=== PATIENT | male | born 1960 | race Caucasian/White ===

== ENCOUNTER 2017-12-11 16:53 | Inpatient (IN) | payer OTHER, SELFPAY ==
[2017-12-11 16:55] VITALS: BP 159/105; PULSE 118; RESP 20; TEMP 37.3; O2SAT 96; BMI 36.3
--- NOTE | 2017-12-11 17:33 | EKG12_ITS ---
Test Reason : Blood Pressure : / mmHG Vent. Rate : 106 BPM Atrial Rate : 106 BPM P-R Int : 132 ms QRS Dur : 068 ms QT Int : 318 ms P-R-T Axes : 052 032 039 degrees QTc Int : 422 ms Sinus tachycardia Otherwise normal ECG Confirmed by XAVIER DEL VALLE, RIO ([id number]), assistant film editor ANNALISE REINA ([id number] on 12/16/2017 2:42:25 PM Referred By: DC Confirmed By:RIO PARK MD
--- NOTE | 2017-12-11 17:38 | ED.VISSUMM ---
- ER Visit Summary Date of Service: 12/11/17 Chief Complaint: Alcohol withdrawal History of Present Illness: The patient is a 78 M with alcohol withdrawal. The patient has a history of alcoholism. He has been drinking every day for the past 2 months. His last use was yesterday evening. He drinks 12 or more beers per day. Denies any hard liquor or drug use. He has a history of DTs but no history of withdrawal seizures. He was admitted about a year ago for alcohol detox. He is requesting detox today. No suicidal or homicidal thoughts. No medical complaints. He has some nausea. Physical Examination: Blood pressure 159/105. Heart rate 118. Afebrile. Skin exhibits flushing. Heart tachycardic but regular. Lungs clear. Abdomen soft and nontender. Extremities nontender with no edema. Alert and oriented. Depressed. Test Results: EKG, labs, urine drug screen, alcohol level pending. Emergency Department Course and Treatment: Patient treated with IV fluids and Ativan while awaiting results. Workup fairly unremarkable. Alcohol level 160. ALT 76 and AST 88. Patient is improved after fluids and Ativan. Hospitalist contacted for admission. Treatment Plan: As above Disposition: Admission Impression: 1. Alcohol withdrawal This note was generated with [employer] dictation software. It may contain incorrect words, spelling, and punctuation that were not noted in review of the chart prior to signing ED Disposition - Plan for ED Patient: Chief Complaint: ETOH Intox Referrals: Jeff Mahmood MD [Primary Care Provider] -
[2017-12-11] MEDS: LORazepam 2 MG/ML Syringe 1 MG IV (18:02)
[2017-12-11] MEDS: 0.9% Normal Saline 1,000 ML 1000 ML IV (18:02)
[2017-12-11 18:13] LABS: Absolute Lymphocyte Count 1.03 X10^3/ul (0.83-4.51); Absolute Neutrophil Count 2.1 X10^3/uL (2.0-7.7); Basophil# 0.02 X10^3/uL; Basophil% 0.6 % (0-1); Eosinophil# 0.06 X10^3/uL; Eosinophils% 1.7 % (0-5); Hematocrit 46.2 % (40-54); Hemoglobin 15.8 g/dl (13.0-16.5); Lymphocyte # 1.03 X10^3/ul (4.0); Lymphocyte % 29.8 % (19-41); Mean Corp Hgb Conc 34.2 g/gl (32-36); Mean Corpuscular Hgb 30.9 pg (27.0-32.0); Mean Corpuscular Volume 90.4 fL (80-94); Mean Platelet Vol. 10.1 fl (6.2-12.0); Monocyte# 0.26 X10^3/uL; Monocyte% 7.5 % (0-10); Neutrophil # 2.09 X10^3/uL (2.7-7.7); Neutrophil % 60.4 % (47-70); Platelet Count 159 K/mm3 (150-450); RBC Distribution Width CV 12.6 % (11.6-14.6); RBC Distribution Width SD 41.7 fl (35.1-43.9); Red Blood Count 5.11 M/mm3 (4.6-6.2); White Blood Count 3.5 K/mm3 (4.4-11.0)
[2017-12-11 18:17] LABS: POSITIVE COUNT NO; POSITIVE DIFFERENTIAL NO; POSITIVE MORPHOLOGY NO
[2017-12-11 18:30] LABS: Amphetamine Urine VISTA NEGATIVE (<1000 ng/mL); Barbiturate Urine VISTA NEGATIVE (< 200 ng/mL); Benzodiazepine Urine VISTA NEGATIVE (< 200 ng/mL); Cocaine Urine VISTA NEGATIVE (< 300 ng/mL); Ecstacy Urine VISTA NEGATIVE (< 500 ng/mL); Methadone Urine VISTA NEGATIVE (< 300 ng/mL); PCP Urine VISTA NEGATIVE (< 25 ng/mL); THC Urine VISTA NEGATIVE (< 50 ng/mL); Vista UDS pH Range 5
[2017-12-11 18:31] LABS: AST(SGOT) 88 U/L (15-37); Alanine Aminotransfer ALT/SGPT 76 U/L (16-61); Albumin, Serum 3.8 g/dL (3.2-5.0); Alkaline Phosphatase 108 U/L (45-117); Anion Gap 12 (5-15); BUN 9 mg/dL (7-18); BUN/Creat Ratio 10.2 RATIO (10-20); Calcium,Total 8.7 mg/dL (8.5-10.1); Chloride 99 mmol/L (98-107); Creatinine, Serum 0.88 mg/dL (0.70-1.30); EST Glomerular Filtration Rate 94 mL/min (>60); Est Glom Filt Rate - Afr Amer 114 mL/min (>60); Estimated Creatinine Clearance 95.63 ml/min; Globulin 3.8 g/dL (2.2-4.2); Glucose 180 mg/dL (74-106); Potassium 3.6 mmol/L (3.5-5.1); Protein, Total 7.6 g/dL (6.4-8.2); Sodium Level 136 mmol/L (136-145)
--- NOTE | 2017-12-11 19:21 | PCM.HP.STD ---
Problem List (1) Alcohol withdrawal Status: Acute Qualifiers: Complication of substance-induced condition: with unspecified complication Qualified Code(s): F10.239 - Alcohol dependence with withdrawal, unspecified (2) Alcohol abuse Status: Chronic (3) Obesity Status: Chronic Qualifiers: Obesity type: due to excess calories Obesity classification: adult class 2 (BMI 35 - 39.9) (4) GERD (gastroesophageal reflux disease) Status: Chronic Qualifiers: Esophagitis presence: esophagitis presence not specified Qualified Code(s): K21.9 - Gastro-esophageal reflux disease without esophagitis (5) Anxiety and depression Status: Chronic (6) Hypertension Status: Chronic Qualifiers: Hypertension type: essential hypertension Qualified Code(s): I10 - Essential (primary) hypertension (7) DM2 (diabetes mellitus, type 2) Status: Chronic Qualifiers: Diabetes mellitus group home insulin use: without group home use Diabetes mellitus complication status: with unspecified complications Qualified Code(s): E11.8 - Type 2 diabetes mellitus with unspecified complications History of Present Illness Date of Admission: 12/11/17 Chief Complaint: Acute EtOH Withdrawal The patient is a 57 y/o M w/ PMHx: HTN, Diabetes mellitus type II, Anxiety and Depression, Obesity, GERD, ? Chronic COPD who presents to the [facility] ED on 12/11/17 w/ noted acute EtOH withdrawal, onset starting on day of ED presentation following last EtOH intake the evening prior with onset of nausea, tremors, agitation, tactile disturbances. Patient interested in attaining sober status. He was administered ativan IV in the ED prior to formal CIWA scoring. The patient does have history of DT. In the ED work-up included T 99.1, heart rate 118, BP 159/105 with noted missed medication regimens including his hypertensive regimen on day of presentation, respiratory rate 18, 97% on room air, CBC with WBC 3.5, hemoglobin 15.8, platelet 159 without shift, CMP with glucose 180, AST/ALT 88/76, urine drug screen negative, alcohol level 160. As noted in the emergency room patient administered IV Ativan 1 mg ?1 in addition to normal saline 1 L. He was most recently in acute rehab ~ 1 year prior and noted continued sobriety nearly 1 year following. Past Medical History Past Medical History (Chronic Problems): Chronic Problems Obesity (Chronic) GERD (gastroesophageal reflux disease) (Chronic) Anxiety and depression (Chronic) Hypertension (Chronic) DM2 (diabetes mellitus, type 2) (Chronic) Alcohol abuse (Chronic) Allergies Penicillins Adverse Reaction (Mild, Verified 12/11/17 16:55) red, itching strawberry Adverse Reaction (Mild, Verified 12/11/17 16:55) dont eat them anymore Home Medications: Ambulatory Orders Medication Instructions Recorded Albuterol Inhaler [Ventolin Hfa] 2 puff INHALATION Q6H PRN PRN 10/23/16 Dulaglutide [Trulicity] 0.75 mg SQ QWEEK 10/23/16 Lisinopril/Hydrochlorothiazide 1 each PO BID 10/23/16 [Zestoretic 20-12.5 mg Tablet] Metformin HCl [Metformin HCl ER] 1,500 mg PO DAILY 10/23/16 Pantoprazole Sodium [Protonix] 10 mg PO DAILY 10/23/16 Zolpidem Tartrate [Ambien] 10 mg PO DAILY PRN 10/23/16 Acetaminophen [Tylenol Tablet] 650 mg PO Q4H PRN PRN tablet 10/26/16 Amlodipine [Norvasc] 2.5 mg PO DAILY #30 tablet 10/26/16 Ibuprofen [Motrin] 800 mg PO Q8H PRN PRN tablet 10/26/16 Sertraline HCl [Zoloft] 50 mg PO DAILY #30 tablet 10/26/16 hydrOXYzine pamoate capsule 25 mg PO 4X/DAY PRN PRN #12 capsule 10/26/16 [Vistaril] Surgical History: - - Tonsillectomy, left shoulder replacement, gastric ulcer intervention, cholecystectomy, umbilical hernia repair. Psychiatric History: Anxiety, Depression Lives: Spouse/ Significant Other Smoking Status: Former smoker - Quit cigarette tobacco usage in 1999, prior to this 2 pack per day which was started in use. Tobacco Use: Non-smoker Alcohol: Heavy - Patient notes at least a 12 pack per day of 12 ounce beers, last intake evening prior at approximately 1030 to 11 PM. Drugs: None - *Family History Paternal History Items: - - Patient notes a paternal family history of heart disease, [place] in his 50s in addition to alcohol abuse history. Maternal History Items: No pertinent history Review of Systems Constitutional: Reports: Malaise, Weakness, Fatigue. Denies: Chills, Fever, Weight Change HEENT: Denies: Head Aches, Sinus Congestion, Sinus Drainage Cardiovascular: Denies: Chest Pain, Palpitations Respiratory: Reports: Wheezing. Denies: Cough, Shortness of breath at rest, Sputum production Gastrointestinal: Denies: Abdominal Pain, Nausea, Vomiting Genitourinary: Denies: Dysuria Musculoskeletal: Denies: Joint Pain, Joint Tenderness Skin: Denies: Rash, Wounds Neurological: Reports: Tremor. Denies: Focal weakness, Numbness, Tingling Psychiatric: Reports: Anxiety, Depression. Denies: Homicidal Ideations, Suicidal Ideations Hematologic/ Lymphatic: Denies: Easy Bruising, Easy Bleeding VTE Information - Inpt Only VTE Present on Admission: No VTE Mechan Device Prophylaxis: SCD's VTE Pharm Prophylaxis ordered?: Yes Subjective: Seated upright in the ED bed, more comfortable appearing following recent Ativan administration. Objective: Physical Examination: General: awake, alert, oriented x 3 and cooperative, seated upright in the ED bed in no apparent distress with recent Ativan administration. Skin: Flushed appearance, turgor, no icterus, cyanosis. HEENT: AT/NC, EOMI, PERRLA, MMM, no carotid bruits or JVD noted. Lungs: Manage breath sounds, greater bilateral bases, no rales, ronchi or wheezing. Heart: Mildly tachycardic with regular rhythm; no gallop, rub audible. Abdomen: soft, obese, NTTP, ND, normal BS, + HM. Extremities: no cyanosis, clubbing, or edema. Neurological: patient awake, alert, oriented x 3; cognitive function intact; pupils equally reactive to light and accomodation; cranial nerves II-XII grossly normal, moving all 4 extremities, no focal deficits, strength moderately to severely globally decreased secondary to acute presentation. Psychiatric: affect appears fatigued, no acute evidence of depressive or anxiety feelings. - Physical Exam Vital Signs Temp Pulse Resp BP Pulse Ox 99.1 F 118 H 20 H 159/105 H 96 12/11/17 16:55 12/11/17 16:55 12/11/17 16:55 12/11/17 16:55 12/11/17 16:55 Oxygen Delivery Method Room Air Weight: 253 lb 12.033 oz Body Mass Index (BMI) 36.3 Laboratory Tests Past 24 Hrs 12/11/17 12/11/17 12/11/17 17:35 17:43 17:43 WBC 3.5 L RBC 5.11 Hgb 15.8 Hct 46.2 MCV 90.4 MCH 30.9 MCHC 34.2 RDW 12.6 RDW Differential 41.7 Plt Count 159 MPV 10.1 Immature Gran % (Auto) 0.000 Neut % (Auto) 60.4 Lymph % (Auto) 29.8 [place] % (Auto) 7.5 Eos % (Auto) 1.7 Baso % (Auto) 0.6 Absolute Neuts (auto) 2.1 Absolute Lymphs (auto) 1.03 Total Counted Not Reportable Sodium 136 Potassium 3.6 Chloride 99 Carbon Dioxide 25.0 Anion Gap 12 BUN 9 Creatinine 0.88 Estim Creat Clear Calc 95.63 Est GFR (MDRD) Af Amer 114 Est GFR (MDRD) Non-Af 94 BUN/Creatinine Ratio 10.2 Glucose 180 H Calcium 8.7 Total Bilirubin 0.40 AST 88 H ALT 76 H Alkaline Phosphatase 108 Total Protein 7.6 Albumin 3.8 Globulin 3.8 Albumin/Globulin Ratio 1.0 Urine Opiates Screen NEGATIVE Urine Methadone Screen NEGATIVE Ur Barbiturates Screen NEGATIVE Ur Phencyclidine Scrn NEGATIVE Ur Amphetamines Screen NEGATIVE U Methamphetamin-MDMA NEGATIVE U Benzodiazepines Scrn NEGATIVE Urine Cocaine Screen NEGATIVE U Cannabinoids Screen NEGATIVE Ur Drug Screen Comment Ethyl Alcohol 12/11/17 17:43 WBC RBC Hgb Hct MCV MCH MCHC RDW RDW Differential Plt Count MPV Immature Gran % (Auto) Neut % (Auto) Lymph % (Auto) [place] % (Auto) Eos % (Auto) Baso % (Auto) Absolute Neuts (auto) Absolute Lymphs (auto) Total Counted Sodium Potassium Chloride Carbon Dioxide Anion Gap BUN Creatinine Estim Creat Clear Calc Est GFR (MDRD) Af Amer Est GFR (MDRD) Non-Af BUN/Creatinine Ratio Glucose Calcium Total Bilirubin AST ALT Alkaline Phosphatase Total Protein Albumin Globulin Albumin/Globulin Ratio Urine Opiates Screen Urine Methadone Screen Ur Barbiturates Screen Ur Phencyclidine Scrn Ur Amphetamines Screen U Methamphetamin-MDMA U Benzodiazepines Scrn Urine Cocaine Screen U Cannabinoids Screen Ur Drug Screen Comment Ethyl Alcohol 160.0 Assessment/Plan All Active Problems Alcohol withdrawal (Acute) The patient is a 57 y/o M w/ PMHx: HTN, Diabetes mellitus type II, Anxiety and Depression, Obesity, GERD, ? Chronic COPD who presents to the [facility] ED on 12/11/17 w/ noted acute EtOH withdrawal, onset starting on day of ED presentation following last EtOH intake the evening prior with onset of nausea, tremors, agitation, tactile disturbances. (1) Acute EtOH Withdrawal w/ History of prior DTs w/ Elevated LFTs: Will admit to [place], routine labs including CBC, CMP, urine for drug screen obtained in the ED, routine EKG ED obtained, will initiate and continue on [facility] service protocol with taper course of librium, as needed Seroquel, Catapres, Bentyl, Vistaril, IV fluids, IV antiemetics, Tylenol as needed for pain. Once patient clinically improved and completion of taper nearing will plan [facility] assistance for transition to next level of rehabilitation care. Mag, phos pending. Maintain on CIWA protocol. LFTs improved from prior levels noted in 2017, likely chronic. May consider liver US, hepatic profile outpatient. (2) Diabetes mellitus type II: Hold oral home regimen, hold trulicity regimen, ADA diet, accu checks w/ ISS. (3) Hypertension: Continue home regimen including Norvasc, lisinopril, hydrochlorothiazide with dosing upon admission given missed regimen on day of ED presentation, PRN hydralazine. (4) Hyperlipidemia: Patient noted history, but improved. Not on regimen, encourage repeat testing outpatient. (5) Obesity: Weight loss and lifestyle changes encouraged. (6) Suspected Chronic COPD: ATC duonebs, PRN albuterol, HOB, IS parameters. (7) Anxiety and depression: Continue home regimen sertraline. (8) GERD w/ Gastric Ulcer History: PPI. (9) DVT prophylaxis: SCDs, Lovenox. Code Visit Inpatient E&M: 11520 Init Hosp L3
[2017-12-11 19:25] VITALS: BP 189/109; PULSE 112; RESP 18; O2SAT 97
--- NOTE | 2017-12-11 19:25 | HP.PCM_ITS ---
Problem List (1) Alcohol withdrawal Status: Acute Qualifiers: Complication of substance-induced condition: with unspecified complication Qualified Code(s): F10.239 - Alcohol dependence with withdrawal, unspecified (2) Alcohol abuse Status: Chronic (3) Obesity Status: Chronic Qualifiers: Obesity type: due to excess calories Obesity classification: adult class 2 (BMI 35 - 39.9) (4) GERD (gastroesophageal reflux disease) Status: Chronic Qualifiers: Esophagitis presence: esophagitis presence not specified Qualified Code(s) : K21.9 - Gastro-esophageal reflux disease without esophagitis (5) Anxiety and depression Status: Chronic (6) Hypertension Status: Chronic Qualifiers: Hypertension type: essential hypertension Qualified Code(s): I10 - Essential (primary) hypertension (7) DM2 (diabetes mellitus, type 2) Status: Chronic Qualifiers: Diabetes mellitus senior care insulin use: without marine oil terminal superintendent use Diabetes mellitus complication status: with unspecified complications Qualified Code(s) : E11.8 - Type 2 diabetes mellitus with unspecified complications History of Present Illness Date of Admission: 12/11/17 Chief Complaint: Acute EtOH Withdrawal The patient is a 57 y/o M w/ PMHx: HTN, Diabetes mellitus type II, Anxiety and Depression, Obesity, GERD, ? Chronic COPD who presents to the [facility] ED on 12/11/17 w/ noted acute EtOH withdrawal, onset starting on day of ED presentation following last EtOH intake the evening prior with onset of nausea, tremors, agitation, tactile disturbances. Patient interested in attaining sober status. He was administered ativan IV in the ED prior to formal CIWA scoring. The patient does have history of DT. In the ED work-up included T 99.1, heart rate 118, BP 159/105 with noted missed medication regimens including his hypertensive regimen on day of presentation, respiratory rate 18, 97% on room air, CBC with WBC 3.5, hemoglobin 15.8, platelet 159 without shift, CMP with glucose 180, AST/ALT 88/76, urine drug screen negative, alcohol level 160. As noted in the emergency room patient administered IV Ativan 1 mg ?1 in addition to normal saline 1 L. He was most recently in acute rehab ~ 1 year prior and noted continued sobriety nearly 1 year following. Past Medical History Past Medical History (Chronic Problems): Chronic Problems Obesity (Chronic) GERD (gastroesophageal reflux disease) (Chronic) Anxiety and depression (Chronic) Hypertension (Chronic) DM2 (diabetes mellitus, type 2) (Chronic) Alcohol abuse (Chronic) Allergies Penicillins Adverse Reaction (Mild, Verified 12/11/17 16:55) red, itching strawberry Adverse Reaction (Mild, Verified 12/11/17 16:55) dont eat them anymore Home Medications: Ambulatory Orders Medication Instructions Recorded Albuterol Inhaler [Ventolin Hfa] 2 puff INHALATION Q6H PRN PRN 10/23/16 Dulaglutide [Trulicity] 0.75 mg SQ QWEEK 10/23/16 Lisinopril/Hydrochlorothiazide 1 each PO BID 10/23/16 [Zestoretic 20-12.5 mg Tablet] Metformin HCl [Metformin HCl ER] 1,500 mg PO DAILY 10/23/16 Pantoprazole Sodium [Protonix] 10 mg PO DAILY 10/23/16 Zolpidem Tartrate [Ambien] 10 mg PO DAILY PRN 10/23/16 Acetaminophen [Tylenol Tablet] 650 mg PO Q4H PRN PRN tablet 10/26/16 Amlodipine [Norvasc] 2.5 mg PO DAILY #30 tablet 10/26/16 Ibuprofen [Motrin] 800 mg PO Q8H PRN PRN tablet 10/26/16 Sertraline HCl [Zoloft] 50 mg PO DAILY #30 tablet 10/26/16 hydrOXYzine pamoate capsule 25 mg PO 4X/DAY PRN PRN #12 capsule 10/26/16 [Vistaril] Surgical History: - - Tonsillectomy, left shoulder replacement, gastric ulcer intervention, cholecystectomy, umbilical hernia repair. Psychiatric History: Anxiety, Depression Lives: Spouse/ Significant Other Smoking Status: Former smoker - Quit cigarette tobacco usage in 1999, prior to this 2 pack per day which was started in use. Tobacco Use: Non-smoker Alcohol: Heavy - Patient notes at least a 12 pack per day of 12 ounce beers, last intake evening prior at approximately 1030 to 11 PM. Drugs: None - *Family History Paternal History Items: - - Patient notes a paternal family history of heart disease, [place] in his 50s in addition to alcohol abuse history. Maternal History Items: No pertinent history Review of Systems Constitutional: Reports: Malaise, Weakness, Fatigue. Denies: Chills, Fever, Weight Change HEENT: Denies: Head Aches, Sinus Congestion, Sinus Drainage Cardiovascular: Denies: Chest Pain, Palpitations Respiratory: Reports: Wheezing. Denies: Cough, Shortness of breath at rest, Sputum production Gastrointestinal: Denies: Abdominal Pain, Nausea, Vomiting Genitourinary: Denies: Dysuria Musculoskeletal: Denies: Joint Pain, Joint Tenderness Skin: Denies: Rash, Wounds Neurological: Reports: Tremor. Denies: Focal weakness, Numbness, Tingling Psychiatric: Reports: Anxiety, Depression. Denies: Homicidal Ideations, Suicidal Ideations Hematologic/ Lymphatic: Denies: Easy Bruising, Easy Bleeding VTE Information - Inpt Only VTE Present on Admission: No VTE Mechan Device Prophylaxis: SCD's VTE Pharm Prophylaxis ordered?: Yes Subjective: Seated upright in the ED bed, more comfortable appearing following recent Ativan administration. Objective: Physical Examination: General: awake, alert, oriented x 3 and cooperative, seated upright in the ED bed in no apparent distress with recent Ativan administration. Skin: Flushed appearance, turgor, no icterus, cyanosis. HEENT: AT/NC, EOMI, PERRLA, MMM, no carotid bruits or JVD noted. Lungs: Manage breath sounds, greater bilateral bases, no rales, ronchi or wheezing. Heart: Mildly tachycardic with regular rhythm; no gallop, rub audible. Abdomen: soft, obese, NTTP, ND, normal BS, + HM. Extremities: no cyanosis, clubbing, or edema. Neurological: patient awake, alert, oriented x 3; cognitive function intact; pupils equally reactive to light and accomodation; cranial nerves II-XII grossly normal, moving all 4 extremities, no focal deficits, strength moderately to severely globally decreased secondary to acute presentation. Psychiatric: affect appears fatigued, no acute evidence of depressive or anxiety feelings. - Physical Exam Vital Signs Temp Pulse Resp BP Pulse Ox 99.1 F 118 H 20 H 159/105 H 96 12/11/17 16:55 12/11/17 16:55 12/11/17 16:55 12/11/17 16:55 12/11/17 16:55 Oxygen Delivery Method Room Air Weight: 253 lb 12.033 oz Body Mass Index (BMI) 36.3 Laboratory Tests Past 24 Hrs 12/11/17 12/11/17 12/11/17 17:35 17:43 17:43 WBC 3.5 L RBC 5.11 Hgb 15.8 Hct 46.2 MCV 90.4 MCH 30.9 MCHC 34.2 RDW 12.6 RDW Differential 41.7 Plt Count 159 MPV 10.1 Immature Gran % (Auto) 0.000 Neut % (Auto) 60.4 Lymph % (Auto) 29.8 [place] % (Auto) 7.5 Eos % (Auto) 1.7 Baso % (Auto) 0.6 Absolute Neuts (auto) 2.1 Absolute Lymphs (auto) 1.03 Total Counted Not Reportable Sodium 136 Potassium 3.6 Chloride 99 Carbon Dioxide 25.0 Anion Gap 12 BUN 9 Creatinine 0.88 Estim Creat Clear Calc 95.63 Est GFR (MDRD) Af Amer 114 Est GFR (MDRD) Non-Af 94 BUN/Creatinine Ratio 10.2 Glucose 180 H Calcium 8.7 Total Bilirubin 0.40 AST 88 H ALT 76 H Alkaline Phosphatase 108 Total Protein 7.6 Albumin 3.8 Globulin 3.8 Albumin/Globulin Ratio 1.0 Urine Opiates Screen NEGATIVE Urine Methadone Screen NEGATIVE Ur Barbiturates Screen NEGATIVE Ur Phencyclidine Scrn NEGATIVE Ur Amphetamines Screen NEGATIVE U Methamphetamin-MDMA NEGATIVE U Benzodiazepines Scrn NEGATIVE Urine Cocaine Screen NEGATIVE U Cannabinoids Screen NEGATIVE Ur Drug Screen Comment Ethyl Alcohol 12/11/17 17:43 WBC RBC Hgb Hct MCV MCH MCHC RDW RDW Differential Plt Count MPV Immature Gran % (Auto) Neut % (Auto) Lymph % (Auto) [place] % (Auto) Eos % (Auto) Baso % (Auto) Absolute Neuts (auto) Absolute Lymphs (auto) Total Counted Sodium Potassium Chloride Carbon Dioxide Anion Gap BUN Creatinine Estim Creat Clear Calc Est GFR (MDRD) Af Amer Est GFR (MDRD) Non-Af BUN/Creatinine Ratio Glucose Calcium Total Bilirubin AST ALT Alkaline Phosphatase Total Protein Albumin Globulin Albumin/Globulin Ratio Urine Opiates Screen Urine Methadone Screen Ur Barbiturates Screen Ur Phencyclidine Scrn Ur Amphetamines Screen U Methamphetamin-MDMA U Benzodiazepines Scrn Urine Cocaine Screen U Cannabinoids Screen Ur Drug Screen Comment Ethyl Alcohol 160.0 Assessment/Plan All Active Problems Alcohol withdrawal (Acute) The patient is a 57 y/o M w/ PMHx: HTN, Diabetes mellitus type II, Anxiety and Depression, Obesity, GERD, ? Chronic COPD who presents to the [facility] ED on 12/11/17 w/ noted acute EtOH withdrawal, onset starting on day of ED presentation following last EtOH intake the evening prior with onset of nausea, tremors, agitation, tactile disturbances. (1) Acute EtOH Withdrawal w/ History of prior DTs w/ Elevated LFTs: Will admit to [place], routine labs including CBC, CMP, urine for drug screen obtained in the ED , routine EKG ED obtained, will initiate and continue on [facility] service protocol with taper course of librium, as needed Seroquel, Catapres, Bentyl, Vistaril, IV fluids, IV antiemetics, Tylenol as needed for pain. Once patient clinically improved and completion of taper nearing will plan [facility] assistance for transition to next level of rehabilitation care. Mag, phos pending. Maintain on CIWA protocol. LFTs improved from prior levels noted in 2017, likely chronic. May consider liver US, hepatic profile outpatient. (2) Diabetes mellitus type II: Hold oral home regimen, hold trulicity regimen, ADA diet, accu checks w/ ISS. (3) Hypertension: Continue home regimen including Norvasc, lisinopril, hydrochlorothiazide with dosing upon admission given missed regimen on day of ED presentation, PRN hydralazine. (4) Hyperlipidemia: Patient noted history, but improved. Not on regimen, encourage repeat testing outpatient. (5) Obesity: Weight loss and lifestyle changes encouraged. (6) Suspected Chronic COPD: ATC duonebs, PRN albuterol, HOB, IS parameters. (7) Anxiety and depression: Continue home regimen sertraline. (8) GERD w/ Gastric Ulcer History: PPI. (9) DVT prophylaxis: SCDs, Lovenox. Code Visit Inpatient E&M: 21350 Init Hosp L3
[2017-12-11 19:54] VITALS: BP 189/109; PULSE 81; RESP 18; O2SAT 96
[2017-12-11 20:01] VITALS: BMI 36.3
[2017-12-11 20:10] LABS: Bedside Glucose 111 mg/dL (70-110)
[2017-12-11 20:14] VITALS: BP 189/102; PULSE 111; RESP 20; TEMP 37; O2SAT 96; BMI 36.3
[2017-12-11] MEDS: traZODone 50 MG Tablet PO (20:45)
[2017-12-11] MEDS: chlordiazePOXIDE 25 MG Capsule PO (20:45)
[2017-12-11] MEDS: Lisinopril 20 MG Tablet PO (20:45)
[2017-12-11 20:46] LABS: Magnesium 2.1 mg/dL (1.6-2.6); Phosphorus 2.9 mg/dL (2.5-4.9)
[2017-12-11] MEDS: Lactated Ringers 1,000 ML 125 ML IV (20:53)
[2017-12-11] MEDS: HYDROCHLOROTHIAZIDE 12.5 MG CAPSULE PO (20:53)
[2017-12-11 22:36] VITALS: O2SAT 96
[2017-12-11] MEDS: QUEtiapine 25 MG Tablet PO (23:35)
[2017-12-11] MEDS: Ibuprofen 600 MG Tablet PO (23:35)
[2017-12-11] MEDS: Methocarbamol 750 MG Tablet PO (23:35)
[2017-12-12] VITALS (7 sets, daily range): BP systolic 151–162; BP diastolic 80–103; PULSE 90–105; RESP 16–18; TEMP 36.3–37; O2SAT 94–96
[2017-12-12] MEDS: chlordiazePOXIDE 25 MG Capsule PO ×4 (01:50→21:48)
[2017-12-12 06:36] LABS: Bedside Glucose 138 mg/dL (70-110)
--- NOTE | 2017-12-12 08:46 | PCM.PN.HOSP ---
Subjective: Patient is a 57-year-old gentleman with history of chronic alcohol is admitted with acute alcohol withdrawal patient admitted to regular nursing floor currently undergoing medical stabilization using the [facility] alcohol withdrawal protocol Objective: GENERAL: cooperative . HEENT: Clear conjunctiva, NECK; supple, normal thyroid, CHEST: Clear to auscultation bilaterally, HEART: Regular S1 S2, no audible murmurs ABDOMEN: soft, non-tender, normoactive bowel sounds, RECTAL: deferred EXTREMITIES: No edema, no clubbing, no cyanosis. MAGNETIC DOCTOR: Awake; no lateralizing signs. SKIN: No Rash Vitals/I&O's: Vital Signs Temp Pulse Resp BP Pulse Ox 98.4 F 95 16 158/97 H 96 12/12/17 06:21 12/12/17 06:21 12/12/17 06:21 12/12/17 06:21 12/11/17 22:36 Oxygen Delivery Method Room Air Weight: 114.759 kg Body Mass Index (BMI) 36.3 Intake and Output for Last 24 Hours 12/10/17 12/11/17 12/12/17 23:59 23:59 23:59 Intake Total 337 / 337 774 / 774 Balance 337 / 337 774 / 774 Laboratory Results 12/11/17 20:07: POC Glucose 111 H 12/12/17 06:12: POC Glucose 138 H Current Medications Acetaminophen (Tylenol) 500 mg PO Q4H PRN PRN PRN Reason: Temp > 100.4 F Al Hydroxide/Mg Hydroxide (Mylanta Ii) 30 ml PO Q6H PRN PRN PRN Reason: dyspesia Albuterol Sulfate (Ventolin Aerosols) 2.5 mg INHALATION Q2H PRN PRN PRN Reason: dyspnea, wheezing Albuterol/Ipratropium (Duoneb) 3 ml INHALATION Q6HWA.RT PATI Last Admin: 12/11/17 22:35 Dose: Not Given Amlodipine Besylate (Norvasc) 2.5 mg PO DAILY PATI Last Admin: 12/11/17 20:44 Dose: Not Given Bisacodyl (Dulcolax) 10 mg RECTAL DAILY PRN PRN Reason: Constipation Chlordiazepoxide (Librium) 50 mg PO Q6H PATI PRN Reason: Taper Stop: 12/14/17 22:29 Last Admin: 12/12/17 01:50 Dose: 50 mg Dicyclomine HCl (Bentyl) 20 mg PO Q6H PRN PRN PRN Reason: abdominal discomfort Enoxaparin Sodium (Lovenox) 40 mg SC DAILY@1000 [facility] Folic Acid (Folic Acid) [facility] Hydralazine HCl (Apresoline Iv) 10 mg IV Q4H PRN PRN PRN Reason: SBP > 160 Hydrochlorothiazide (Hydrochlorothiazide) 12.5 mg PO BID [facility] Last Admin: 12/11/17 20:53 Dose: 12.5 mg Hydroxyzine Pamoate (Vistaril Pamoate Capsule) 50 mg PO Q6H PRN PRN PRN Reason: Mild Anxiety (score 1/3) Ibuprofen (Motrin) 600 mg PO Q8H PRN PRN PRN Reason: Mild-Moderate Pain (1-5/10) Last Admin: 12/11/17 23:35 Dose: 600 mg Insulin Human Lispro (Humalog Kwikpen (Bkc)) 0 unit SC ACHS [facility] PRN Reason: Protocol Last Admin: 12/12/17 06:22 Dose: Not Given Lisinopril (Zestril) 20 mg PO BID [facility] Last Admin: 12/11/17 20:45 Dose: 20 mg Loperamide HCl (Imodium) 2 - 4 mg PO UD PRN PRN Reason: LOOSE STOOLS Lorazepam (Ativan) 1 mg IV Q4H PRN PRN PRN Reason: Severe Anxiety Magnesium Hydroxide (Milk Of Magnesia) 30 ml PO DAILY PRN PRN PRN Reason: Constipation Methocarbamol (Methocarbamol) 750 mg PO Q6H PRN PRN PRN Reason: Muscle Aches Last Admin: 12/11/17 23:35 Dose: 750 mg Multivitamins (Multivitamin) [facility] Ondansetron HCl (Zofran Odt) 4 mg PO Q6H PRN PRN PRN Reason: NAUSEA Pantoprazole Sodium (Protonix) 40 mg PO DAILY [facility] Quetiapine Fumarate (Seroquel) 25 mg PO Q6H PRN PRN PRN Reason: agitation, anxiety Last Admin: 12/11/17 23:35 Dose: 25 mg Senna (Senokot) 1 tablet PO QHS PRN PRN Reason: Constipation Sodium Chloride () 5 - 30 ml IV UD PRN PRN Reason: SALINE FLUSH Thiamine HCl (Vitamin B1) 100 mg PO DAILYCM PATI Trazodone HCl (Desyrel) 50 mg PO QHS [facility] Last Admin: 12/11/17 20:45 Dose: 50 mg Medical Necessity - Tobacco Use Smoking Status: Former smoker Tobacco Use: Cigarettes Assessment/Plan All Active Problems Alcohol withdrawal (Acute) Patient is a 57-year-old gentleman with history of chronic alcohol is admitted with acute alcohol withdrawal 1. Acute alcohol withdrawal patient has been admitted to regular nursing floor currently undergoing medical stabilization using the [facility] protocol 2. Diabetes mellitus type II: Controlled, patient's oral hypoglycemics held. Placed on Accu-Cheks a.c. and at bedtime and covered with sliding scale insulin 3. Hypertension-blood pressure controlled, home medications continued with dose adjustment as needed 4. Dyslipidemia-patient is on statin therapy, continued at home dose 5. Obesity with BMI of 36.3 with loss advised 5. Depression with anxiety patient is an SSRI 6. GERD 7. History of gastric ulcer patient is on PPI 8. DVT prophylaxis Lovenox x. Code Visit Inpatient E&M: 34743 Subs Hosp L3
--- NOTE | 2017-12-12 08:49 | PN_ITS ---
Subjective: Patient is a 57-year-old gentleman with history of chronic alcohol is admitted with acute alcohol withdrawal patient admitted to regular nursing floor currently undergoing medical stabilization using the [facility] alcohol withdrawal protocol Objective: GENERAL: cooperative . HEENT: Clear conjunctiva, NECK; supple, normal thyroid, CHEST: Clear to auscultation bilaterally, HEART: Regular S1 S2, no audible murmurs ABDOMEN: soft, non-tender, normoactive bowel sounds, RECTAL: deferred EXTREMITIES: No edema, no clubbing, no cyanosis. ICE MAKER: Awake; no lateralizing signs. SKIN: No Rash Vitals/I&O's: Vital Signs Temp Pulse Resp BP Pulse Ox 98.4 F 95 16 158/97 H 96 12/12/17 06:21 12/12/17 06:21 12/12/17 06:21 12/12/17 06:21 12/11/17 22:36 Oxygen Delivery Method Room Air Weight: 114.759 kg Body Mass Index (BMI) 36.3 Intake and Output for Last 24 Hours 12/10/17 12/11/17 12/12/17 23:59 23:59 23:59 Intake Total 337 / 337 774 / 774 Balance 337 / 337 774 / 774 Laboratory Results 12/11/17 20:07: POC Glucose 111 H 12/12/17 06:12: POC Glucose 138 H Current Medications Acetaminophen (Tylenol) 500 mg PO Q4H PRN PRN PRN Reason: Temp > 100.4 F Al Hydroxide/Mg Hydroxide (Mylanta Ii) 30 ml PO Q6H PRN PRN PRN Reason: dyspesia Albuterol Sulfate (Ventolin Aerosols) 2.5 mg INHALATION Q2H PRN PRN PRN Reason: dyspnea, wheezing Albuterol/Ipratropium (Duoneb) 3 ml INHALATION Q6HWA.RT PATI Last Admin: 12/11/17 22:35 Dose: Not Given Amlodipine Besylate (Norvasc) 2.5 mg PO DAILY PATI Last Admin: 12/11/17 20:44 Dose: Not Given Bisacodyl (Dulcolax) 10 mg RECTAL DAILY PRN PRN Reason: Constipation Chlordiazepoxide (Librium) 50 mg PO Q6H PATI PRN Reason: Taper Stop: 12/14/17 22:29 Last Admin: 12/12/17 01:50 Dose: 50 mg Dicyclomine HCl (Bentyl) 20 mg PO Q6H PRN PRN PRN Reason: abdominal discomfort Enoxaparin Sodium (Lovenox) 40 mg SC DAILY@1000 [facility] Folic Acid (Folic Acid) [facility] Hydralazine HCl (Apresoline Iv) 10 mg IV Q4H PRN PRN PRN Reason: SBP > 160 Hydrochlorothiazide (Hydrochlorothiazide) 12.5 mg PO BID [facility] Last Admin: 12/11/17 20:53 Dose: 12.5 mg Hydroxyzine Pamoate (Vistaril Pamoate Capsule) 50 mg PO Q6H PRN PRN PRN Reason: Mild Anxiety (score 1/3) Ibuprofen (Motrin) 600 mg PO Q8H PRN PRN PRN Reason: Mild-Moderate Pain (1-5/10) Last Admin: 12/11/17 23:35 Dose: 600 mg Insulin Human Lispro (Humalog Kwikpen (Bkc)) 0 unit SC ACHS [facility] PRN Reason: Protocol Last Admin: 12/12/17 06:22 Dose: Not Given Lisinopril (Zestril) 20 mg PO BID [facility] Last Admin: 12/11/17 20:45 Dose: 20 mg Loperamide HCl (Imodium) 2 - 4 mg PO UD PRN PRN Reason: LOOSE STOOLS Lorazepam (Ativan) 1 mg IV Q4H PRN PRN PRN Reason: Severe Anxiety Magnesium Hydroxide (Milk Of Magnesia) 30 ml PO DAILY PRN PRN PRN Reason: Constipation Methocarbamol (Methocarbamol) 750 mg PO Q6H PRN PRN PRN Reason: Muscle Aches Last Admin: 12/11/17 23:35 Dose: 750 mg Multivitamins (Multivitamin) [facility]ILY[facility] Ondansetron HCl (Zofran Odt) 4 mg PO Q6H PRN PRN PRN Reason: NAUSEA Pantoprazole Sodium (Protonix) 40 mg PO DAILY [facility] Quetiapine Fumarate (Seroquel) 25 mg PO Q6H PRN PRN PRN Reason: agitation, anxiety Last Admin: 12/11/17 23:35 Dose: 25 mg Senna (Senokot) 1 tablet PO QHS PRN PRN Reason: Constipation Sodium Chloride () 5 - 30 ml IV UD PRN PRN Reason: SALINE FLUSH Thiamine HCl (Vitamin B1) 100 mg PO DAILYCM PATI Trazodone HCl (Desyrel) 50 mg PO QHS [facility] Last Admin: 12/11/17 20:45 Dose: 50 mg Medical Necessity - Tobacco Use Smoking Status: Former smoker Tobacco Use: Cigarettes Assessment/Plan All Active Problems Alcohol withdrawal (Acute) Patient is a 57-year-old gentleman with history of chronic alcohol is admitted with acute alcohol withdrawal 1. Acute alcohol withdrawal patient has been admitted to regular nursing floor currently undergoing medical stabilization using the [facility] protocol 2. Diabetes mellitus type II: Controlled, patient's oral hypoglycemics held. Placed on Accu-Cheks a.c. and at bedtime and covered with sliding scale insulin 3. Hypertension-blood pressure controlled, home medications continued with dose adjustment as needed 4. Dyslipidemia-patient is on statin therapy, continued at home dose 5. Obesity with BMI of 36.3 with loss advised 5. Depression with anxiety patient is an SSRI 6. GERD 7. History of gastric ulcer patient is on PPI 8. DVT prophylaxis Lovenox x. Code Visit Inpatient E&M: 31133 Subs Hosp L3
[2017-12-12] MEDS: Thiamine Hydrochloride 100 MG Tablet PO (08:51)
[2017-12-12] MEDS: Multivitamins,Therapeutic Tablet 1 TABLET PO (08:51)
[2017-12-12] MEDS: Folic Acid 1 MG Tablet PO (08:51)
[2017-12-12] MEDS: Pantoprazole Sodium 40 MG Tablet PO (08:52)
[2017-12-12] MEDS: HYDROCHLOROTHIAZIDE 12.5 MG CAPSULE PO ×2 (08:52→21:44)
[2017-12-12] MEDS: Lisinopril 20 MG Tablet PO ×2 (08:52→21:44)
[2017-12-12] MEDS: amLODIPine 2.5 MG Tablet PO (08:52)
[2017-12-12] MEDS: Ibuprofen 600 MG Tablet PO (11:58)
[2017-12-12] MEDS: Insulin Lispro 100 UNIT/ML INSULN.PEN SC ×3 (11:59→21:43)
--- NOTE | 2017-12-12 13:27 | CASEMGMT ---
Pt is part of the [facility] program and they will work with him for discharge plans and resources. ESTEFANIA Ibarra, MANAGER [place]
[2017-12-12] MEDS: hydrOXYzine PAM 25 MG Capsule 50 MG PO ×2 (15:41→21:48)
[2017-12-12 17:00] LABS: Bedside Glucose 188 mg/dL (70-110)
[2017-12-12 17:55] LABS: Bedside Glucose 163 mg/dL (70-110)
--- NOTE | 2017-12-12 20:47 | NURSING ---
IV removed per patient request.
[2017-12-12] MEDS: traZODone 50 MG Tablet PO (21:45)
[2017-12-12] MEDS: QUEtiapine 25 MG Tablet PO (21:48)
[2017-12-12 22:01] LABS: Bedside Glucose 377 mg/dL (70-110)
[2017-12-13] VITALS (7 sets, daily range): BP systolic 128–146; BP diastolic 76–91; PULSE 88–110; RESP 16–18; TEMP 36.4–36.8; O2SAT 96–99
[2017-12-13] MEDS: Ibuprofen 600 MG Tablet PO ×2 (06:05→15:23)
[2017-12-13] MEDS: chlordiazePOXIDE 25 MG Capsule PO ×3 (06:06→21:55)
[2017-12-13] MEDS: Insulin Lispro 100 UNIT/ML INSULN.PEN SC ×4 (06:37→21:57)
[2017-12-13 06:46] LABS: Bedside Glucose 179 mg/dL (70-110)
[2017-12-13] MEDS: Thiamine Hydrochloride 100 MG Tablet PO (08:01)
[2017-12-13] MEDS: Folic Acid 1 MG Tablet PO (08:01)
[2017-12-13] MEDS: Multivitamins,Therapeutic Tablet 1 TABLET PO (08:01)
--- NOTE | 2017-12-13 08:35 | PCM.PN.HOSP ---
Subjective: Patient is sitting upright in the chair. alcohol withdrawal symptoms are well controlled on medications. Denies tremor, sweating, muscle twitching/pain or hallucination. No abdominal pain/vomiting. Patient had history of small bowel ulcer probably duodenal ulcer and had open laparotomy, ulcer surgery with small bowel resection about 15 years ago. He also had EGD 15 years ago and a year ago. Patient had last colonoscopy 1 year ago. He is on PPI at home. Vitals/I&O's: Vital Signs Temp Pulse Resp BP Pulse Ox 98.1 F 88 18 129/76 H 99 12/13/17 07:54 12/13/17 07:54 12/13/17 07:54 12/13/17 07:54 12/13/17 07:54 Oxygen Delivery Method Room Air Weight: 253 lb Body Mass Index (BMI) 36.3 Intake and Output for Last 24 Hours 12/11/17 12/12/17 12/13/17 23:59 23:59 23:59 Intake Total 337 / 337 1574 / 1574 Balance 337 / 337 1574 / 1574 General: Alert, Oriented x3, Cooperative HEENT: Atraumatic, PERRLA, EOMI, Normocephalic Neck: Supple, No JVD, Negative Carotid Bruits Lungs: Clear to auscultation, Normal air movement, No rhonchi, No wheeze, No rales Cardiovascular: Regular rate, No murmurs Abdomen: Bowel Sounds Present, Soft, Non Tender, Non-Distended, - - Upper midline abdominal surgery Extremities: No edema, Capillary Refill Less than 3 Seconds Skin: No rashes, No breakdown Musculoskeletal: No Tenderness to Palpation of Joints or Extremities, Arthritic Changes Neurological: Cranial nerves II-XII grossly intact Psych/Mental Status: Normal Affect, Appropriate Laboratory Results 12/12/17 11:54: POC Glucose 188 H 12/12/17 16:53: POC Glucose 163 H 12/12/17 21:42: POC Glucose 377 H 12/13/17 06:36: POC Glucose 179 H Current Medications Acetaminophen (Tylenol) 500 mg PO Q4H PRN PRN PRN Reason: Temp > 100.4 F Al Hydroxide/Mg Hydroxide (Mylanta Ii) 30 ml PO Q6H PRN PRN PRN Reason: dyspesia Albuterol Sulfate (Ventolin Aerosols) 2.5 mg INHALATION Q2H PRN PRN PRN Reason: dyspnea, wheezing Albuterol/Ipratropium (Duoneb) 3 ml INHALATION Q6HWA.RT [facility] Last Admin: 12/13/17 06:45 Dose: Not Given Amlodipine Besylate (Norvasc) 2.5 mg PO DAILY [facility] Last Admin: 12/12/17 08:52 Dose: 2.5 mg Artificial Tears (Tears Naturale, Artificial Tears) 1 drop EACH EYE Q1H PRN PRN PRN Reason: DRY EYES Last Admin: 12/13/17 08:02 Dose: 1 drop Bisacodyl (Dulcolax) 10 mg RECTAL DAILY PRN PRN Reason: Constipation Chlordiazepoxide (Librium) 50 mg PO Q8H [facility] PRN Reason: Taper Stop: 12/14/17 22:29 Last Admin: 12/13/17 06:06 Dose: 50 mg Dicyclomine HCl (Bentyl) 20 mg PO Q6H PRN PRN PRN Reason: abdominal discomfort Enoxaparin Sodium (Lovenox) 40 mg SC DAILY@1000 [facility] Last Admin: 12/12/17 08:52 Dose: Not Given [facility]olic [facility]) [facility] Last Admin: 12/13/17 08:01 Dose: 1 mg Hydralazine HCl (Apresoline Iv) 10 mg IV Q4H PRN PRN PRN Reason: SBP > 160 Hydrochlorothiazide (Hydrochlorothiazide) 12.5 mg PO BID [facility] Last Admin: 12/12/17 21:44 Dose: 12.5 mg Hydroxyzine Pamoate (Vistaril Pamoate Capsule) 50 mg PO Q6H PRN PRN PRN Reason: Mild Anxiety (score 1/3) Last Admin: 12/12/17 21:48 Dose: 50 mg Ibuprofen (Motrin) 600 mg PO Q8H PRN PRN PRN Reason: Mild-Moderate Pain (1-5/10) Last Admin: 12/13/17 06:05 Dose: 600 mg Insulin Human Lispro (Humalog Kwikpen (Bkc)) 0 unit SC [facility] PRN Reason: Protocol Last Admin: 12/13/17 06:37 Dose: 1 units Lisinopril (Zestril) 20 mg PO BID [facility] Last Admin: 12/12/17 21:44 Dose: 20 mg Loperamide HCl (Imodium) 2 - 4 mg PO UD PRN PRN Reason: LOOSE STOOLS Lorazepam (Ativan) 1 mg IV Q4H PRN PRN PRN Reason: Severe Anxiety Magnesium Hydroxide (Milk Of Magnesia) 30 ml PO DAILY PRN PRN PRN Reason: Constipation Methocarbamol (Methocarbamol) 750 mg PO Q6H PRN PRN PRN Reason: Muscle Aches Last Admin: 12/11/17 23:35 Dose: 750 mg Multivitamins (Multivitamin) [facility] Last Admin: 12/13/17 08:01 Dose: 1 tablet Ondansetron HCl (Zofran Odt) 4 mg PO Q6H PRN PRN PRN Reason: NAUSEA Pantoprazole Sodium (Protonix) 40 mg PO DAILY [facility] Last Admin: 12/12/17 08:52 Dose: 40 mg Quetiapine Fumarate (Seroquel) 25 mg PO Q6H PRN PRN PRN Reason: agitation, anxiety Last Admin: 12/12/17 21:48 Dose: 25 mg Senna (Senokot) 1 tablet PO QHS PRN PRN Reason: Constipation Sodium Chloride () 5 - 30 ml IV UD PRN PRN Reason: SALINE FLUSH Thiamine HCl (Vitamin B1) [facility] Last Admin: 12/13/17 08:01 Dose: 100 mg Trazodone HCl (Desyrel) 50 mg PO QHS [facility] Last Admin: 12/12/17 21:45 Dose: 50 mg Medical Necessity - Tobacco Use Smoking Status: Former smoker Tobacco Use: Cigarettes Assessment/Plan All Active Problems Alcohol withdrawal (Acute) Laboratory Results Patient is a 57-year-old gentleman with history of chronic alcohol is admitted with acute alcohol withdrawal 1. Acute alcohol withdrawal patient has been admitted to regular nursing floor currently undergoing medical stabilization using the [facility] protocol 2. Diabetes mellitus type II: Controlled, patient's oral hypoglycemics held. Placed on Accu-Cheks a.c. and at bedtime and covered with sliding scale insulin. Lantus insulin increased 3. Hypertension-blood pressure controlled, home medications continued with dose adjustment as needed 4. Dyslipidemia-patient is on statin therapy, continued at home dose 5. Obesity with BMI of 36.3 with loss advised 5. Depression with anxiety patient is an SSRI 6. GERD 7. History of peptic ulcer mostly duodenal ulcer status post laparotomy, small bowel resection; details unknown about 15 years ago: On PPI 8. DVT prophylaxis Lovenox 12/12/17 11:54: POC Glucose 188 H 12/12/17 16:53: POC Glucose 163 H 12/12/17 21:42: POC Glucose 377 H 12/13/17 06:36: POC Glucose 179 H Code Visit Inpatient E&M: 24871 [facility] Hosp L2
[2017-12-13] MEDS: Pantoprazole Sodium 40 MG Tablet PO (09:43)
[2017-12-13] MEDS: amLODIPine 2.5 MG Tablet PO (09:43)
[2017-12-13] MEDS: HYDROCHLOROTHIAZIDE 12.5 MG CAPSULE PO ×2 (09:43→21:57)
[2017-12-13] MEDS: Lisinopril 20 MG Tablet PO ×2 (09:44→21:56)
[2017-12-13 11:21] LABS: Bedside Glucose 288 mg/dL (70-110)
--- NOTE | 2017-12-13 15:17 | CHAPLAIN ---
Type of Pastoral Visit _x__ Initial Visit ___ Follow-up Visit ___ On-call Visit ___ General Patient Visit ___ Spiritual Assessment ___ Family Conference ___ Bereavement ___ Rapid Response ___ Code Blue ___ Other (describe below) Pastoral Care Referral From _x__ Patient ___ Family ___ Nurse ___ Physician ___ Milled Rubber Tender ___ Mannequin Coloring Artist ___ Other (describe below) Sacrament/Intervention _x__ Active listening ___ Anointing ___ Islam _x__ Bereavement ___ Communion _x__ Radha exploration ___ _x__ Life review _x__ Prayer ___ Reconciliation ___ Sacrament of Sick _x__ Supportive presence ___ Wedding ___ Other (describe below) Pastoral Comments introduced self and role of chief meteorologist to patient; pt was eager to talk and said that it is boring in this room all day; pt gave life review and spoke of regrets; pt revealed grief issues of daughter's to heroin and stresses of raising his granddaughter, etc.; pt has had years of sobriety but has relapsed; pt had some radha heritage but has not followed that into adulthood and shows some interest in reconnection to God; pt said that I really needed that after long conversation which he gave much information; pt had tears talking about his daughter; prayer welcomed
[2017-12-13] MEDS: Methocarbamol 750 MG Tablet PO (15:23)
[2017-12-13 17:15] LABS: Bedside Glucose 225 mg/dL (70-110)
[2017-12-13] MEDS: Acetaminophen 500 MG Tablet PO (19:44)
[2017-12-13] MEDS: traZODone 50 MG Tablet PO (21:57)
[2017-12-13 22:05] LABS: Bedside Glucose 320 mg/dL (70-110)
[2017-12-14 02:30] VITALS: BP 134/76; PULSE 87; RESP 18; TEMP 36.6
[2017-12-14] MEDS: Ibuprofen 600 MG Tablet PO (06:50)
[2017-12-14 06:51] LABS: Bedside Glucose 225 mg/dL (70-110)
[2017-12-14] MEDS: Insulin Lispro 100 UNIT/ML INSULN.PEN SC (06:51)
[2017-12-14] MEDS: hydrOXYzine PAM 25 MG Capsule 50 MG PO (06:55)
[2017-12-14 07:43] VITALS: PULSE 93; RESP 18
[2017-12-14] MEDS: Ipratropium/Albuterol Sulfate 3 ML AMPUL.NEB INHALATION (07:43)
--- NOTE | 2017-12-14 09:44 | PCM.DC ---
- Discharge Diagnoses Current Active Problems: Current Active and Chronic Problems Obesity (Chronic) GERD (gastroesophageal reflux disease) (Chronic) Anxiety and depression (Chronic) You will use the following diet at home:: Calorie/Carbohydrate Controlled (specify 1200, 1400, etc) - 1800 ADA diet Your food should be the consistency of: Regular Discharge Activity: May Not Drive Call your doctor if you observe: Fever of 101 or Higher, Numbness or Tingling, Inability to have a bowel movement, Shortness of breath, Dizziness Additional Instructions: Follow-up with outpatient alcohol rehab program Allergies/Adverse Reactions: Allergies Penicillins Adverse Reaction (Mild, Verified 12/11/17 16:55) red, itching strawberry Adverse Reaction (Mild, Verified 12/11/17 16:55) dont eat them anymore Medications to take at Discharge Albuterol Inhaler [Ventolin Hfa] 2 puff INHALATION Q6H PRN PRN 10/23/16 Dulaglutide [Trulicity] 0.75 mg SQ MO 10/23/16 Lisinopril/Hydrochlorothiazide [Zestoretic 20-12.5 mg Tablet] 1 each PO BID 10/23/16 Metformin HCl [Metformin HCl ER] 750 mg PO BID 10/23/16 Pantoprazole Sodium [Protonix] 40 mg PO DAILY 10/23/16 Zolpidem Tartrate [Ambien] 10 mg PO DAILY PRN 10/23/16 Acetaminophen [Tylenol Tablet] 650 mg PO Q4H PRN PRN tablet 10/26/16 Amlodipine [Norvasc] 2.5 mg PO DAILY #30 tab 12/14/17 Thiamine Hydrochloride [Vitamin B1] 100 mg PO DAILYCM #0 tablet 12/14/17 The following prescriptions were given: Amlodipine [Norvasc] 2.5 mg PO DAILY #30 tab Primary Care Physician: Jeff Mahmood MD [Primary Care Provider] - Please follow up with your Primary Care Physician in: In 1-2 weeks Test Results: Test results from this visit will be discussed in further detail at your follow-up appointment, if applicable.
[2017-12-14 09:46] VITALS: BP 134/93; PULSE 94; RESP 18; TEMP 36.4
--- NOTE | 2017-12-14 09:46 | PCM.DC.SUM ---
Discharge Date and Diagnosis Date of Admission: 12/11/17 Date of Discharge: 12/14/17 - Primary Discharge Diagnosis Acute alcohol withdrawal History of peptic ulcer mostly duodenal ulcer status post laparotomy, small bowel resection AND H/o GERD; - Secondary Discharge Diagnosis Chronic Problems Obesity (Chronic) GERD (gastroesophageal reflux disease) (Chronic) Anxiety and depression (Chronic) Hypertension (Chronic) DM2 (diabetes mellitus, type 2) (Chronic) Alcohol abuse (Chronic) Hospital Course and Treatment Operations: None Summary of Care Provided: [] Patient is a 57-year-old gentleman with history of chronic alcohol is admitted with acute alcohol withdrawal 1. Acute alcohol withdrawal patient has been admitted to regular nursing floor currently undergoing medical stabilization using the [facility] protocol. alcohol withdrawal symptoms are well controlled on medications. Denies tremor, sweating, muscle twitching/pain or hallucination. No abdominal pain/vomiting. Alcohol cessation advised. 2. Diabetes mellitus type II: Controlled, patient's oral hypoglycemics held. Placed on Accu-Cheks a.c. and at bedtime and covered with sliding scale insulin. Lantus insulin increased 3. Hypertension-blood pressure controlled, home medications continued with dose adjustment as needed 4. Dyslipidemia-patient is on statin therapy, continued at home dose 5. Obesity with BMI of 36.3 with loss advised 5. Depression with anxiety patient is an SSRI 6. GERD 7. History of peptic ulcer mostly duodenal ulcer status post laparotomy, small bowel resection; details unknown about 15 years ago: Patient had history of small bowel ulcer probably duodenal ulcer and had open laparotomy, ulcer surgery with small bowel resection about 15 years ago. He also had EGD 15 years ago and a year ago. Patient had last colonoscopy 1 year ago. He is on PPI at home. 8. DVT prophylaxis Lovenox Discharge medication reconciliation done. Follow-up instructions given. Total time spent, exact 35 minutes on discharge meds reconciliation, examination, review of imaging and blood test and discussion with the patient on follow-up instructions. Discharge Activity: May Not Drive Call your doctor if you observe: Fever of 101 or Higher, Numbness or Tingling, Inability to have a bowel movement, Shortness of breath, Dizziness Home Medications: Medications to take at Discharge Albuterol Inhaler [Ventolin Hfa] 2 puff INHALATION Q6H PRN PRN 10/23/16 Dulaglutide [Trulicity] 0.75 mg SQ MO 10/23/16 Lisinopril/Hydrochlorothiazide [Zestoretic 20-12.5 mg Tablet] 1 each PO BID 10/23/16 Metformin HCl [Metformin HCl ER] 750 mg PO BID 10/23/16 Pantoprazole Sodium [Protonix] 40 mg PO DAILY 10/23/16 Zolpidem Tartrate [Ambien] 10 mg PO DAILY PRN 10/23/16 Acetaminophen [Tylenol Tablet] 650 mg PO Q4H PRN PRN tablet 10/26/16 Amlodipine [Norvasc] 2.5 mg PO DAILY #30 tab 12/14/17 Thiamine Hydrochloride [Vitamin B1] 100 mg PO DAILYCM #0 tablet 12/14/17 Following Prescrptions Were Given to Patient: Amlodipine [Norvasc] 2.5 mg PO DAILY #30 tab Primary Care Physician: Jeff Mahmood MD [Primary Care Provider] - Please follow up with your Primary Care Physician in: In 1-2 weeks Medical Necessity - Tobacco Use Smoking Status: Former smoker Tobacco Use: Cigarettes Meaningful Use Info Meaningful Use Diagnoses (Choose all that apply): None applicable Code Visit Inpatient E&M: 15581 Disch Hosp
[2017-12-14] MEDS: Pantoprazole Sodium 40 MG Tablet PO (09:52)
[2017-12-14] MEDS: Thiamine Hydrochloride 100 MG Tablet PO (09:52)
[2017-12-14] MEDS: Multivitamins,Therapeutic Tablet 1 TABLET PO (09:52)
[2017-12-14] MEDS: chlordiazePOXIDE 25 MG Capsule PO (09:52)
[2017-12-14] MEDS: HYDROCHLOROTHIAZIDE 12.5 MG CAPSULE PO (09:52)
[2017-12-14] MEDS: amLODIPine 2.5 MG Tablet PO (09:52)
[2017-12-14] MEDS: Folic Acid 1 MG Tablet PO (09:52)
[2017-12-14] MEDS: Lisinopril 20 MG Tablet PO (09:52)
== END 2017-12-14 10:06 | disposition home or self-care (01) | DRG 897 ==
LOC: ED 17:58 → MS2 19:51
PROVIDERS: Admitting Provider Family Medicine; Emergency Provider Emergency Medicine; Family Provider Family Medicine; PCP Family Medicine; Visit Provider Internal Medicine
DX: F10.239 Alcohol dependence with withdrawal, unspecified (principal); E11.9 Type 2 diabetes mellitus without complications; Z79.84 Long term (current) use of oral hypoglycemic drugs; E78.5 Hyperlipidemia, unspecified; Z68.36 Body mass index [BMI] 36.0-36.9, adult; E66.9 Obesity, unspecified; I10 Essential (primary) hypertension; F41.8 Other specified anxiety disorders; Z87.11 Personal history of peptic ulcer disease; K21.9 Gastro-esophageal reflux disease without esophagitis; Z87.891 Personal history of nicotine dependence
CPT/HCPCS: 80053; 80307; 80320; 82962; 83735; 84100; 85025; 93005; 94640; 99283; J7030; J7120; A4216; G0480

== ENCOUNTER 2018-09-28 16:23 | Inpatient (IN) | payer OTHER, SELFPAY ==
[2018-09-28 16:24] VITALS: BP 156/92; PULSE 111; RESP 18; TEMP 36.7; O2SAT 95; BMI 38.8
[2018-09-28] MEDS: 0.9% Normal Saline 1,000 ML 150 ML IV (16:54)
[2018-09-28 17:04] LABS: Absolute Lymphocyte Count 0.63 X10^3/ul (0.83-4.51); Absolute Neutrophil Count 2.3 X10^3/uL (2.0-7.7); Basophil# 0.03 X10^3/uL; Basophil% 0.9 % (0-1); Eosinophil# 0.04 X10^3/uL; Eosinophils% 1.2 % (0-5); Hematocrit 44.7 % (40-54); Hemoglobin 15.6 g/dl (13.0-16.5); Lymphocyte # 0.63 X10^3/ul (4.0); Lymphocyte % 19.1 % (19-41); Mean Corp Hgb Conc 34.9 g/gl (32-36); Mean Corpuscular Volume 91.8 fL (80-94); Mean Platelet Vol. 9.9 fl (6.2-12.0); Monocyte# 0.34 X10^3/uL; Monocyte% 10.3 % (0-10); Neutrophil # 2.25 X10^3/uL (2.7-7.7); Neutrophil % 68.2 % (47-70); POSITIVE COUNT NO; POSITIVE DIFFERENTIAL NO; POSITIVE MORPHOLOGY NO; Platelet Count 131 K/mm3 (150-450); RBC Distribution Width CV 12.3 % (11.6-14.6); RBC Distribution Width SD 40.6 fl (35.1-43.9); Red Blood Count 4.87 M/mm3 (4.6-6.2); White Blood Count 3.3 K/mm3 (4.4-11.0)
[2018-09-28 17:20] LABS: Amphetamine Urine VISTA NEGATIVE (<1000 ng/mL); Barbiturate Urine VISTA NEGATIVE (< 200 ng/mL); Benzodiazepine Urine VISTA NEGATIVE (< 200 ng/mL); Cocaine Urine VISTA NEGATIVE (< 300 ng/mL); Ecstacy Urine VISTA NEGATIVE (< 500 ng/mL); Methadone Urine VISTA NEGATIVE (< 300 ng/mL); PCP Urine VISTA NEGATIVE (< 25 ng/mL); THC Urine VISTA NEGATIVE (< 50 ng/mL); Vista UDS pH Range 6
[2018-09-28 17:21] LABS: AST(SGOT) 347 U/L (15-37); Alanine Aminotransfer ALT/SGPT 192 U/L (16-61); Albumin, Serum 3.8 g/dL (3.2-5.0); Alkaline Phosphatase 130 U/L (45-117); Anion Gap 7 (5-15); BUN 9 mg/dL (7-18); BUN/Creat Ratio 10.8 RATIO (10-20); Calcium,Total 8.6 mg/dL (8.5-10.1); Chloride 98 mmol/L (98-107); Creatinine, Serum 0.84 mg/dL (0.70-1.30); EST Glomerular Filtration Rate 100 mL/min (>60); Est Glom Filt Rate - Afr Amer 121 mL/min (>60); Estimated Creatinine Clearance 93.87 ml/min; Globulin 3.7 g/dL (2.2-4.2); Glucose 98 mg/dL (74-106); Lipase 601 U/L (73-393); Potassium 3.7 mmol/L (3.5-5.1); Protein, Total 7.5 g/dL (6.4-8.2); Sodium Level 131 mmol/L (136-145)
[2018-09-28 19:00] VITALS: BP 136/87; PULSE 99; RESP 15; TEMP 36.7; O2SAT 95
--- NOTE | 2018-09-28 20:13 | ED.VISSUMM ---
- ER Visit Summary Date of Service: 09/28/18 Chief Complaint: [Request for detox from alcohol] History of Present Illness: The patient is a 57 M [the emergency department with request for detox from alcohol today. Patient states that he last drank alcohol about 4 hours ago. Patient states that he normally drinks between 12-24 beers per day. His last detox was about a year ago. Patient states that he is tired of feeling sick from alcohol. He denies feeling suicidal or homicidal. Patient denies any nausea or vomiting. He denies any diarrhea. Patient does have a history of diabetes, hypertension, GERD, alcohol abuse. Patient has had prior cholecystectomy. Patient denies any illicit drug use.] Physical Examination: [HEENT-PERRLA, EOMI. Cranial nerves II through XII grossly intact. TMs clear. Mucous membranes moist. No adenopathy. Cardiovascular-regular rate and rhythm without murmur or ectopy Lungs-clear to auscultation, chest wall stable without crepitus or subcu emphysema Abdomen-normoactive bowel sounds, soft, nontender, no rebound or rigidity, no peritoneal signs. Extremities-intact ?4, normal range of motion, normal pulses, atraumatic] Test Results: [CBC with differential obtained showed a white count 3.3, hemoglobin 15.6, hematocrit 45, placed 131. Chemistries unremarkable. LFTs were elevated with an alk phos of 130, ALT 192, AST 347. Lipase was 601. Alcohol was 331. Toxicology screen was negative.] Emergency Department Course and Treatment: [Patient initially did not qualify for withdrawal. He was observed in the emergency department until 10 PM at which time his CIWA score was 26. Now patient complaining of feeling shaky, headache, nausea, anxiety. He was given Librium and Zofran.] Treatment Plan: [Admit for detox from alcohol and alcohol withdrawal] Disposition: [Admit] Impression: [EtOH withdrawal Alcohol detox] This note was generated with [employer] dictation software. It may contain incorrect words, spelling, and punctuation that were not noted in review of the chart prior to signing ED Disposition - Plan for ED Patient: Referrals: Jeff Mahmood MD [Primary Care Provider] -
[2018-09-28 21:58] VITALS: BP 173/101; PULSE 110; RESP 15; O2SAT 96
[2018-09-28] MEDS: Ondansetron 4 MG/2 ML Vial IV (22:05)
[2018-09-28] MEDS: chlordiazePOXIDE 25 MG Capsule 50 MG PO (22:17)
--- NOTE | 2018-09-28 22:18 | PCM.HP.STD ---
Problem List (1) GERD (gastroesophageal reflux disease) Status: Chronic Qualifiers: Esophagitis presence: esophagitis presence not specified Qualified Code(s): K21.9 - Gastro-esophageal reflux disease without esophagitis (2) Anxiety and depression Status: Chronic (3) Hypertension Status: Chronic Qualifiers: Hypertension type: essential hypertension Qualified Code(s): I10 - Essential (primary) hypertension (4) DM2 (diabetes mellitus, type 2) Status: Chronic Qualifiers: Diabetes mellitus detention insulin use: without detention use Diabetes mellitus complication status: with unspecified complications (5) Alcohol withdrawal Status: Acute Qualifiers: Complication of substance-induced condition: with unspecified complication Qualified Code(s): F10.239 - Alcohol dependence with withdrawal, unspecified (6) Alcohol abuse Status: Chronic History of Present Illness Date of Admission: 09/28/18 Chief Complaint: Acute alcohol withdrawal. The patient is a 57 year old M with past medical history as mentioned above presented to the emergency room requesting admission for acute alcohol withdrawal for medical stabilization. Patient was brought by his to the ED requesting admission for detox. Initially, patient CIWA score was low in the ED. He stated in the emergency room for 6 hours and started having hand tremors, restlessness and shakiness. His heart rate and blood pressure started to go up and his CIWA score is high. At this time, his main symptoms are hand tremors, restlessness and shakiness that are uncontrollable. He mentioned that he is not able to function at home because of continuous drinking. He has been having issues with ambulation and balance because he is always drunk. He admitted for detoxification twice in the past, 1 and 2017 and another admission in 2018. He relapsed after both treatments. History of hypertension, has been on Norvasc and Zestoretic and his blood pressure usually on the higher side because of alcohol drinking. He has a history of type 2 diabetes mellitus which seemed to be under control with metformin. He has a history of suspected COPD, has been on albuterol inhaler and he quit smoking. In the emergency department, patient was tachycardic, blood pressure was elevated, other vital signs were stable. His routine blood work was remarkable for sodium of 131, otherwise normal. LFT revealed elevated liver transaminases as well as slightly elevated alkaline phosphatase. His lipase was 601. Blood alcohol level was 331. Urine drug screen is negative. He is being admitted for acute alcohol intoxication/withdrawal, elevated LFT and mild acute pancreatitis. Past Medical History Past Medical History (Chronic Problems): Chronic Problems Obesity (Chronic) GERD (gastroesophageal reflux disease) (Chronic) Anxiety and depression (Chronic) Hypertension (Chronic) DM2 (diabetes mellitus, type 2) (Chronic) Alcohol abuse (Chronic) Allergies Penicillins Adverse Reaction (Mild, Verified 09/28/18 16:23) red, itching strawberry Adverse Reaction (Mild, Verified 09/28/18 16:23) dont eat them anymore Home Medications: Ambulatory Orders Medication Instructions Recorded Albuterol Inhaler [Ventolin Hfa] 2 puff INHALATION Q6H PRN PRN 10/23/16 Lisinopril/Hydrochlorothiazide 1 each PO DAILY 10/23/16 [Zestoretic 20-12.5 mg Tablet] Metformin HCl [Metformin HCl ER] 750 mg PO BID 10/23/16 Pantoprazole Sodium [Protonix] 40 mg PO DAILY 10/23/16 Zolpidem Tartrate [Ambien] 10 mg PO DAILY PRN 10/23/16 Acetaminophen [Tylenol Tablet] 650 mg PO Q4H PRN PRN tablet 10/26/16 Amlodipine [Norvasc] 2.5 mg PO DAILY #30 tab 12/14/17 Thiamine Hydrochloride [Vitamin B1] 100 mg PO DAILYCM #0 tablet 12/14/17 Surgical History: - - Tonsillectomy, left shoulder replacement, gastric ulcer intervention, cholecystectomy, umbilical hernia repair. Psychiatric History: Anxiety, Depression Lives: Spouse/ Significant Other Smoking Status: Former smoker Alcohol: Heavy Drugs: None - *Family History Paternal History Items: - - Patient notes a paternal family history of heart disease, [place] in his 50s in addition to alcohol abuse history. Maternal History Items: No pertinent history Review of Systems Constitutional: Reports: Anorexia. Denies: Chills, Fever, Weakness Eyes: Denies: Blurred vision, Double vision, Drainage, Redness HEENT: Denies: Difficulty Hearing, Ear Pain, Eye Pain, Nasal Congestion, Sore Throat Cardiovascular: Denies: Chest Pain, Chest Tightness, Heaviness, Light Headedness, Palpitations, Syncope Respiratory: Denies: Cough, Pleuritic Pain, Shortness of Breath, Sputum production, Wheezing Gastrointestinal: Reports: Nausea. Denies: Abdominal Pain, Constipation, Diarrhea, Vomiting Genitourinary: Denies: Dysuria, Frequency, Hematuria Musculoskeletal: Denies: Arm Pain, Back Pain, Foot Pain Skin: Denies: Dryness, Rash Neurological: Reports: Balance problems. Denies: Double vision, Change in Speech, Slurred speech, Confusion, Headaches, Incoordination, Numbness Psychiatric: Reports: Anxiety, Depression Endocrine: Denies: Change in Body Habitus, Polydipsia, Polyuria VTE Information - Inpt Only VTE Present on Admission: No VTE Mechan Device Prophylaxis: None VTE Pharm Prophylaxis ordered?: No - Physical Exam General: Alert, Oriented x3, Cooperative, - - Anxious, restless. HEENT: Atraumatic, PERRLA, EOMI, Normocephalic Oral: Moist Mucosa, No Gingival or Mucosal Lesions/ Ulcerations Neck: Supple, No JVD, Negative Carotid Bruits, Trachea Midline, Thyroid Normal Size and Texture Lungs: Clear to auscultation, Normal air movement, No rhonchi, No wheeze, No rales, Diminished Cardiovascular: Regular rate, Regular Rhythm, Normal S1, Normal S2, No murmurs, PMI Normal, Tachycardic Abdomen: Bowel Sounds Present, Soft, Non Tender, Non-Distended, No Hepato-splenomegaly, Obese Extremities: No clubbing, No cyanosis, No edema Skin: No rashes, No breakdown Lymphatic: No Cervical, Supraclavicular, or Inguinal Adenopathy Neurological: Cranial nerves II-XII grossly intact, Motor Exam 5/5 strength throughout Psych/Mental Status: Anxious, Suicidal, Alert and oriented to time, place, person, mood and affect Vital Signs Temp Pulse Resp BP Pulse Ox 98.1 F 110 H 15 173/101 H 96 09/28/18 19:00 09/28/18 21:58 09/28/18 21:58 09/28/18 21:58 09/28/18 21:58 Oxygen Delivery Method Room Air Weight: 255 lb 4.725 oz Body Mass Index (BMI) 38.8 Laboratory Tests Past 24 Hrs 09/28/18 09/28/18 09/28/18 16:50 16:50 16:50 WBC 3.3 L RBC 4.87 Hgb 15.6 Hct 44.7 MCV 91.8 MCH 32.0 MCHC 34.9 RDW 12.3 RDW Differential 40.6 Plt Count 131 L MPV 9.9 Immature Gran % (Auto) 0.300 Neut % (Auto) 68.2 Lymph % (Auto) 19.1 [place] % (Auto) 10.3 H Eos % (Auto) 1.2 Baso % (Auto) 0.9 Absolute Neuts (auto) 2.3 Absolute Lymphs (auto) 0.63 L Total Counted Not Reportable Sodium 131 L Potassium 3.7 Chloride 98 Carbon Dioxide 26.0 Anion Gap 7 BUN 9 Creatinine 0.84 Estim Creat Clear Calc 93.87 Est GFR (MDRD) Af Amer 121 Est GFR (MDRD) Non-Af 100 BUN/Creatinine Ratio 10.8 Glucose 98 Calcium 8.6 Total Bilirubin 0.50 AST 347 H ALT 192 H Alkaline Phosphatase 130 H Total Protein 7.5 Albumin 3.8 Globulin 3.7 Albumin/Globulin Ratio 1.0 Lipase 601 H Urine Opiates Screen Urine Methadone Screen Ur Barbiturates Screen Ur Phencyclidine Scrn Ur Amphetamines Screen U Methamphetamin-MDMA U Benzodiazepines Scrn Urine Cocaine Screen U Cannabinoids Screen Ur Drug Screen Comment Ethyl Alcohol 331.0 H* 09/28/18 16:55 WBC RBC Hgb Hct MCV MCH MCHC RDW RDW Differential Plt Count MPV Immature Gran % (Auto) Neut % (Auto) Lymph % (Auto) [place] % (Auto) Eos % (Auto) Baso % (Auto) Absolute Neuts (auto) Absolute Lymphs (auto) Total Counted Sodium Potassium Chloride Carbon Dioxide Anion Gap BUN Creatinine Estim Creat Clear Calc Est GFR (MDRD) Af Amer Est GFR (MDRD) Non-Af BUN/Creatinine Ratio Glucose Calcium Total Bilirubin AST ALT Alkaline Phosphatase Total Protein Albumin Globulin Albumin/Globulin Ratio Lipase Urine Opiates Screen NEGATIVE Urine Methadone Screen NEGATIVE Ur Barbiturates Screen NEGATIVE Ur Phencyclidine Scrn NEGATIVE Ur Amphetamines Screen NEGATIVE U Methamphetamin-MDMA NEGATIVE U Benzodiazepines Scrn NEGATIVE Urine Cocaine Screen NEGATIVE U Cannabinoids Screen NEGATIVE Ur Drug Screen Comment Ethyl Alcohol Assessment/Plan All Active Problems Alcohol withdrawal (Acute) This is a 57 years old male patient presented to the emergency room requesting admission for acute alcohol withdrawal for medical stabilization, found to have probable mild acute pancreatitis as well as elevated LFT. #1 acute alcohol intoxication/withdrawal: Patient is a very heavy drinker. He had admission for detox twice in the past but he relapsed. His blood alcohol level is 331. Urine drug screen is negative. He is tachycardic, hypertensive. Plan: Admit to [facility] floor, telemetry monitoring, keep on clear liquids for now because of probable pancreatitis, IV fluids, initiate [facility] protocol with tapering course of Ativan, folic acid and thiamine supplement, as needed methocarbamol, Zofran, Bentyl, Tylenol, notify [facility] program tomorrow morning. #2 elevated LFT: Both liver transaminases are chronically elevated but they are more elevated today which is likely because of acute or chronic hepatitis. Patient denied any right upper quadrant pain. total bilirubin is normal. No evidence of acute liver failure. Plan for IV fluids, clear liquids, #3 probable mild acute alcoholic pancreatitis: lipase is 601. Patient denies any abdominal pain. Plan clear liquids, IV fluids, repeat CMP and lipase tomorrow morning. #4 hypertension: Blood pressure is elevated, continue Norvasc, lisinopril and HCTZ, start IV hydralazine PRN. #5 type 2 diabetes mellitus: Accu-Cheks, continue metformin, insulin sliding-scale. #6 GERD: Continue Protonix. #7 suspected COPD: Pulse ox is maintained on room air. Stable. Plan for albuterol as needed. #8 DVT prophylaxis: Low risk patient, no prophylaxis indicated. Ambulate. This note was generated with [employer] dictation software. It may contain incorrect words, spelling, and punctuation that were not noted in checking the note before signing. Code Visit Inpatient E&M: 03606 Init Hosp L2
--- NOTE | 2018-09-28 22:22 | NURSING ---
pt requesting is blood sugar to be checked. noted at 141
[2018-09-28 22:31] LABS: Bedside Glucose 141 mg/dL (70-110)
[2018-09-28 22:55] VITALS: BP 174/103; PULSE 103; RESP 18; TEMP 36.9; O2SAT 96
[2018-09-28 22:56] VITALS: BMI 38.8
[2018-09-28 23:31] VITALS: BP 156/95; PULSE 104
[2018-09-28 23:32] VITALS: BP 156/95; PULSE 104; RESP 18; TEMP 36.9
[2018-09-28] MEDS: LORazepam 1 MG Tablet PO (23:39)
[2018-09-28] MEDS: 0.9% Normal Saline 1,000 ML 100 ML IV (23:41)
[2018-09-28] MEDS: 0.9% NaCl Peripheral Flush Adult/Peds IV (23:43)
[2018-09-28] MEDS: Methocarbamol 750 MG Tablet PO (23:58)
[2018-09-29] VITALS (20 sets, daily range): BP systolic 130–179; BP diastolic 89–102; PULSE 86–141; RESP 16–18; TEMP 36.6–37.2; O2SAT 96–100
[2018-09-29] MEDS: Zolpidem Tartrate 5 MG Tablet PO ×2 (00:02→21:39)
[2018-09-29] MEDS: LORazepam 1 MG Tablet PO ×5 (03:32→19:46)
[2018-09-29] MEDS: Ondansetron ODT 4 MG Tablet PO ×3 (06:47→21:39)
[2018-09-29] MEDS: 0.9% NaCl Peripheral Flush Adult/Peds IV ×2 (06:48→11:28)
[2018-09-29] MEDS: hydrALAZINE 20 MG/ML Vial 10 MG IV ×2 (06:48→15:23)
[2018-09-29 07:05] LABS: Bedside Glucose 132 mg/dL (70-110)
[2018-09-29 07:15] LABS: ALB/GLOB Ratio 0.9 RATIO (0.9-2.4); AST(SGOT) 316 U/L (15-37); Alanine Aminotransfer ALT/SGPT 183 U/L (16-61); Albumin, Serum 3.6 g/dL (3.2-5.0); Alkaline Phosphatase 125 U/L (45-117); Anion Gap 11 (5-15); BUN 9 mg/dL (7-18); BUN/Creat Ratio 11.3 RATIO (10-20); Calcium,Total 8.5 mg/dL (8.5-10.1); Chloride 102 mmol/L (98-107); EST Glomerular Filtration Rate 106 mL/min (>60); Est Glom Filt Rate - Afr Amer 128 mL/min (>60); Estimated Creatinine Clearance 98.56 ml/min; Globulin 3.8 g/dL (2.2-4.2); Glucose 121 mg/dL (74-106); Lipase 471 U/L (73-393); Protein, Total 7.4 g/dL (6.4-8.2); Sodium Level 135 mmol/L (136-145)
--- NOTE | 2018-09-29 08:00 | PCM.PN.HOSP ---
Subjective: The patient is in alcohol withdrawal syndrome with tachycardia, heart rate 124, hypertension, 176/102, visibly shaking and tremors but denies hallucination. Patient does not have visual, auditory or tactile hallucination. Feels nausea but no vomiting or diarrhea. Restlessness and anxiety present. Patient has alcoholic hepatitis and history of hypertension. Vitals/I&O's: Vital Signs Temp Pulse Resp BP Pulse Ox 99 F 124 H 18 167/91 H 98 09/29/18 06:36 09/29/18 07:44 09/29/18 06:36 09/29/18 07:44 09/29/18 06:36 Oxygen Delivery Method Room Air Weight: 255 lb 4.725 oz Body Mass Index (BMI) 38.8 Intake and Output for Last 24 Hours 09/27/18 09/28/18 09/29/18 23:59 23:59 23:59 Intake Total 1088 / 1088 Output Total 350 / 350 Balance 738 / 738 General: Alert, Oriented x3, Cooperative HEENT: Atraumatic, PERRLA, EOMI, Normocephalic Neck: Supple, No JVD, Negative Carotid Bruits Lungs: Clear to auscultation, Normal air movement Cardiovascular: Regular Rhythm, Normal S1, Normal S2, No murmurs, Tachycardic Abdomen: Bowel Sounds Present, Soft, Non Tender, Non-Distended Extremities: No edema, Capillary Refill Less than 3 Seconds Skin: No rashes, No breakdown Musculoskeletal: No Tenderness to Palpation of Joints or Extremities Lymphatic: No Cervical, Supraclavicular, or Inguinal Adenopathy Neurological: Cranial nerves II-XII grossly intact, Deep Tendon Reflexes 2+/4 and Symmetrical, Neuro grossly intact Psych/Mental Status: Agitated, Anxious Laboratory Results 09/28/18 16:50: WBC 3.3 L, RBC 4.87, Hgb 15.6, Hct 44.7, MCV 91.8, MCH 32.0, MCHC 34.9, RDW 12.3, RDW Differential 40.6, Plt Count 131 L, MPV 9.9, Immature Gran % (Auto) 0.300, Neut % (Auto) 68.2, Lymph % (Auto) 19.1, [place] % (Auto) 10.3 H, Eos % (Auto) 1.2, Baso % (Auto) 0.9, Absolute Neuts (auto) 2.3, Absolute Lymphs (auto) 0.63 L, Total Counted Not Reportable 09/28/18 16:50: Sodium 131 L, Potassium 3.7, Chloride 98, Carbon Dioxide 26.0, Anion Gap 7, BUN 9, Creatinine 0.84, Estim Creat Clear Calc 93.87, Est GFR (MDRD) Af Amer 121, Est GFR (MDRD) Non-Af 100, BUN/Creatinine Ratio 10.8, Glucose 98, Calcium 8.6, Total Bilirubin 0.50, AST 347 H, ALT 192 H, Alkaline Phosphatase 130 H, Total Protein 7.5, Albumin 3.8, Globulin 3.7, Albumin/Globulin Ratio 1.0, Lipase 601 H 09/28/18 16:50: Ethyl Alcohol 331.0 H* 09/28/18 16:55: Urine Opiates Screen NEGATIVE, Urine Methadone Screen NEGATIVE, Ur Barbiturates Screen NEGATIVE, Ur Phencyclidine Scrn NEGATIVE, Ur Amphetamines Screen NEGATIVE, U Methamphetamin-MDMA NEGATIVE, U Benzodiazepines Scrn NEGATIVE, Urine Cocaine Screen NEGATIVE, U Cannabinoids Screen NEGATIVE, Ur Drug Screen Comment 09/28/18 22:21: POC Glucose 141 H 09/29/18 05:14: Sodium 135 L, Potassium 4.0, Chloride 102, Carbon Dioxide 22.0, Anion Gap 11, BUN 9, Creatinine 0.80, Estim Creat Clear Calc 98.56, Est GFR (MDRD) Af Amer 128, Est GFR (MDRD) Non-Af 106, BUN/Creatinine Ratio 11.3, Glucose 121 H, Calcium 8.5, Total Bilirubin 0.80, AST 316 H, ALT 183 H, Alkaline Phosphatase 125 H, Total Protein 7.4, Albumin 3.6, Globulin 3.8, Albumin/Globulin Ratio 0.9, Lipase 471 H 09/29/18 06:53: POC Glucose 132 H Current Medications Acetaminophen (Tylenol) 500 mg PO Q4H PRN PRN PRN Reason: Temp > 100.4 F Al Hydroxide/Mg Hydroxide (Mylanta Ii) 30 ml PO Q6H PRN PRN PRN Reason: dyspesia Albuterol Sulfate (Ventolin Aerosols) 2.5 mg INHALATION Q4H PRN PRN PRN Reason: Shortness of breath, wheezing Amlodipine Besylate (Norvasc) 2.5 mg PO DAILY [facility] Bisacodyl (Dulcolax) 10 mg RECTAL DAILY PRN PRN Reason: Constipation Chlordiazepoxide (Librium) 0 mg PO UD [facility]; Taper Stop: 10/02/18 09:59 Clonidine (Catapres) 0.2 mg PO BID [facility] Dicyclomine HCl (Bentyl) 20 mg PO Q6H PRN PRN PRN Reason: abdominal discomfort Folic [facility] (Folic Acid) [facility] Stop: 10/01/18 08:01 Lisinopril/HCTZ (Zestoretic 20/12.5 Tablet) tablet PO DAILY [facility] Hydralazine HCl (Apresoline Iv) 10 mg IV Q8H PRN PRN PRN Reason: for SBP>160 Last Admin: 09/29/18 06:48 Dose: 10 mg Documented by: Sodium Chloride () 1,000 mls @ 100 mls/hr IV .Q10H [facility] Stop: 09/29/18 18:57 Last Admin: 09/28/18 23:41 Dose: 100 mls/hr Documented by: Ibuprofen (Motrin) 400 mg PO Q8H PRN PRN PRN Reason: Mild-Moderate Pain (1-5/10) Insulin Human Lispro (Humalog Kwikpen (Bkc)) 0 unit [facility]; Protocol Last Admin: 09/29/18 06:54 Dose: Not Given Documented by: Loperamide HCl (Imodium) 2 - 4 mg PO UD PRN PRN Reason: LOOSE STOOLS Lorazepam (Ativan) 1 mg PO Q4H [facility]; Taper Stop: 10/02/18 03:14 Last Admin: 09/29/18 06:47 Dose: 1 mg Documented by: Methocarbamol (Methocarbamol) 750 mg PO Q6H PRN PRN PRN Reason: Muscle Aches Last Admin: 09/28/18 23:58 Dose: 750 mg Documented by: Multivitamins (Multivitamin) 1 [facility] Non-Formulary Medication (Metformin Hcl [Metformin Hcl Er]) 750 mg PO BID [facility] Ondansetron HCl (Zofran Odt) 4 mg PO Q6H PRN PRN PRN Reason: NAUSEA Last Admin: 09/29/18 06:47 Dose: 4 mg Documented by: Pantoprazole Sodium (Protonix) 40 mg PO DAILY [facility] Senna (Senokot) 1 tablet PO QHS PRN PRN Reason: Constipation Sodium Chloride () 10 - 40 ml IV UD PRN PRN Reason: SALINE FLUSH Last Admin: 09/29/18 06:48 Dose: 10 ml Documented by: Thiamine HCl (Vitamin B1) 100 [facility] Stop: 10/01/18 08:01 Trazodone HCl (Desyrel) 50 mg PO QHS [facility] Zolpidem Tartrate (Ambien (Generic)) 5 mg PO QHS PRN PRN PRN Reason: SLEEP Last Admin: 09/29/18 00:02 Dose: 5 mg Documented by: Medical Necessity - Tobacco Use Smoking Status: Former smoker Assessment/Plan All Active Problems Alcohol withdrawal (Acute) There is a 57-year-old gentleman being admitted through ER for stabilization of acute alcohol withdrawal syndrome. The patient has elevated LFT and lipase history of mild acute pancreatitis. In the ED, patient heart rate and blood pressure was high and is still high on the floor. 1. Acute alcohol withdrawal syndrome: Patient is being admitted on MedSurg floor. The most recent CIWA score is 10. U tox screen is negative. Serum alcohol level was 331. The patient was a started on Ativan protocol but it is not working therefore switched to bring protocol as he still hypertensive and tachycardic starting with 50 mg 1 dose and then 25 mg every 8 hourly. Monitor LFT and lipase. Monitor electrolytes. IV fluid normal saline at 100 mL/h. 2. Acute on chronic alcoholic hepatitis: Patient has elevated transaminases, chronically elevated. ALT 183, AST 316 which is slightly improved since admission. Alk phos 130. Total bili is normal. No right upper quadrant pain. Right upper quadrant sonogram ordered. 3. Probable mild acute alcoholic pancreatitis: Patient has biochemical evidence of mild hepatitis. Lipase 601 improved to 471. Clear liquid with IV fluid. 4. Hypertension and tachycardia: Patient has baseline history of hypertension which which is more uncontrolled and high secondary to alcohol withdrawal. Started on clonidine 0.2 mg twice daily. Continue Norvasc, lisinopril and HCTZ with IV hydralazine as needed. 5. Mild hyponatremia sodium 135 which has improved. Continue IV fluid. Bicarb 22. 6. Type 2 diabetes mellitus: Accu-Cheks, continue metformin, insulin sliding-scale. GERD: Continue Protonix. suspected COPD: Pulse ox is maintained on room air. Stable. Plan for albuterol as needed. DVT prophylaxis: Low risk patient, no prophylaxis indicated. Ambulate. PT/INR and PTT patient is alcoholic and risk for coagulopathy with alcohol hepatitis. Laboratory Results 09/28/18 16:50: WBC 3.3 L, RBC 4.87, Hgb 15.6, Hct 44.7, MCV 91.8, MCH 32.0, MCHC 34.9, RDW 12.3, RDW Differential 40.6, Plt Count 131 L, MPV 9.9, Immature Gran % (Auto) 0.300, Neut % (Auto) 68.2, Lymph % (Auto) 19.1, [place] % (Auto) 10.3 H, Eos % (Auto) 1.2, Baso % (Auto) 0.9, Absolute Neuts (auto) 2.3, Absolute Lymphs (auto) 0.63 L, Total Counted Not Reportable 09/28/18 16:50: Sodium 131 L, Potassium 3.7, Chloride 98, Carbon Dioxide 26.0, Anion Gap 7, BUN 9, Creatinine 0.84, Estim Creat Clear Calc 93.87, Est GFR (MDRD) Af Amer 121, Est GFR (MDRD) Non-Af 100, BUN/Creatinine Ratio 10.8, Glucose 98, Calcium 8.6, Total Bilirubin 0.50, AST 347 H, ALT 192 H, Alkaline Phosphatase 130 H, Total Protein 7.5, Albumin 3.8, Globulin 3.7, Albumin/Globulin Ratio 1.0, Lipase 601 H 09/28/18 16:50: Ethyl Alcohol 331.0 H* 09/28/18 16:55: Urine Opiates Screen NEGATIVE, Urine Methadone Screen NEGATIVE, Ur Barbiturates Screen NEGATIVE, Ur Phencyclidine Scrn NEGATIVE, Ur Amphetamines Screen NEGATIVE, U Methamphetamin-MDMA NEGATIVE, U Benzodiazepines Scrn NEGATIVE, Urine Cocaine Screen NEGATIVE, U Cannabinoids Screen NEGATIVE, Ur Drug Screen Comment 09/28/18 22:21: POC Glucose 141 H 09/29/18 05:14: Sodium 135 L, Potassium 4.0, Chloride 102, Carbon Dioxide 22.0, Anion Gap 11, BUN 9, Creatinine 0.80, Estim Creat Clear Calc 98.56, Est GFR (MDRD) Af Amer 128, Est GFR (MDRD) Non-Af 106, BUN/Creatinine Ratio 11.3, Glucose 121 H, Calcium 8.5, Total Bilirubin 0.80, AST 316 H, ALT 183 H, Alkaline Phosphatase 125 H, Total Protein 7.4, Albumin 3.6, Globulin 3.8, Albumin/Globulin Ratio 0.9, Lipase 471 H 09/29/18 06:53: POC Glucose 132 H Code Visit Inpatient E&M: 79653 Init Hosp L3
--- NOTE | 2018-09-29 08:12 | US_ITS ---
STUDY: ABDOMINAL ULTRASOUND - RIGHT UPPER QUADRANT REASON FOR VISIT: Male, 57 years old. Elevated LFTs TECHNIQUE: Ultrasound evaluation of the right upper quadrant was performed with real-time and static martinez-scale imaging. TECHNICAL QUALITY: Limited. Examination limited due to a combination of factors including obesity and bowel gas, and patient condition. COMPARISON: None. FINDINGS: Liver: The liver measures 20.5 cm. There is increased echogenicity consistent with fatty infiltration. The bile ducts are within normal limits. There is hepatic color flow. The direction of portal flow is hepatopetal. There is no demonstrated mass lesion. Gallbladder: The patient is status post cholecystectomy. Common Bile Duct (C.B.D.): The common bile duct measures 2.2 mm. Pancreas: There is nonvisualization of the pancreas. There is normal echogenicity of the pancreas. There is no demonstrated pancreatic mass or cyst. Right Kidney: Normal size of the right kidney. The right kidney measures 12.9 x 6.6 x 5.6 cm. Normal renal cortex. The right cortex measures 1.6 cm. There is no demonstrated renal mass or cyst. There is no right hydronephrosis. US/Abdomen Limited IMPRESSION: Diffuse fatty infiltration of the liver with borderline hepatomegaly. No discrete lesion. Previous cholecystectomy Electronically Signed: Nawaf Manuel MD at 12:46 EDT , Service support ,
[2018-09-29] MEDS: Multivitamins,Therapeutic Tablet 1 TABLET PO (08:35)
[2018-09-29] MEDS: amLODIPine 2.5 MG Tablet PO (08:35)
[2018-09-29] MEDS: chlordiazePOXIDE 25 MG Capsule 50 MG PO (08:35)
[2018-09-29] MEDS: Thiamine Hydrochloride 100 MG Tablet PO (08:35)
[2018-09-29] MEDS: Folic Acid 1 MG Tablet PO (08:35)
[2018-09-29] MEDS: Pantoprazole Sodium 40 MG Tablet PO (08:35)
[2018-09-29 09:11] LABS: International Normalized Ratio 1.1; Prothrombin Time (Protime)PT. 13.5 SECONDS (11.7-14.9)
[2018-09-29 09:12] LABS: Partial Thromboplast Time 33.1 Seconds (24.1-36.2)
[2018-09-29] MEDS: cloNIDine HCl 0.2 MG Tablet PO ×2 (09:18→21:39)
[2018-09-29] MEDS: 0.9% Normal Saline 1,000 ML 100 ML IV (09:18)
[2018-09-29] MEDS: Ibuprofen 400 MG Tablet PO ×2 (09:19→17:22)
[2018-09-29] MEDS: Mag Hydrox/Al Hydrox/Simeth 30 ML UDC PO (09:36)
--- NOTE | 2018-09-29 09:40 | [facility] ---
Patient reports that he cannot afford to pay for counseling. He reports that after his medical stabilization in 2017 he did attend counseling as referred, however all it was good for was draining my bank account. Patient unwilling to commit to any aftercare. AA meetings were suggested, list provided. Patient is not a participant in the [facility] service based on unwillingness to commit to further aftercare treatment.
[2018-09-29] MEDS: Lisinopril 20 MG Tablet PO ×2 (11:23→21:40)
[2018-09-29] MEDS: hydroCHLOROthiazide 12.5mg 12.5 MG PO ×2 (11:23→21:40)
[2018-09-29] MEDS: Insulin Lispro 100 UNIT/ML INSULN.PEN SC ×3 (11:32→21:40)
[2018-09-29 11:41] LABS: Bedside Glucose 175 mg/dL (70-110)
[2018-09-29] MEDS: Methocarbamol 750 MG Tablet PO ×2 (13:03→19:46)
[2018-09-29] MEDS: chlordiazePOXIDE 25 MG Capsule PO ×2 (13:04→21:39)
[2018-09-29] MEDS: Acetaminophen 500 MG Tablet PO ×2 (15:22→19:45)
[2018-09-29 16:46] LABS: Bedside Glucose 190 mg/dL (70-110)
[2018-09-29] MEDS: METFORMIN HCL 750 MG TAB.ER.24H PO (17:19)
[2018-09-29] MEDS: Dicyclomine 10 MG Capsule 20 MG PO (19:46)
[2018-09-29] MEDS: traZODone 50 MG Tablet PO (21:39)
[2018-09-29 22:20] LABS: Bedside Glucose 214 mg/dL (70-110)
[2018-09-30] VITALS (11 sets, daily range): BP systolic 125–146; BP diastolic 81–92; PULSE 70–98; RESP 14–18; TEMP 36.4–36.6; O2SAT 96–99
[2018-09-30] MEDS: LORazepam 1 MG Tablet PO ×4 (01:40→18:52)
[2018-09-30] MEDS: Ondansetron ODT 4 MG Tablet PO ×2 (06:24→13:48)
[2018-09-30] MEDS: chlordiazePOXIDE 25 MG Capsule PO ×3 (06:24→21:09)
[2018-09-30] MEDS: Insulin Lispro 100 UNIT/ML INSULN.PEN SC ×4 (06:29→21:07)
[2018-09-30 06:56] LABS: Bedside Glucose 175 mg/dL (70-110)
[2018-09-30] MEDS: Thiamine Hydrochloride 100 MG Tablet PO (07:51)
[2018-09-30] MEDS: cloNIDine HCl 0.2 MG Tablet PO ×2 (07:51→21:08)
[2018-09-30] MEDS: Lisinopril 20 MG Tablet PO ×2 (07:51→21:08)
[2018-09-30] MEDS: METFORMIN HCL 750 MG TAB.ER.24H PO ×2 (07:51→16:28)
[2018-09-30] MEDS: Pantoprazole Sodium 40 MG Tablet PO (07:51)
[2018-09-30] MEDS: amLODIPine 2.5 MG Tablet PO (07:51)
[2018-09-30] MEDS: Multivitamins,Therapeutic Tablet 1 TABLET PO (07:51)
[2018-09-30] MEDS: Folic Acid 1 MG Tablet PO (07:51)
[2018-09-30] MEDS: hydroCHLOROthiazide 12.5mg 12.5 MG PO (07:51)
[2018-09-30] MEDS: Ibuprofen 400 MG Tablet PO (07:54)
[2018-09-30] MEDS: Methocarbamol 750 MG Tablet PO (07:54)
--- NOTE | 2018-09-30 08:32 | PN_ITS ---
Subjective: Patient heart rate and blood pressure is controlled. CIWA score is 5. Patient has mild tremors and nausea otherwise feeling good. Sodium is low. Vitals/I&O's: Vital Signs Temp Pulse Resp BP Pulse Ox 97.8 F 98 18 140/92 H 99 09/30/18 07:47 09/30/18 07:47 09/30/18 07:47 09/30/18 07:47 09/30/18 07:47 Oxygen Delivery Method Room Air Weight: 255 lb 4.725 oz Body Mass Index (BMI) 38.8 Intake and Output for Last 24 Hours 09/28/18 09/29/18 09/30/18 23:59 23:59 23:59 Intake Total 1371 / 3042 1970 / 1970 Output Total 350 / 1250 900 / 900 Balance 1021 / 1792 1071 / 1071 General: Alert, Oriented x3, Cooperative HEENT: Atraumatic, PERRLA, EOMI, Normocephalic Neck: Supple, No JVD, Negative Carotid Bruits Lungs: Clear to auscultation, No rhonchi, No wheeze, No rales, Diminished Cardiovascular: Regular rate, Regular Rhythm, Normal S1, Normal S2, No murmurs Abdomen: Bowel Sounds Present, Soft, Non Tender, Non-Distended Extremities: No edema, Capillary Refill Less than 3 Seconds Skin: No rashes, No breakdown Musculoskeletal: No Tenderness to Palpation of Joints or Extremities, Arthritic Changes Neurological: Cranial nerves II-XII grossly intact Psych/Mental Status: Normal Affect, Appropriate Laboratory Results 09/29/18 08:54: PT 13.5, INR 1.1, APTT 33.1 09/29/18 11:25: POC Glucose 175 H 09/29/18 16:43: POC Glucose 190 H 09/29/18 21:34: POC Glucose 214 H 09/30/18 06:28: POC Glucose 175 H Current Medications Acetaminophen (Tylenol) 500 mg PO Q4H PRN PRN PRN Reason: Temp > 100.4 F Last Admin: 09/29/18 19:45 Dose: 500 mg Documented by: Al Hydroxide/Mg Hydroxide (Mylanta Ii) 30 ml PO Q6H PRN PRN PRN Reason: dyspesia Last Admin: 09/29/18 09:36 Dose: 30 ml Documented by: Albuterol Sulfate (Ventolin Aerosols) 2.5 mg INHALATION Q4H PRN PRN PRN Reason: Shortness of breath, wheezing Amlodipine Besylate (Norvasc) 2.5 mg PO DAILY [facility] Last Admin: 09/30/18 07:51 Dose: 2.5 mg Documented by: Bisacodyl (Dulcolax) 10 mg RECTAL DAILY PRN PRN Reason: Constipation Chlordiazepoxide (Librium) 25 mg PO Q8 [facility] Last Admin: 09/30/18 06:24 Dose: 25 mg Documented by: Clonidine (Catapres) 0.2 mg PO BID [facility] Last Admin: 09/30/18 07:51 Dose: 0.2 mg Documented by: Dicyclomine HCl (Bentyl) 20 mg PO Q6H PRN PRN PRN Reason: abdominal discomfort Last Admin: 09/29/18 19:46 Dose: 20 mg Documented by: Folic Acid (Folic Acid) [facility] Stop: 10/01/18 08:01 Last Admin: 09/30/18 07:51 Dose: 1 mg Documented by: Hydralazine HCl (Apresoline Iv) 10 mg IV Q8H PRN PRN PRN Reason: for SBP>160 Last Admin: 09/29/18 15:23 Dose: 10 mg Documented by: Hydrochlorothiazide () 12.5 mg PO BID [facility] Last Admin: 09/30/18 07:51 Dose: 12.5 mg Documented by: Ibuprofen (Motrin) 400 mg PO Q8H PRN PRN PRN Reason: Mild-Moderate Pain (1-5/10) Last Admin: 09/30/18 07:54 Dose: 400 mg Documented by: Insulin Human Lispro (Humalog Kwikpen (Bkc)) 0 unit SC [facility]; Protocol Last Admin: 09/30/18 06:29 Dose: 1 units Documented by: Lisinopril (Zestril) 20 mg PO BID [facility] Last Admin: 09/30/18 07:51 Dose: 20 mg Documented by: Loperamide HCl (Imodium) 2 - 4 mg PO UD PRN PRN Reason: LOOSE STOOLS Lorazepam (Ativan) 1 mg PO Q6H [facility]; Taper Stop: 10/02/18 03:14 Last Admin: 09/30/18 06:24 Dose: 1 mg Documented by: Metformin HCl (Glucophage Xr) [facility] Last Admin: 09/30/18 07:51 Dose: 750 mg Documented by: Methocarbamol (Methocarbamol) 750 mg PO Q6H PRN PRN PRN Reason: Muscle Aches Last Admin: 09/30/18 07:54 Dose: 750 mg Documented by: Multivitamins (Multivitamin) [facility] Last Admin: 09/30/18 07:51 Dose: 1 tablet Documented by: Ondansetron HCl (Zofran Odt) 4 mg PO Q6H PRN PRN PRN Reason: NAUSEA Last Admin: 09/30/18 06:24 Dose: 4 mg Documented by: Pantoprazole Sodium (Protonix) 40 mg PO DAILY [facility] Last Admin: 09/30/18 07:51 Dose: 40 mg Documented by: Senna (Senokot) 1 tablet PO QHS PRN PRN Reason: Constipation Sodium Chloride () 10 - 40 ml IV UD PRN PRN Reason: SALINE FLUSH Last Admin: 09/29/18 11:28 Dose: 10 ml Documented by: Thiamine HCl (Vitamin B1) [facility] Stop: 10/01/18 08:01 Last Admin: 09/30/18 07:51 Dose: 100 mg Documented by: Trazod[facility] ([facility]) [facility] Last Admin: 09/29/18 21:39 Dose: 50 mg Documented by: Zolpidem Tartrate (Ambien (Generic)) 5 mg PO QHS PRN PRN PRN Reason: SLEEP Last Admin: 09/29/18 21:39 Dose: 5 mg Documented by: Medical Necessity - Tobacco Use Smoking Status: Former smoker Assessment/Plan All Active Problems Alcohol withdrawal (Acute) There is a 57-year-old gentleman being admitted through ER for stabilization of acute alcohol withdrawal syndrome. The patient has elevated LFT and lipase history of mild acute pancreatitis. In the ED, patient heart rate and blood pressure was high and is still high on the floor. 1. Acute alcohol withdrawal syndrome: Patient is being admitted on MedSurg floor. CIWA score is decreased to 5. U tox screen is negative. Serum alcohol level was 331. The patient was a started on Ativan protocol but it is not working therefore switched to bring protocol as he still hypertensive and tachycardic starting with 50 mg 1 dose and is titrated to 25 mg every 8 hourly and then every 12 hourly tomorrow.. Monitor LFT and lipase. Monitor electrolytes. IV fluid normal saline at 100 mL/h. 2. Acute on chronic hyponatremia probably secondary to HCTZ and chronic alcohol use: HCTZ is discontinued. On IV fluid normal saline. Acute on chronic alcoholic hepatitis: Patient has elevated transaminases, chronically elevated. ALT 183, AST 316 which is slightly improved since admission. Alk phos 130. Total bili is normal. No right upper quadrant pain. Right upper quadrant sonogram reported as Diffuse fatty infiltration of the liver with borderline hepatomegaly. No discrete lesion. 3. Probable mild acute alcoholic pancreatitis: Patient has biochemical evidence of mild hepatitis. Lipase 601 improved to 471. Clear liquid with IV fluid. Repeat lipase tomorrow morning. Patient does not have abdominal pain. 4. Hypertension and tachycardia: Patient has baseline history of hypertension which which is more uncontrolled and high secondary to alcohol withdrawal. Started on clonidine 0.2 mg twice daily. Continue Norvasc, and lisinopril. HCTZ discontinued. 5. Mild hyponatremia sodium 135 which has improved. Continue IV fluid. Bicarb 22. 6. Type 2 diabetes mellitus: Accu-Cheks, continue metformin, insulin sliding- scale. GERD: Continue Protonix. suspected COPD: Pulse ox is maintained on room air. Stable. Plan for albuterol as needed. DVT prophylaxis: Low risk patient, no prophylaxis indicated. Ambulate. PT/INR and PTT patient is alcoholic and risk for coagulopathy with alcohol hepatitis. Laboratory Results 09/29/18 16:43: POC Glucose 190 H 09/29/18 21:34: POC Glucose 214 H 09/30/18 06:28: POC Glucose 175 H 09/30/18 09:00: WBC 2.7 L, RBC 4.60, Hgb 14.9, Hct 44.1, MCV 95.9 H, MCH 32.4 H, MCHC 33.8, RDW 12.6, RDW Differential 43.0, Plt Count 84 L, MPV 10.3, Immature Gran % (Auto) 0.400, Neut % (Auto) 72.8 H, Lymph % (Auto) 15.1 L, [place] % (Auto) 9.2, Eos % (Auto) 1.8, Baso % (Auto) 0.7, Absolute Neuts (auto) 2.0, Absolute Lymphs (auto) 0.41 L, Total Counted Not Reportable, Differential Comment SCANNED 09/30/18 09:00: Sodium 133 L, Potassium 4.0, Chloride 98, Carbon Dioxide 28.0, Anion Gap 7, BUN 11, Creatinine 0.90, Estim Creat Clear Calc 87.61, Est GFR (MDRD) Af Amer 112, Est GFR (MDRD) Non-Af 92, BUN/Creatinine Ratio 12.2, Glucose 186 H, Calcium 9.5, Total Bilirubin 1.30 H, AST 187 H, ALT 155 H, Alkaline Phosphatase 123 H, Total Protein 7.3, Albumin 3.7, Globulin 3.6, Albumin/Globulin Ratio 1.0 09/30/18 11:50: POC Glucose 293 H 09/28/18 16:50: Ethyl Alcohol 331.0 H* 09/28/18 16:55: Urine Opiates Screen NEGATIVE, Urine Methadone Screen NEGATIVE, Ur Barbiturates Screen NEGATIVE, Ur Phencyclidine Scrn NEGATIVE, Ur Amphetamines Screen NEGATIVE, U Methamphetamin-MDMA NEGATIVE, U Benzodiazepines Scrn NEGATIVE, Urine Cocaine Screen NEGATIVE, U Cannabinoids Screen NEGATIVE, Ur Drug Screen Comment Clinical Impression(s) from Imaging Studies Abdomen Ultrasound 09/29/18 08:12 IMPRESSION: Diffuse fatty infiltration of the liver with borderline hepatomegaly. No discrete lesion. Previous cholecystectomy Active Medications Acetaminophen (Tylenol) 500 mg PO Q4H PRN PRN PRN Reason: Temp > 100.4 F Last Admin: 09/30/18 12:12 Dose: 500 mg Documented by: Al Hydroxide/Mg Hydroxide (Mylanta Ii) 30 ml PO Q6H PRN PRN PRN Reason: dyspesia Last Admin: 09/29/18 09:36 Dose: 30 ml Documented by: Albuterol Sulfate (Ventolin Aerosols) 2.5 mg INHALATION Q4H PRN PRN PRN Reason: Shortness of breath, wheezing Amlodipine Besylate (Norvasc) 2.5 mg PO DAILY [facility] Last Admin: 09/30/18 07:51 Dose: 2.5 mg Documented by: Bisacodyl (Dulcolax) 10 mg RECTAL DAILY PRN PRN Reason: Constipation Chlordiazepoxide (Librium) 25 mg PO Q8 [facility]; Protocol Stop: 10/01/18 14:01 Clonidine (Catapres) 0.2 mg PO BID [facility] Last Admin: 09/30/18 07:51 Dose: 0.2 mg Documented by: Dicyclomine HCl (Bentyl) 20 mg PO Q6H PRN PRN PRN Reason: abdominal discomfort Last Admin: 09/30/18 13:47 Dose: 20 mg Documented by: Folic Acid (Folic Acid) [facility] Stop: 10/01/18 08:01 Last Admin: 09/30/18 07:51 Dose: 1 mg Documented by: Hydralazine HCl (Apresoline Iv) 10 mg IV Q8H PRN PRN PRN Reason: for SBP>160 Last Admin: 09/29/18 15:23 Dose: 10 mg Documented by: Sodium Chloride () 1,000 mls @ 100 mls/hr IV .Q10H [facility] Insulin Human Lispro (Humalog Kwikpen (Bkc)) 0 unit SC [facility]; Protocol Last Admin: 09/30/18 12:10 Dose: 3 units Documented by: Lisinopril (Zestril) 20 mg PO BID [facility] Last Admin: 09/30/18 07:51 Dose: 20 mg Documented by: Loperamide HCl (Imodium) 2 - 4 mg PO UD PRN PRN Reason: LOOSE STOOLS Lorazepam (Ativan) 1 mg PO Q6H [facility]; Taper Stop: 10/02/18 03:14 Last Admin: 09/30/18 13:43 Dose: 1 mg Documented by: Metformin HCl (Glucophage Xr) [facility] Last Admin: 09/30/18 07:51 Dose: 750 mg Documented by: Methocarbamol (Methocarbamol) 750 mg PO Q6H PRN PRN PRN Reason: Muscle Aches Last Admin: 09/30/18 07:54 Dose: 750 mg Documented by: Multivitamins (Multivitamin) 1 tablet [facility] Last Admin: 09/30/18 07:51 Dose: 1 tablet Documented by: Ondansetron HCl (Zofran Odt) 4 mg PO Q6H PRN PRN PRN Reason: NAUSEA Last Admin: 09/30/18 13:48 Dose: 4 mg Documented by: Pantoprazole Sodium (Protonix) 40 mg PO DAILY [facility] Last Admin: 09/30/18 07:51 Dose: 40 mg Documented by: Senna (Senokot) 1 tablet PO QHS PRN PRN Reason: Constipation Sodium Chloride () 10 - 40 ml IV UD PRN PRN Reason: SALINE FLUSH Last Admin: 09/29/18 11:28 Dose: 10 ml Documented by: Thiamine HCl (Vitamin B1) 100 mg PO DAILYCM [facility] Stop: 10/01/18 08:01 Last Admin: 09/30/18 07:51 Dose: 100 mg Documented by: Trazodone HCl (Desyrel) 50 mg PO QHS PATI Last Admin: 09/29/18 21:39 Dose: 50 mg Documented by: Zolpidem Tartrate (Ambien (Generic)) 5 mg PO QHS PRN PRN PRN Reason: SLEEP Last Admin: 09/29/18 21:39 Dose: 5 mg Documented by: Code Visit Inpatient E&M: 16710 Subs Hosp L3
[2018-09-30 09:14] LABS: Absolute Lymphocyte Count 0.41 X10^3/ul (0.83-4.51); Basophil# 0.02 X10^3/uL; Basophil% 0.7 % (0-1); Eosinophil# 0.05 X10^3/uL; Eosinophils% 1.8 % (0-5); Hematocrit 44.1 % (40-54); Hemoglobin 14.9 g/dl (13.0-16.5); Lymphocyte # 0.41 X10^3/ul (4.0); Lymphocyte % 15.1 % (19-41); Mean Corp Hgb Conc 33.8 g/gl (32-36); Mean Corpuscular Hgb 32.4 pg (27.0-32.0); Mean Corpuscular Volume 95.9 fL (80-94); Mean Platelet Vol. 10.3 fl (6.2-12.0); Monocyte# 0.25 X10^3/uL; Monocyte% 9.2 % (0-10); Neutrophil # 1.97 X10^3/uL (2.7-7.7); Neutrophil % 72.8 % (47-70); Platelet Count 84 K/mm3 (150-450); RBC Distribution Width CV 12.6 % (11.6-14.6); White Blood Count 2.7 K/mm3 (4.4-11.0)
[2018-09-30 09:16] LABS: Differential Indicated SCAN CRITERIA MET; POSITIVE COUNT NO; POSITIVE DIFFERENTIAL YES; POSITIVE MORPHOLOGY NO
[2018-09-30 09:29] LABS: AST(SGOT) 187 U/L (15-37); Alanine Aminotransfer ALT/SGPT 155 U/L (16-61); Albumin, Serum 3.7 g/dL (3.2-5.0); Alkaline Phosphatase 123 U/L (45-117); Anion Gap 7 (5-15); BUN 11 mg/dL (7-18); BUN/Creat Ratio 12.2 RATIO (10-20); Calcium,Total 9.5 mg/dL (8.5-10.1); Chloride 98 mmol/L (98-107); EST Glomerular Filtration Rate 92 mL/min (>60); Est Glom Filt Rate - Afr Amer 112 mL/min (>60); Estimated Creatinine Clearance 87.61 ml/min; Globulin 3.6 g/dL (2.2-4.2); Glucose 186 mg/dL (74-106); Protein, Total 7.3 g/dL (6.4-8.2); Sodium Level 133 mmol/L (136-145)
[2018-09-30 09:32] LABS: Differential Comment SCANNED
[2018-09-30 12:00] LABS: Bedside Glucose 293 mg/dL (70-110)
[2018-09-30] MEDS: Acetaminophen 500 MG Tablet PO ×2 (12:12→21:08)
[2018-09-30] MEDS: Dicyclomine 10 MG Capsule 20 MG PO (13:47)
[2018-09-30] MEDS: 0.9% Normal Saline 1,000 ML 100 ML IV (16:28)
[2018-09-30 16:40] LABS: Bedside Glucose 263 mg/dL (70-110)
[2018-09-30] MEDS: traZODone 50 MG Tablet PO (21:08)
[2018-09-30] MEDS: Zolpidem Tartrate 5 MG Tablet PO (21:09)
[2018-09-30 21:46] LABS: Bedside Glucose 234 mg/dL (70-110)
[2018-10-01] MEDS: LORazepam 1 MG Tablet PO ×2 (02:29→11:04)
[2018-10-01] MEDS: 0.9% Normal Saline 1,000 ML 100 ML IV (02:29)
[2018-10-01] MEDS: Ondansetron ODT 4 MG Tablet PO (02:32)
[2018-10-01 02:50] VITALS: BP 126/77; PULSE 81; RESP 18; TEMP 36.5; O2SAT 96
[2018-10-01] MEDS: Methocarbamol 750 MG Tablet PO (02:52)
[2018-10-01] MEDS: Acetaminophen 500 MG Tablet PO ×2 (02:52→08:42)
[2018-10-01 04:21] VITALS: PULSE 79
[2018-10-01] MEDS: Insulin Lispro 100 UNIT/ML INSULN.PEN SC ×2 (06:32→11:04)
[2018-10-01 06:45] LABS: Bedside Glucose 211 mg/dL (70-110)
[2018-10-01 07:00] LABS: Absolute Lymphocyte Count 0.43 X10^3/ul (0.83-4.51); Absolute Neutrophil Count 1.8 X10^3/uL (2.0-7.7); Basophil# 0.02 X10^3/uL; Basophil% 0.8 % (0-1); Differential Indicated SCAN CRITERIA MET; Eosinophil# 0.05 X10^3/uL; Hematocrit 41.5 % (40-54); Hemoglobin 13.6 g/dl (13.0-16.5); Lymphocyte # 0.43 X10^3/ul (4.0); Lymphocyte % 17.1 % (19-41); Mean Corp Hgb Conc 32.8 g/gl (32-36); Mean Corpuscular Hgb 31.6 pg (27.0-32.0); Mean Corpuscular Volume 96.3 fL (80-94); Mean Platelet Vol. 11.3 fl (6.2-12.0); Monocyte# 0.22 X10^3/uL; Monocyte% 8.8 % (0-10); Neutrophil # 1.78 X10^3/uL (2.7-7.7); Neutrophil % 70.9 % (47-70); POSITIVE COUNT NO; POSITIVE DIFFERENTIAL YES; POSITIVE MORPHOLOGY NO; Platelet Count 94 K/mm3 (150-450); RBC Distribution Width CV 12.5 % (11.6-14.6); RBC Distribution Width SD 42.6 fl (35.1-43.9); Red Blood Count 4.31 M/mm3 (4.6-6.2); White Blood Count 2.5 K/mm3 (4.4-11.0)
[2018-10-01 07:22] LABS: ALB/GLOB Ratio 0.9 RATIO (0.9-2.4); AST(SGOT) 119 U/L (15-37); Alanine Aminotransfer ALT/SGPT 119 U/L (16-61); Albumin, Serum 3.1 g/dL (3.2-5.0); Alkaline Phosphatase 101 U/L (45-117); Anion Gap 10 (5-15); BUN 11 mg/dL (7-18); BUN/Creat Ratio 14.9 RATIO (10-20); Chloride 102 mmol/L (98-107); Creatinine, Serum 0.74 mg/dL (0.70-1.30); EST Glomerular Filtration Rate 116 mL/min (>60); Est Glom Filt Rate - Afr Amer 141 mL/min (>60); Estimated Creatinine Clearance 106.55 ml/min; Globulin 3.4 g/dL (2.2-4.2); Glucose 193 mg/dL (74-106); Lipase 518 U/L (73-393); Protein, Total 6.5 g/dL (6.4-8.2); Sodium Level 137 mmol/L (136-145)
[2018-10-01 07:56] VITALS: PULSE 82
[2018-10-01 08:40] VITALS: BP 126/87; PULSE 107; RESP 18; TEMP 37.4
[2018-10-01] MEDS: Folic Acid 1 MG Tablet PO (08:42)
[2018-10-01] MEDS: METFORMIN HCL 750 MG TAB.ER.24H PO (08:42)
[2018-10-01] MEDS: cloNIDine HCl 0.2 MG Tablet PO (08:43)
[2018-10-01] MEDS: Multivitamins,Therapeutic Tablet 1 TABLET PO (08:43)
[2018-10-01] MEDS: Pantoprazole Sodium 40 MG Tablet PO (08:43)
[2018-10-01] MEDS: Thiamine Hydrochloride 100 MG Tablet PO (08:43)
[2018-10-01] MEDS: Lisinopril 20 MG Tablet PO (08:43)
[2018-10-01] MEDS: amLODIPine 5 MG Tablet PO (08:44)
--- NOTE | 2018-10-01 09:36 | DCINST_ITS ---
You will use the following diet at home:: Cardiac Discharge Activity: May Not Drive Call your doctor if you observe: Fever of 101 or Higher, Coldness, Increased Pain, Numbness or Tingling, Inability to urinate, Inability to have a bowel movement, Shortness of breath, Dizziness, Fainting spells, Swelling in the ankles, Chest pain, Prolonged hiccoughing, Increased palpitations (irregular heartbeat) Additional Instructions: Consider starting HCTZ at lower dose 12.5 mg daily after 1 week as patient was on HCTZ 12.5 mg twice daily which was started for hyponatremia. Allergies/Adverse Reactions: Allergies Penicillins Adverse Reaction (Mild, Verified 09/28/18 16:23) red, itching strawberry Adverse Reaction (Mild, Verified 09/28/18 16:23) dont eat them anymore Medications to take at Discharge Albuterol Inhaler [Ventolin Hfa] 2 puff INHALATION Q6H PRN PRN 10/23/16 Metformin HCl [Metformin HCl ER] 750 mg PO BID 10/23/16 Pantoprazole Sodium [Protonix] 40 mg PO DAILY 10/23/16 Zolpidem Tartrate [Ambien] 10 mg PO DAILY PRN 10/23/16 Acetaminophen [Tylenol Tablet] 650 mg PO Q4H PRN PRN tablet 10/26/16 Thiamine Hydrochloride [Vitamin B1] 100 mg PO DAILYCM #0 tablet 12/14/17 Amlodipine [Norvasc] 5 mg PO DAILY #30 tab 10/01/18 Lisinopril 20 mg PO BID #60 tab 10/01/18 The following prescriptions were given: Lisinopril 20 mg PO BID #60 tab Transmission Status: Received by [id number] Amlodipine [Norvasc] 5 mg PO DAILY #30 tab Transmission Status: Received by [id number] Primary Care Physician: Jeff Mahmood MD [Primary Care Provider] - Please follow up with your Primary Care Physician in: in 1 week Test Results: Test results from this visit will be discussed in further detail at your follow- up appointment, if applicable.
--- NOTE | 2018-10-01 09:38 | DS.PCM_ITS ---
Discharge Date and Diagnosis Date of Admission: 09/28/18 Date of Discharge: 10/01/18 - Secondary Discharge Diagnosis Chronic Problems Obesity (Chronic) GERD (gastroesophageal reflux disease) (Chronic) Anxiety and depression (Chronic) Hypertension (Chronic) DM2 (diabetes mellitus, type 2) (Chronic) Alcohol abuse (Chronic) Hospital Course and Treatment Consultations 09/28/18 22:58 Consult: Reno Mayen Routine Consulting Provider: Consulted Physician Type:: Other * Specify below * Reason for consult:: Acute alcohol withdrawal Operations: None Summary of Care Provided: [] There is a 57-year-old gentleman being admitted through ER for stabilization of acute alcohol withdrawal syndrome. The patient has elevated LFT and lipase history of mild acute pancreatitis. In the ED, patient heart rate and blood pressure was high and is still high on the floor. 1. Acute alcohol withdrawal syndrome: [facility] CIWA score is decreased to 5. U tox screen is negative. Serum alcohol level was 331. The patient was a started on Ativan protocol but it is not working therefore switched to bring protocol as he still hypertensive and tachycardic starting with 50 mg 1 dose and is titrated to 25 mg every 8 hourly and then every 12 hourly tomorrow.. Monitor LFT and lipase. Monitor electrolytes. IV fluid normal saline at 100 mL/h. 2. Acute on chronic hyponatremia probably secondary to HCTZ and chronic alcohol use: HCTZ is discontinued. Treated with IV fluid. Acute on chronic alcoholic hepatitis: Patient has elevated transaminases, chronically elevated. ALT 183, AST 316 which is slightly improved since admission. Alk phos 130. Total bili is normal. No right upper quadrant pain. Right upper quadrant sonogram reported as Diffuse fatty infiltration of the liver with borderline hepatomegaly. No discrete lesion. Advised to start HCTZ as an outpatient after 1 week 12.5 mg daily and titrate accordingly as permitted by hyponatremia 3. Probable mild acute alcoholic pancreatitis: Patient has biochemical evidence of mild hepatitis. Lipase 601 improved to 471, last on 518. Patient clinically does not have abdominal pain or tenderness. Patient tolerated clear liquid diet and then soft diet. Advised to keep a soft diet for 5 days. 4. Hypertension and tachycardia: Patient has baseline history of hypertension which which is more uncontrolled and high secondary to alcohol withdrawal. Started on clonidine 0.2 mg twice daily. Continue Norvasc, and lisinopril. HCTZ discontinued. 5. Mild hyponatremia sodium 135 which has improved. Continue IV fluid. Bicarb 22. 6. Type 2 diabetes mellitus: Accu-Cheks, continue metformin, insulin sliding- scale. GERD: Continue Protonix. suspected COPD: Pulse ox is maintained on room air. Stable. Plan for albuterol as needed. DVT prophylaxis: Low risk patient, no prophylaxis indicated. Ambulate. PT/INR and PTT patient is alcoholic and risk for coagulopathy with alcohol hepatitis. Discharge medication reconciliation done. Discharge follow-up instructions completed. Discharge process discussed with the patient and all questions were answered to patient's satisfaction. Follow-up with outpatient alcohol rehab. Prescription given for lisinopril, amlodipine, folic acid and thiamine. Total time spent, exact 35 minutes on discharge meds reconciliation, examination, review of imaging and blood test and discussion with the patient on follow-up instructions. Laboratory Results 09/30/18 16:24: POC Glucose 263 H 09/30/18 21:05: POC Glucose 234 H 10/01/18 05:53: Sodium 137, Potassium 4.0, Chloride 102, Carbon Dioxide 25.0, Anion Gap 10, BUN 11, Creatinine 0.74, Estim Creat Clear Calc 106.55, Est GFR (MDRD) Af Amer 141, Est GFR (MDRD) Non-Af 116, BUN/Creatinine Ratio 14.9, Glucose 193 H, Calcium 9.0, Total Bilirubin 1.00, AST 119 H, ALT 119 H, Alkaline Phosphatase 101, Total Protein 6.5, Albumin 3.1 L, Globulin 3.4, Albumin/Globulin Ratio 0.9, Lipase 518 H 10/01/18 05:53: WBC 2.5 L, RBC 4.31 L, Hgb 13.6, Hct 41.5, MCV 96.3 H, MCH 31.6, MCHC 32.8, RDW 12.5, RDW Differential 42.6, Plt Count 94 L, MPV 11.3, Immature Gran % (Auto) 0.400, Neut % (Auto) 70.9 H, Lymph % (Auto) 17.1 L, [place] % (Auto) 8.8, Eos % (Auto) 2.0, Baso % (Auto) 0.8, Absolute Neuts (auto) 1.8 L, Absolute Lymphs (auto) 0.43 L, Total Counted Not Reportable 10/01/18 06:29: POC Glucose 211 H 10/01/18 10:59: POC Glucose 254 H 09/28/18 16:50: Ethyl Alcohol 331.0 H* 09/28/18 16:55: Urine Opiates Screen NEGATIVE, Urine Methadone Screen NEGATIVE, Ur Barbiturates Screen NEGATIVE, Ur Phencyclidine Scrn NEGATIVE, Ur Amphetamines Screen NEGATIVE, U Methamphetamin-MDMA NEGATIVE, U Benzodiazepines Scrn NEGATIVE, Urine Cocaine Screen NEGATIVE, U Cannabinoids Screen NEGATIVE, Ur Drug Screen Comment Clinical Impression(s) from Imaging Studies Abdomen Ultrasound 09/29/18 08:12 IMPRESSION: Diffuse fatty infiltration of the liver with borderline hepatomegaly. No discrete lesion. Previous cholecystectomy Subjective: Patient does not have tremors. No dizziness or hallucinations. CIWA score 3 Objective: General: Alert, Oriented x3, Cooperative HEENT: Atraumatic, PERRLA, EOMI, Normocephalic Neck: Supple, No JVD, Negative Carotid Bruits Lungs: Clear to auscultation, No rhonchi, No wheeze, No rales, air entry is diminished bilateral lung bases Cardiovascular: Regular rate, Regular Rhythm, Normal S1, Normal S2, No murmurs Abdomen: Bowel Sounds Present, Soft, Non Tender, Non-Distended Extremities: No edema, Capillary Refill Less than 3 Seconds Skin: No rashes, No breakdown Musculoskeletal: No Tenderness to Palpation of Joints or Extremities, Arthritic Changes Neurological: Cranial nerves II-XII grossly intact Psych/Mental Status: Normal Affect, Appropriate - Physical Exam Vital Signs Temp Pulse Resp BP Pulse Ox 97.7 F L 79 18 126/77 H 96 10/01/18 02:50 10/01/18 04:21 10/01/18 02:50 10/01/18 02:50 10/01/18 02:50 Oxygen Delivery Method Room Air Weight: 255 lb 4.725 oz Body Mass Index (BMI) 38.8 Intake and Output for Last 24 Hours 09/29/18 09/30/18 10/01/18 23:59 23:59 23:59 Intake Total 1371 / 3042 4231 / 4231 934 / 934 Output Total 350 / 1250 900 / 900 Balance 1021 / 1792 3331 / 3331 934 / 934 Laboratory Tests Past 24 Hrs 10/01/18 10/01/18 05:53 05:53 WBC 2.5 L RBC 4.31 L Hgb 13.6 Hct 41.5 MCV 96.3 H MCH 31.6 MCHC 32.8 RDW 12.5 RDW Differential 42.6 Plt Count 94 L MPV 11.3 Immature Gran % (Auto) 0.400 Neut % (Auto) 70.9 H Lymph % (Auto) 17.1 L [place] % (Auto) 8.8 Eos % (Auto) 2.0 Baso % (Auto) 0.8 Absolute Neuts (auto) 1.8 L Absolute Lymphs (auto) 0.43 L Total Counted Not Reportable Sodium 137 Potassium 4.0 Chloride 102 Carbon Dioxide 25.0 Anion Gap 10 BUN 11 Creatinine 0.74 Estim Creat Clear Calc 106.55 Est GFR (MDRD) Af Amer 141 Est GFR (MDRD) Non-Af 116 BUN/Creatinine Ratio 14.9 Glucose 193 H Calcium 9.0 Total Bilirubin 1.00 AST 119 H ALT 119 H Alkaline Phosphatase 101 Total Protein 6.5 Albumin 3.1 L Globulin 3.4 Albumin/Globulin Ratio 0.9 Lipase 518 H POC Glucose 10/01/18 09/30/18 09/30/18 06:29 21:05 16:24 POC Glucose 211 H 234 H 263 H 09/30/18 11:50 POC Glucose 293 H Discharge Activity: May Not Drive Call your doctor if you observe: Fever of 101 or Higher, Coldness, Increased Pain, Numbness or Tingling, Inability to urinate, Inability to have a bowel movement, Shortness of breath, Dizziness, Fainting spells, Swelling in the ankles, Chest pain, Prolonged hiccoughing, Increased palpitations (irregular heartbeat) Home Medications: Medications to take at Discharge Albuterol Inhaler [Ventolin Hfa] 2 puff INHALATION Q6H PRN PRN 10/23/16 Metformin HCl [Metformin HCl ER] 750 mg PO BID 10/23/16 Pantoprazole Sodium [Protonix] 40 mg PO DAILY 10/23/16 Zolpidem Tartrate [Ambien] 10 mg PO DAILY PRN 10/23/16 Acetaminophen [Tylenol Tablet] 650 mg PO Q4H PRN PRN tablet 10/26/16 Thiamine Hydrochloride [Vitamin B1] 100 mg PO DAILYCM #0 tablet 12/14/17 Amlodipine [Norvasc] 5 mg PO DAILY #30 tab 10/01/18 Lisinopril 20 mg PO BID #60 tab 10/01/18 Following Prescrptions Were Given to Patient: Lisinopril 20 mg PO BID #60 tab [facility] Status[email or web address] Amlodipine [Norvasc] 5 mg PO DAILY #30 tab Transmission Status: [email or web address] Primary Care Physician: Jeff Mahmood MD [Primary Care Provider] - Please follow up with your Primary Care Physician in: in 1 week Medical Necessity - Tobacco Use Smoking Status: Former smoker Meaningful Use Info Meaningful Use Diagnoses (Choose all that apply): None applicable Code Visit Inpatient E&M: 21179 Disch Hosp
[2018-10-01 11:16] LABS: Bedside Glucose 254 mg/dL (70-110)
== END 2018-10-01 12:05 | disposition home or self-care (01) | DRG 896 ==
LOC: ED 17:01 → MS3 22:21
PROVIDERS: Admitting Provider Hospitalist; Emergency Provider Emergency Medicine; Family Provider Family Medicine; PCP Family Medicine; Referring Provider Hospitalist; Visit Provider Internal Medicine
DX: F10.239 Alcohol dependence with withdrawal, unspecified (principal); K85.20 Alcohol induced acute pancreatitis without necrosis or infection; E87.1 Hypo-osmolality and hyponatremia; T50.2X5A Adverse effect of carbonic-anhydrase inhibitors, benzothiadiazides and other diuretics, initial encounter; F10.229 Alcohol dependence with intoxication, unspecified; K70.10 Alcoholic hepatitis without ascites; Y90.8 Blood alcohol level of 240 mg/100 ml or more; R00.0 Tachycardia, unspecified; K21.9 Gastro-esophageal reflux disease without esophagitis; I10 Essential (primary) hypertension; F41.9 Anxiety disorder, unspecified; F32.9 Major depressive disorder, single episode, unspecified; J44.9 Chronic obstructive pulmonary disease, unspecified; E11.9 Type 2 diabetes mellitus without complications; E66.9 Obesity, unspecified; Z68.38 Body mass index [BMI] 38.0-38.9, adult; Z79.84 Long term (current) use of oral hypoglycemic drugs; Z79.899 Other long term (current) drug therapy; Z87.891 Personal history of nicotine dependence
CPT/HCPCS: 36415; 76705; 80053; 80307; 80320; 82962; 83690; 85025; 85610; 85730; 99285; J7030; A4216; G0480; J2405

== ENCOUNTER 2020-03-07 19:17 | Inpatient (IN) | payer BC, SELFPAY ==
[2018-09-28 22:56] VITALS: BMI 38.8
[2020-03-07 19:18] VITALS: BP 150/100; PULSE 109; RESP 16; TEMP 35.9; O2SAT 96; BMI 38.0
[2020-03-07 20:48] LABS: Bacteria 0 SEEN /hpf (None Seen); Mucous, Urine 0 SEEN /hpf (<or=2+); Red Blood Cells-Urine 0 SEEN /hpf (0-5); Squamous Epithelial Cells - UA 0 SEEN /hpf (0-5); White Blood Cells 0 SEEN /hpf (0-5)
[2020-03-07 20:50] LABS: Absolute Lymphocyte Count 1.52 X10^3/uL (0.83-4.51); Absolute Neutrophil Count 2.4 X10^3/uL (2.0-7.7); Basophil# 0.05 X10^3/uL; Basophil% 1.2 % (0-1); Color, Urine Yellow (Yellow); Eosinophil# 0.05 X10^3/uL; Eosinophils% 1.2 % (0-5); Glucose, Dipstick Normal (Normal); Hemoglobin 15.7 g/dL (13.0-16.5); Ketone-Dipstick 5 mg/dl (Negative); Leukocyte Esterase-Dipstick Negative /ul (Negative); Lymphocyte # 1.52 X10^3/ul (4.0); Lymphocyte % 35.5 % (19-41); Mean Corp Hgb Conc 34.9 g/dL (32-36); Mean Corpuscular Hgb 31.8 pg (27.0-32.0); Mean Corpuscular Volume 91.3 fL (80-94); Mean Platelet Vol. 9.9 fl (6.2-12.0); NRBC Flagged by Analyzer 0 % (0-5); Neutrophil # 2.35 X10^3/uL (2.7-7.7); Neutrophil % 54.9 % (47-70); Nitrite-Dipstick Negative (Negative); Occult Blood-Urine Negative /ul (Negative); Platelet Count 199 K/mm3 (150-450); Protein-Dipstick 30 mg/dl (Negative); RBC Distribution Width CV 12.3 % (11.6-14.6); RBC Distribution Width SD 40.7 fl (35.1-43.9); Red Blood Count 4.93 M/mm3 (4.6-6.2); Specific Gravity, Urine 1.015 (1.002-1.030); Urine Bilirubin Dipstick Negative (Negative); Urine Clarity Clear (Clear); Urine Urobilinogen Normal (Normal); White Blood Count 4.3 K/mm3 (4.4-11.0)
[2020-03-07 20:57] VITALS: BP 133/73; PULSE 110; RESP 18; O2SAT 95
[2020-03-07 21:45] VITALS: RESP 18
[2020-03-07 21:53] LABS: ALB/GLOB Ratio 1.1 RATIO (0.9-2.4); AST(SGOT) 137 U/L (15-37); Alanine Aminotransfer ALT/SGPT 123 U/L (16-61); Alkaline Phosphatase 106 U/L (45-117); Anion Gap 10 (5-15); BUN 12 mg/dL (7-18); BUN/Creat Ratio 12.8 RATIO (10-20); Calcium,Total 8.9 mg/dL (8.5-10.1); Chloride 99 mmol/L (98-107); Creatinine, Serum 0.94 mg/dL (0.70-1.30); EST Glomerular Filtration Rate 87 mL/min (>60); Est Glom Filt Rate - Afr Amer 106 mL/min (>60); Estimated Creatinine Clearance 81.86 ml/min; Globulin 3.7 g/dL (2.2-4.2); Glucose 134 mg/dL (74-106); Potassium 4.2 mmol/L (3.5-5.1); Protein, Total 7.7 g/dL (6.4-8.2); Sodium Level 137 mmol/L (136-145)
[2020-03-07 22:09] LABS: Amphetamine Urine VISTA NEGATIVE (<1000 ng/mL); Barbiturate Urine VISTA NEGATIVE (< 200 ng/mL); Benzodiazepine Urine VISTA NEGATIVE (< 200 ng/mL); Cocaine Urine VISTA NEGATIVE (< 300 ng/mL); Ecstacy Urine VISTA NEGATIVE (< 500 ng/mL); Methadone Urine VISTA NEGATIVE (< 300 ng/mL); PCP Urine VISTA NEGATIVE (< 25 ng/mL); THC Urine VISTA NEGATIVE (< 50 ng/mL); Vista UDS pH Range 5
--- NOTE | 2020-03-07 22:12 | HP.PCM_ITS ---
Problem List (1) Obesity Status: Chronic (2) GERD (gastroesophageal reflux disease) Status: Chronic (3) Anxiety and depression Status: Chronic (4) Hypertension Status: Chronic Qualifiers: (5) DM2 (diabetes mellitus, type 2) Status: Chronic (6) Alcohol withdrawal Status: Acute (7) Alcohol abuse Status: Chronic History of Present Illness Date of Admission: 03/07/20 Chief Complaint: alcohol detox The patient is a 59 year old male patient with a chronic history of alcoholism presents to the emergency room requesting alcohol detoxification. Patient does have a history of diabetes and hypertension as well. He denies smoking or other medications at this time. Patient states that he is in a long-term drinking history of beginning at the age of 12 as of the last 3 months he has been drinking over a case of bud ice daily and states the last time he drank was 10:00 this morning despite having an alcohol greater than 300 at this time. Patient states in the past he is gone through alcohol withdrawal and the longest period of time is gone without drinking has been a year but continues to regress and fail to maintain sobriety. He has been upset lately because his brother 2 weeks ago from cancer. Past Medical History Past Medical History (Chronic Problems): Chronic Problems Obesity (Chronic) GERD (gastroesophageal reflux disease) (Chronic) Anxiety and depression (Chronic) Hypertension (Chronic) DM2 (diabetes mellitus, type 2) (Chronic) Alcohol abuse (Chronic) Allergies Penicillins Adverse Reaction (Mild, Verified 03/07/20 19:20) red, itching strawberry Adverse Reaction (Mild, Verified 03/07/20 19:20) dont eat them anymore Home Medications: Ambulatory Orders Medication Instructions Recorded Albuterol Inhaler [Ventolin Hfa] 2 puff INHALATION Q6H PRN PRN 10/23/16 Metformin HCl [Metformin HCl ER] 750 mg PO BID 10/23/16 Pantoprazole Sodium [Protonix] 40 mg PO DAILY 10/23/16 Zolpidem Tartrate [Ambien] 10 mg PO DAILY PRN 10/23/16 Thiamine Hydrochloride [Vitamin B1] 100 mg PO DAILYCM #0 tablet 12/14/17 Amlodipine [Norvasc] 5 mg PO DAILY #30 tab 10/01/18 Folic Acid 1 mg PO DAILY #30 tab 10/01/18 Lisinopril 20 mg PO BID #60 tab 10/01/18 Surgical History: - - Tonsillectomy, left shoulder replacement, gastric ulcer intervention, cholecystectomy, umbilical hernia repair. Psychiatric History: Anxiety, Depression Smoking Status: Former smoker - *Family History Paternal History Items: - - Patient notes a paternal family history of heart disease, [place] in his 50s in addition to alcohol abuse history. Maternal History Items: No pertinent history Review of Systems Constitutional: Denies: Chills, Fever, Weight Change HEENT: Denies: Head Aches, Sinus Congestion, Sinus Drainage Cardiovascular: Denies: Chest Pain, Palpitations Respiratory: Denies: Cough, Shortness of breath at rest, Sputum production Gastrointestinal: Denies: Abdominal Pain, Nausea, Vomiting Genitourinary: Denies: Dysuria Musculoskeletal: Denies: Joint Pain, Joint Tenderness Skin: Denies: Rash, Wounds Neurological: Denies: Numbness, Tingling, Focal weakness Psychiatric: Reports: Anxiety. Denies: Depression, Homicidal Ideations, Suicidal Ideations Hematologic/ Lymphatic: Denies: Easy Bruising, Easy Bleeding VTE Information - Inpt Only VTE Present on Admission: No VTE Mechan Device Prophylaxis: None VTE Pharm Prophylaxis ordered?: Yes - Physical Exam Vitals/I&O's: Vital Signs Temp Pulse Resp BP Pulse Ox 96.7 F L 110 H 18 133/73 H 95 03/07/20 19:18 03/07/20 20:57 03/07/20 21:45 03/07/20 20:57 03/07/20 20:57 Oxygen Delivery Method Room Air Weight: 250 lb Body Mass Index (BMI) 38.0 General: Alert, Oriented x3, Cooperative HEENT: Atraumatic, PERRLA, EOMI, Normocephalic Neck: Supple Lungs: Clear to auscultation, Normal air movement Cardiovascular: Regular rate, Normal S1, Normal S2, No murmurs Abdomen: Bowel Sounds Present, Soft, Non Tender Extremities: No edema Skin: No rashes, No breakdown Musculoskeletal: No Tenderness to Palpation of Joints or Extremities Neurological: Neuro grossly intact Psych/Mental Status: Appropriate, Anxious Laboratory Results 03/07/20 20:41: WBC 4.3 L, RBC 4.93, Hgb 15.7, Hct 45.0, MCV 91.3, MCH 31.8, MCHC 34.9, RDW Std Deviation 40.7, RDW Coeff of Anselmo 12.3, Plt Count 199, MPV 9.9, Immature Gran % (Auto) 0.200, Neut % (Auto) 54.9, Lymph % (Auto) 35.5, [place] % (Auto) 7.0, Eos % (Auto) 1.2, Baso % (Auto) 1.2 H, Absolute Neuts (auto) 2.4, Absolute Lymphs (auto) 1.52, Nucleated RBC % 0 03/07/20 20:41: Sodium 137, Potassium 4.2, Chloride 99, Carbon Dioxide 28.0, Anion Gap 10, BUN 12, Creatinine 0.94, Estim Creat Clear Calc 81.86, Est GFR (MDRD) Af Amer 106, Est GFR (MDRD) Non-Af 87, BUN/Creatinine Ratio 12.8, Glucose 134 H, Calcium 8.9, Total Bilirubin 0.30, AST 137 H, ALT 123 H, Alkaline Phosphatase 106, Total Protein 7.7, Albumin 4.0, Globulin 3.7, Albumin/Globulin Ratio 1.1 03/07/20 20:41: Ethyl Alcohol 316.0 H* 03/07/20 20:41: Urine Opiates Screen NEGATIVE, Urine Methadone Screen NEGATIVE, Ur Barbiturates Screen NEGATIVE, Ur Phencyclidine Scrn NEGATIVE, Ur Amphetamines Screen NEGATIVE, U Methamphetamin-MDMA NEGATIVE, U Benzodiazepines Scrn NEGATIVE, Urine Cocaine Screen NEGATIVE, U Cannabinoids Screen NEGATIVE, Ur Drug Screen Comment 03/07/20 20:41: Urine Color Yellow, Urine Clarity Clear, Urine pH 6.0, Ur Specific [place] 1.015, Urine Protein 30 H, Urine Glucose (UA) Normal, Urine Ketones 5 H, Urine Occult Blood Negative, Urine Nitrite Negative, Urine Bilirubin Negative, Urine Urobilinogen Normal, Ur Leukocyte Esterase Negative, Urine RBC 0 SEEN, Urine WBC 0 SEEN, Ur Squamous Epith Cells 0 SEEN, Urine Bacteria 0 SEEN, Urine Mucus 0 SEEN Assessment/Plan All Active Problems Alcohol withdrawal (Acute) Chronic Problems Obesity (Chronic) GERD (gastroesophageal reflux disease) (Chronic) Anxiety and depression (Chronic) Hypertension (Chronic) DM2 (diabetes mellitus, type 2) (Chronic) Alcohol abuse (Chronic) Man 1. Alcohol withdrawal?admit patient to general medical floor placed on [facility] protocol and consult case management for help with discharge planning 2. Diabetes?continue home medications 3. Anxiety depression?covered by [facility] protocol medications 4. GERD continue PPI 5. Prophylaxis?low molecular weight heparin Inpatient E&M: 54635 Init Hosp L3
--- NOTE | 2020-03-07 22:44 | ED.DCSUM_ITS ---
- ER Visit Summary Date of Service: 03/07/20 Chief Complaint: Wants alcohol detox History of Present Illness: The patient is a 59 M presenting requesting detox from alcohol. He states his last detox was approximately 1 year ago. He states he has been drinking again for the past 3 months. He states he drinks a case of beer per day. No history of alcohol withdrawal seizures. His last drink was at 3 PM. He denies drug use. Denies fever, chills. Denies chest pain or shortness of breath. Denies other complaints. Physical Examination: Vitals are stable. Patient is afebrile. Alert no acute distress. HEENT exam is unremarkable. Neck is supple. Lungs are clear and equal bilaterally. Heart is regular tachycardic Abdomen is soft nontender nondistended. Extremities are unremarkable. Skin is warm and dry. No focal neurologic deficit. Remainder of exam is unremarkable. Emergency Department Course and Treatment: CBC, chemistries unremarkable. ALT 123, AST 137. Urinalysis unremarkable. Tox is negative. Alcohol 316. Discussed with hospitalist for admission. Disposition: Admission Impression: Alcohol withdrawal This note was generated with [employer] dictation software. It may contain incorrect words, spelling, and punctuation that were not noted in review of the chart prior to signing ED Disposition - Plan for ED Patient: Referrals: Jeff Mahmood MD [Primary Care Provider] -
[2020-03-07 23:00] VITALS: BP 146/85; PULSE 119; RESP 16; TEMP 36.8; O2SAT 93
[2020-03-07] MEDS: Ondansetron 4 MG/2 ML Vial IV (23:44)
[2020-03-08] VITALS (9 sets, daily range): BP systolic 122–156; BP diastolic 65–102; PULSE 120–125; RESP 16–18; TEMP 36.4–37.2; O2SAT 94–98; BMI 37.3
[2020-03-08] MEDS: hydrOXYzine PAM 25 MG Capsule 50 MG PO ×3 (01:43→23:08)
[2020-03-08] MEDS: LORazepam 1 MG Tablet 2 MG PO ×3 (01:43→08:40)
[2020-03-08] MEDS: Ondansetron 8 MG Tablet PO ×2 (01:43→14:01)
[2020-03-08] MEDS: traZODone 100 MG Tablet PO ×2 (01:43→22:22)
[2020-03-08] MEDS: Ibuprofen 400 MG Tablet PO ×3 (05:15→22:22)
--- NOTE | 2020-03-08 08:31 | PCM.PROGNOTE ---
Patient Problems: Active and Suspected Problems Alcohol withdrawal (Acute) Subjective: Chief complaint: Follow-up after admission for acute alcohol intoxication/withdrawal. Patient seen and examined. No acute events overnight. He is obviously very shaky, hand tremors but he mentioned that he is feeling little bit better after he received couple of doses of Ativan. Apart from mild tachycardia, other vital signs are stable. - Physical Exam Vitals/I&O's: Vital Signs Temp Pulse Resp BP Pulse Ox 98.1 F 125 H 18 150/65 H 96 03/08/20 06:55 03/08/20 06:55 03/08/20 06:55 03/08/20 06:55 03/08/20 06:55 Oxygen Delivery Method Room Air Weight: 245 lb 5.992 oz Body Mass Index (BMI) 37.3 Intake and Output for Last 24 Hours 03/06/20 03/07/20 03/08/20 23:59 23:59 23:59 Intake Total 600 / 600 Balance 600 / 600 General: Alert, Oriented x3, Cooperative, - - Hand tremors. HEENT: Atraumatic, PERRLA, EOMI, Normocephalic Oral: Moist Mucosa, No Gingival or Mucosal Lesions/ Ulcerations Neck: Supple, No JVD, Negative Carotid Bruits, Trachea Midline, Thyroid Normal Size and Texture Lungs: Clear to auscultation, Normal air movement, No rhonchi, No wheeze, No rales, Diminished Cardiovascular: Regular rate, Regular Rhythm, Normal S1, Normal S2, PMI Normal, Tachycardic Abdomen: Bowel Sounds Present, Soft, Non Tender, Non-Distended, No Hepato-splenomegaly, Obese Extremities: No clubbing, No cyanosis, No edema Skin: No rashes, No breakdown Lymphatic: No Cervical, Supraclavicular, or Inguinal Adenopathy Neurological: Cranial nerves II-XII grossly intact, Motor Exam 5/5 strength throughout Psych/Mental Status: Normal Affect, Appropriate, Alert and oriented to time, place, person, mood and affect Laboratory Results 03/07/20 20:41: WBC 4.3 L, RBC 4.93, Hgb 15.7, Hct 45.0, MCV 91.3, MCH 31.8, MCHC 34.9, RDW Std Deviation 40.7, RDW Coeff of Anselmo 12.3, Plt Count 199, MPV 9.9, Immature Gran % (Auto) 0.200, Neut % (Auto) 54.9, Lymph % (Auto) 35.5, [place] % (Auto) 7.0, Eos % (Auto) 1.2, Baso % (Auto) 1.2 H, Absolute Neuts (auto) 2.4, Absolute Lymphs (auto) 1.52, Nucleated RBC % 0 03/07/20 20:41: Sodium 137, Potassium 4.2, Chloride 99, Carbon Dioxide 28.0, Anion Gap 10, BUN 12, Creatinine 0.94, Estim Creat Clear Calc 81.86, Est GFR (MDRD) Af Amer 106, Est GFR (MDRD) Non-Af 87, BUN/Creatinine Ratio 12.8, Glucose 134 H, Calcium 8.9, Total Bilirubin 0.30, AST 137 H, ALT 123 H, Alkaline Phosphatase 106, Total Protein 7.7, Albumin 4.0, Globulin 3.7, Albumin/Globulin Ratio 1.1 03/07/20 20:41: Ethyl Alcohol 316.0 H* 03/07/20 20:41: Urine Opiates Screen NEGATIVE, Urine Methadone Screen NEGATIVE, Ur Barbiturates Screen NEGATIVE, Ur Phencyclidine Scrn NEGATIVE, Ur Amphetamines Screen NEGATIVE, U Methamphetamin-MDMA NEGATIVE, U Benzodiazepines Scrn NEGATIVE, Urine Cocaine Screen NEGATIVE, U Cannabinoids Screen NEGATIVE, Ur Drug Screen Comment 03/07/20 20:41: Urine Color Yellow, Urine Clarity Clear, Urine pH 6.0, Ur Specific [place] 1.015, Urine Protein 30 H, Urine Glucose (UA) Normal, Urine Ketones 5 H, Urine Occult Blood Negative, Urine Nitrite Negative, Urine Bilirubin Negative, Urine Urobilinogen Normal, Ur Leukocyte Esterase Negative, Urine RBC 0 SEEN, Urine WBC 0 SEEN, Ur Squamous Epith Cells 0 SEEN, Urine Bacteria 0 SEEN, Urine Mucus 0 SEEN Current Medications Albuterol Sulfate (Albuterol 2.5 Mg/3 Ml Vial.Neb.) 2.5 mg INHALATION Q6H PRN PRN PRN Reason: Shortness of breath Amlodipine Besylate (Amlodipine 5 Mg Tablet) 5 mg PO DAILY [facility] Dicyclomine HCl (Dicyclomine 10 Mg Capsule) 20 mg PO Q6H PRN PRN PRN Reason: abdominal discomfort Folic Acid (Folic Acid 1 Mg Tablet) 1 mg PO DAILYCM [facility] Gabapentin (Gabapentin 300 Mg Capsule) 300 mg PO Q8H PRN PRN PRN Reason: moderate to severe anxiety Hydroxyzine Pamoate (Hydroxyzine Aiyana 25 Mg Capsule) 50 mg PO Q4H PRN PRN PRN Reason: mild anxiety Last Admin: 03/08/20 01:43 Dose: 50 mg Documented by: Ibuprofen (Ibuprofen 400 Mg Tablet) 400 mg PO Q6H PRN PRN PRN Reason: Pain Score 1-10 Last Admin: 03/08/20 05:15 Dose: 400 mg Documented by: Insulin Human Lispro (Insulin Lispro 100 Unit/Ml Insuln.Pen) 0 unit SC [facility]; Protocol Lisinopril (Lisinopril 20 Mg Tablet) 20 mg PO BID [facility] Loperamide HCl (Loperamide 2 Mg Capsule) 2 mg PO Q4H PRN PRN PRN Reason: LOOSE STOOLS Lorazepam (Lorazepam 1 Mg Tablet) 2 mg PO Q4H [facility]; Taper Stop: 03/12/20 09:26 Last Admin: 03/08/20 05:15 Dose: 2 mg Documented by: Metformin HCl (Metformin (Xr) 500 Mg Tablet) [facility] Ondansetron HCl (Ondansetron 8 Mg Tablet) 8 mg PO Q8H PRN PRN PRN Reason: NAUSEA Last Admin: 03/08/20 01:43 Dose: 8 mg Documented by: Pantoprazole Sodium (Pantoprazole Sodium 40 Mg Tablet) 40 mg PO DAILY [facility] Sodium Chloride (0.9% Saline Lock 10 Ml Syringe) 10 - 40 ml IV UD PRN PRN Reason: SALINE FLUSH Thiamine HCl (Thiamine Hydrochloride 100 Mg Tablet) 100 mg PO DAILYCM [facility] Trazodone HCl (Trazodone 100 Mg Tablet) 100 mg PO QHS PRN PRN PRN Reason: INSOMNIA Last Admin: 03/08/20 01:43 Dose: 100 mg Documented by: Zolpidem Tartrate (Zolpidem Tartrate 5 Mg Tablet) 5 mg PO QHS PRN PRN PRN Reason: Sleep if trazodone ineffective Medical Necessity - Tobacco Use Smoking Status: Former smoker Assessment/Plan All Active Problems Alcohol withdrawal (Acute) This is a 59 years old male patient presented to the emergency room requesting admission for acute alcohol intoxication/withdrawal for medical stabilization. #1 acute alcohol intoxication/withdrawal: He is on Ativan taper, folic acid and thiamine, as needed Bentyl, Vistaril, ibuprofen, Imodium, Zofran, trazodone and Ambien. His blood alcohol level on admission was 316. Urine drug screen was negative. Obviously, he does have hand tremors and shakiness, restlessness. He reports minimal improvement so far. Apart from tachycardia, other vital signs are stable. Plan to continue same treatment for now. #2 type 2 diabetes mellitus: Blood sugar stable. Continue Metformin, start Accu-Cheks before every meal at bedtime, insulin sliding scale. #3 hypertension: Blood pressure stable, continue Norvasc and lisinopril. #4 GERD: Continue Protonix. #5 anxiety and depression: Currently, he is on trazodone as needed as a part of the withdrawal protocol. #6 DVT prophylaxis: Subcu Lovenox. This note was generated with [employer] dictation software. It may contain incorrect words, spelling, and punctuation that were not noted in checking the note before signing. Inpatient E&M: 66016 Subs Hosp L2
[2020-03-08] MEDS: Lisinopril 20 MG Tablet PO ×2 (08:37→22:23)
[2020-03-08] MEDS: metFORMIN (XR) 500 MG Tablet 750 MG PO ×2 (08:37→16:09)
[2020-03-08] MEDS: amLODIPine 5 MG Tablet PO (08:37)
[2020-03-08] MEDS: Pantoprazole Sodium 40 MG Tablet PO (08:37)
[2020-03-08] MEDS: Folic Acid 1 MG Tablet PO (08:37)
[2020-03-08] MEDS: Thiamine Hydrochloride 100 MG Tablet PO (08:37)
[2020-03-08] MEDS: Dicyclomine 10 MG Capsule 20 MG PO ×2 (08:40→18:26)
[2020-03-08] MEDS: Gabapentin 300 MG Capsule PO ×2 (08:40→22:22)
[2020-03-08] MEDS: Enoxaparin 30 MG/0.3 ML Syringe SC (09:42)
--- NOTE | 2020-03-08 09:58 | ADDICTION ---
This newspaper writer attempted to meet with patient in his room. patient requested to complete assessments and d/c planning tomorrow as he is not feeling well and is experiencing w/d symptoms. Patient's nurse is aware. This newspaper writer will attempt to meet with patient on 03/09/2020.
[2020-03-08] MEDS: Insulin Lispro 100 UNIT/ML INSULN.PEN SC ×3 (11:14→22:23)
[2020-03-08 11:20] LABS: Bedside Glucose 212 mg/dL (70-110)
[2020-03-08] MEDS: Phenobarbital 32.4 MG Tablet PO ×4 (11:29→22:22)
[2020-03-08] MEDS: LORazepam 1 MG Tablet PO ×3 (14:01→23:08)
[2020-03-08 16:55] LABS: Bedside Glucose 180 mg/dL (70-110)
[2020-03-08] MEDS: Famotidine 20 MG Tablet PO (18:58)
--- NOTE | 2020-03-08 19:04 | PCS.PANDOC ---
PANDEMIC DOCUMENTATION INITIATED: Date: 03/08/20 Time: 0117
[2020-03-08 21:06] LABS: Bedside Glucose 166 mg/dL (70-110)
[2020-03-08] MEDS: Zolpidem Tartrate 5 MG Tablet PO (23:08)
--- NOTE | 2020-03-08 23:14 | NURSING ---
pt ambulating in hallway, with steady gait. pt stated I'm looking to see which window I saw the homeless person sleeping on the roof. pt also made comments on looking for his , needing to take out the air conditioner, seeing a little girl in the hallway. Pt holding conversations with people that are not there. Pt assisted back to room several times throughout this shift, reoriented, snacks given. pt currently resting in bed with call light within reach. Staff member at nursing desk outside of pt room to monitor.
--- NOTE | 2020-03-08 23:33 | NURSING ---
PT pacing in room, transferring between bed and recliner. Pt came out of room to wash dishes while holding water cup. This nurse reoiented pt assisted back to room, pt had all linen off of bed. pt stated I was trying to clean up. Encouraged pt to rest and allow staff to clean up room. Pt resting in recliner with call light within reach. Staff at nursing station by room to monitor.
--- NOTE | 2020-03-08 23:43 | NURSING ---
pt stripped bed linen and attempting to bring it out of room. Pt stated I'm trying to do the wash. This nurse reoriented pt assisted to make comfortable in recliner. Staff straighten room. pt denied needs call light within reach. staff remaining close to room to monitor.
[2020-03-09] VITALS (14 sets, daily range): BP systolic 90–181; BP diastolic 63–98; PULSE 100–131; RESP 14–22; TEMP 36.1–37.1; O2SAT 92–98
[2020-03-09] MEDS: Phenobarbital 32.4 MG Tablet PO ×5 (02:55→19:38)
[2020-03-09] MEDS: 0.9% Saline Lock 10 ML Syringe IV (04:36)
[2020-03-09] MEDS: LORazepam 2 MG/ML Syringe IV (04:36)
--- NOTE | 2020-03-09 04:37 | NURSING ---
pt wondering in hallway attempting to walk into other pt rooms. pt alert to self pt asked why am I in a barn with all this trash and who are these people? reoriented pt to time and place. pt thought he was already discharged from hospital. pt resting in bed. bed alarm set. staff remaining close to room to monitor.
[2020-03-09] MEDS: Folic Acid 1 MG Tablet PO (07:33)
[2020-03-09] MEDS: Thiamine Hydrochloride 100 MG Tablet PO (07:33)
[2020-03-09] MEDS: Lisinopril 20 MG Tablet PO ×2 (07:34→21:10)
[2020-03-09] MEDS: amLODIPine 5 MG Tablet PO (07:34)
[2020-03-09] MEDS: metFORMIN (XR) 500 MG Tablet 750 MG PO ×2 (07:34→16:40)
[2020-03-09] MEDS: Enoxaparin 30 MG/0.3 ML Syringe SC (07:34)
[2020-03-09] MEDS: Pantoprazole Sodium 40 MG Tablet PO (07:34)
[2020-03-09] MEDS: Famotidine 20 MG Tablet PO ×2 (07:35→21:10)
[2020-03-09] MEDS: Insulin Lispro 100 UNIT/ML INSULN.PEN SC ×3 (07:38→21:10)
[2020-03-09 07:51] LABS: Bedside Glucose 172 mg/dL (70-110)
--- NOTE | 2020-03-09 08:29 | PN_ITS ---
Patient Problems: Active and Suspected Problems Alcohol withdrawal (Acute) Subjective: Chief complaint: Follow-up after admission for acute alcohol withdrawal. Patient seen and examined. Overnight, nursing staff reported that patient had hallucination and he needed as needed Ativan in addition to scattered phenobarbital. This morning, he is feeling better, normal sedation. Tremors and shakiness of hands are getting better. He is afebrile, heart rate has been around 100, blood pressure slight elevated, pulse ox is 98% on room air. - Physical Exam Vitals/I&O's: Vital Signs Temp Pulse Resp BP Pulse Ox 98.1 F 105 H 18 156/98 H 98 03/09/20 07:32 03/09/20 07:32 03/09/20 07:32 03/09/20 07:32 03/09/20 07:32 Oxygen Delivery Method Room Air Weight: 245 lb 5.992 oz Body Mass Index (BMI) 37.3 Intake and Output for Last 24 Hours 03/07/20 03/08/20 03/09/20 23:59 23:59 23:59 Intake Total 1700 / 3000 1600 / 1600 Balance 1700 / 3000 1600 / 1600 General: Alert, Oriented x3, Cooperative, No apparent distress HEENT: Atraumatic, PERRLA, EOMI, Normocephalic Oral: Moist Mucosa, No Gingival or Mucosal Lesions/ Ulcerations Neck: Supple, No JVD, Negative Carotid Bruits, Trachea Midline, Thyroid Normal Size and Texture Lungs: Clear to auscultation, No rhonchi, No wheeze, No rales Cardiovascular: Regular rate, Regular Rhythm, Normal S1, Normal S2, PMI Normal Abdomen: Bowel Sounds Present, Soft, Non Tender, Non-Distended, No Hepato- splenomegaly, Obese Extremities: No clubbing, No cyanosis, No edema Skin: No rashes, No breakdown Lymphatic: No Cervical, Supraclavicular, or Inguinal Adenopathy Neurological: Cranial nerves II-XII grossly intact, Neuro grossly intact Psych/Mental Status: Appropriate, Flat Affect, Alert and oriented to time, place, person, mood and affect Laboratory Results 03/08/20 11:09: POC Glucose 212 H 03/08/20 16:07: POC Glucose 180 H 03/08/20 21:04: POC Glucose 166 H 03/09/20 07:38: POC Glucose 172 H Current Medications Albuterol Sulfate (Albuterol 2.5 Mg/3 Ml Vial.Neb.) 2.5 mg INHALATION Q6H PRN PRN PRN Reason: Shortness of breath Amlodipine Besylate (Amlodipine 5 Mg Tablet) 5 mg PO DAILY [facility] Last Admin: 03/09/20 07:34 Dose: 5 mg Documented by: Dicyclomine HCl (Dicyclomine 10 Mg Capsule) 20 mg PO Q6H PRN PRN PRN Reason: abdominal discomfort Last Admin: 03/08/20 18:26 Dose: 20 mg Documented by: Enoxaparin Sodium (Enoxaparin 30 Mg/0.3 Ml Syringe) 30 mg SC DAILY [facility] Last Admin: 03/09/20 07:34 Dose: 30 mg Documented by: Famotidine (Famotidine 20 Mg Tablet) 20 mg PO BID [facility] Last Admin: 03/09/20 07:35 Dose: 20 mg Documented by: Folic Acid (Folic Acid 1 Mg Tablet) [facility] Last Admin: 03/09/20 07:33 Dose: 1 mg Documented by: Gabapentin (Gabapentin 300 Mg Capsule) 300 mg PO Q8H PRN PRN PRN Reason: moderate to severe anxiety Last Admin: 03/08/20 22:22 Dose: 300 mg Documented by: Hydroxyzine Pamoate (Hydroxyzine Aiyana 25 Mg Capsule) 50 mg PO Q4H PRN PRN PRN Reason: mild anxiety Last Admin: 03/08/20 23:08 Dose: 50 mg Documented by: Ibuprofen (Ibuprofen 400 Mg Tablet) 400 mg PO Q6H PRN PRN PRN Reason: Pain Score 1-10 Last Admin: 03/08/20 22:22 Dose: 400 mg Documented by: Insulin Human Lispro (Insulin Lispro 100 Unit/Ml Insuln.Pen) 0 unit SC [facility]; Protocol Last Admin: 03/09/20 07:38 Dose: 1 units Documented by: Lisinopril (Lisinopril 20 Mg Tablet) 20 mg PO BID [facility] Last Admin: 03/09/20 07:34 Dose: 20 mg Documented by: Loperamide HCl (Loperamide 2 Mg Capsule) 2 mg PO Q4H PRN PRN PRN Reason: LOOSE STOOLS Lorazepam (Lorazepam 1 Mg Tablet) 2 mg PO Q2H PRN PRN; Protocol PRN Reason: CIWA score > 8 but <15 Lorazepam (Lorazepam 1 Mg Tablet) 2 mg PO UD PRN; Protocol PRN Reason: CIWA score >/=15. Lorazepam (Lorazepam 2 Mg/Ml Syringe) 2 mg IV Q2H PRN PRN; Protocol PRN Reason: CIWA score > 8 but <15 Lorazepam (Lorazepam 2 Mg/Ml Syringe) 2 mg IV UD PRN; Protocol PRN Reason: CIWA score >/=15. Last Admin: 03/09/20 04:36 Dose: 2 mg Documented by: Metformin HCl (Metformin (Xr) 500 Mg Tablet) [facility] Last Admin: 03/09/20 07:34 Dose: 750 mg Documented by: Ondansetron HCl (Ondansetron 8 Mg Tablet) 8 mg PO Q8H PRN PRN PRN Reason: NAUSEA Last Admin: 03/08/20 14:01 Dose: 8 mg Documented by: Pantoprazole Sodium (Pantoprazole Sodium 40 Mg Tablet) 40 mg PO DAILY [facility] Last Admin: 03/09/20 07:34 Dose: 40 mg Documented by: Phenobarbital (Phenobarbital 32.4 Mg Tablet) 97.2 mg PO Q4H [facility]; Taper Stop: 03/12/20 19:29 Last Admin: 03/09/20 07:33 Dose: 97.2 mg Documented by: Sodium Chloride (0.9% Saline Lock 10 Ml Syringe) 10 - 40 ml IV UD PRN PRN Reason: SALINE FLUSH Last Admin: 03/09/20 04:36 Dose: 10 ml Documented by: Thiamine HCl (Thiamine Hydrochloride 100 Mg Tablet) [facility] Last Admin: 03/09/20 07:33 Dose: 100 mg Documented by: Trazodone HCl (Trazodone 100 Mg Tablet) 100 mg PO QHS PRN PRN PRN Reason: INSOMNIA Last Admin: 03/08/20 22:22 Dose: 100 mg Documented by: Zolpidem Tartrate (Zolpidem Tartrate 5 Mg Tablet) 5 mg PO QHS PRN PRN PRN Reason: Sleep if trazodone ineffective Last Admin: 03/08/20 23:08 Dose: 5 mg Documented by: Medical Necessity - Tobacco Use Smoking Status: Former smoker Assessment/Plan All Active Problems Alcohol withdrawal (Acute) This is a 59 years old male patient presented to the emergency room requesting admission for acute alcohol intoxication/withdrawal for medical stabilization. #1 acute alcohol withdrawal: He is on phenobarbital taper as well as as needed Ativan, on folic acid and thiamine, as needed Bentyl, Vistaril, ibuprofen, Imodium, Zofran, trazodone and Ambien. Overnight, he had resolution which improved with Ativan as needed. Blood pressure improved as well as heart rate. Plan to continue same treatment, 180 program already evaluated the patient. #2 type 2 diabetes mellitus: Blood sugar stable. Continue Metformin, continue Accu-Cheks before every meal at bedtime, insulin sliding scale. #3 hypertension: Blood pressure slight elevated likely because of withdrawal, continue Norvasc and lisinopril. #4 GERD: Continue Protonix. #5 anxiety and depression: Currently, he is on trazodone as needed as a part of the withdrawal protocol. #6 DVT prophylaxis: Subcu Lovenox. This note was generated with [employer] dictation software. It may contain incorrect words, spelling, and punctuation that were not noted in checking the note before signing. Inpatient E&M: 26749 Subs Hosp L2
--- NOTE | 2020-03-09 09:44 | ADDICTION ---
This manual writer met with patient in his room to complete ASAM assessment and to plan for discharge. Patient was not clothed and this manual writer requested that he cover his bottom half. Patient did not acknowledge this question and manual writer requested again. Patient stated I'm fine and did not cover up. This manual writer completed ASAM assessment but did not complete other assessments based on patient's presentation and refusal to cover bottom half. This manual writer asked patient to cover up again and patient did not respond. Patient noted that he plans to return to work following discharge and doesn't have time for counseling or other AoD treatment. Patient did not complete discharge plan during this visit. He states that he plans to attend restorationism. He did not request transportation following discharge. This manual writer will put completed ASAM assessment in patient's chart and will send assessment to [facility].
[2020-03-09] MEDS: Ibuprofen 400 MG Tablet PO (10:11)
[2020-03-09] MEDS: LORazepam 1 MG Tablet 2 MG PO ×5 (10:11→20:05)
[2020-03-09 10:21] LABS: Bedside Glucose 214 mg/dL (70-110)
--- NOTE | 2020-03-09 15:33 | NURSING ---
PT'S CALLED AND UPDATED ON PT'S DESIRE TO LEAVE A.M.A. DID ALLOW PT TO TALK WITH HIS . AwARE PER PT HAS CHANGED HIS MIND AND WILL BE STAYING. SHE WILL NOT BE HIS RIDE IF HE DECIDES TO LEAVE
[2020-03-09] MEDS: Gabapentin 300 MG Capsule PO (15:52)
[2020-03-09 16:45] LABS: Bedside Glucose 145 mg/dL (70-110)
--- NOTE | 2020-03-09 16:51 | NURSING ---
SVETLANA UPDATED ON PT PT MORE AGREEABLE TO TREATMENT AND ALTHOUGH STILL UP IN ROOM SEEMS LESS ANXIOUS OR RESTLESS. DID OPEN BELONGINGS BIN AND SHOWED PATIENT HE DOES NOT HAVE HOUSE SLIPPERS IN THE BIN. PT AGREEABLE TO WEAR HOSPITAL SLIPPERS AND DENIES ALL FURTHER NEEDS AT PRESENT.
--- NOTE | 2020-03-09 20:17 | PN_ITS ---
Progress Note Patient unable to be controlled with phenobarbital and Ativan. CIWA score at 31. Transfer patient to the intensive care and start patient on Precedex. Racking Machine Operator consult. STROKE Vital Signs/Narrative: Vital Signs Temp Pulse Resp BP Pulse Ox 03/09/20 20:06 131 H 03/09/20 19:56 97.7 F L 131 H 20 H 140/94 H 96 03/09/20 18:44 97.4 F L 117 H 18 170/98 H 95 03/09/20 17:47 96.9 F L 126 H 18 142/84 H 97
[2020-03-09 21:45] LABS: Bedside Glucose 213 mg/dL (70-110)
--- NOTE | 2020-03-09 22:00 | NURSING ---
Pt's , Ariella Asher, called in to check on her . I advised her that I was just getting ready to call her to let her know we transferred her to ICU #3 so that he could be put on medications that we could not administer on this floor. Further explained that the reason for the transfer was because we had exhausted our resources as far the care that we could provide for him, and that sometimes it is necessary to transfer them to ICU to be placed on a gtt to assist with withdrawal. She wanted to be able to call ICU but I told her that since we had just transferred him at about 2129 that she should wait to call their floor for awhile so they could get him settled.
[2020-03-10] VITALS (28 sets, daily range): BP systolic 91–158; BP diastolic 54–96; PULSE 83–101; RESP 11–22; TEMP 36.1–36.8; O2SAT 90–100
[2020-03-10] MEDS: Phenobarbital 32.4 MG Tablet PO ×5 (03:43→21:04)
[2020-03-10 03:49] LABS: Absolute Lymphocyte Count 0.53 X10^3/uL (0.83-4.51); Absolute Neutrophil Count 2.4 X10^3/uL (2.0-7.7); Basophil# 0.02 X10^3/uL; Basophil% 0.6 % (0-1); Eosinophil# 0.04 X10^3/uL; Eosinophils% 1.2 % (0-5); Hematocrit 42.6 % (40-54); Lymphocyte # 0.53 X10^3/ul (4.0); Lymphocyte % 15.9 % (19-41); Mean Corp Hgb Conc 32.9 g/dL (32-36); Mean Corpuscular Hgb 31.7 pg (27.0-32.0); Mean Corpuscular Volume 96.4 fL (80-94); Mean Platelet Vol. 10.1 fl (6.2-12.0); NRBC Flagged by Analyzer 0 % (0-5); Neutrophil # 2.43 X10^3/uL (2.7-7.7); POSITIVE DIFFERENTIAL YES; Platelet Count 112 K/mm3 (150-450); RBC Distribution Width CV 12.3 % (11.6-14.6); RBC Distribution Width SD 43.4 fl (35.1-43.9); Red Blood Count 4.42 M/mm3 (4.6-6.2); White Blood Count 3.3 K/mm3 (4.4-11.0)
[2020-03-10 03:54] LABS: Differential Indicated SCAN CRITERIA MET
[2020-03-10 04:01] LABS: Anion Gap 3 (5-15); BUN 21 mg/dL (7-18); BUN/Creat Ratio 11.9 RATIO (10-20); Calcium,Total 8.8 mg/dL (8.5-10.1); Chloride 101 mmol/L (98-107); Creatinine, Serum 1.76 mg/dL (0.70-1.30); EST Glomerular Filtration Rate 42 mL/min (>60); Est Glom Filt Rate - Afr Amer 51 mL/min (>60); Estimated Creatinine Clearance 43.72 ml/min; Glucose 151 mg/dL (74-106); Potassium 5.3 mmol/L (3.5-5.1); Sodium Level 135 mmol/L (136-145)
[2020-03-10 04:10] LABS: Differential Comment SCANNED
[2020-03-10] MEDS: TITRATION PARAMETER CHANGE 1 EACH IV (04:53)
[2020-03-10] MEDS: Insulin Lispro 100 UNIT/ML INSULN.PEN SC ×4 (08:55→21:15)
[2020-03-10 09:00] LABS: Bedside Glucose 166 mg/dL (70-110)
[2020-03-10] MEDS: 0.9% Normal Saline 1,000 ML 100 ML IV ×2 (09:01→18:42)
[2020-03-10 09:36] LABS: Magnesium 2.2 mg/dL (1.6-2.6); Phosphorus 7.2 mg/dL (2.5-4.9)
--- NOTE | 2020-03-10 09:48 | PN_ITS ---
Patient Problems: Active and Suspected Problems Alcohol withdrawal (Acute) Subjective: Chief complaint: Follow-up For Acute Alcohol Withdrawal. Patient seen and examined. Overnight, patient was very shaky, tremulous. CIWA score was 31. He was transferred down to ICU and was started on Precedex drip. Currently, patient is sleepy but arousable, was able to communicate. He mentioned that he is feeling okay. No complaints. - Physical Exam Vitals/I&O's: Vital Signs Temp Pulse Resp BP Pulse Ox 97.0 F L 88 17 103/75 93 03/10/20 04:00 03/10/20 07:00 03/10/20 07:00 03/10/20 07:00 03/10/20 07:00 Oxygen Flow Rate (L/min) 3 Oxygen Delivery Method Room Air Weight: 245 lb 13.047 oz Body Mass Index (BMI) 37.3 Intake and Output for Last 24 Hours 03/08/20 03/09/20 03/10/20 23:59 23:59 23:59 Intake Total 1700 / 3000 2588.47 / 2597.66 479.21 / 479.21 Output Total 201 / 201 Balance 1700 / 3000 2387.47 / 2396.66 479.21 / 479.21 General: Alert, Cooperative, No apparent distress, - - Sleepy, lethargic but arousable. HEENT: Atraumatic, PERRLA, EOMI, Normocephalic Oral: Moist Mucosa, No Gingival or Mucosal Lesions/ Ulcerations Neck: Supple, No JVD, Negative Carotid Bruits, Trachea Midline, Thyroid Normal Size and Texture Lungs: Clear to auscultation, Normal air movement, No rhonchi, No wheeze, No rales Cardiovascular: Regular rate, Regular Rhythm, Normal S1, Normal S2, No murmurs, PMI Normal Abdomen: Bowel Sounds Present, Soft, Non Tender, Non-Distended, No Hepato- splenomegaly, Obese Extremities: No clubbing, No cyanosis, No edema Skin: No rashes, No breakdown Lymphatic: No Cervical, Supraclavicular, or Inguinal Adenopathy Neurological: Cranial nerves II-XII grossly intact, Neuro grossly intact Psych/Mental Status: Appropriate, Flat Affect Laboratory Results 03/09/20 10:15: POC Glucose 214 H 03/09/20 16:39: POC Glucose 145 H 03/09/20 21:08: POC Glucose 213 H 03/10/20 03:40: WBC 3.3 L, RBC 4.42 L, Hgb 14.0, Hct 42.6, MCV 96.4 H D, MCH 31.7, MCHC 32.9 D, RDW Std Deviation 43.4, RDW Coeff of Anselmo 12.3, Plt Count 112 L, MPV 10.1, Immature Gran % (Auto) 0.300, Neut % (Auto) 73.0 H, Lymph % (Auto) 15.9 L, [place] % (Auto) 9.0, Eos % (Auto) 1.2, Baso % (Auto) 0.6, Absolute Neuts (auto) 2.4, Absolute Lymphs (auto) 0.53 L, Nucleated RBC % 0, Differential Comment SCANNED, Diff Path Review July03/10/20 03:40: Sodium 135 L, Potassium 5.3 H, Chloride 101, Carbon Dioxide 31.0, Anion Gap 3 L, BUN 21 H, Creatinine 1.76 H, Estim Creat Clear Calc 43.72, Est GFR (MDRD) Af Amer 51 L, Est GFR (MDRD) Non-Af 42 L, BUN/Creatinine Ratio 11.9, Glucose 151 H, Calcium 8.8 03/10/20 03:40: Phosphorus 7.2 H, Magnesium 2.2 03/10/20 08:50: POC Glucose 166 H Current Medications Albuterol Sulfate (Albuterol 2.5 Mg/3 Ml Vial.Neb.) 2.5 mg INHALATION Q6H PRN PRN PRN Reason: Shortness of breath Amlodipine Besylate (Amlodipine 5 Mg Tablet) 5 mg PO DAILY REPLACED BY [facility] Last Admin: 03/09/20 07:34 Dose: 5 mg Documented by: Dicyclomine HCl (Dicyclomine 10 Mg Capsule) 20 mg PO Q6H PRN PRN PRN Reason: abdominal discomfort Last Admin: 03/08/20 18:26 Dose: 20 mg Documented by: Enoxaparin Sodium (Enoxaparin 30 Mg/0.3 Ml Syringe) 30 mg SC DAILY REPLACED BY [facility] Last Admin: 03/09/20 07:34 Dose: 30 mg Documented by: Famotidine (Famotidine 20 Mg Tablet) 20 mg PO BID REPLACED BY [facility] Last Admin: 03/09/20 21:10 Dose: 20 mg Documented by: Folic Acid (Folic Acid 1 Mg Tablet) 1 mg PO DAILYCM REPLACED BY [facility] Last Admin: 03/09/20 07:33 Dose: 1 mg Documented by: Gabapentin (Gabapentin 300 Mg Capsule) 300 mg PO Q8H PRN PRN PRN Reason: moderate to severe anxiety Last Admin: 03/09/20 15:52 Dose: 300 mg Documented by: Hydroxyzine Pamoate (Hydroxyzine Aiyana 25 Mg Capsule) 50 mg PO Q4H PRN PRN PRN Reason: mild anxiety Last Admin: 03/08/20 23:08 Dose: 50 mg Documented by: Dexmedetomidine HCl 400 mcg/ (Sodium Chloride) 100 mls @ 14 mls/hr CONT INF .Q7H9M REPLACED BY [facility]; Protocol Last Titration: 03/10/20 09:00 Dose: 0.5 mcg/kg/hr, 14 mls/hr Documented by: Sodium Chloride () 1,000 mls @ 100 mls/hr IV .Q10H REPLACED BY [facility] Last Admin: 03/10/20 09:01 Dose: 100 mls/hr Documented by: Ibuprofen (Ibuprofen 400 Mg Tablet) 400 mg PO Q6H PRN PRN PRN Reason: Pain Score 1-10 Last Admin: 03/09/20 10:11 Dose: 400 mg Documented by: Insulin Human Lispro (Insulin Lispro 100 Unit/Ml Insuln.Pen) 0 unit SC [facility]; Protocol Last Admin: 03/10/20 08:55 Dose: 1 units Documented by: Lisinopril (Lisinopril 20 Mg Tablet) 20 mg PO BID REPLACED BY [facility] Last Admin: 03/09/20 21:10 Dose: 20 mg Documented by: Loperamide HCl (Loperamide 2 Mg Capsule) 2 mg PO Q4H PRN PRN PRN Reason: LOOSE STOOLS Lorazepam (Lorazepam 1 Mg Tablet) 2 mg PO Q2H PRN PRN; Protocol PRN Reason: CIWA score > 8 but <15 Last Admin: 03/09/20 15:51 Dose: 2 mg Documented by: Lorazepam (Lorazepam 1 Mg Tablet) 2 mg PO UD PRN; Protocol PRN Reason: CIWA score >/=15. Last Admin: 03/09/20 20:05 Dose: 2 mg Documented by: Lorazepam (Lorazepam 2 Mg/Ml Syringe) 2 mg IV Q2H PRN PRN; Protocol PRN Reason: CIWA score > 8 but <15 Lorazepam (Lorazepam 2 Mg/Ml Syringe) 2 mg IV UD PRN; Protocol PRN Reason: CIWA score >/=15. Last Admin: 03/09/20 04:36 Dose: 2 mg Documented by: Metformin HCl (Metformin (Xr) 500 Mg Tablet) [facility] Last Admin: 03/09/20 16:40 Dose: 750 mg Documented by: Ondansetron HCl (Ondansetron 8 Mg Tablet) 8 mg PO Q8H PRN PRN PRN Reason: NAUSEA Last Admin: 03/08/20 14:01 Dose: 8 mg Documented by: Pantoprazole Sodium (Pantoprazole Sodium 40 Mg Tablet) 40 mg PO DAILY REPLACED BY [facility] Last Admin: 03/09/20 07:34 Dose: 40 mg Documented by: Phenobarbital (Phenobarbital 32.4 Mg Tablet) 64.8 mg PO Q4H REPLACED BY [facility]; Taper Stop: 03/12/20 19:29 Last Admin: 03/10/20 09:01 Dose: 64.8 mg Documented by: Sodium Chloride (0.9% Saline Lock 10 Ml Syringe) 10 - 40 ml IV UD PRN PRN Reason: SALINE FLUSH Last Admin: 03/09/20 04:36 Dose: 10 ml Documented by: Thiamine HCl (Thiamine Hydrochloride 100 Mg Tablet) [facility] Last Admin: 03/09/20 07:33 Dose: 100 mg Documented by: Trazodone HCl (Trazodone 100 Mg Tablet) 100 mg PO QHS PRN PRN PRN Reason: INSOMNIA Last Admin: 03/08/20 22:22 Dose: 100 mg Documented by: Zolpidem Tartrate (Zolpidem Tartrate 5 Mg Tablet) 5 mg PO QHS PRN PRN PRN Reason: Sleep if trazodone ineffective Last Admin: 03/08/20 23:08 Dose: 5 mg Documented by: Medical Necessity - Tobacco Use Smoking Status: Former smoker Assessment/Plan All Active Problems Alcohol withdrawal (Acute) This is a 59 years old male patient presented to the emergency room requesting admission for acute alcohol intoxication/withdrawal for medical stabilization and he developed acute kidney injury and mild hyperkalemia. #1 acute alcohol withdrawal/delirium tremens: Currently, patient is down to ICU, he is on IV Precedex drip. Last night, his CIWA score was very high, was very tremulous and shaky. Remains on phenobarbital taper as well as as needed Ativan, on folic acid and thiamine, as needed Bentyl, Vistaril, ibuprofen, Imodium, Zofran, trazodone and Ambien. This morning, blood pressure and heart rate are maintained. He is feeling better. Plan to continue same treatment. #2 acute kidney injury/mild hyperkalemia: Likely because of dehydration, poor oral intake. Plan to start him on IV fluids, recheck potassium later today, repeat BMP tomorrow morning. #3 type 2 diabetes mellitus: Blood sugar stable. Continue Metformin, continue Accu-Cheks before every meal at bedtime, insulin sliding scale. #4 hypertension: Blood pressure stable at this time. continue Norvasc and lisinopril. #5 GERD: Continue Protonix. #6 anxiety and depression: Currently, he is on trazodone as needed as a part of the withdrawal protocol. #7 DVT prophylaxis: Subcu Lovenox. This note was generated with [employer] dictation software. It may contain incorrect words, spelling, and punctuation that were not noted in checking the note before signing. Inpatient E&M: 42725 Subs Hosp L3
--- NOTE | 2020-03-10 10:12 | CASEMGMT ---
Social Work Social Work attended interdisciplinary rounds, Pt [place] on phone. Pt admitted to hospital for RAMP program, alcohol withdrawal. Pt was transferred to ICU with hallucinations and agitation. At this time pt is sedated. Theresa from [facility] did see pt yesterday and completed assessment. At that time pt was not agreeable to follow up care for alcohol treatment. Theresa notified today that pt is not appropriate to be seen today and will keep them updated when pt is ready for followup visit. made aware of this and stating He needs to be in agreement with something, I am not going through this again. Followup when pt is alert and oriented. BIRD Banegas
[2020-03-10 12:10] LABS: Pathologist Review Reviewed
[2020-03-10] MEDS: Thiamine Hydrochloride 100 MG Tablet PO (13:00)
[2020-03-10] MEDS: Pantoprazole Sodium 40 MG Tablet PO (13:00)
[2020-03-10] MEDS: Folic Acid 1 MG Tablet PO (13:00)
[2020-03-10] MEDS: Enoxaparin 40 MG/0.4 ML Syringe SC (13:23)
[2020-03-10] MEDS: Glucerna Shake 120 ML LIQUID PO ×2 (13:23→17:11)
[2020-03-10 13:36] LABS: Bedside Glucose 171 mg/dL (70-110)
--- NOTE | 2020-03-10 13:39 | CON.PCM_ITS ---
Problem List (1) Obesity Status: Chronic (2) GERD (gastroesophageal reflux disease) Status: Chronic (3) Anxiety and depression Status: Chronic (4) Hypertension Status: Chronic Qualifiers: (5) DM2 (diabetes mellitus, type 2) Status: Chronic (6) Alcohol withdrawal Status: Acute (7) Alcohol abuse Status: Chronic Reason for Consult Date of Consultation: 03/10/20 Reason for Consultation: IV sedation History of Present Illness: The patient is a 59 year old M, with past medical history listed below, who presented to [facility] on 03/07/2020 secondary to alcohol detoxification. Patient reportedly has a history of obesity, diabetes and hypertension. Patient does not carry any pulmonary diagnoses. Patient reportedly has been drinking alcohol since the age of 12 and currently is drinking over a case of but ice on a daily basis. Patient had last drink on the day of presentation and was noted to have an alcohol level of 300. Patient reportedly has gone through alcohol withdrawal before, but is only remained without drinking for approximately a year. Patient reportedly recently lost his brother 2 weeks ago to cancer. Patient was admitted to the floor on the [facility] protocol. Patient was placed on a sliding scale insulin and IV Ativan. Over the course of the evening, patient became more aggressive and hallucinating. Patient was initiated on phenobarb, but due to continued agitation was transferred to the intensive care unit and initiated on Precedex therapy. Patient responded well to Precedex and was able to be stabilized. Patient did have significant desaturations overnight while sleeping, but reportedly does not carry a diagnosis of obstructive sleep apnea per the . Patient was on oxygen transiently, but this was able to be taken off once patient woke. Patient's mental status has continued to improve throughout the day. Patient does continue on barbital, but Precedex is being weaned. Family is unclear on if patient is ever had seizures associated with drug withdrawal before. Family was concerned about his diabetes and blood sugar levels. Patient is unable to provide a meaningful review of systems at this time. Past Medical History Past Medical History (Chronic Problems): Chronic Problems Obesity (Chronic) GERD (gastroesophageal reflux disease) (Chronic) Anxiety and depression (Chronic) Hypertension (Chronic) DM2 (diabetes mellitus, type 2) (Chronic) Alcohol abuse (Chronic) Allergies Penicillins Adverse Reaction (Mild, Verified 03/07/20 19:20) red, itching strawberry Adverse Reaction (Mild, Verified 03/07/20 19:20) dont eat them anymore Home Medications: Ambulatory Orders Medication Instructions Recorded Albuterol Inhaler [Ventolin Hfa] 2 puff INHALATION Q6H PRN PRN 10/23/16 Metformin HCl [Metformin HCl ER] 750 mg PO BID 10/23/16 Pantoprazole Sodium [Protonix] 40 mg PO DAILY 10/23/16 Zolpidem Tartrate [Ambien] 10 mg PO DAILY PRN 10/23/16 Thiamine Hydrochloride [Vitamin B1] 100 mg PO DAILYCM #0 tablet 12/14/17 Amlodipine [Norvasc] 5 mg PO DAILY #30 tab 10/01/18 Folic Acid 1 mg PO DAILY #30 tab 10/01/18 Lisinopril 20 mg PO BID #60 tab 10/01/18 Surgical History: - - Tonsillectomy, left shoulder replacement, gastric ulcer intervention, cholecystectomy, umbilical hernia repair. Psychiatric History: Anxiety, Depression Smoking Status: Former smoker - *Family History Paternal History Items: - - Patient notes a paternal family history of heart disease, PA in his 50s in addition to alcohol abuse history. Maternal History Items: No pertinent history Review of Systems Unable to obtain accurate/complete ROS d/t: Hallucination Patient Problems: Active and Suspected Problems Alcohol withdrawal (Acute) - Physical Exam Vitals/I&O's: Vital Signs Temp Pulse Resp BP Pulse Ox 36.1 C L 88 17 103/75 93 03/10/20 04:00 03/10/20 07:00 03/10/20 07:00 03/10/20 07:00 03/10/20 09:30 Oxygen Flow Rate (L/min) 3 Oxygen Delivery Method Room Air Weight: 111.5 kg Body Mass Index (BMI) 37.3 Intake and Output for Last 24 Hours 03/08/20 03/09/20 03/10/20 23:59 23:59 23:59 Intake Total 1700 / 3000 2588.47 / 2597.66 514.21 / 514.21 Output Total 201 / 201 300 / 300 Balance 1700 / 3000 2387.47 / 2396.66 214.21 / 214.21 General: - - Resting comfortably. Morbidly obese. HEENT: Atraumatic, PERRLA, EOMI, Normocephalic, - - No scleral icterus or injection noted Neck: Supple, No JVD, No Nodes, Trachea Midline Lungs: Clear to auscultation, Normal air movement, No rhonchi, No wheeze, No rales Cardiovascular: Regular rate, Regular Rhythm, Normal S1, Normal S2, No murmurs, No rub noted, No Gallop Abdomen: Bowel Sounds Present, Soft, Non Tender, Non-Distended, Obese Extremities: No clubbing, No cyanosis, Edema - Trace to 1+ lower extremity Skin: - - Scattered telangiectasias noted Musculoskeletal: No Tenderness to Palpation of Joints or Extremities Lymphatic: No Cervical, Supraclavicular, or Inguinal Adenopathy Neurological: Cranial nerves II-XII grossly intact, Neuro grossly intact Psych/Mental Status: Flat Affect, Impulsive, Restless Laboratory Results 03/09/20 16:39: POC Glucose 145 H 03/09/20 21:08: POC Glucose 213 H 03/10/20 03:40: WBC 3.3 L, RBC 4.42 L, Hgb 14.0, Hct 42.6, MCV 96.4 H D, MCH 31.7, MCHC 32.9 D, RDW Std Deviation 43.4, RDW Coeff of Anselmo 12.3, Plt Count 112 L, MPV 10.1, Immature Gran % (Auto) 0.300, Neut % (Auto) 73.0 H, Lymph % (Auto) 15.9 L, Giles % (Auto) 9.0, Eos % (Auto) 1.2, Baso % (Auto) 0.6, Absolute Neuts (auto) 2.4, Absolute Lymphs (auto) 0.53 L, Nucleated RBC % 0, Differential Comment SCANNED, Diff Path Review Reviewed 03/10/20 03:40: Sodium 135 L, Potassium 5.3 H, Chloride 101, Carbon Dioxide 31.0, Anion Gap 3 L, BUN 21 H, Creatinine 1.76 H, Estim Creat Clear Calc 43.72, Est GFR (MDRD) Af Amer 51 L, Est GFR (MDRD) Non-Af 42 L, BUN/Creatinine Ratio 11.9, Glucose 151 H, Calcium 8.8 03/10/20 03:40: Phosphorus 7.2 H, Magnesium 2.2 03/10/20 08:50: POC Glucose 166 H 03/10/20 13:22: POC Glucose 171 H Current Medications Albuterol Sulfate (Albuterol 2.5 Mg/3 Ml Vial.Neb.) 2.5 mg INHALATION Q6H PRN PRN PRN Reason: Shortness of breath Amlodipine Besylate (Amlodipine 5 Mg Tablet) 5 mg PO DAILY [facility] Last Admin: 03/10/20 11:59 Dose: Not Given Documented by: Dicyclomine HCl (Dicyclomine 10 Mg Capsule) 20 mg PO Q6H PRN PRN PRN Reason: abdominal discomfort Last Admin: 03/08/20 18:26 Dose: 20 mg Documented by: Enoxaparin Sodium (Enoxaparin 40 Mg/0.4 Ml Syringe) 40 mg SC DAILY [facility] Last Admin: 03/10/20 13:23 Dose: 40 mg Documented by: Folic Acid ([facility] 1 Mg Tablet) [facility] Last Admin: 03/10/20 13:00 Dose: 1 mg Documented by: Gabapentin (Gabapentin 300 Mg Capsule) 300 mg PO Q8H PRN PRN PRN Reason: moderate to severe anxiety Last Admin: 03/09/20 15:52 Dose: 300 mg Documented by: Hydroxyzine Pamoate (Hydroxyzine Aiyana 25 Mg Capsule) 50 mg PO Q4H PRN PRN PRN Reason: mild anxiety Last Admin: 03/08/20 23:08 Dose: 50 mg Documented by: Dexmedetomidine HCl 400 mcg/ (Sodium Chloride) 100 mls @ 14 mls/hr CONT INF .Q7H9M [facility]; Protocol Last Admin: 03/10/20 11:56 Dose: Not Given Documented by: Sodium Chloride () 1,000 mls @ 100 mls/hr IV .Q10H [facility] Last Admin: 03/10/20 09:01 Dose: 100 mls/hr Documented by: Ibuprofen (Ibuprofen 400 Mg Tablet) 400 mg PO Q6H PRN PRN PRN Reason: Pain Score 1-10 Last Admin: 03/09/20 10:11 Dose: 400 mg Documented by: Insulin Human Lispro (Insulin Lispro 100 Unit/Ml Insuln.Pen) 0 unit SC [facility]; Protocol Last Admin: 03/10/20 13:22 Dose: 1 units Documented by: Lisinopril (Lisinopril 20 Mg Tablet) 20 mg PO BID [facility] Last Admin: 03/10/20 11:59 Dose: Not Given Documented by: Loperamide HCl (Loperamide 2 Mg Capsule) 2 mg PO Q4H PRN PRN PRN Reason: LOOSE STOOLS Lorazepam (Lorazepam 1 Mg Tablet) 2 mg PO Q2H PRN PRN; Protocol PRN Reason: CIWA score > 8 but <15 Last Admin: 03/09/20 15:51 Dose: 2 mg Documented by: Lorazepam (Lorazepam 1 Mg Tablet) 2 mg PO UD PRN; Protocol PRN Reason: CIWA score >/=15. Last Admin: 03/09/20 20:05 Dose: 2 mg Documented by: Lorazepam (Lorazepam 2 Mg/Ml Syringe) 2 mg IV Q2H PRN PRN; Protocol PRN Reason: CIWA score > 8 but <15 Lorazepam (Lorazepam 2 Mg/Ml Syringe) 2 mg IV UD PRN; Protocol PRN Reason: CIWA score >/=15. Last Admin: 03/09/20 04:36 Dose: 2 mg Documented by: Metformin HCl (Metformin (Xr) 500 Mg Tablet) [facility] Last Admin: 03/10/20 11:59 Dose: Not Given Documented by: Nutritional Formula (Lactose Free) (Glucerna Shake 120 Ml Liquid) 120 ml PO TIDCM [facility] Last Admin: 03/10/20 13:23 Dose: 120 ml Documented by: Ondansetron HCl (Ondansetron 8 Mg Tablet) 8 mg PO Q8H PRN PRN PRN Reason: NAUSEA Last Admin: 03/08/20 14:01 Dose: 8 mg Documented by: Pantoprazole Sodium (Pantoprazole Sodium 40 Mg Tablet) 40 mg PO DAILY [facility] Last Admin: 03/10/20 13:00 Dose: 40 mg Documented by: Phenobarbital (Phenobarbital 32.4 Mg Tablet) 64.8 mg PO Q4H [facility]; Taper Stop: 03/12/20 19:29 Last Admin: 03/10/20 13:00 Dose: 64.8 mg Documented by: Sodium Chloride (0.9% Saline Lock 10 Ml Syringe) 10 - 40 ml IV UD PRN PRN Reason: SALINE FLUSH Last Admin: 03/09/20 04:36 Dose: 10 ml Documented by: Thiamine HCl (Thiamine Hydrochloride 100 Mg Tablet) [facility] Last Admin: 03/10/20 13:00 Dose: 100 mg Documented by: Trazodone HCl (Trazodone 100 Mg Tablet) 100 mg PO QHS PRN PRN PRN Reason: INSOMNIA Last Admin: 03/08/20 22:22 Dose: 100 mg Documented by: Zolpidem Tartrate (Zolpidem Tartrate 5 Mg Tablet) 5 mg PO QHS PRN PRN PRN Reason: Sleep if trazodone ineffective Last Admin: 03/08/20 23:08 Dose: 5 mg Documented by: Assessment/Plan Active and Suspected Problems Alcohol withdrawal (Acute) RECOMMENDATIONS: 1. Continue phenobarb taper and CIWA protocol 2. Wean Precedex as tolerated 3. Continue thiamine and folate 4. Monitor sliding scale insulin 5. administrative services manager for discharge planning IMPRESSIONS: 1. Acute alcohol withdrawal/delirium tremens Patient with active hallucinations overnight. Patient has responded well to Precedex drip. Continue with Ativan, thiamine, folate and phenobarb taper. Will attempt to wean Precedex as patient tolerates. Continue to monitor per protocol. No significant bradycardia noted 2. Acute kidney injury/hyperkalemia Unclear etiology. Patient may have an element of dehydration secondary to alcohol intake. No significant ectopy noted on telemetry. We will continue to monitor urine output. 3. Diabetes mellitus type 2/hypertension/GERD/anxiety/depression/obesity Complicates care, management, recovery and prognosis. Metformin can be continued, but would watch with sliding scale insulin as patient will likely have variable p.o. intake for the next 24 to 48 hours. Okay to continue with baseline blood pressure medications. Can add hydralazine/labetalol for breakthrough hypertension associated with withdrawal in the acute phase Inpatient E&M: 67880 Init Hosp L2
[2020-03-10 17:15] LABS: Bedside Glucose 155 mg/dL (70-110)
[2020-03-10 18:09] LABS: Potassium 4.7 mmol/L (3.5-5.1)
[2020-03-10] MEDS: Lisinopril 20 MG Tablet PO (21:04)
[2020-03-10 21:21] LABS: Bedside Glucose 174 mg/dL (70-110)
[2020-03-10] MEDS: Ibuprofen 400 MG Tablet PO (23:05)
[2020-03-11] VITALS (26 sets, daily range): BP systolic 116–183; BP diastolic 69–97; PULSE 84–135; RESP 10–108; TEMP 36.2–37.1; O2SAT 90–100
[2020-03-11] MEDS: Phenobarbital 32.4 MG Tablet PO ×4 (01:43→19:19)
[2020-03-11 03:38] LABS: Absolute Lymphocyte Count 0.85 X10^3/uL (0.83-4.51); Basophil# 0.02 X10^3/uL; Basophil% 0.6 % (0-1); Eosinophil# 0.05 X10^3/uL; Eosinophils% 1.5 % (0-5); Hematocrit 42.4 % (40-54); Lymphocyte # 0.85 X10^3/ul (4.0); Lymphocyte % 26.2 % (19-41); Mean Corpuscular Hgb 31.6 pg (27.0-32.0); Mean Corpuscular Volume 95.7 fL (80-94); Mean Platelet Vol. 10.1 fl (6.2-12.0); Monocyte# 0.28 X10^3/uL; Monocyte% 8.6 % (0-10); NRBC Flagged by Analyzer 0 % (0-5); Neutrophil # 2.03 X10^3/uL (2.7-7.7); Neutrophil % 62.8 % (47-70); Platelet Count 121 K/mm3 (150-450); RBC Distribution Width CV 12.2 % (11.6-14.6); Red Blood Count 4.43 M/mm3 (4.6-6.2); White Blood Count 3.2 K/mm3 (4.4-11.0)
[2020-03-11 03:57] LABS: Anion Gap 4 (5-15); BUN 24 mg/dL (7-18); BUN/Creat Ratio 21.8 RATIO (10-20); Calcium,Total 8.7 mg/dL (8.5-10.1); Chloride 103 mmol/L (98-107); EST Glomerular Filtration Rate 73 mL/min (>60); Est Glom Filt Rate - Afr Amer 88 mL/min (>60); Estimated Creatinine Clearance 69.95 ml/min; Glucose 122 mg/dL (74-106); Potassium 4.3 mmol/L (3.5-5.1); Sodium Level 136 mmol/L (136-145)
[2020-03-11] MEDS: 0.9% Normal Saline 1,000 ML 100 ML IV (05:15)
[2020-03-11] MEDS: Lisinopril 20 MG Tablet PO ×2 (07:47→21:16)
[2020-03-11] MEDS: amLODIPine 5 MG Tablet PO (07:47)
[2020-03-11] MEDS: Pantoprazole Sodium 40 MG Tablet PO (07:47)
[2020-03-11] MEDS: Folic Acid 1 MG Tablet PO (07:47)
[2020-03-11] MEDS: metFORMIN (XR) 500 MG Tablet 750 MG PO ×2 (07:48→17:08)
[2020-03-11] MEDS: Thiamine Hydrochloride 100 MG Tablet PO (07:48)
[2020-03-11] MEDS: Enoxaparin 40 MG/0.4 ML Syringe SC (07:49)
--- NOTE | 2020-03-11 07:51 | PN_ITS ---
Subjective: Patient did well overnight. Patient is no longer having hallucinations. Patient was able to be taken off of Precedex earlier this morning and has been doing well. Patient is not complaining of any chest pain, abdominal pain, nausea or vomiting. General: Alert, Oriented x3, Cooperative, No apparent distress, - - Obese. Speaking in full sentences. HEENT: Atraumatic, PERRLA, EOMI, Normocephalic, - - No scleral icterus noted Oral: Moist Mucosa, No Gingival or Mucosal Lesions/ Ulcerations Neck: Supple, No JVD, No Nodes, Trachea Midline Lungs: Clear to auscultation, Normal air movement, No rhonchi, No wheeze, No rales Cardiovascular: Regular rate, Regular Rhythm, Normal S1, Normal S2, No murmurs, No rub noted, No Gallop Abdomen: Bowel Sounds Present, Soft, Non Tender, Non-Distended, Obese Extremities: No clubbing, No cyanosis, Edema - Trace to 1+ Skin: No rashes, No breakdown Musculoskeletal: No Tenderness to Palpation of Joints or Extremities Lymphatic: No Cervical, Supraclavicular, or Inguinal Adenopathy Neurological: Cranial nerves II-XII grossly intact, Neuro grossly intact, Motor Exam 5/5 strength throughout Psych/Mental Status: Alert and oriented to time, place, person, mood and affect Vital Signs Temp Pulse Resp BP Pulse Ox 36.6 C 90 18 148/73 H 96 03/11/20 04:00 03/11/20 07:36 03/11/20 07:36 03/11/20 07:36 03/11/20 07:36 Oxygen Flow Rate (L/min) 3 Oxygen Delivery Method Room Air Weight: 113.2 kg Body Mass Index (BMI) 37.3 Intake and Output for Last 24 Hours 03/09/20 03/10/20 03/11/20 23:59 23:59 23:59 Intake Total 2588.47 / 2597.66 2398.36 / 2403.96 1313.62 / 1313.62 Output Total 201 / 201 1350 / 1350 975 / 975 Balance 2387.47 / 2396.66 1048.36 / 1053.96 338.62 / 338.62 Labs (Last 48 Hours) 03/09/20 03/09/20 03/09/20 07:38 10:15 16:39 WBC RBC Hgb Hct MCV MCH MCHC RDW Std Deviation RDW Coeff of Anselmo Plt Count MPV Immature Gran % (Auto) Neut % (Auto) Lymph % (Auto) [place] % (Auto) Eos % (Auto) Baso % (Auto) Absolute Neuts (auto) Absolute Lymphs (auto) Nucleated RBC % Differential Comment Diff Path Review Sodium Potassium Chloride Carbon Dioxide Anion Gap BUN Creatinine Estim Creat Clear Calc Est GFR (MDRD) Af Amer Est GFR (MDRD) Non-Af BUN/Creatinine Ratio Glucose Calcium Phosphorus Magnesium POC Glucose 172 H 214 H 145 H 03/09/20 03/10/20 03/10/20 21:08 03:40 03:40 WBC 3.3 L RBC 4.42 L Hgb 14.0 Hct 42.6 MCV 96.4 H D MCH 31.7 MCHC 32.9 D RDW Std Deviation 43.4 RDW Coeff of Anselmo 12.3 Plt Count 112 L MPV 10.1 Immature Gran % (Auto) 0.300 Neut % (Auto) 73.0 H Lymph % (Auto) 15.9 L [place] % (Auto) 9.0 Eos % (Auto) 1.2 Baso % (Auto) 0.6 Absolute Neuts (auto) 2.4 Absolute Lymphs (auto) 0.53 L Nucleated RBC % 0 Differential Comment SCANNED Diff Path Review Reviewed Sodium 135 L Potassium 5.3 H Chloride 101 Carbon Dioxide 31.0 Anion Gap 3 L BUN 21 H Creatinine 1.76 H Estim Creat Clear Calc 43.72 Est GFR (MDRD) Af Amer 51 L Est GFR (MDRD) Non-Af 42 L BUN/Creatinine Ratio 11.9 Glucose 151 H Calcium 8.8 Phosphorus Magnesium POC Glucose 213 H 03/10/20 03/10/20 03/10/20 03:40 08:50 13:22 WBC RBC Hgb Hct MCV MCH MCHC RDW Std Deviation RDW Coeff of Anselmo Plt Count MPV Immature Gran % (Auto) Neut % (Auto) Lymph % (Auto) [place] % (Auto) Eos % (Auto) Baso % (Auto) Absolute Neuts (auto) Absolute Lymphs (auto) Nucleated RBC % Differential Comment Diff Path Review Sodium Potassium Chloride Carbon Dioxide Anion Gap BUN Creatinine Estim Creat Clear Calc Est GFR (MDRD) Af Amer Est GFR (MDRD) Non-Af BUN/Creatinine Ratio Glucose Calcium Phosphorus 7.2 H Magnesium 2.2 POC Glucose 166 H 171 H 03/10/20 03/10/20 03/10/20 17:07 17:30 21:14 WBC RBC Hgb Hct MCV MCH MCHC RDW Std Deviation RDW Coeff of Anselmo Plt Count MPV Immature Gran % (Auto) Neut % (Auto) Lymph % (Auto) [place] % (Auto) Eos % (Auto) Baso % (Auto) Absolute Neuts (auto) Absolute Lymphs (auto) Nucleated RBC % Differential Comment Diff Path Review Sodium Potassium 4.7 Chloride Carbon Dioxide Anion Gap BUN Creatinine Estim Creat Clear Calc Est GFR (MDRD) Af Amer Est GFR (MDRD) Non-Af BUN/Creatinine Ratio Glucose Calcium Phosphorus Magnesium POC Glucose 155 H 174 H 03/11/20 03/11/20 03:30 03:30 WBC 3.2 L RBC 4.43 L Hgb 14.0 Hct 42.4 MCV 95.7 H MCH 31.6 MCHC 33.0 RDW Std Deviation 43.0 RDW Coeff of Anselmo 12.2 Plt Count 121 L MPV 10.1 Immature Gran % (Auto) 0.300 Neut % (Auto) 62.8 Lymph % (Auto) 26.2 [place] % (Auto) 8.6 Eos % (Auto) 1.5 Baso % (Auto) 0.6 Absolute Neuts (auto) 2.0 Absolute Lymphs (auto) 0.85 Nucleated RBC % 0 Differential Comment Diff Path Review Sodium 136 Potassium 4.3 Chloride 103 Carbon Dioxide 29.0 Anion Gap 4 L BUN 24 H Creatinine 1.10 Estim Creat Clear Calc 69.95 Est GFR (MDRD) Af Amer 88 Est GFR (MDRD) Non-Af 73 BUN/Creatinine Ratio 21.8 H Glucose 122 H Calcium 8.7 Phosphorus Magnesium POC Glucose Medical Necessity - Tobacco Use Smoking Status: Former smoker Assessment/Plan All Active Problems Alcohol withdrawal (Acute) RECOMMENDATIONS: 1. Continue phenobarb taper and CIWA protocol 2. Increase activity as tolerated 3. Continue thiamine and folate 4. Monitor sliding scale insulin 5. Okay to leave the intensive care unit from my perspective 6. Hemodynamically stable on room air. Will sign off from a critical care perspective IMPRESSIONS: 1. Acute alcohol withdrawal/delirium tremens Patient with active hallucinations initially. Patient has responded well to Precedex drip. Continue with Ativan, thiamine, folate and phenobarb taper. Patient appears to be appropriate without hallucinations off of Precedex. Continue to monitor per protocol. No significant bradycardia noted 2. Acute kidney injury/hyperkalemia Resolved. Probably prerenal. Patient may have an element of dehydration secondary to alcohol intake. No significant ectopy noted on telemetry. We will continue to monitor urine output. 3. Diabetes mellitus type 2/hypertension/GERD/anxiety/depression/obesity Complicates care, management, recovery and prognosis. Metformin can be continued, but would watch with sliding scale insulin as patient will likely have variable p.o. intake for the next 24 to 48 hours. Okay to continue with baseline blood pressure medications. Okay to reinitiate all baseline medications. Inpatient E&M: 21752 [facility] Hosp L2
[2020-03-11] MEDS: 0.9% Saline Lock 10 ML Syringe IV (07:54)
[2020-03-11] MEDS: Glucerna Shake 120 ML LIQUID PO (07:54)
[2020-03-11 07:56] LABS: Bedside Glucose 137 mg/dL (70-110)
[2020-03-11] MEDS: LORazepam 2 MG/ML Syringe IV (09:49)
--- NOTE | 2020-03-11 10:46 | PCM.PROGNOTE ---
Patient Problems: Active and Suspected Problems Alcohol withdrawal (Acute) Subjective: Chief complaint: Follow-up after admission for acute alcohol withdrawal and acute kidney injury with mild hyperkalemia. Patient seen and examined. No acute events overnight. This morning, is feeling better still having some mild hand tremors. Shakiness improved as well as restlessness. He has no more hallucination. He was off IV Precedex drip since 4 AM this morning. Heart rate has been around 110, blood pressure slightly elevated, other vital signs are stable - Physical Exam Vitals/I&O's: Vital Signs Temp Pulse Resp BP Pulse Ox 97.2 F L 92 20 H 148/73 H 97 03/11/20 08:00 03/11/20 08:00 03/11/20 08:00 03/11/20 07:36 03/11/20 08:46 Oxygen Flow Rate (L/min) 3 Oxygen Delivery Method Room Air Weight: 249 lb 9.012 oz Body Mass Index (BMI) 37.3 Intake and Output for Last 24 Hours 03/09/20 03/10/20 03/11/20 23:59 23:59 23:59 Intake Total 2588.47 / 2597.66 2398.36 / 2403.96 1313.62 / 1313.62 Output Total 201 / 201 1350 / 1350 975 / 975 Balance 2387.47 / 2396.66 1048.36 / 1053.96 338.62 / 338.62 General: Alert, Oriented x3, Cooperative, - - Minimal tremors. HEENT: Atraumatic, PERRLA, EOMI, Normocephalic Oral: Moist Mucosa, No Gingival or Mucosal Lesions/ Ulcerations Neck: Supple, No JVD, Negative Carotid Bruits, Trachea Midline, Thyroid Normal Size and Texture Lungs: Clear to auscultation, No rhonchi, No wheeze, No rales, Diminished Cardiovascular: Regular rate, Regular Rhythm, Normal S1, Normal S2, PMI Normal, Tachycardic Abdomen: Bowel Sounds Present, Soft, Non Tender, Non-Distended, No Hepato-splenomegaly, Obese Extremities: No clubbing, No cyanosis, No edema Skin: No rashes, No breakdown Lymphatic: No Cervical, Supraclavicular, or Inguinal Adenopathy Neurological: Cranial nerves II-XII grossly intact, Neuro grossly intact Psych/Mental Status: Normal Affect, Appropriate Laboratory Results 03/10/20 03:40: Diff Path Review Reviewed 03/10/20 13:22: POC Glucose 171 H 03/10/20 17:07: POC Glucose 155 H 03/10/20 17:30: Potassium 4.7 03/10/20 21:14: POC Glucose 174 H 03/11/20 03:30: WBC 3.2 L, RBC 4.43 L, Hgb 14.0, Hct 42.4, MCV 95.7 H, MCH 31.6, MCHC 33.0, RDW Std Deviation 43.0, RDW Coeff of Anselmo 12.2, Plt Count 121 L, MPV 10.1, Immature Gran % (Auto) 0.300, Neut % (Auto) 62.8, Lymph % (Auto) 26.2, [place] % (Auto) 8.6, Eos % (Auto) 1.5, Baso % (Auto) 0.6, Absolute Neuts (auto) 2.0, Absolute Lymphs (auto) 0.85, Nucleated RBC % 0 03/11/20 03:30: Sodium 136, Potassium 4.3, Chloride 103, Carbon Dioxide 29.0, Anion Gap 4 L, BUN 24 H, Creatinine 1.10, Estim Creat Clear Calc 69.95, Est GFR (MDRD) Af Amer 88, Est GFR (MDRD) Non-Af 73, BUN/Creatinine Ratio 21.8 H, Glucose 122 H, Calcium 8.7 03/11/20 07:46: POC Glucose 137 H Current Medications Albuterol Sulfate (Albuterol 2.5 Mg/3 Ml Vial.Neb.) 2.5 mg INHALATION Q6H PRN PRN PRN Reason: Shortness of breath Amlodipine Besylate (Amlodipine 5 Mg Tablet) 5 mg PO DAILY [facility] Last Admin: 03/11/20 07:47 Dose: 5 mg Documented by: Dicyclomine HCl (Dicyclomine 10 Mg Capsule) 20 mg PO Q6H PRN PRN PRN Reason: abdominal discomfort Last Admin: 03/08/20 18:26 Dose: 20 mg Documented by: Enoxaparin Sodium (Enoxaparin 40 Mg/0.4 Ml Syringe) 40 mg SC DAILY [facility] Last Admin: 03/11/20 07:49 Dose: 40 mg Documented by: Folic Acid (Folic Acid 1 Mg Tablet) [facility] Last Admin: 03/11/20 07:47 Dose: 1 mg Documented by: Gabapentin (Gabapentin 300 Mg Capsule) 300 mg PO Q8H PRN PRN PRN Reason: moderate to severe anxiety Last Admin: 03/09/20 15:52 Dose: 300 mg Documented by: Hydroxyzine Pamoate (Hydroxyzine Aiyana 25 Mg Capsule) 50 mg PO Q4H PRN PRN PRN Reason: mild anxiety Last Admin: 03/08/20 23:08 Dose: 50 mg Documented by: Dexmedetomidine HCl 400 mcg/ (Sodium Chloride) 100 mls @ 14 mls/hr CONT INF .Q7H9M [facility]; Protocol Last Titration: 03/11/20 05:30 Dose: 0 mcg/kg/hr, 0 mls/hr Documented by: Ibuprofen (Ibuprofen 400 Mg Tablet) 400 mg PO Q6H PRN PRN PRN Reason: Pain Score 1-10 Last Admin: 03/10/20 23:05 Dose: 400 mg Documented by: Insulin Human Lispro (Insulin Lispro 100 Unit/Ml Insuln.Pen) 0 unit SC [facility]; Protocol Last Admin: 03/11/20 07:46 Dose: Not Given Documented by: Lisinopril (Lisinopril 20 Mg Tablet) 20 mg PO BID [facility] Last Admin: 03/11/20 07:47 Dose: 20 mg Documented by: Loperamide HCl (Loperamide 2 Mg Capsule) 2 mg PO Q4H PRN PRN PRN Reason: LOOSE STOOLS Lorazepam (Lorazepam 1 Mg Tablet) 2 mg PO Q2H PRN PRN; Protocol PRN Reason: CIWA score > 8 but <15 Last Admin: 03/09/20 15:51 Dose: 2 mg Documented by: Lorazepam (Lorazepam 1 Mg Tablet) 2 mg PO UD PRN; Protocol PRN Reason: CIWA score >/=15. Last Admin: 03/09/20 20:05 Dose: 2 mg Documented by: Lorazepam (Lorazepam 2 Mg/Ml Syringe) 2 mg IV Q2H PRN PRN; Protocol PRN Reason: CIWA score > 8 but <15 Last Admin: 03/11/20 09:49 Dose: 2 mg Documented by: Lorazepam (Lorazepam 2 Mg/Ml Syringe) 2 mg IV UD PRN; Protocol PRN Reason: CIWA score >/=15. Last Admin: 03/09/20 04:36 Dose: 2 mg Documented by: Metformin HCl (Metformin (Xr) 500 Mg Tablet) 750 [facility] Last Admin: 03/11/20 07:48 Dose: 750 mg Documented by: Nutritional Formula (Lactose Free) (Glucerna Shake 120 Ml Liquid) 120 ml PO TIDCM [facility] Last Admin: 03/11/20 07:54 Dose: 120 ml Documented by: Ondansetron HCl (Ondansetron 8 Mg Tablet) 8 mg PO Q8H PRN PRN PRN Reason: NAUSEA Last Admin: 03/08/20 14:01 Dose: 8 mg Documented by: Pantoprazole Sodium (Pantoprazole Sodium 40 Mg Tablet) 40 mg PO DAILY [facility] Last Admin: 03/11/20 07:47 Dose: 40 mg Documented by: Phenobarbital (Phenobarbital 32.4 Mg Tablet) 64.8 mg PO Q6H [facility]; Taper Stop: 03/12/20 19:29 Last Admin: 03/11/20 08:17 Dose: 64.8 mg Documented by: Sodium Chloride (0.9% Saline Lock 10 Ml Syringe) 10 - 40 ml IV UD PRN PRN Reason: SALINE FLUSH Last Admin: 03/11/20 07:54 Dose: 10 ml Documented by: Thiamine HCl (Thiamine Hydrochloride 100 Mg Tablet) [facility] Last Admin: 03/11/20 07:48 Dose: 100 mg Documented by: Throat Lozenges (Benzocaine/Menthol 1 Lozenge) 1 lozenge MUCOUS MEM Q2H PRN PRN PRN Reason: SORE THROAT Trazodone HCl (Trazodone 100 Mg Tablet) 100 mg PO QHS PRN PRN PRN Reason: INSOMNIA Last Admin: 03/08/20 22:22 Dose: 100 mg Documented by: Zolpidem Tartrate (Zolpidem Tartrate 5 Mg Tablet) 5 mg PO QHS PRN PRN PRN Reason: Sleep if trazodone ineffective Last Admin: 03/08/20 23:08 Dose: 5 mg Documented by: Medical Necessity - Tobacco Use Smoking Status: Former smoker Assessment/Plan All Active Problems Alcohol withdrawal (Acute) This is a 59 years old male patient presented to the emergency room requesting admission for acute alcohol intoxication/withdrawal for medical stabilization and he developed acute kidney injury and mild hyperkalemia. #1 acute alcohol withdrawal/delirium tremens: He has been off IV Precedex drip since 4 AM this morning. He is feeling better, still having mild tremors and shakiness but improved. Apart from mild tachycardia, other vital signs are stable. He is on phenobarbital taper as well as as needed Ativan, on folic acid and thiamine, as needed Bentyl, Vistaril, ibuprofen, Imodium, Zofran, trazodone and Ambien. Plan: Continue phenobarb taper and Ativan as needed, transfer out of ICU this afternoon if remains stable. #2 acute kidney injury/mild hyperkalemia: Likely because of dehydration, poor oral intake. Patient was on IV fluids. Potassium is back to 4.3 which is normal, today's creatinine is 1.1, improved. Encourage oral intake. #3 type 2 diabetes mellitus: Blood sugar stable. Continue Metformin, continue Accu-Cheks before every meal at bedtime, insulin sliding scale. #4 hypertension: Blood pressure stable slightly elevated this morning. continue Norvasc and lisinopril. #5 GERD: Continue Protonix. #6 anxiety and depression: Currently, he is on trazodone as needed as a part of the withdrawal protocol. #7 DVT prophylaxis: Subcu Lovenox. This note was generated with [employer] dictation software. It may contain incorrect words, spelling, and punctuation that were not noted in checking the note before signing. Inpatient E&M: 93323 Subs Hosp L2
[2020-03-11] MEDS: Ibuprofen 400 MG Tablet PO ×2 (12:21→23:16)
[2020-03-11] MEDS: BENZOCAINE/MENTHOL 1 LOZENGE MUCOUS MEM (12:21)
[2020-03-11 17:06] LABS: Bedside Glucose 161 mg/dL (70-110)
[2020-03-11] MEDS: Insulin Lispro 100 UNIT/ML INSULN.PEN SC ×2 (17:08→21:16)
[2020-03-11] MEDS: hydrOXYzine PAM 25 MG Capsule 50 MG PO (18:29)
[2020-03-11 21:26] LABS: Bedside Glucose 246 mg/dL (70-110)
[2020-03-12] VITALS (8 sets, daily range): BP systolic 104–165; BP diastolic 63–95; PULSE 87–107; RESP 18–20; TEMP 36.4–37; O2SAT 97–99
[2020-03-12] MEDS: Phenobarbital 32.4 MG Tablet PO ×3 (01:27→13:39)
[2020-03-12] MEDS: Insulin Lispro 100 UNIT/ML INSULN.PEN SC ×4 (06:31→21:24)
[2020-03-12 06:40] LABS: Bedside Glucose 157 mg/dL (70-110)
[2020-03-12 08:26] LABS: Anion Gap 6 (5-15); BUN 16 mg/dL (7-18); BUN/Creat Ratio 23.1 RATIO (10-20); Calcium,Total 8.7 mg/dL (8.5-10.1); Chloride 102 mmol/L (98-107); Creatinine, Serum 0.69 mg/dL (0.70-1.30); EST Glomerular Filtration Rate 124 mL/min (>60); Est Glom Filt Rate - Afr Amer 150 mL/min (>60); Estimated Creatinine Clearance 111.52 ml/min; Glucose 133 mg/dL (74-106); Magnesium 1.6 mg/dL (1.6-2.6); Potassium 4.1 mmol/L (3.5-5.1); Sodium Level 137 mmol/L (136-145)
--- NOTE | 2020-03-12 08:29 | PCM.PROGNOTE ---
Patient Problems: Active and Suspected Problems Alcohol withdrawal (Acute) Subjective: Chief complaint: Follow-up after admission for acute alcohol withdrawal. Patient seen and examined. No acute events overnight. This morning, he is feels much better. Shakiness and tremors of the hands significantly improved. This morning, blood pressure slight elevated, other vital signs are stable. - Physical Exam Vitals/I&O's: Vital Signs Temp Pulse Resp BP Pulse Ox 98.2 F 87 18 154/84 H 96 03/11/20 23:15 03/12/20 02:59 03/11/20 23:15 03/11/20 23:15 03/11/20 23:15 Oxygen Flow Rate (L/min) 3 Oxygen Delivery Method Room Air Weight: 249 lb 9.012 oz Body Mass Index (BMI) 37.3 Intake and Output for Last 24 Hours 03/10/20 03/11/20 03/12/20 23:59 23:59 23:59 Intake Total 2398.36 / 2403.96 2263.62 / 2263.62 240 / 240 Output Total 1350 / 1350 1225 / 1225 Balance 1048.36 / 1053.96 1038.62 / 1038.62 240 / 240 General: Alert, Oriented x3, Cooperative, No apparent distress HEENT: Atraumatic, PERRLA, EOMI, Normocephalic Oral: Moist Mucosa, No Gingival or Mucosal Lesions/ Ulcerations Neck: Supple, No JVD, Negative Carotid Bruits, Trachea Midline, Thyroid Normal Size and Texture Lungs: Clear to auscultation, Normal air movement, No rhonchi, No wheeze, No rales Cardiovascular: Regular rate, Regular Rhythm, Normal S1, Normal S2, PMI Normal Abdomen: Bowel Sounds Present, Soft, Non Tender, Non-Distended, No Hepato-splenomegaly, Obese Extremities: No clubbing, No cyanosis, No edema Skin: No rashes, No breakdown Lymphatic: No Cervical, Supraclavicular, or Inguinal Adenopathy Neurological: Cranial nerves II-XII grossly intact, Neuro grossly intact Psych/Mental Status: Normal Affect, Appropriate, Alert and oriented to time, place, person, mood and affect Laboratory Results 03/11/20 16:57: POC Glucose 161 H 03/11/20 21:14: POC Glucose 246 H 03/12/20 06:30: POC Glucose 157 H 03/12/20 07:55: Sodium 137, Potassium 4.1, Chloride 102, Carbon Dioxide 29.0, Anion Gap 6, BUN 16, Creatinine 0.69 L, Estim Creat Clear Calc 111.52, Est GFR (MDRD) Af Amer 150, Est GFR (MDRD) Non-Af 124, BUN/Creatinine Ratio 23.1 H, Glucose 133 H, Calcium 8.7, Magnesium 1.6 Current Medications Albuterol Sulfate (Albuterol 2.5 Mg/3 Ml Vial.Neb.) 2.5 mg INHALATION Q6H PRN PRN PRN Reason: Shortness of breath Amlodipine Besylate (Amlodipine 5 Mg Tablet) 5 mg PO DAILY [facility] Last Admin: 03/11/20 07:47 Dose: 5 mg Documented by: Dicyclomine HCl (Dicyclomine 10 Mg Capsule) 20 mg PO Q6H PRN PRN PRN Reason: abdominal discomfort Last Admin: 03/08/20 18:26 Dose: 20 mg Documented by: Enoxaparin Sodium (Enoxaparin 40 Mg/0.4 Ml Syringe) 40 mg SC DAILY [facility] Last Admin: 03/11/20 07:49 Dose: 40 mg Documented by: Folic Acid (Folic Acid 1 Mg Tablet) [facility] Last Admin: 03/11/20 07:47 Dose: 1 mg Documented by: Gabapentin (Gabapentin 300 Mg Capsule) 300 mg PO Q8H PRN PRN PRN Reason: moderate to severe anxiety Last Admin: 03/09/20 15:52 Dose: 300 mg Documented by: Hydroxyzine Pamoate (Hydroxyzine Aiyana 25 Mg Capsule) 50 mg PO Q4H PRN PRN PRN Reason: mild anxiety Last Admin: 03/11/20 18:29 Dose: 50 mg Documented by: Ibuprofen (Ibuprofen 400 Mg Tablet) 400 mg PO Q6H PRN PRN PRN Reason: Pain Score 1-10 Last Admin: 03/11/20 23:16 Dose: 400 mg Documented by: Insulin Human Lispro (Insulin Lispro 100 Unit/Ml Insuln.Pen) 0 unit SC [facility]; Protocol Last Admin: 03/12/20 06:31 Dose: 1 units Documented by: Lisinopril (Lisinopril 20 Mg Tablet) 20 mg PO BID [facility] Last Admin: 03/11/20 21:16 Dose: 20 mg Documented by: Loperamide HCl (Loperamide 2 Mg Capsule) 2 mg PO Q4H PRN PRN PRN Reason: LOOSE STOOLS Lorazepam (Lorazepam 1 Mg Tablet) 2 mg PO Q2H PRN PRN; Protocol PRN Reason: CIWA score > 8 but <15 Last Admin: 03/09/20 15:51 Dose: 2 mg Documented by: Lorazepam (Lorazepam 1 Mg Tablet) 2 mg PO UD PRN; Protocol PRN Reason: CIWA score >/=15. Last Admin: 03/09/20 20:05 Dose: 2 mg Documented by: Lorazepam (Lorazepam 2 Mg/Ml Syringe) 2 mg IV Q2H PRN PRN; Protocol PRN Reason: CIWA score > 8 but <15 Last Admin: 03/11/20 09:49 Dose: 2 mg Documented by: Lorazepam (Lorazepam 2 Mg/Ml Syringe) 2 mg IV UD PRN; Protocol PRN Reason: CIWA score >/=15. Last Admin: 03/09/20 04:36 Dose: 2 mg Documented by: Metformin HCl (Metformin (Xr) 500 Mg Tablet) [facility] Last Admin: 03/11/20 17:08 Dose: 750 mg Documented by: Ondansetron HCl (Ondansetron 8 Mg Tablet) 8 mg PO Q8H PRN PRN PRN Reason: NAUSEA Last Admin: 03/08/20 14:01 Dose: 8 mg Documented by: Pantoprazole Sodium (Pantoprazole Sodium 40 Mg Tablet) 40 mg PO DAILY [facility] Last Admin: 03/11/20 07:47 Dose: 40 mg Documented by: Phenobarbital (Phenobarbital 32.4 Mg Tablet) 32.4 mg PO Q6H [facility]; Taper Stop: 03/12/20 19:29 Last Admin: 03/12/20 06:31 Dose: 32.4 mg Documented by: Sodium Chloride (0.9% Saline Lock 10 Ml Syringe) 10 - 40 ml IV UD PRN PRN Reason: SALINE FLUSH Last Admin: 03/11/20 07:54 Dose: 10 ml Documented by: Thiamine HCl (Thiamine Hydrochloride 100 Mg Tablet) [facility] Last Admin: 03/11/20 07:48 Dose: 100 mg Documented by: Throat Lozenges (Benzocaine/Menthol 1 Lozenge) 1 lozenge MUCOUS MEM Q2H PRN PRN PRN Reason: SORE THROAT Last Admin: 03/11/20 12:21 Dose: 1 lozenge Documented by: Trazodone HCl (Trazodone 100 Mg Tablet) 100 mg PO QHS PRN PRN PRN Reason: INSOMNIA Last Admin: 03/08/20 22:22 Dose: 100 mg Documented by: Zolpidem Tartrate (Zolpidem Tartrate 5 Mg Tablet) 5 mg PO QHS PRN PRN PRN Reason: Sleep if trazodone ineffective Last Admin: 03/08/20 23:08 Dose: 5 mg Documented by: Medical Necessity - Tobacco Use Smoking Status: Former smoker Assessment/Plan All Active Problems Alcohol withdrawal (Acute) This is a 59 years old male patient presented to the emergency room requesting admission for acute alcohol intoxication/withdrawal for medical stabilization and he developed acute kidney injury and mild hyperkalemia. #1 acute alcohol withdrawal/delirium tremens: He came out of ICU yesterday afternoon, has been off Precedex drip for more than 24 hours. Currently, he is on phenobarb taper, Ativan as needed, folic acid, thiamine, as needed Bentyl, Vistaril, ibuprofen, Imodium, Zofran, trazodone and Ambien. Symptoms continue to improve, having less tremors and restlessness. Plan to continue same treatment, discharge home tomorrow. #2 acute kidney injury/mild hyperkalemia: Likely because of dehydration, poor oral intake. Patient was on IV fluids. Potassium and kidney function improved, back to normal. Encourage oral intake. #3 type 2 diabetes mellitus: Blood sugar stable. Continue Metformin, continue Accu-Cheks before every meal at bedtime, insulin sliding scale. #4 hypertension: Blood pressure has been slightly on the higher side due to withdrawal. continue Norvasc and lisinopril. #5 GERD: Continue Protonix. #6 anxiety and depression: Currently, he is on trazodone as needed as a part of the withdrawal protocol. #7 DVT prophylaxis: Subcu Lovenox. This note was generated with [employer] dictation software. It may contain incorrect words, spelling, and punctuation that were not noted in checking the note before signing. Inpatient E&M: 31506 Subs Hosp L2
[2020-03-12] MEDS: Enoxaparin 40 MG/0.4 ML Syringe SC (09:08)
[2020-03-12] MEDS: Lisinopril 20 MG Tablet PO ×2 (09:09→21:23)
[2020-03-12] MEDS: amLODIPine 5 MG Tablet PO (09:09)
[2020-03-12] MEDS: metFORMIN (XR) 500 MG Tablet 750 MG PO ×2 (09:09→17:09)
[2020-03-12] MEDS: Pantoprazole Sodium 40 MG Tablet PO (09:10)
[2020-03-12] MEDS: Thiamine Hydrochloride 100 MG Tablet PO (09:10)
[2020-03-12] MEDS: Folic Acid 1 MG Tablet PO (09:10)
[2020-03-12] MEDS: hydrOXYzine PAM 25 MG Capsule 50 MG PO ×2 (09:28→21:23)
[2020-03-12] MEDS: Ibuprofen 400 MG Tablet PO ×2 (09:29→16:07)
--- NOTE | 2020-03-12 12:25 | CASEMGMT ---
SW spoke w/Selma, navigator with the [employer] program. She will come see pt tomorrow. ESTEFANIA Ibarra
[2020-03-12] MEDS: Glycerin/Hypromellose/PEG400 15 ml Bottle 2 DRP EACH EYE (13:31)
[2020-03-12 13:35] LABS: Bedside Glucose 153 mg/dL (70-110)
[2020-03-12] MEDS: Gabapentin 300 MG Capsule PO (13:39)
[2020-03-12 17:15] LABS: Bedside Glucose 221 mg/dL (70-110)
[2020-03-12] MEDS: Ondansetron 8 MG Tablet PO (21:24)
[2020-03-12] MEDS: traZODone 100 MG Tablet PO (21:24)
[2020-03-12 21:30] LABS: Bedside Glucose 188 mg/dL (70-110)
[2020-03-12] MEDS: Zolpidem Tartrate 5 MG Tablet PO (23:17)
[2020-03-13 00:11] VITALS: PULSE 97
[2020-03-13 03:02] VITALS: BP 108/74; PULSE 90; RESP 18; TEMP 36.5; O2SAT 94
[2020-03-13 04:40] VITALS: PULSE 88
[2020-03-13 06:51] LABS: Bedside Glucose 148 mg/dL (70-110)
--- NOTE | 2020-03-13 08:09 | DCINST_ITS ---
- Discharge Diagnoses Current Active Problems: Current Active and Chronic Problems Obesity (Chronic) GERD (gastroesophageal reflux disease) (Chronic) Anxiety and depression (Chronic) Hypertension (Chronic) DM2 (diabetes mellitus, type 2) (Chronic) Alcohol withdrawal (Acute) Alcohol abuse (Chronic) You will use the following diet at home:: Cardiac Your food should be the consistency of: Regular Discharge Activity: Return to Normal Activity Weight Bearing Status: Weight bearing as tolerated Call your doctor if you observe: Fever of 101 or Higher, Shortness of breath, Dizziness, Fainting spells, Chest pain, Increased palpitations (irregular heartbeat), Uncontrolled pain Instructions: Recovering from Addiction: Continuing with Counseling, Alcoholism: How to be Part of the Solution, Alcoholism: Getting Help Additional Instructions: Please follow-up with the [facility]. Allergies/Adverse Reactions: Allergies Penicillins Adverse Reaction (Mild, Verified 03/07/20 19:20) red, itching strawberry Adverse Reaction (Mild, Verified 03/07/20 19:20) dont eat them anymore Medications to take at Discharge Albuterol Inhaler [Ventolin Hfa] 2 puff INHALATION Q6H PRN PRN 10/23/16 Metformin HCl [Metformin HCl ER] 750 mg PO BID 10/23/16 Pantoprazole Sodium [Protonix] 40 mg PO DAILY 10/23/16 Zolpidem Tartrate [Ambien] 10 mg PO DAILY PRN 10/23/16 Thiamine Hydrochloride [Vitamin B1] 100 mg PO DAILYCM #0 tablet 12/14/17 Amlodipine [Norvasc] 5 mg PO DAILY #30 tab 10/01/18 Folic Acid 1 mg PO DAILY #30 tab 10/01/18 Lisinopril 20 mg PO BID #60 tab 10/01/18 Primary Care Physician: Jeff Mahmood MD [Primary Care Provider] - Please follow up with your Primary Care Physician in: 2 weeks. Test Results: Test results from this visit will be discussed in further detail at your follow- up appointment, if applicable.
[2020-03-13 09:00] VITALS: BP 128/89; PULSE 88; RESP 18; TEMP 36.5; O2SAT 94
[2020-03-13] MEDS: Lisinopril 20 MG Tablet PO (09:07)
[2020-03-13] MEDS: metFORMIN (XR) 500 MG Tablet 750 MG PO (09:07)
[2020-03-13] MEDS: Pantoprazole Sodium 40 MG Tablet PO (09:07)
[2020-03-13] MEDS: amLODIPine 5 MG Tablet PO (09:07)
[2020-03-13] MEDS: Thiamine Hydrochloride 100 MG Tablet PO (09:08)
[2020-03-13] MEDS: Folic Acid 1 MG Tablet PO (09:08)
[2020-03-13] MEDS: Enoxaparin 40 MG/0.4 ML Syringe SC (09:08)
[2020-03-13 09:58] VITALS: BP 128/89; PULSE 88; RESP 18; TEMP 36.5; O2SAT 94
--- NOTE | 2020-03-13 10:31 | DS.PCM_ITS ---
Discharge Date and Diagnosis - Problem List Patient Problems: Active and Suspected Problems Alcohol withdrawal (Acute) Date of Admission: 03/07/20 Date of Discharge: 03/13/20 - Primary Discharge Diagnosis Acute Problems: Active Problems #1 acute alcohol withdrawal/delirium tremens. #2 acute kidney injury/mild hyperkalemia. - Secondary Discharge Diagnosis Chronic Problems: Chronic Problems Obesity (Chronic) GERD (gastroesophageal reflux disease) (Chronic) Anxiety and depression (Chronic) Hypertension (Chronic) DM2 (diabetes mellitus, type 2) (Chronic) Alcohol abuse (Chronic) Hospital Course and Treatment Dr. Liu, critical care. Operations: None Procedures: None Summary of Care Provided: Patient seen and examined on the day of discharge and appeared to be stable to be discharged home. He felt significantly better, no more shakiness or hand tremors. He has been sleeping very well. His vital signs are stable. The patient is a 59 year old M presented to the emergency room requesting admission for acute alcohol intoxication/withdrawal for medical stabilization. On admission, his blood alcohol level was 316. In spite of his high level of alcohol in the blood, he was having significant hand tremors, restlessness and shakiness. Initially, routine blood work was unremarkable. LFT revealed slightly elevated liver transaminases which is attributed to alcoholic hepatitis. His urine drug screen was negative. Initially, patient was admitted to [facility] floor, started on phenobarbital taper and Ativan as needed as well as thiamine and folic acid supplements, as needed Bentyl, Catapres, Vistaril, Imodium and trazodone for acute withdrawal. Patient had significant tachycardia and blood pressure was on the higher side. His CIWA score was getting worse every day and it was up to 31 and patient was very agitated, tachycardic and hypotensive. He was transferred down to ICU, started on IV Precedex drip along with the phenobarb taper and Ativan as needed. He remained in the ICU for 2 days. He was transferred back to the floor and he was continued on phenobarb taper and Ativan as needed. With treatment, patient did very well, symptoms of withdrawal are significantly improved. He had no more hand tremors or restlessness, no more shakiness. Patient discharged home in a stable condition, continued on folic acid and thiamine, continued on his previous home medications without any changes, plan to follow-up with [facility], recommended follow-up with PCP in 2 weeks. Patient Problems: Active and Suspected Problems Alcohol withdrawal (Acute) - Physical Exam Vitals/I&O's: Vital Signs Temp Pulse Resp BP Pulse Ox 97.7 F L 88 18 128/89 H 94 03/13/20 09:58 03/13/20 09:58 03/13/20 09:58 03/13/20 09:58 03/13/20 09:58 Oxygen Flow Rate (L/min) 3 Oxygen Delivery Method Room Air Weight: 249 lb 9.012 oz Body Mass Index (BMI) 37.3 Intake and Output for Last 24 Hours 03/11/20 03/12/20 03/13/20 23:59 23:59 23:59 Intake Total 2263.62 / 2263.62 1410 / 1710 600 / 600 Output Total 1225 / 1225 Balance 1038.62 / 1038.62 1410 / 1710 600 / 600 General: Alert, Oriented x3, Cooperative, No apparent distress HEENT: Atraumatic, PERRLA, EOMI, Normocephalic Oral: Moist Mucosa, No Gingival or Mucosal Lesions/ Ulcerations Neck: Supple, No JVD, Negative Carotid Bruits, Trachea Midline, Thyroid Normal Size and Texture Lungs: Clear to auscultation, Normal air movement, No rhonchi, No wheeze, No r ales Cardiovascular: Regular rate, Regular Rhythm, Normal S1, Normal S2, PMI Normal Abdomen: Bowel Sounds Present, Soft, Non Tender, Non-Distended, No Hepato- splenomegaly, Obese Extremities: No clubbing, No cyanosis, No edema Skin: No rashes, No breakdown Lymphatic: No Cervical, Supraclavicular, or Inguinal Adenopathy Neurological: Cranial nerves II-XII grossly intact, Neuro grossly intact Psych/Mental Status: Normal Affect, Appropriate Laboratory Results 03/12/20 13:29: POC Glucose 153 H 03/12/20 17:06: POC Glucose 221 H 03/12/20 21:16: POC Glucose 188 H 03/13/20 06:44: POC Glucose 148 H Current Medications Albuterol Sulfate (Albuterol 2.5 Mg/3 Ml Vial.Neb.) 2.5 mg INHALATION Q6H PRN PRN PRN Reason: Shortness of breath Amlodipine Besylate (Amlodipine 5 Mg Tablet) 5 mg PO DAILY PATI Last Admin: 03/13/20 09:07 Dose: 5 mg Documented by: Dicyclomine HCl (Dicyclomine 10 Mg Capsule) 20 mg PO Q6H PRN PRN PRN Reason: abdominal discomfort Last Admin: 03/08/20 18:26 Dose: 20 mg Documented by: Enoxaparin Sodium (Enoxaparin 40 Mg/0.4 Ml Syringe) 40 mg SC DAILY [facility] Last Admin: 03/13/20 09:08 Dose: 40 mg Documented by: Folic Acid ([facility] 1 Mg [facility]t) [facility] Last Admin: 03/13/20 09:08 Dose: 1 mg Documented by: Gabapentin (Gabapentin 300 Mg Capsule) 300 mg PO Q8H PRN PRN PRN Reason: moderate to severe anxiety Last Admin: 03/12/20 13:39 Dose: 300 mg Documented by: Hydroxyzine Pamoate (Hydroxyzine Aiyana 25 Mg Capsule) 50 mg PO Q4H PRN PRN PRN Reason: mild anxiety Last Admin: 03/12/20 21:23 Dose: 50 mg Documented by: Ibuprofen (Ibuprofen 400 Mg Tablet) 400 mg PO Q6H PRN PRN PRN Reason: Pain Score 1-10 Last Admin: 03/12/20 16:07 Dose: 400 mg Documented by: Insulin Human Lispro (Insulin Lispro 100 Unit/Ml Insuln.Pen) 0 unit SC [facility]; Protocol Last Admin: 03/13/20 06:44 Dose: Not Given Documented by: Lisinopril (Lisinopril 20 Mg Tablet) 20 mg PO BID [facility] Last Admin: 03/13/20 09:07 Dose: 20 mg Documented by: Loperamide HCl (Loperamide 2 Mg Capsule) 2 mg PO Q4H PRN PRN PRN Reason: LOOSE STOOLS Lorazepam (Lorazepam 1 Mg Tablet) 2 mg PO Q2H PRN PRN; Protocol PRN Reason: CIWA score > 8 but <15 Last Admin: 03/09/20 15:51 Dose: 2 mg Documented by: Lorazepam (Lorazepam 1 Mg Tablet) 2 mg PO UD PRN; Protocol PRN Reason: CIWA score >/=15. Last Admin: 03/09/20 20:05 Dose: 2 mg Documented by: Lorazepam (Lorazepam 2 Mg/Ml Syringe) 2 mg IV Q2H PRN PRN; Protocol PRN Reason: CIWA score > 8 but <15 Last Admin: 03/11/20 09:49 Dose: 2 mg Documented by: Lorazepam (Lorazepam 2 Mg/Ml Syringe) 2 mg IV UD PRN; Protocol PRN Reason: CIWA score >/=15. Last Admin: 03/09/20 04:36 Dose: 2 mg Documented by: Metformin HCl (Metformin (Xr) 500 Mg Tablet) [facility] Last Admin: 03/13/20 09:07 Dose: 750 mg Documented by: Ondansetron HCl (Ondansetron 8 Mg Tablet) 8 mg PO Q8H PRN PRN PRN Reason: NAUSEA Last Admin: 03/12/20 21:24 Dose: 8 mg Documented by: Pantoprazole Sodium (Pantoprazole Sodium 40 Mg Tablet) 40 mg PO DAILY [facility] Last Admin: 03/13/20 09:07 Dose: 40 mg Documented by: Sodium Chloride (0.9% Saline Lock 10 Ml Syringe) 10 - 40 ml IV UD PRN PRN Reason: SALINE FLUSH Last Admin: 03/11/20 07:54 Dose: 10 ml Documented by: Thiamine HCl (Thiamine Hydrochloride 100 Mg Tablet) [facility] Last Admin: 03/13/20 09:08 Dose: 100 mg Documented by: Throat Lozenges (Benzocaine/Menthol 1 Lozenge) 1 lozenge MUCOUS MEM Q2H PRN PRN PRN Reason: SORE THROAT Last Admin: 03/11/20 12:21 Dose: 1 lozenge Documented by: Trazodone HCl (Trazodone 100 Mg Tablet) 100 mg PO QHS PRN PRN PRN Reason: INSOMNIA Last Admin: 03/12/20 21:24 Dose: 100 mg Documented by: Zolpidem Tartrate (Zolpidem Tartrate 5 Mg Tablet) 5 mg PO QHS PRN PRN PRN Reason: Sleep if trazodone ineffective Last Admin: 03/12/20 23:17 Dose: 5 mg Documented by: Discharge Activity: Return to Normal Activity Weight Bearing Status: Weight bearing as tolerated Call your doctor if you observe: Fever of 101 or Higher, Shortness of breath, Dizziness, Fainting spells, Chest pain, Increased palpitations (irregular heartbeat), Uncontrolled pain Home Medications: Medications to take at Discharge Albuterol Inhaler [Ventolin Hfa] 2 puff INHALATION Q6H PRN PRN 10/23/16 Metformin HCl [Metformin HCl ER] 750 mg PO BID 10/23/16 Pantoprazole Sodium [Protonix] 40 mg PO DAILY 10/23/16 Zolpidem Tartrate [Ambien] 10 mg PO DAILY PRN 10/23/16 Thiamine Hydrochloride [Vitamin B1] 100 mg PO DAILYCM #0 tablet 12/14/17 Amlodipine [Norvasc] 5 mg PO DAILY #30 tab 10/01/18 Folic Acid 1 mg PO DAILY #30 tab 10/01/18 Lisinopril 20 mg PO BID #60 tab 10/01/18 Primary Care Physician: Jeff Mahmood MD [Primary Care Provider] - Please follow up with your Primary Care Physician in: 2 weeks. Patient Instructions: Alcoholism: How to be Part of the Solution, Alcoholism: Getting Help, Recovering from Addiction: Continuing with Counseling Disposition: Home Minutes spent on discharge:: 32 Patient Condition:: Stable Medical Necessity - Tobacco Use Smoking Status: Former smoker Meaningful Use Info Meaningful Use Diagnoses (Choose all that apply): None applicable Inpatient E&M: 00775 Disch Hosp
== END 2020-03-13 10:45 | disposition home or self-care (01) | DRG 897 ==
LOC: ED 21:14 → MS3 03-08 07:06 → ICU 03-09 21:20 → MS3 03-14 09:31
PROVIDERS: Hospitalist; Internal Medicine Critical Care Medicine; Admitting Provider Family Medicine; Emergency Provider Emergency Medicine; PCP Family Medicine; Visit Provider Hospitalist
DX: F10.231 Alcohol dependence with withdrawal delirium (principal); N17.9 Acute kidney failure, unspecified; E87.5 Hyperkalemia; K21.9 Gastro-esophageal reflux disease without esophagitis; E86.0 Dehydration; E11.9 Type 2 diabetes mellitus without complications; I10 Essential (primary) hypertension; E66.9 Obesity, unspecified; F41.8 Other specified anxiety disorders; F10.229 Alcohol dependence with intoxication, unspecified; Y90.8 Blood alcohol level of 240 mg/100 ml or more; Z68.38 Body mass index [BMI] 38.0-38.9, adult; Z87.891 Personal history of nicotine dependence; K70.10 Alcoholic hepatitis without ascites
CPT/HCPCS: 36415; 80048; 80053; 80307; 80320; 81001; 82962; 83735; 84100; 84132; 85025; 97116; 97161; 97166; 99284; J7030; A4216; G0480; J2405

== ENCOUNTER 2020-04-01 16:52 | Inpatient (IN) | payer BC, SELFPAY ==
[2020-03-08 01:19] VITALS: BMI 37.3
[2020-04-01 16:53] VITALS: BP 159/91; PULSE 130; RESP 20; TEMP 36.4; O2SAT 95; BMI 38.7
--- NOTE | 2020-04-01 16:58 | EKG12_ITS ---
Test Reason : ARRHYTHMIA Blood Pressure : / mmHG Vent. Rate : 125 BPM Atrial Rate : 125 BPM P-R Int : 136 ms QRS Dur : 086 ms QT Int : 318 ms P-R-T Axes : 044 025 055 degrees QTc Int : 458 ms Sinus tachycardia Possible Left atrial enlargement Borderline ECG Confirmed by XAVIER DEL VALLE, RIO ([id number]), assistant editor CIRA LEMOS ([id number]) on 04/04/2020 8:55:35 AM Referred By: Confirmed By:RIO PARK MD
--- NOTE | 2020-04-01 17:05 | ED.VIS.GEN ---
History of Present Illness Chief Complaint: Substance Abuse Informant: Patient Narrative: Patient is presenting to the emergency department requesting alcohol detox. Patient went through alcohol detox in March at this institution of last year. He states that he went about a week to week and a half and then he started drinking again. States he never followed up at [facility]. He states he was trying to take alcohol pills to keep him from drinking but they did not work. He tells me the longest he has been sober is about 7 or 8 years and that was not quite a decade ago. His drink of choice is beer and he states he typically has 6 to 12 (12) ounce cans per day. He reports his last drink was about 12 hours ago. He states he feels nauseous, shaky, and is very worried about having DTs. During his last hospitalization he required transfer to the ICU due to worsening withdrawal and was placed on a Precedex drip. Patient reports that over the past couple days he has developed some mild rhinorrhea and a mild sore throat. - Past Medical History (1) Alcohol abuse Status: Chronic (2) Anxiety and depression Status: Chronic (3) DM2 (diabetes mellitus, type 2) Status: Chronic (4) GERD (gastroesophageal reflux disease) Status: Chronic (5) Hypertension Status: Chronic (6) Obesity Status: Chronic Past Medical History - Allergies and Home Meds Allergies/Adverse Reactions: Allergies Penicillins Adverse Reaction (Mild, Verified 04/01/20 16:53) red, itching strawberry Adverse Reaction (Mild, Verified 04/01/20 16:53) dont eat them anymore Primary Care Physician: Jeff Mahmood MD [Primary Care Provider] - Surgical History: noncontributory, - - Tonsillectomy, left shoulder replacement, gastric ulcer intervention, cholecystectomy, umbilical hernia repair. Smoking Status: Former smoker Alcohol: Heavy Drugs: None - Family History Paternal Family History: Reports: - - Patient notes a paternal family history of heart disease, [place] in his 50s in addition to alcohol abuse history. Maternal Family History: Reports: No pertinent history Review of Systems General: Denies: Chills, Fever, Sweats Eyes: Denies: Visual changes - bilaterally, Diplopia ENT: Reports: Rhinorrhea, Sore throat Cardiovascular: Denies: Chest pain, Palpitations Respiratory: Denies: Dyspnea, Cough, Dyspnea on exertion Gastrointestinal: Reports: Nausea. Denies: Abdominal pain, Vomiting, Diarrhea, Melena, Hematochezia Genitourinary: Denies: Dysuria, Hematuria, Frequency Musculoskeletal: Denies: Back pain, Extremity Pain Skin: Denies: Rash, Wounds Neurological: Denies: Headache, Weakness, Numbness Psych: Reports: Depression, Anxiety, - - Patient denies auditory or visual hallucinations.. Denies: Suicidal thoughts, Suicidal ideations Physical Exam Vital Signs/Narrative: Vital Signs Temp Pulse Resp BP Pulse Ox 04/01/20 16:53 97.5 F L 130 H 20 H 159/91 H 95 Inital Vital Signs reviewed: Yes General: Well nourished, Well developed, No Acute Distress Head: Normocephalic, Atraumatic Eyes: Perrl, EOMI ENT: Moist mucous membranes, No rhinorrhea Neck: Supple, Nontender Cardiovascular: Regular rate, No murmurs, Tachycardia Respiratory: No distress, CTA bilaterally, Chest nontender Abdomen: Soft, Nontender, Nondistended, Normal bowel sounds Back: Nontender, Normal Inspection Extremities: Nontender, No edema Skin: Normal color, No rash Neurological: Alert, Oriented x3, Cranial nerves II-XII grossly intact, Normal Strength, Normal Sensation, - - Patient appears quite shaky. Diagnostic/Tx/Re-eval Laboratory Last Values WBC 5.5 K/mm3 (4.4-11.0) 04/01/20 17:20 RBC 4.64 M/mm3 (4.6-6.2) 04/01/20 17:20 Hgb 14.7 g/dL (13.0-16.5) 04/01/20 17:20 Hct 42.5 % (40-54) 04/01/20 17:20 MCV 91.6 fL (80-94) 04/01/20 17:20 MCH 31.7 pg (27.0-32.0) 04/01/20 17:20 MCHC 34.6 g/dL (32-36) 04/01/20 17:20 RDW Std Deviation 41.2 fl (35.1-43.9) 04/01/20 17:20 RDW Coeff of Anselmo 12.3 % (11.6-14.6) 04/01/20 17:20 Plt Count 248 K/mm3 (150-450) 04/01/20 17:20 MPV 10.3 fl (6.2-12.0) 04/01/20 17:20 Immature Gran % (Auto) 0.400 % (0.0-0.9) 04/01/20 17:20 Neut % (Auto) 74.7 % (47-70) H 04/01/20 17:20 Lymph % (Auto) 16.6 % (19-41) L 04/01/20 17:20 Carson % (Auto) 7.1 % (0-10) 04/01/20 17:20 Eos % (Auto) 0.5 % (0-5) 04/01/20 17:20 Baso % (Auto) 0.7 % (0-1) 04/01/20 17:20 Absolute Neuts (auto) 4.1 X10^3/uL (2.0-7.7) 04/01/20 17:20 Absolute Lymphs (auto) 0.91 X10^3/uL (0.83-4.51) 04/01/20 17:20 Nucleated RBC % 0 % (0-5) 04/01/20 17:20 PT 12.9 SECONDS (11.7-14.9) 04/01/20 17:20 INR 1.0 04/01/20 17:20 APTT 29.5 Seconds (24.1-36.2) 04/01/20 17:20 Sodium 135 mmol/L (136-145) L 04/01/20 17:20 Potassium 3.3 mmol/L (3.5-5.1) L 04/01/20 17:20 Chloride 97 mmol/L (98-107) L 04/01/20 17:20 Carbon Dioxide 27.0 mmol/L (21.0-32.0) 04/01/20 17:20 Anion Gap 11 (5-15) 04/01/20 17:20 BUN 12 mg/dL (7-18) 04/01/20 17:20 Creatinine 0.90 mg/dL (0.70-1.30) 04/01/20 17:20 Estim Creat Clear Calc 85.50 ml/min 04/01/20 17:20 Est GFR (MDRD) Af Amer 112 mL/min (>60) 04/01/20 17:20 Est GFR (MDRD) Non-Af 92 mL/min (>60) 04/01/20 17:20 BUN/Creatinine Ratio 13.4 RATIO (10-20) 04/01/20 17:20 Glucose 148 mg/dL (74-106) H 04/01/20 17:20 Calcium 8.9 mg/dL (8.5-10.1) 04/01/20 17:20 Total Bilirubin 0.30 mg/dL (0.20-1.00) 04/01/20 17:20 AST 47 U/L (15-37) H 04/01/20 17:20 ALT 79 U/L (16-61) H 04/01/20 17:20 Alkaline Phosphatase 95 U/L (45-117) 04/01/20 17:20 Total Protein 7.1 g/dL (6.4-8.2) 04/01/20 17:20 Albumin 3.9 g/dL (3.2-5.0) 04/01/20 17:20 Globulin 3.2 g/dL (2.2-4.2) 04/01/20 17:20 Albumin/Globulin Ratio 1.2 RATIO (0.9-2.4) 04/01/20 17:20 Urine Opiates Screen NEGATIVE (< 300 ng/mL) 04/01/20 17:20 Urine Methadone Screen NEGATIVE (< 300 ng/mL) 04/01/20 17:20 Ur Barbiturates Screen NEGATIVE (< 200 ng/mL) 04/01/20 17:20 Ur Phencyclidine Scrn NEGATIVE (< 25 ng/mL) 04/01/20 17:20 Ur Amphetamines Screen NEGATIVE (<1000 ng/mL) 04/01/20 17:20 U Methamphetamin-MDMA NEGATIVE (< 500 ng/mL) 04/01/20 17:20 U Benzodiazepines Scrn NEGATIVE (< 200 ng/mL) 04/01/20 17:20 Urine Cocaine Screen NEGATIVE (< 300 ng/mL) 04/01/20 17:20 U Cannabinoids Screen NEGATIVE (< 50 ng/mL) 04/01/20 17:20 Ur Drug Screen Comment 04/01/20 17:20 - EKG Initial EKG Interpretation: Sinus Tachycardia - EKG demonstrates a sinus tachycardia at a rate of 125. There are no concerning features of ACS or ectopy. - Medical Decision Making IV established and the patient received a dose of Ativan and Zofran. Screening labs obtained. Hospitalist recommends a dose of phenobarbital IV. Plan will be admission into the hospital for further alcohol detox care. ED Disposition - Plan for ED Patient: Disposition: Acute Care Hospital [facility] Diagnosis: Alcohol withdrawal Referrals: Jeff Mahmood MD [Primary Care Provider] -
[2020-04-01 17:23] VITALS: BP 152/91; PULSE 127; RESP 20; O2SAT 95
[2020-04-01] MEDS: Ondansetron 4 MG/2 ML Vial IV (17:26)
[2020-04-01] MEDS: LORazepam 2 MG/ML Syringe 1 MG IV (17:26)
[2020-04-01 17:41] LABS: Absolute Lymphocyte Count 0.91 X10^3/uL (0.83-4.51); Absolute Neutrophil Count 4.1 X10^3/uL (2.0-7.7); Basophil# 0.04 X10^3/uL; Basophil% 0.7 % (0-1); Eosinophil# 0.03 X10^3/uL; Eosinophils% 0.5 % (0-5); Hematocrit 42.5 % (40-54); Hemoglobin 14.7 g/dL (13.0-16.5); Lymphocyte # 0.91 X10^3/ul (4.0); Lymphocyte % 16.6 % (19-41); Mean Corp Hgb Conc 34.6 g/dL (32-36); Mean Corpuscular Hgb 31.7 pg (27.0-32.0); Mean Corpuscular Volume 91.6 fL (80-94); Mean Platelet Vol. 10.3 fl (6.2-12.0); Monocyte# 0.39 X10^3/uL; Monocyte% 7.1 % (0-10); NRBC Flagged by Analyzer 0 % (0-5); Neutrophil % 74.7 % (47-70); Platelet Count 248 K/mm3 (150-450); RBC Distribution Width CV 12.3 % (11.6-14.6); RBC Distribution Width SD 41.2 fl (35.1-43.9); Red Blood Count 4.64 M/mm3 (4.6-6.2); White Blood Count 5.5 K/mm3 (4.4-11.0)
[2020-04-01 17:49] LABS: Prothrombin Time (Protime)PT. 12.9 SECONDS (11.7-14.9)
[2020-04-01 17:50] LABS: Partial Thromboplast Time 29.5 Seconds (24.1-36.2)
[2020-04-01 17:58] LABS: ALB/GLOB Ratio 1.2 RATIO (0.9-2.4); AST(SGOT) 47 U/L (15-37); Alanine Aminotransfer ALT/SGPT 79 U/L (16-61); Albumin, Serum 3.9 g/dL (3.2-5.0); Alkaline Phosphatase 95 U/L (45-117); Anion Gap 11 (5-15); BUN 12 mg/dL (7-18); BUN/Creat Ratio 13.4 RATIO (10-20); Calcium,Total 8.9 mg/dL (8.5-10.1); Chloride 97 mmol/L (98-107); EST Glomerular Filtration Rate 92 mL/min (>60); Est Glom Filt Rate - Afr Amer 112 mL/min (>60); Globulin 3.2 g/dL (2.2-4.2); Glucose 148 mg/dL (74-106); Potassium 3.3 mmol/L (3.5-5.1); Protein, Total 7.1 g/dL (6.4-8.2); Sodium Level 135 mmol/L (136-145)
[2020-04-01 17:59] LABS: Amphetamine Urine VISTA NEGATIVE (<1000 ng/mL); Barbiturate Urine VISTA NEGATIVE (< 200 ng/mL); Benzodiazepine Urine VISTA NEGATIVE (< 200 ng/mL); Cocaine Urine VISTA NEGATIVE (< 300 ng/mL); Ecstacy Urine VISTA NEGATIVE (< 500 ng/mL); Methadone Urine VISTA NEGATIVE (< 300 ng/mL); PCP Urine VISTA NEGATIVE (< 25 ng/mL); THC Urine VISTA NEGATIVE (< 50 ng/mL); Vista UDS pH Range 6
--- NOTE | 2020-04-01 18:00 | HP.PCM_ITS ---
Problem List (1) Hyponatremia Status: Acute (2) Hypokalemia Status: Acute (3) Obesity Status: Chronic (4) GERD (gastroesophageal reflux disease) Status: Chronic (5) Anxiety and depression Status: Chronic (6) Hypertension Status: Chronic Qualifiers: (7) DM2 (diabetes mellitus, type 2) Status: Chronic (8) Alcohol withdrawal Status: Acute (9) Alcohol abuse Status: Chronic History of Present Illness Date of Admission: 04/01/20 Mr. Asher is a 59 year old M with a PMH of hypertension, hyperlipidemia, DM-2, obesity, alcoholism, depression\anxiety, GERD, and history of tobacco abuse who presented to the emergency department on 04/01/2020 for acute alcohol withdrawal. The patient states that he drinks at least 6-12 beers a day; sometimes those are 40 ounce beers. His last drink was 12 hours ago and he states yesterday he drank a lot. He had a recent admission for alcohol detox here at [facility] from 03/07/2020 until 03/13/2020 in which she required ICU admission for Precedex drip. It appears that initially he was only getting as needed Ativan and was started on a phenobarb taper 1 to 2 days into his hospitalization. He had follow-up at 180 scheduled but did not attend because he had to go back to work and was not able to arrange the timing. Upon review of records, he has had several admissions for alcohol withdrawal since 2017. He is afebrile, mildly tachycardic and hypertensive; respiratory rate is within normal limits and his sats are 95% on room air. His CBC is unremarkable. His coagulation studies are within normal limits. His CMP shows mild hyponatremia with a sodium of 135, mild hypokalemia with a potassium of 3.3, blood sugar 148, and mild transaminitis with an AST of 47 and an ALT of 79. His liver studies are improved from recent past lab. His tox screen is negative except for an ethyl alcohol level of 44. His EKG is unremarkable. Per discussion with the emergency department attending physician he was given phenobarbital IV 100 mg x 1 dose and he will be admitted to [facility] for alcohol detox. At this time the patient's only symptoms are tremor and mild nausea. Past Medical History Past Medical History (Chronic Problems): Chronic Problems Obesity (Chronic) GERD (gastroesophageal reflux disease) (Chronic) Anxiety and depression (Chronic) Hypertension (Chronic) DM2 (diabetes mellitus, type 2) (Chronic) Alcohol abuse (Chronic) Allergies Penicillins Adverse Reaction (Mild, Verified 04/01/20 16:53) red, itching strawberry Adverse Reaction (Mild, Verified 04/01/20 16:53) dont eat them anymore Home Medications: Ambulatory Orders Medication Instructions Recorded Albuterol Inhaler [Ventolin Hfa] 2 puff INHALATION Q6H PRN PRN 10/23/16 Metformin HCl [Metformin HCl ER] 750 mg PO BID 10/23/16 Pantoprazole Sodium [Protonix] 40 mg PO DAILY 10/23/16 Zolpidem Tartrate [Ambien] 10 mg PO DAILY PRN 10/23/16 Thiamine Hydrochloride [Vitamin B1] 100 mg PO DAILYCM #0 tablet 12/14/17 Amlodipine [Norvasc] 5 mg PO DAILY #30 tab 10/01/18 Folic Acid 1 mg PO DAILY #30 tab 10/01/18 Lisinopril 20 mg PO BID #60 tab 10/01/18 Dulaglutide [Trulicity] 1.5 mg IM QWEEK 04/01/20 Fluoxetine [Prozac] 20 mg PO DAILY 04/01/20 Glimepiride 2 mg PO BID 04/01/20 Surgical History: noncontributory, - - Tonsillectomy, left shoulder replacement, gastric ulcer intervention, cholecystectomy, umbilical hernia repair. Psychiatric History: Anxiety, Depression Smoking Status: Never smoker Alcohol: Heavy Drugs: None - *Family History Paternal History Items: - - Patient notes a paternal family history of heart disease, [place] in his 50s in addition to alcohol abuse history. Maternal History Items: No pertinent history Review of Systems Constitutional: Denies: Anorexia, Chills, Fever, Night Sweats, Malaise, Weakness, Weight Change, Fatigue Eyes: Denies: Blurred vision, Double vision, Drainage, Eyelid Inflammation, Pain, Redness, Vision Change HEENT: Reports: Difficulty Hearing. Denies: Ear Pain, Head Aches, Nasal bleeding, Nasal Congestion, Post Nasal Drip, Sinus Congestion, Sinus Drainage, Sore Throat, Visual Changes Cardiovascular: Denies: Chest Pain, Claudication, Chest Pressure, Chest Tightness, Edema, Heaviness, Light Headedness, Orthopnea, Palpitations, Paroxysmal Noc. Dyspnea, Syncope Respiratory: Denies: Cough, Hemoptysis, Pleuritic Pain, Shortness of Breath, Shortness of breath at rest, Shortness of breath upon exertion, Sputum production, Wheezing Gastrointestinal: Reports: Nausea. Denies: Abdominal Pain, Constipation, Diarrhea, Dyspepsia, Hematemesis, Hematochezia, Melena, Vomiting Genitourinary: Denies: Dysuria, Frequency, Hematuria, Hesitancy, Incontinence, Nocturia, Retention, Urgency Musculoskeletal: Denies: Back Pain, Joint Pain, Joint stiffness, Joint swelling, Joint Tenderness, Muscle pain, Neck Pain Skin: Denies: Dryness, Jaundice, Lesions, Pruritis, Rash, Skin Changes, Wounds Neurological: Reports: Tremor. Denies: Balance problems, Double vision, Slurred speech, Confusion, Difficulty swallowing, Focal weakness, Headaches, Incoordination, Numbness, Tingling, Seizures Psychiatric: Reports: Anxiety, Depression Endocrine: Denies: Change in Body Habitus, Heat/ Cold Intolerance, Polydipsia Hematologic/ Lymphatic: Denies: Adenopathy, Anemia, Easy Bruising, Easy Bleeding, Petechiae, Purpura VTE Information - Inpt Only VTE Present on Admission: No VTE Mechan Device Prophylaxis: None Reason prophylaxis not ordered:: Treatment Not Indicated - early ambulation Patient Problems: Active and Suspected Problems Hyponatremia (Acute) Hypokalemia (Acute) Alcohol withdrawal (Acute) - Physical Exam Vitals/I&O's: Vital Signs Temp Pulse Resp BP Pulse Ox 97.5 F L 127 H 20 H 152/91 H 95 04/01/20 16:53 04/01/20 17:23 04/01/20 17:23 04/01/20 17:23 04/01/20 17:23 Oxygen Delivery Method Room Air Weight: 115.4 kg Body Mass Index (BMI) 38.7 General: Alert, Oriented x3, Cooperative, No apparent distress, Well developed, Well nourished, - - White male, appears older than stated age, sitting up in bed with mild tremor HEENT: Atraumatic, PERRLA, EOMI, Normocephalic, EAC Clear Oral: Moist Mucosa, No Gingival or Mucosal Lesions/ Ulcerations, - - Mallampati 2-3 Neck: Supple, No JVD, Negative Carotid Bruits, Negative Hepatojugular Reflux, No Nodes, No Nuchal Rigidity, Trachea Midline, Thyroid Normal Size and Texture Lungs: Normal air movement, No rhonchi, No wheeze, No rales, Wheezes - Few scattered at bases clears with cough Cardiovascular: Regular rate, Regular Rhythm, Normal S1, Normal S2, No murmurs, No Ectopic Activity, No rub noted, No Gallop Abdomen: Bowel Sounds Present, Soft, Non Tender, Non-Distended, No Hepato- splenomegaly, Obese, No hernias noted Extremities: No clubbing, No cyanosis, No edema, Capillary Refill Less than 3 Seconds, Peripheral Pulses Normal Skin: No rashes, No breakdown, - - Ears flushed Musculoskeletal: No Tenderness to Palpation of Joints or Extremities, No Muscle Wasting Lymphatic: No Cervical, Supraclavicular, or Inguinal Adenopathy Neurological: Cranial nerves II-XII grossly intact, Deep Tendon Reflexes 2+/4 and Symmetrical, Neuro grossly intact, Motor Exam 5/5 strength throughout, Muscle tone normal, Sensory exam intact to light touch and pain, Coordination normal Psych/Mental Status: Normal Affect, Appropriate Laboratory Results 04/01/20 17:20: WBC 5.5, RBC 4.64, Hgb 14.7, Hct 42.5, MCV 91.6, MCH 31.7, MCHC 34.6, RDW Std Deviation 41.2, RDW Coeff of Anselmo 12.3, Plt Count 248, MPV 10.3, Immature Gran % (Auto) 0.400, Neut % (Auto) 74.7 H, Lymph % (Auto) 16.6 L, [place] % (Auto) 7.1, Eos % (Auto) 0.5, Baso % (Auto) 0.7, Absolute Neuts (auto) 4.1, Absolute Lymphs (auto) 0.91, Nucleated RBC % 0 04/01/20 17:20: PT 12.9, INR 1.0, APTT 29.5 04/01/20 17:20: Sodium 135 L, Potassium 3.3 L, Chloride 97 L, Carbon Dioxide 27.0, Anion Gap 11, BUN 12, Creatinine 0.90, Estim Creat Clear Calc 85.50, Est GFR (MDRD) Af Amer 112, Est GFR (MDRD) Non-Af 92, BUN/Creatinine Ratio 13.4, Glucose 148 H, Calcium 8.9, Total Bilirubin 0.30, AST 47 H, ALT 79 H, Alkaline Phosphatase 95, Total Protein 7.1, Albumin 3.9, Globulin 3.2, Albumin/Globulin Ratio 1.2 04/01/20 17:20: Ethyl Alcohol Pending 04/01/20 17:20: Urine Opiates Screen NEGATIVE, Urine Methadone Screen NEGATIVE, Ur Barbiturates Screen NEGATIVE, Ur Phencyclidine Scrn NEGATIVE, Ur Amphetamines Screen NEGATIVE, U Methamphetamin-MDMA NEGATIVE, U Benzodiazepines Scrn NEGATIVE, Urine Cocaine Screen NEGATIVE, U Cannabinoids Screen NEGATIVE, Ur Drug Screen Comment Assessment/Plan All Active Problems Hyponatremia (Acute) Hypokalemia (Acute) Alcohol withdrawal (Acute) Acute alcohol withdrawal -We will utilize phenobarbital taper -Patient was here approximately 1 month ago and had pretty significant withdraw which required Precedex in the ICU -I discussed this with the emergency department and we are giving him 100 IV phenobarbital now and starting an oral taper -Thiamine and folate -As needed Ativan -Consult 180 for outpatient treatment following detox Hyponatremia -suspect hypovolemic hyponatremia related to alcohol use -Repeat BMP in a.m. Hypokalemia -40 mEq p.o. potassium -Repeat a.m. lab -Check magnesium in a.m. Transaminitis -Likely related to alcohol ingestion -It appears that this is the lowest his transaminases have been in a while for review of past lab work -Trend Hypertension -Continue home Norvasc 5 mg daily -Continue lisinopril 20 mg p.o. twice daily -DM-2 -Takes glimepiride, metformin, and Trulicity at home -Continue glimepiride 2 mg p.o. twice daily -Continue Metformin 750 mg p.o. twice daily -Sliding scale with meals -BGT's GERD -Continue Protonix daily Depression -Continue Prozac 20 mg daily Insomnia -Continue home Ambien 10 mg nightly as needed Obesity -Recommend weight loss -BMI is 38.7 DVT prophylaxis -Early ambulation CODE STATUS -Full code Inpatient E&M: 68075 Init Hosp L3
[2020-04-01 19:10] VITALS: BP 152/92; PULSE 116; RESP 16; TEMP 37.3; O2SAT 95
[2020-04-01] MEDS: Phenobarbital Sodium 130 MG/ML Vial 100 MG IV (19:14)
[2020-04-01 20:06] VITALS: BMI 37.0
[2020-04-01 20:08] VITALS: BP 170/99; PULSE 122; RESP 18; TEMP 36.9; O2SAT 94
[2020-04-01 20:14] VITALS: BMI 37.1
[2020-04-01] MEDS: Lisinopril 20 MG Tablet PO (20:22)
[2020-04-01] MEDS: Phenobarbital 32.4 MG Tablet 64.8 MG PO (20:23)
[2020-04-01] MEDS: Ondansetron 8 MG Tablet PO (22:04)
[2020-04-01] MEDS: Zolpidem Tartrate 5 MG Tablet PO (22:04)
[2020-04-01] MEDS: LORazepam 1 MG Tablet 2 MG PO (22:04)
[2020-04-01] MEDS: Dicyclomine 10 MG Capsule 20 MG PO (22:04)
[2020-04-01 22:16] LABS: Bedside Glucose 105 mg/dL (70-110)
--- NOTE | 2020-04-01 22:31 | PCS.PANDOC ---
PANDEMIC DOCUMENTATION INITIATED: Date: 04/01/20 Time: 1999
[2020-04-02] VITALS (7 sets, daily range): BP systolic 123–152; BP diastolic 73–97; PULSE 100–110; RESP 16–18; TEMP 36.4–36.9; O2SAT 94–98
[2020-04-02] MEDS: Phenobarbital 32.4 MG Tablet 64.8 MG PO ×6 (00:28→20:45)
[2020-04-02] MEDS: Gabapentin 300 MG Capsule PO ×2 (06:19→14:34)
[2020-04-02] MEDS: Ondansetron 8 MG Tablet PO (06:19)
[2020-04-02] MEDS: hydrOXYzine PAM 25 MG Capsule 50 MG PO ×3 (06:19→20:45)
[2020-04-02] MEDS: Dicyclomine 10 MG Capsule 20 MG PO ×2 (06:19→14:34)
[2020-04-02] MEDS: Insulin Lispro 100 UNIT/ML INSULN.PEN SC ×2 (06:20→12:02)
[2020-04-02 06:26] LABS: Bedside Glucose 156 mg/dL (70-110)
[2020-04-02 07:29] LABS: AST(SGOT) 43 U/L (15-37); Alanine Aminotransfer ALT/SGPT 68 U/L (16-61); Albumin, Serum 3.6 g/dL (3.2-5.0); Alkaline Phosphatase 88 U/L (45-117); Anion Gap 8 (5-15); BUN 10 mg/dL (7-18); BUN/Creat Ratio 12.9 RATIO (10-20); Bilirubin, Direct 0.22 mg/dL (0.00-0.30); Calcium,Total 8.5 mg/dL (8.5-10.1); Chloride 97 mmol/L (98-107); Creatinine, Serum 0.78 mg/dL (0.70-1.30); EST Glomerular Filtration Rate 109 mL/min (>60); Est Glom Filt Rate - Afr Amer 131 mL/min (>60); Estimated Creatinine Clearance 98.65 ml/min; Glucose 146 mg/dL (74-106); Magnesium 2.2 mg/dL (1.6-2.6); Potassium 3.7 mmol/L (3.5-5.1); Protein, Total 6.6 g/dL (6.4-8.2); Sodium Level 134 mmol/L (136-145)
--- NOTE | 2020-04-02 07:43 | PN_ITS ---
Patient Problems: Active and Suspected Problems Hyponatremia (Acute) Hypokalemia (Acute) Alcohol withdrawal (Acute) Reason for Visit: Acute alcohol withdrawal Subjective: Patient is a 59-year-old gentleman with history of alcohol dependence admitted with acute alcohol withdrawal Objective: GENERAL: cooperative HEENT: Atraumatic; EYES; Anicteric, Normal Conjunctiva NECK; supple, normal thyroid, RESPIRATORY: Diminished to auscultation CARDIOVASCULAR: Regular S1 S2, GI: soft, normoactive bowel sounds, : No Renal angle tenderness; EXTREMITIES: No edema, no clubbing, MUSCULOSKELETAL: no muscle waisting NEURO: Awake; no lateralizing signs. SKIN: No Rash PSYCH; Flat affect Vitals/I&O's: Vital Signs Temp Pulse Resp BP Pulse Ox 97.8 F 106 H 16 139/91 H 96 04/02/20 04:08 04/02/20 04:08 04/02/20 04:08 04/02/20 04:08 04/02/20 04:08 Oxygen Delivery Method Room Air Weight: 110.7 kg Body Mass Index (BMI) 37.0 Intake and Output for Last 24 Hours 03/31/20 04/01/20 04/02/20 23:59 23:59 23:59 Intake Total 700 / 700 Balance 700 / 700 Microbiology Past 72 Hours 04/01/20 17:30 Mucosa - Nose SARS-CoV-2 Antigen (Rapid) - Final Laboratory Results 04/01/20 17:20: WBC 5.5, RBC 4.64, Hgb 14.7, Hct 42.5, MCV 91.6, MCH 31.7, MCHC 34.6, RDW Std Deviation 41.2, RDW Coeff of Anselmo 12.3, Plt Count 248, MPV 10.3, Immature Gran % (Auto) 0.400, Neut % (Auto) 74.7 H, Lymph % (Auto) 16.6 L, Bell % (Auto) 7.1, Eos % (Auto) 0.5, Baso % (Auto) 0.7, Absolute Neuts (auto) 4.1, Absolute Lymphs (auto) 0.91, Nucleated RBC % 0 04/01/20 17:20: PT 12.9, INR 1.0, APTT 29.5 04/01/20 17:20: Sodium 135 L, Potassium 3.3 L, Chloride 97 L, Carbon Dioxide 27.0, Anion Gap 11, BUN 12, Creatinine 0.90, Estim Creat Clear Calc 85.50, Est GFR (MDRD) Af Amer 112, Est GFR (MDRD) Non-Af 92, BUN/Creatinine Ratio 13.4, Glucose 148 H, Calcium 8.9, Total Bilirubin 0.30, AST 47 H, ALT 79 H, Alkaline Phosphatase 95, Total Protein 7.1, Albumin 3.9, Globulin 3.2, Albumin/Globulin Ratio 1.2 04/01/20 17:20: Ethyl Alcohol 44.0 04/01/20 17:20: Urine Opiates Screen NEGATIVE, Urine Methadone Screen NEGATIVE, Ur Barbiturates Screen NEGATIVE, Ur Phencyclidine Scrn NEGATIVE, Ur Amphetamines Screen NEGATIVE, U Methamphetamin-MDMA NEGATIVE, U Benzodiazepines Scrn NEGATIVE, Urine Cocaine Screen NEGATIVE, U Cannabinoids Screen NEGATIVE, Ur Drug Screen Comment 04/01/20 22:07: POC Glucose 105 04/02/20 06:10: POC Glucose 156 H 04/02/20 06:30: Sodium 134 L, Potassium 3.7, Chloride 97 L, Carbon Dioxide 29.0, Anion Gap 8, BUN 10, Creatinine 0.78, Estim Creat Clear Calc 98.65, Est GFR (MDRD) Af Amer 131, Est GFR (MDRD) Non-Af 109, BUN/Creatinine Ratio 12.9, Glucose 146 H, Calcium 8.5, Magnesium 2.2, Total Bilirubin 0.70, Direct Bilirubin 0.22, AST 43 H, ALT 68 H, Alkaline Phosphatase 88, Total Protein 6.6, Albumin 3.6, Globulin 3.0 Current Medications Albuterol Sulfate (Albuterol 2.5 Mg/3 Ml Vial.Neb.) 2.5 mg INHALATION Q4H PRN PRN PRN Reason: SHORTNESS OF BREATH Amlodipine Besylate (Amlodipine 5 Mg Tablet) 5 mg PO DAILY PATI Dicyclomine HCl (Dicyclomine 10 Mg Capsule) 20 mg PO Q6H PRN PRN PRN Reason: abdominal discomfort Last Admin: 04/02/20 06:19 Dose: 20 mg Documented by: Fluoxetine HCl (Fluoxetine 20 Mg Capsule) 20 mg PO DAILY PATI Folic Acid (Folic Acid 1 Mg Tablet) 1 mg PO DAILY@0800 PATI Gabapentin (Gabapentin 300 Mg Capsule) 300 mg PO Q8H PRN PRN PRN Reason: moderate to severe anxiety Last Admin: 04/02/20 06:19 Dose: 300 mg Documented by: Glimepiride ([facility] 2 Mg [facility]) [facility] Hydroxyzine Pamoate (Hydroxyzine Aiyana 25 Mg Capsule) 50 mg PO Q4H PRN PRN PRN Reason: mild anxiety Last Admin: 04/02/20 06:19 Dose: 50 mg Documented by: Insulin Human Lispro (Insulin Lispro 100 Unit/Ml Insuln.Pen) 0 unit SC TIDAC [facility]; Protocol Last Admin: 04/02/20 06:20 Dose: 1 u Documented by: Lisinopril (Lisinopril 20 Mg Tablet) 20 mg PO BID [facility] Last Admin: 04/01/20 20:22 Dose: 20 mg Documented by: Loperamide HCl (Loperamide 2 Mg Capsule) 2 mg PO Q4H PRN PRN PRN Reason: LOOSE STOOLS Lorazepam (Lorazepam 1 Mg Tablet) 2 mg PO Q2H PRN PRN; Protocol PRN Reason: CIWA score > 8 but <15 Lorazepam (Lorazepam 1 Mg Tablet) 2 mg PO UD PRN; Protocol PRN Reason: CIWA score >/=15. Last Admin: 04/01/20 22:04 Dose: 2 mg Documented by: Lorazepam (Lorazepam 2 Mg/Ml Syringe) 2 mg IV Q2H PRN PRN; Protocol PRN Reason: CIWA score > 8 but <15 Lorazepam (Lorazepam 2 Mg/Ml Syringe) 2 mg IV UD PRN; Protocol PRN Reason: CIWA score >/=15. Metformin HCl (Metformin (Xr) 500 Mg Tablet) 1,[facility] Ondansetron HCl (Ondansetron 8 Mg Tablet) 8 mg PO Q8H PRN PRN PRN Reason: NAUSEA Last Admin: 04/02/20 06:19 Dose: 8 mg Documented by: Pantoprazole Sodium (Pantoprazole Sodium 40 Mg Tablet) 40 mg PO DAILY [facility] Phenobarbital (Phenobarbital 32.4 Mg Tablet) 97.2 mg PO Q4H [facility]; Taper Stop: 04/06/20 04:14 Last Admin: 04/02/20 04:09 Dose: 97.2 mg Documented by: Sodium Chloride (0.9% Saline Lock 10 Ml Syringe) 10 - 40 ml IV UD PRN PRN Reason: SALINE FLUSH Thiamine HCl (Thiamine Hydrochloride 100 Mg Tablet) 100 mg PO DAILYCM PATI Trazodone HCl (Trazodone 100 Mg Tablet) 100 mg PO QHS PRN PRN PRN Reason: INSOMNIA Zolpidem Tartrate (Zolpidem Tartrate 5 Mg Tablet) 5 mg PO QHS PRN PRN Reason: SLEEP Last Admin: 04/01/20 22:04 Dose: 5 mg Documented by: STROKE Vital Signs/Narrative: Vital Signs Temp Pulse Resp BP Pulse Ox 04/02/20 04:08 97.8 F 106 H 16 139/91 H 96 Medical Necessity - Tobacco Use Smoking Status: Never smoker Assessment/Plan All Active Problems Hyponatremia (Acute) Hypokalemia (Acute) Alcohol withdrawal (Acute) Patient is a 59-year-old gentleman with history of alcohol dependence admitted with acute alcohol withdrawal 1.. Acute alcohol withdrawal patient has been admitted to regular nursing floor currently undergoing medical stabilization using phenobarb taper 2. Hyponatremia ?Secondary to patient's alcohol use monitoring electrolyte 3. Hypokalemia -corrected per protocol 4. Diabetes mellitus type II Continued patient on his home regimen in addition to Accu-Cheks a.c. and at bedtime and covered with sliding scale insulin 5. Hypertension -blood pressure controlled, home medications continued with dose adjustment as needed 6. Obesity with BMI of 36.3 -weight loss advised 7. Depression with anxiety -patient is an SSRI 8. GERD -Patient is on PPI 9. DVT prophylaxis -Encouraged early ambulation Inpatient E&M: 27040 [facility] Hosp L3
[2020-04-02] MEDS: amLODIPine 5 MG Tablet PO (09:18)
[2020-04-02] MEDS: metFORMIN (XR) 500 MG Tablet 1500 MG PO (09:18)
[2020-04-02] MEDS: FLUoxetine 20 MG Capsule PO (09:19)
[2020-04-02] MEDS: Thiamine Hydrochloride 100 MG Tablet PO (09:19)
[2020-04-02] MEDS: Lisinopril 20 MG Tablet PO ×2 (09:19→20:45)
[2020-04-02] MEDS: Folic Acid 1 MG Tablet PO (09:19)
[2020-04-02] MEDS: Glimepiride 2 MG Tablet PO ×2 (09:19→18:18)
[2020-04-02] MEDS: Pantoprazole Sodium 40 MG Tablet PO (09:19)
[2020-04-02 12:10] LABS: Bedside Glucose 186 mg/dL (70-110)
[2020-04-02 16:46] LABS: Bedside Glucose 139 mg/dL (70-110)
[2020-04-02] MEDS: Acetaminophen 325 MG Tablet 650 MG PO (18:32)
[2020-04-02] MEDS: Zolpidem Tartrate 5 MG Tablet PO (20:45)
[2020-04-02 21:51] LABS: Bedside Glucose 168 mg/dL (70-110)
[2020-04-03] MEDS: Phenobarbital 32.4 MG Tablet 64.8 MG PO ×6 (00:18→20:15)
[2020-04-03 03:47] VITALS: BP 156/86; PULSE 99; RESP 18; TEMP 36.4; O2SAT 98
[2020-04-03 06:26] LABS: Bedside Glucose 130 mg/dL (70-110)
--- NOTE | 2020-04-03 08:03 | PCM.PN.HOSP ---
Patient Problems: Active and Suspected Problems Hyponatremia (Acute) Hypokalemia (Acute) Alcohol withdrawal (Acute) Reason for Visit: Acute alcohol withdrawal Subjective: Patient seen had a relatively uneventful night. Symptoms well controlled with phenobarb taper and gabapentin. Objective: GENERAL: cooperative HEENT: Atraumatic; EYES; Anicteric, Normal Conjunctiva NECK; supple, normal thyroid, RESPIRATORY: Diminished to auscultation CARDIOVASCULAR: Regular S1 S2, GI: soft, normoactive bowel sounds, : No Renal angle tenderness; EXTREMITIES: No edema, no clubbing, MUSCULOSKELETAL: no muscle waisting NEURO: Awake; no lateralizing signs. SKIN: No Rash PSYCH; Flat affect Vitals/I&O's: Vital Signs Temp Pulse Resp BP Pulse Ox 97.5 F L 99 18 156/86 H 98 04/03/20 03:47 04/03/20 03:47 04/03/20 03:47 04/03/20 03:47 04/03/20 03:47 Oxygen Delivery Method Room Air Weight: 110.7 kg Body Mass Index (BMI) 37.0 Intake and Output for Last 24 Hours 04/01/20 04/02/20 04/03/20 23:59 23:59 23:59 Intake Total 1860 / 1860 300 / 300 Balance 1860 / 1860 300 / 300 Microbiology Past 72 Hours 04/01/20 17:30 Mucosa - Nose SARS-CoV-2 Antigen (Rapid) - Final Laboratory Results 04/02/20 12:00: POC Glucose 186 H 04/02/20 16:39: POC Glucose 139 H 04/02/20 21:44: POC Glucose 168 H 04/03/20 06:22: POC Glucose 130 H Current Medications Acetaminophen (Acetaminophen 325 Mg Tablet) 650 mg PO Q6H PRN PRN PRN Reason: Pain 1-10 or Fever Last Admin: 04/02/20 18:32 Dose: 650 mg Documented by: Albuterol Sulfate (Albuterol 2.5 Mg/3 Ml Vial.Neb.) 2.5 mg INHALATION Q4H PRN PRN PRN Reason: SHORTNESS OF BREATH Amlodipine Besylate (Amlodipine 5 Mg Tablet) 5 mg PO DAILY PATI Last Admin: 04/02/20 09:18 Dose: 5 mg Documented by: Dicyclomine HCl (Dicyclomine 10 Mg Capsule) 20 mg PO Q6H PRN PRN PRN Reason: abdominal discomfort Last Admin: 04/02/20 14:34 Dose: 20 mg Documented by: Fluoxetine HCl (Fluoxetine 20 Mg Capsule) 20 mg PO DAILY [facility] Last Admin: 04/02/20 09:19 Dose: 20 mg Documented by: Folic Acid (Folic Acid 1 Mg Tablet) 1 mg PO DAILY@0800 [facility] Last Admin: 04/02/20 09:19 Dose: 1 mg Documented by: Gabapentin (Gabapentin 300 Mg Capsule) 300 mg PO Q8H PRN PRN PRN Reason: moderate to severe anxiety Last Admin: 04/02/20 14:34 Dose: 300 mg Documented by: Glimepiride ([facility] 2 Mg Tablet) [facility] Last Admin: 04/02/20 18:18 Dose: 2 mg Documented by: Hydroxyzine Pamoate (Hydroxyzine Aiyana 25 Mg Capsule) 50 mg PO Q4H PRN PRN PRN Reason: mild anxiety Last Admin: 04/02/20 20:45 Dose: 50 mg Documented by: Insulin Human Lispro (Insulin Lispro 100 Unit/Ml [facility]uln.Pen) [facility]; Protocol Last Admin: 04/03/20 06:24 Dose: Not Given Documented by: Lisinopril (Lisinopril 20 Mg Tablet) 20 mg PO BID [facility] Last Admin: 04/02/20 20:45 Dose: 20 mg Documented by: Loperamide HCl (Loperamide 2 Mg Capsule) 2 mg PO Q4H PRN PRN PRN Reason: LOOSE STOOLS Lorazepam (Lorazepam 1 Mg Tablet) 2 mg PO Q2H PRN PRN; Protocol PRN Reason: CIWA score > 8 but <15 Lorazepam (Lorazepam 1 Mg Tablet) 2 mg PO UD PRN; Protocol PRN Reason: CIWA score >/=15. Last Admin: 04/01/20 22:04 Dose: 2 mg Documented by: Lorazepam (Lorazepam 2 Mg/Ml Syringe) 2 mg IV Q2H PRN PRN; Protocol PRN Reason: CIWA score > 8 but <15 Lorazepam (Lorazepam 2 Mg/Ml Syringe) 2 mg IV UD PRN; Protocol PRN Reason: CIWA score >/=15. Metformin HCl (Metformin (Xr) 500 Mg Tablet) 1,500 [facility] Last Admin: 04/02/20 09:18 Dose: 1,500 mg Documented by: Ondansetron HCl (Ondansetron 8 Mg Tablet) 8 mg PO Q8H PRN PRN PRN Reason: NAUSEA Last Admin: 04/02/20 06:19 Dose: 8 mg Documented by: Pantoprazole Sodium (Pantoprazole Sodium 40 Mg Tablet) 40 mg PO DAILY [facility] Last Admin: 04/02/20 09:19 Dose: 40 mg Documented by: Phenobarbital (Phenobarbital 32.4 Mg Tablet) 64.8 mg PO Q4H [facility]; Taper Stop: 04/06/20 04:14 Last Admin: 04/03/20 03:51 Dose: 64.8 mg Documented by: Sodium Chloride (0.9% Saline Lock 10 Ml Syringe) 10 - 40 ml IV UD PRN PRN Reason: SALINE FLUSH Thiamine HCl (Thiamine Hydrochloride 100 Mg Tablet) 100 mg PO DAILYCM [facility] Last Admin: 04/02/20 09:19 Dose: 100 mg Documented by: Trazodone HCl (Trazodone 100 Mg Tablet) 100 mg PO QHS PRN PRN PRN Reason: INSOMNIA Zolpidem Tartrate (Zolpidem Tartrate 5 Mg Tablet) 5 mg PO QHS PRN PRN Reason: SLEEP Last Admin: 04/02/20 20:45 Dose: 5 mg Documented by: Medical Necessity - Tobacco Use Smoking Status: Never smoker Assessment/Plan All Active Problems Hyponatremia (Acute) Hypokalemia (Acute) Alcohol withdrawal (Acute) Patient is a 59-year-old gentleman with history of alcohol dependence admitted with acute alcohol withdrawal 1.. Acute alcohol withdrawal patient has been admitted to regular nursing floor currently undergoing medical stabilization using phenobarb taper -04/03/2020;Patient seen had a relatively uneventful night. Symptoms well controlled with phenobarb taper and gabapentin. 2. Hyponatremia ?Secondary to patient's alcohol use monitoring electrolyte 3. Hypokalemia -corrected per protocol 4. Diabetes mellitus type II Continued patient on his home regimen in addition to Accu-Cheks a.c. and at bedtime and covered with sliding scale insulin 5. Hypertension -blood pressure controlled, home medications continued with dose adjustment as needed 6. Obesity with BMI of 36.3 -weight loss advised 7. Depression with anxiety -patient is an SSRI 8. GERD -Patient is on PPI 9. DVT prophylaxis -Encouraged early ambulation Inpatient E&M: 86837 Subs Hosp L2
[2020-04-03 08:23] VITALS: BP 136/85; PULSE 107; RESP 20; TEMP 36.6; O2SAT 95
[2020-04-03] MEDS: Pantoprazole Sodium 40 MG Tablet PO (08:26)
[2020-04-03] MEDS: FLUoxetine 20 MG Capsule PO (08:26)
[2020-04-03] MEDS: Glimepiride 2 MG Tablet PO ×2 (08:26→16:42)
[2020-04-03] MEDS: Lisinopril 20 MG Tablet PO ×2 (08:26→21:53)
[2020-04-03] MEDS: metFORMIN (XR) 500 MG Tablet 1500 MG PO (08:27)
[2020-04-03] MEDS: Folic Acid 1 MG Tablet PO (08:27)
[2020-04-03] MEDS: Thiamine Hydrochloride 100 MG Tablet PO (08:27)
[2020-04-03] MEDS: amLODIPine 5 MG Tablet PO (08:27)
[2020-04-03] MEDS: Gabapentin 300 MG Capsule PO ×2 (08:38→16:38)
[2020-04-03] MEDS: Insulin Lispro 100 UNIT/ML INSULN.PEN SC (12:18)
[2020-04-03] MEDS: hydrOXYzine PAM 25 MG Capsule 50 MG PO ×2 (12:22→20:14)
[2020-04-03 16:45] VITALS: BP 130/78; PULSE 101; RESP 16; TEMP 36.7; O2SAT 97
[2020-04-03 16:46] LABS: Bedside Glucose 199 mg/dL (70-110)
[2020-04-03 16:51] LABS: Bedside Glucose 122 mg/dL (70-110)
[2020-04-03] MEDS: Acetaminophen 325 MG Tablet 650 MG PO (16:51)
[2020-04-03 20:04] VITALS: BP 130/72; PULSE 105; RESP 18; TEMP 36.8; O2SAT 96
[2020-04-03] MEDS: Zolpidem Tartrate 5 MG Tablet PO (21:53)
[2020-04-03 22:00] LABS: Bedside Glucose 136 mg/dL (70-110)
[2020-04-04] MEDS: Phenobarbital 32.4 MG Tablet 64.8 MG PO ×3 (00:45→10:02)
[2020-04-04 02:20] VITALS: BP 110/71; PULSE 98; RESP 18; TEMP 36.8; O2SAT 95
[2020-04-04 07:00] LABS: Bedside Glucose 125 mg/dL (70-110)
[2020-04-04 07:26] VITALS: BP 141/88; PULSE 96; RESP 18; TEMP 37.1; O2SAT 95
[2020-04-04] MEDS: Thiamine Hydrochloride 100 MG Tablet PO (07:37)
[2020-04-04] MEDS: Glimepiride 2 MG Tablet PO (07:37)
[2020-04-04] MEDS: metFORMIN (XR) 500 MG Tablet 1500 MG PO (07:37)
[2020-04-04] MEDS: Lisinopril 20 MG Tablet PO (07:37)
[2020-04-04] MEDS: Pantoprazole Sodium 40 MG Tablet PO (07:37)
[2020-04-04] MEDS: amLODIPine 5 MG Tablet PO (07:38)
[2020-04-04] MEDS: FLUoxetine 20 MG Capsule PO (07:38)
[2020-04-04] MEDS: Folic Acid 1 MG Tablet PO (07:41)
--- NOTE | 2020-04-04 09:54 | ADDICTION ---
This song writer met with patient in his room to complete AUDIT, MSE and ASAM assessments and to plan for discharge. Patient plans to discharge this afternoon. All assessments completed, faxed to and placed in pt chart. Patient did not agree to follow-up coordination and stated that he will call [facility] by 04/06/2019 to schedule an appointment for counseling and ongoing behavioral health services.
--- NOTE | 2020-04-04 10:22 | DCINST_ITS ---
- Discharge Diagnoses Current Active Problems: Current Active and Chronic Problems Obesity (Chronic) GERD (gastroesophageal reflux disease) (Chronic) Anxiety and depression (Chronic) Hyponatremia (Acute) Hypokalemia (Acute) Hypertension (Chronic) DM2 (diabetes mellitus, type 2) (Chronic) Alcohol withdrawal (Acute) Alcohol abuse (Chronic) You will use the following diet at home:: Calorie/Carbohydrate Controlled (specify 1200, 1400, etc), Cardiac Your food should be the consistency of: Regular Your liquids should be the consistency of: Regular/Thin Discharge Activity: Return to Normal Activity May resume sexual activity in: No Restrictions Call your doctor if you observe: Fever of 101 or Higher, Shortness of breath, Dizziness, Fainting spells Instructions: ED Withdrawal Alcohol Additional Instructions: follow up with [facility] on outpatient basis Allergies/Adverse Reactions: Allergies Penicillins Adverse Reaction (Mild, Verified 04/01/20 16:53) red, itching strawberry Adverse Reaction (Mild, Verified 04/01/20 16:53) dont eat them anymore Medications to take at Discharge Albuterol Inhaler [Ventolin Hfa] 2 puff INHALATION Q6H PRN PRN 10/23/16 Metformin HCl [Metformin HCl ER] 750 mg PO BID 10/23/16 Pantoprazole Sodium [Protonix] 40 mg PO DAILY 10/23/16 Zolpidem Tartrate [Ambien] 10 mg PO DAILY PRN 10/23/16 Thiamine Hydrochloride [Vitamin B1] 100 mg PO DAILYCM #0 tablet 12/14/17 Amlodipine [Norvasc] 5 mg PO DAILY #30 tab 10/01/18 Folic Acid 1 mg PO DAILY #30 tab 10/01/18 Lisinopril 20 mg PO BID #60 tab 10/01/18 Dulaglutide [Trulicity] 1.5 mg IM [facility] 04/01/20 Fluoxetine [Prozac] 20 mg PO DAILY 04/01/20 Glimepiride 2 mg PO BID 04/01/20 Primary Care Physician: Jeff Mahmood MD [Primary Care Provider] - Please follow up with your Primary Care Physician in: 1-2 WEEKS Test Results: Test results from this visit will be discussed in further detail at your follow- up appointment, if applicable. Proposed Discharge Date: 04/04/20
--- NOTE | 2020-04-04 10:25 | PCM.DC.SUM ---
Discharge Date and Diagnosis - Problem List Patient Problems: Active and Suspected Problems Hyponatremia (Acute) Hypokalemia (Acute) Alcohol withdrawal (Acute) Date of Admission: 04/01/20 Date of Discharge: 04/04/20 - Primary Discharge Diagnosis Acute Problems: Active Problems Hyponatremia (Acute) Hypokalemia (Acute) Alcohol withdrawal (Acute) - Secondary Discharge Diagnosis Chronic Problems: Chronic Problems Obesity (Chronic) GERD (gastroesophageal reflux disease) (Chronic) Anxiety and depression (Chronic) Hypertension (Chronic) DM2 (diabetes mellitus, type 2) (Chronic) Alcohol abuse (Chronic) Hospital Course and Treatment Operations: None Summary of Care Provided: The patient is a 59 year old M with a past medical history of hypertension, hyperlipidemia, type 2 diabetes mellitus, obesity, depression and anxiety as well as chronic alcohol and nicotine dependence was admitted through the ED on 04/01/2020 with a complaint of acute alcohol withdrawal. Patient has been drinking about 6-12 beers daily and his last drink was 12 hours prior to admission. He had recently been admitted in March for acute alcohol withdrawal and had required a Precedex drip. He did not follow-up at [facility] as scheduled. Serum alcohol level was 44 and EKG was unremarkable. He was admitted and managed for acute alcohol withdrawal. He was started on alcohol withdrawal protocol with phenobarbital. Patient was tachycardic on admission which gradually improved. TSH checked was only 0.9. He tolerated detox procedure well. CIWA score was 4 on day of discharge. Patient was also counseled to be compliant with his blood pressure medications of blood pressure slightly elevated in the 140 systolic. Patient was discharged home on 04/04/2020 and is follow-up with [facility] on outpatient basis. Patient seen and examined prior to discharge. He had no complaints. Review of symptoms otherwise negative. Labs and vitals reviewed. Home medication reviewed and reconciled. O/E: Vital Signs Temp Pulse Resp BP Pulse Ox 98.6 F 107 H 18 142/91 H 96 04/04/20 12:19 04/04/20 12:19 04/04/20 12:19 04/04/20 12:19 04/04/20 12:19 [] Patient Problems: Active and Suspected Problems Hyponatremia (Acute) Hypokalemia (Acute) Alcohol withdrawal (Acute) - Physical Exam Vitals/I&O's: Vital Signs Temp Pulse Resp BP Pulse Ox 98.8 F 96 18 141/88 H 95 04/04/20 07:26 04/04/20 07:26 04/04/20 07:26 04/04/20 07:26 04/04/20 07:26 Oxygen Delivery Method Room Air Weight: 244 lb 0.827 oz Body Mass Index (BMI) 37.0 Intake and Output for Last 24 Hours 04/02/20 04/03/20 04/04/20 23:59 23:59 23:59 Intake Total 1860 / 1860 960 / 960 340 / 340 Balance 1860 / 1860 960 / 960 340 / 340 General: Alert, Oriented x3, Cooperative, No apparent distress HEENT: Atraumatic, PERRLA, EOMI, Normocephalic Oral: Dry Mucosa Neck: Supple, No JVD, Negative Carotid Bruits Lungs: Clear to auscultation, Normal air movement, No rhonchi, No wheeze, No rales Cardiovascular: Regular rate, Regular Rhythm, Normal S1, Normal S2, No murmurs Abdomen: Bowel Sounds Present, Soft, Non Tender, Non-Distended, No Hepato-splenomegaly Extremities: No clubbing, No cyanosis, No edema, Capillary Refill Less than 3 Seconds Skin: No rashes, No breakdown Musculoskeletal: No Tenderness to Palpation of Joints or Extremities Lymphatic: No Cervical, Supraclavicular, or Inguinal Adenopathy Neurological: Cranial nerves II-XII grossly intact, Neuro grossly intact, Motor Exam 5/5 strength throughout Psych/Mental Status: Flat Affect, Alert and oriented to time, place, person, mood and affect Microbiology Past 72 Hours 04/01/20 17:30 Mucosa - Nose SARS-CoV-2 Antigen (Rapid) - Final Laboratory Results 04/03/20 12:16: POC Glucose 199 H 04/03/20 16:41: POC Glucose 122 H 04/03/20 21:52: POC Glucose 136 H 04/04/20 06:53: POC Glucose 125 H Current Medications Acetaminophen (Acetaminophen 325 Mg Tablet) 650 mg PO Q6H PRN PRN PRN Reason: Pain 1-10 or Fever Last Admin: 04/03/20 16:51 Dose: 650 mg Documented by: Albuterol Sulfate (Albuterol 2.5 Mg/3 Ml Vial.Neb.) 2.5 mg INHALATION Q4H PRN PRN PRN Reason: SHORTNESS OF BREATH Amlodipine Besylate (Amlodipine 5 Mg Tablet) 5 mg PO DAILY [facility] Last Admin: 04/04/20 07:38 Dose: 5 mg Documented by: Dicyclomine HCl (Dicyclomine 10 Mg Capsule) 20 mg PO Q6H PRN PRN PRN Reason: abdominal discomfort Last Admin: 04/02/20 14:34 Dose: 20 mg Documented by: Fluoxetine HCl (Fluoxetine 20 Mg Capsule) 20 mg PO DAILY [facility] Last Admin: 04/04/20 07:38 Dose: 20 mg Documented by: Folic Acid (Folic Acid 1 Mg Tablet) 1 mg PO DAILY@0800 [facility] Last Admin: 04/04/20 07:41 Dose: 1 mg Documented by: Gabapentin (Gabapentin 300 Mg Capsule) 300 mg PO Q8H PRN PRN PRN Reason: moderate to severe anxiety Last Admin: 04/03/20 16:38 Dose: 300 mg Documented by: [facility]pir[facility] ([facility] Last Admin: 04/04/20 07:37 Dose: 2 mg Documented by: Hydroxyzine Pamoate (Hydroxyzine Aiyana 25 Mg Capsule) 50 mg PO Q4H PRN PRN PRN Reason: mild anxiety Last Admin: 04/03/20 20:14 Dose: 50 mg Documented by: Insulin Human Lispro (Insulin Lispro 100 Unit/Ml Insuln.Pen) 0 unit SC TIDAC [facility]; Protocol Last Admin: 04/04/20 06:55 Dose: Not Given Documented by: Lisinopril (Lisinopril 20 Mg Tablet) 20 mg PO BID [facility] Last Admin: 04/04/20 07:37 Dose: 20 mg Documented by: Loperamide HCl (Loperamide 2 Mg Capsule) 2 mg PO Q4H PRN PRN PRN Reason: LOOSE STOOLS Lorazepam (Lorazepam 1 Mg Tablet) 2 mg PO Q2H PRN PRN; Protocol PRN Reason: CIWA score > 8 but <15 Lorazepam (Lorazepam 1 Mg Tablet) 2 mg PO UD PRN; Protocol PRN Reason: CIWA score >/=15. Last Admin: 04/01/20 22:04 Dose: 2 mg Documented by: Lorazepam (Lorazepam 2 Mg/Ml Syringe) 2 mg IV Q2H PRN PRN; Protocol PRN Reason: CIWA score > 8 but <15 Lorazepam (Lorazepam 2 Mg/Ml Syringe) 2 mg IV UD PRN; Protocol PRN Reason: CIWA score >/=15. Metformin HCl (Metformin (Xr) 500 Mg Tablet) [facility] Last Admin: 04/04/20 07:37 Dose: 1,500 mg Documented by: Ondansetron HCl (Ondansetron 8 Mg Tablet) 8 mg PO Q8H PRN PRN PRN Reason: NAUSEA Last Admin: 04/02/20 06:19 Dose: 8 mg Documented by: Pantoprazole Sodium (Pantoprazole Sodium 40 Mg Tablet) 40 mg PO DAILY [facility] Last Admin: 04/04/20 07:37 Dose: 40 mg Documented by: Phenobarbital (Phenobarbital 32.4 Mg Tablet) 64.8 mg PO Q6H [facility]; Taper Stop: 04/06/20 04:14 Last Admin: 04/04/20 10:02 Dose: 64.8 mg Documented by: Sodium Chloride (0.9% Saline Lock 10 Ml Syringe) 10 - 40 ml IV UD PRN PRN Reason: SALINE FLUSH Thiamine HCl (Thiamine Hydrochloride 100 Mg Tablet) [facility] Last Admin: 04/04/20 07:37 Dose: 100 mg Documented by: Trazodone HCl (Trazodone 100 Mg Tablet) 100 mg PO QHS PRN PRN PRN Reason: INSOMNIA Zolpidem Tartrate (Zolpidem Tartrate 5 Mg Tablet) 5 mg PO QHS PRN PRN Reason: SLEEP Last Admin: 04/03/20 21:53 Dose: 5 mg Documented by: Discharge Diet: Low fat/ Low Cholesterol Discharge Activity: Return to Normal Activity May resume sexual activity in: No Restrictions Call your doctor if you observe: Fever of 101 or Higher, Shortness of breath, Dizziness, Fainting spells, Increased palpitations (irregular heartbeat) Home Medications: Medications to take at Discharge Albuterol Inhaler [Ventolin Hfa] 2 puff INHALATION Q6H PRN PRN 10/23/16 Metformin HCl [Metformin HCl ER] 750 mg PO BID 10/23/16 Pantoprazole Sodium [Protonix] 40 mg PO DAILY 10/23/16 Zolpidem Tartrate [Ambien] 10 mg PO DAILY PRN 10/23/16 Thiamine Hydrochloride [Vitamin B1] 100 mg PO DAILYCM #0 tablet 12/14/17 Amlodipine [Norvasc] 5 mg PO DAILY #30 tab 10/01/18 Folic Acid 1 mg PO DAILY #30 tab 10/01/18 Lisinopril 20 mg PO BID #60 tab 10/01/18 Dulaglutide [Trulicity] 1.5 mg IM [facility] 04/01/20 Fluoxetine [Prozac] 20 mg PO DAILY 04/01/20 Glimepiride 2 mg PO BID 04/01/20 Primary Care Physician: Jeff Mahmood MD [Primary Care Provider] - Please follow up with your Primary Care Physician in: 1-2 WEEKS Patient Instructions: ED Withdrawal Alcohol Disposition: Home Minutes spent on discharge:: 45 Patient Condition:: Stable Medical Necessity - Tobacco Use Smoking Status: Never smoker Meaningful Use Info Meaningful Use Diagnoses (Choose all that apply): None applicable Inpatient E&M: 96850 Disch Hosp
[2020-04-04] MEDS: Insulin Lispro 100 UNIT/ML INSULN.PEN SC (11:15)
[2020-04-04 11:31] LABS: Bedside Glucose 219 mg/dL (70-110)
[2020-04-04 12:19] VITALS: BP 142/91; PULSE 107; RESP 18; TEMP 37; O2SAT 96
[2020-04-04] MEDS: Gabapentin 300 MG Capsule PO (12:23)
== END 2020-04-04 15:30 | disposition home or self-care (01) | DRG 897 ==
LOC: ED 17:36 → MS3 18:45
PROVIDERS: Internal Medicine; Admitting Provider Internal Medicine; Emergency Provider Emergency Medicine; PCP Family Medicine; Visit Provider Student in an Organized Health Care Education/Training Program
DX: F10.239 Alcohol dependence with withdrawal, unspecified (principal); E87.1 Hypo-osmolality and hyponatremia; K21.9 Gastro-esophageal reflux disease without esophagitis; E11.9 Type 2 diabetes mellitus without complications; F41.9 Anxiety disorder, unspecified; F32.9 Major depressive disorder, single episode, unspecified; I10 Essential (primary) hypertension; E66.9 Obesity, unspecified; Z87.891 Personal history of nicotine dependence; E87.6 Hypokalemia; Z68.38 Body mass index [BMI] 38.0-38.9, adult; Y90.2 Blood alcohol level of 40-59 mg/100 ml
CPT/HCPCS: 36415; 80048; 80053; 80076; 80307; 82077; 82962; 83735; 84443; 85025; 85610; 85730; 87426; 93005; 99284; A4216; J2405

== ENCOUNTER 2020-04-18 19:28 | Inpatient (IN) | payer BC, SELFPAY ==
[2020-04-18 19:29] VITALS: BP 139/96; PULSE 112; RESP 18; TEMP 36.1; O2SAT 97; BMI 38.2
--- NOTE | 2020-04-18 20:10 | ED.VIS.GEN ---
History of Present Illness Chief Complaint: Substance Abuse Informant: Patient Narrative: Patient is a 59-year-old male with a past medical history of alcohol dependence, diabetes, hypertension who presents to the emergency department for requesting to detox. He is intoxicated at time of arrival. He states he typically drinks 12 beers per day which she did today. He has been through the detox program multiple times. He has not followed up with [facility]. At this time he does not have any symptoms. He denies any issues with drugs. Past Medical History - Allergies and Home Meds Allergies/Adverse Reactions: Allergies Penicillins Adverse Reaction (Mild, Verified 04/18/20 19:30) red, itching strawberry Adverse Reaction (Mild, Verified 04/18/20 19:30) dont eat them anymore Primary Care Physician: Jeff Mahmood MD [Primary Care Provider] - Prior records reviewed: Yes Surgical History: noncontributory, - - Tonsillectomy, left shoulder replacement, gastric ulcer intervention, cholecystectomy, umbilical hernia repair. Smoking Status: Never smoker - Family History Paternal Family History: Reports: - - Patient notes a paternal family history of heart disease, [place] in his 50s in addition to alcohol abuse history. Maternal Family History: Reports: No pertinent history Review of Systems All systems negative except as indicated General: Denies: Chills, Fever, Sweats Eyes: Denies: Visual changes - bilaterally, Diplopia ENT: Denies: Rhinorrhea, Sore throat Cardiovascular: Denies: Chest pain, Palpitations Respiratory: Denies: Dyspnea, Cough, Dyspnea on exertion Gastrointestinal: Denies: Abdominal pain, Nausea, Vomiting, Diarrhea Genitourinary: Denies: Dysuria, Hematuria, Frequency Musculoskeletal: Denies: Back pain, Extremity Pain Skin: Denies: Rash, Wounds Neurological: Denies: Headache, Weakness, Numbness Physical Exam Vital Signs/Narrative: Vital Signs Temp Pulse Resp BP Pulse Ox 04/18/20 19:29 97 F L 112 H 18 139/96 H 97 Inital Vital Signs reviewed: Yes General: Well nourished, Well developed, No Acute Distress Head: Normocephalic, Atraumatic Eyes: Perrl, EOMI ENT: Moist mucous membranes, No rhinorrhea Neck: Supple, Nontender Cardiovascular: Regular rhythm, No murmurs, Tachycardia Respiratory: No distress, CTA bilaterally, Chest nontender Abdomen: Soft, Nontender, Nondistended, Normal bowel sounds Back: Nontender, Normal Inspection Extremities: Nontender, No edema Skin: Normal color, No rash Neurological: Alert, Oriented x3, Cranial nerves II-XII grossly intact, Normal Strength, Normal Sensation Psychological: Normal affect, Normal Mood Diagnostic/Tx/Re-eval - Medical Decision Making Patient presents to the emergency department for alcohol intoxication requesting to detox. He has gone through withdrawal before in the past. He is denying any symptoms at this time. Upon arrival to the emergency department he is mildly tachycardic but otherwise in no acute distress. Will check basic lab work at this time. Patient's lab work came back and he has mild elevation of liver enzymes. He is alcohol level is elevated and he is positive for barbiturates. I discussed admission with the hospitalist but since has had frequent hospitalizations and failing outpatient they want to make sure that he still wants to be admitted once sober so he will be monitored down here in the emergency department. Patient will be signed out due to end of shift. This was made aware to the patient and he is agreeable with staying in the ED until legally sober. At that time disposition will be made for hospitalization for detox or if patient does not want this he will be discharged home. ED Disposition - Plan for ED Patient: Diagnosis: Alcohol intoxication, Transaminitis Referrals: Jeff Mahmood MD [Primary Care Provider] -
[2020-04-18 20:15] LABS: Absolute Lymphocyte Count 1.48 X10^3/uL (0.83-4.51); Absolute Neutrophil Count 3.5 X10^3/uL (2.0-7.7); Basophil# 0.04 X10^3/uL; Basophil% 0.7 % (0-1); Eosinophil# 0.04 X10^3/uL; Eosinophils% 0.7 % (0-5); Hematocrit 44.4 % (40-54); Lymphocyte # 1.48 X10^3/ul (4.0); Lymphocyte % 27.4 % (19-41); Mean Corp Hgb Conc 33.8 g/dL (32-36); Mean Corpuscular Hgb 31.1 pg (27.0-32.0); Mean Corpuscular Volume 91.9 fL (80-94); Mean Platelet Vol. 9.5 fl (6.2-12.0); Monocyte# 0.28 X10^3/uL; Monocyte% 5.2 % (0-10); NRBC Flagged by Analyzer 0 % (0-5); Neutrophil # 3.53 X10^3/uL (2.7-7.7); Neutrophil % 65.4 % (47-70); Platelet Count 238 K/mm3 (150-450); RBC Distribution Width CV 12.3 % (11.6-14.6); RBC Distribution Width SD 42.3 fl (35.1-43.9); Red Blood Count 4.83 M/mm3 (4.6-6.2); White Blood Count 5.4 K/mm3 (4.4-11.0)
[2020-04-18 20:29] VITALS: BP 116/72; PULSE 100; RESP 19; O2SAT 98
[2020-04-18 20:35] LABS: ALB/GLOB Ratio 1.2 RATIO (0.9-2.4); AST(SGOT) 70 U/L (15-37); Alanine Aminotransfer ALT/SGPT 79 U/L (16-61); Albumin, Serum 4.1 g/dL (3.2-5.0); Alkaline Phosphatase 81 U/L (45-117); Anion Gap 10 (5-15); BUN 11 mg/dL (7-18); BUN/Creat Ratio 13.6 RATIO (10-20); Calcium,Total 8.7 mg/dL (8.5-10.1); Chloride 99 mmol/L (98-107); Creatinine, Serum 0.81 mg/dL (0.70-1.30); EST Glomerular Filtration Rate 103 mL/min (>60); Est Glom Filt Rate - Afr Amer 125 mL/min (>60); Globulin 3.4 g/dL (2.2-4.2); Glucose 76 mg/dL (74-106); Potassium 3.6 mmol/L (3.5-5.1); Protein, Total 7.5 g/dL (6.4-8.2); Sodium Level 136 mmol/L (136-145)
[2020-04-18 20:47] LABS: Amphetamine Urine VISTA NEGATIVE (<1000 ng/mL); Barbiturate Urine VISTA POSITIVE (< 200 ng/mL); Benzodiazepine Urine VISTA NEGATIVE (< 200 ng/mL); Cocaine Urine VISTA NEGATIVE (< 300 ng/mL); Ecstacy Urine VISTA NEGATIVE (< 500 ng/mL); Methadone Urine VISTA NEGATIVE (< 300 ng/mL); PCP Urine VISTA NEGATIVE (< 25 ng/mL); THC Urine VISTA NEGATIVE (< 50 ng/mL); Vista UDS pH Range 5
[2020-04-18 21:00] VITALS: BP 116/72; PULSE 100; RESP 18; O2SAT 98
[2020-04-18 22:00] VITALS: BP 112/73; PULSE 100; RESP 18; O2SAT 98
[2020-04-18 23:00] VITALS: PULSE 97; RESP 17; O2SAT 99
[2020-04-19] VITALS (12 sets, daily range): BP systolic 120–189; BP diastolic 80–92; PULSE 95–127; RESP 17–20; TEMP 36.7–37.1; O2SAT 95–99; BMI 37.5
[2020-04-19] MEDS: LORazepam 2 MG/ML Syringe IV (07:04)
[2020-04-19] MEDS: Ondansetron 4 MG/2 ML Vial IV ×2 (07:16→10:03)
--- NOTE | 2020-04-19 07:17 | HP.PCM_ITS ---
History of Present Illness Date of Admission: 04/19/20 Chief Complaint: Alcohol withdrawal The patient is a 59 year old M with PMH as below presents to the hospital intoxicated the time of arrival. He spent 12 hours in the ED and then he started going through withdrawal symptoms and requested detox. He drinks about 12 beers per day which she did on the day of admission. He has been through detox two prior times at this facility and both times did not follow-up with outpatient rehab because of a work. Past Medical History Past Medical History (Chronic Problems): Chronic Problems Obesity (Chronic) GERD (gastroesophageal reflux disease) (Chronic) Anxiety and depression (Chronic) Hypertension (Chronic) DM2 (diabetes mellitus, type 2) (Chronic) Alcohol abuse (Chronic) Allergies Penicillins Adverse Reaction (Mild, Verified 04/18/20 19:30) red, itching strawberry Adverse Reaction (Mild, Verified 04/18/20 19:30) dont eat them anymore Home Medications: Ambulatory Orders Medication Instructions Recorded Albuterol Inhaler [Ventolin Hfa] 2 puff INHALATION Q6H PRN PRN 10/23/16 Metformin HCl [Metformin HCl ER] 750 mg PO DAILY 10/23/16 Pantoprazole Sodium [Protonix] 40 mg PO DAILY 10/23/16 Thiamine Hydrochloride [Vitamin B1] 100 mg PO DAILYCM #0 tablet 12/14/17 Amlodipine [Norvasc] 5 mg PO DAILY #30 tab 10/01/18 Lisinopril 20 mg PO BID #60 tab 10/01/18 Dulaglutide [Trulicity] 1.5 mg IM [facility] 04/01/20 Fluoxetine [Prozac] 20 mg PO DAILY 04/01/20 Glimepiride 2 mg PO BID 04/01/20 Surgical History: - - Tonsillectomy, left shoulder replacement, gastric ulcer intervention, cholecystectomy, umbilical hernia repair. Psychiatric History: Anxiety, Depression Smoking Status: Never smoker Alcohol: Heavy Drugs: None - *Family History Paternal History Items: - - Patient notes a paternal family history of heart disease, [place] in his 50s in addition to alcohol abuse history. Maternal History Items: No pertinent history Review of Systems Constitutional: Denies: Chills, Fever, Weight Change HEENT: Denies: Head Aches, Sinus Congestion, Sinus Drainage Cardiovascular: Denies: Chest Pain, Palpitations Respiratory: Denies: Cough, Shortness of breath at rest, Sputum production Gastrointestinal: Denies: Abdominal Pain, Nausea, Vomiting Genitourinary: Denies: Dysuria Musculoskeletal: Denies: Joint Pain, Joint Tenderness Skin: Denies: Rash, Wounds Neurological: Reports: Tremor. Denies: Focal weakness, Numbness, Tingling Psychiatric: Reports: Anxiety. Denies: Depression Hematologic/ Lymphatic: Denies: Easy Bruising, Easy Bleeding VTE Information - Inpt Only VTE Present on Admission: No Patient Problems: Active and Suspected Problems Alcohol intoxication (Acute) Transaminitis (Acute) - Physical Exam Vitals/I&O's: Vital Signs Temp Pulse Resp BP Pulse Ox 97 F L 112 H 18 170/85 H 99 04/18/20 19:29 04/19/20 06:54 04/19/20 06:54 04/19/20 07:04 04/19/20 06:54 Oxygen Delivery Method Room Air Weight: 251 lb 5.231 oz Body Mass Index (BMI) 38.2 General: Alert, Oriented x3, Cooperative, No apparent distress, - - Tremulous HEENT: Atraumatic, PERRLA, EOMI, Normocephalic Oral: Moist Mucosa Neck: Supple, No JVD Lungs: Normal air movement, No rhonchi, No wheeze, No rales Cardiovascular: Regular Rhythm, Normal S1, Normal S2, No murmurs, Tachycardic Abdomen: Soft, Non Tender, Non-Distended, No Hepato-splenomegaly Extremities: No edema, Capillary Refill Less than 3 Seconds Skin: No rashes, No breakdown Neurological: Neuro grossly intact, Sensory exam intact to light touch and pain Psych/Mental Status: Flat Affect, Restless Laboratory Results 04/18/20 20:00: WBC 5.4, RBC 4.83, Hgb 15.0, Hct 44.4, MCV 91.9, MCH 31.1, MCHC 33.8, RDW Std Deviation 42.3, RDW Coeff of Anselmo 12.3, Plt Count 238, MPV 9.5, Immature Gran % (Auto) 0.600, Neut % (Auto) 65.4, Lymph % (Auto) 27.4, [place] % (Auto) 5.2, Eos % (Auto) 0.7, Baso % (Auto) 0.7, Absolute Neuts (auto) 3.5, Absolute Lymphs (auto) 1.48, Nucleated RBC % 0 04/18/20 20:00: Sodium 136, Potassium 3.6, Chloride 99, Carbon Dioxide 27.0, Anion Gap 10, BUN 11, Creatinine 0.81, Estim Creat Clear Calc 95.00, Est GFR (MDRD) Af Amer 125, Est GFR (MDRD) Non-Af 103, BUN/Creatinine Ratio 13.6, Glucose 76, Calcium 8.7, Total Bilirubin 0.30, AST 70 H, ALT 79 H, Alkaline Phosphatase 81, Total Protein 7.5, Albumin 4.1, Globulin 3.4, Albumin/Globulin Ratio 1.2 04/18/20 20:00: Ethyl Alcohol 355.0 H* 04/18/20 20:11: Urine Opiates Screen NEGATIVE, Urine Methadone Screen NEGATIVE, Ur Barbiturates Screen POSITIVE H, Ur Phencyclidine Scrn NEGATIVE, Ur Amphetamines Screen NEGATIVE, U Methamphetamin-MDMA NEGATIVE, U Benzodiazepines Scrn NEGATIVE, Urine Cocaine Screen NEGATIVE, U Cannabinoids Screen NEGATIVE, Ur Drug Screen Comment Assessment/Plan All Active Problems Hyponatremia (Acute) Hypokalemia (Acute) Alcohol intoxication (Acute) Transaminitis (Acute) Alcohol withdrawal (Acute) 1. Acute alcohol withdrawal/slight chronic transaminitis/anxiety/depression -Continue with alcohol withdrawal protocol with phenobarbital -Discussed with him that he needs to follow-up with [facility] as an outpatient if he wishes to be successful with detox otherwise there is not much point into this process -We will continue with his Prozac 2. HTN/HLD -Blood pressures are little hypertensive secondary to his withdrawal -Continue with his Norvasc and lisinopril 3. DM 2/morbid obesity -BMI of 38, discussed lifestyle modifications -Continue sliding scale insulin, will hold his glimepiride, Trulicity, Metformin -Accu-Cheks AC at bedtime and will make adjustments as necessary 4. GERD -Stable -Continue PPI DVT: Ambulation Inpatient E&M: 02006 Init Hosp L3
[2020-04-19] MEDS: Phenobarbital 32.4 MG Tablet 64.8 MG PO ×5 (07:21→20:33)
--- NOTE | 2020-04-19 08:46 | NURSING ---
Tram from [facility]@ bedside
--- NOTE | 2020-04-19 09:10 | ADDICTION ---
This business writer met with pt in his room to complete ASAM, MSE, AUDIT assessments and to begin d/c planning. Pt was alert/oriented x4 and participated appropriately. All assessments completed and faxed to [facility]. Paper copies placed in Pt chart. Pt refused residential recommendation. Pt agreed to follow up with [facility] for outpatient treatment after he discharges from [facility] and looks at his work schedule. No transportation coordination requested.
--- NOTE | 2020-04-19 10:01 | PCS.PANDOC ---
PANDEMIC DOCUMENTATION INITIATED: Date: 03/07/2020 Time:
[2020-04-19] MEDS: Dicyclomine 10 MG Capsule 20 MG PO (10:02)
[2020-04-19] MEDS: Pantoprazole Sodium 20 MG Tablet 40 MG PO (10:02)
[2020-04-19] MEDS: FLUoxetine 20 MG Capsule PO (10:03)
[2020-04-19] MEDS: Folic Acid 1 MG Tablet PO (10:03)
[2020-04-19] MEDS: hydrOXYzine PAM 25 MG Capsule 50 MG PO ×2 (10:03→16:50)
[2020-04-19] MEDS: Lisinopril 20 MG Tablet PO ×2 (10:03→20:34)
[2020-04-19] MEDS: amLODIPine 5 MG Tablet PO (10:03)
[2020-04-19] MEDS: 0.9% Saline Lock 10 ML Syringe IV (10:03)
[2020-04-19] MEDS: Thiamine Hydrochloride 100 MG Tablet PO (10:03)
[2020-04-19 11:51] LABS: Bedside Glucose 189 mg/dL (70-110)
[2020-04-19] MEDS: Insulin Lispro 100 UNIT/ML INSULN.PEN SC ×2 (11:56→20:39)
[2020-04-19] MEDS: Gabapentin 300 MG Capsule PO (11:56)
[2020-04-19] MEDS: cloNIDine HCl 0.1 MG Tablet 0.2 MG PO (12:32)
[2020-04-19 17:01] LABS: Bedside Glucose 121 mg/dL (70-110)
[2020-04-19 20:46] LABS: Bedside Glucose 163 mg/dL (70-110)
[2020-04-20] MEDS: Phenobarbital 32.4 MG Tablet 64.8 MG PO ×6 (00:13→21:17)
[2020-04-20 00:15] VITALS: BP 138/92; PULSE 95; RESP 18; TEMP 36.5; O2SAT 98
[2020-04-20 04:30] VITALS: BP 151/84; PULSE 95; RESP 18; TEMP 36.8; O2SAT 100
[2020-04-20] MEDS: Insulin Lispro 100 UNIT/ML INSULN.PEN SC ×2 (06:28→12:09)
[2020-04-20 06:41] LABS: Bedside Glucose 161 mg/dL (70-110)
[2020-04-20 07:35] VITALS: BP 149/84; PULSE 95; RESP 18; TEMP 36.6; O2SAT 99
[2020-04-20] MEDS: Thiamine Hydrochloride 100 MG Tablet PO (07:39)
[2020-04-20] MEDS: Folic Acid 1 MG Tablet PO (07:39)
[2020-04-20] MEDS: Pantoprazole Sodium 20 MG Tablet 40 MG PO (09:22)
[2020-04-20] MEDS: Lisinopril 20 MG Tablet PO ×2 (09:22→21:17)
[2020-04-20] MEDS: FLUoxetine 20 MG Capsule PO (09:22)
[2020-04-20] MEDS: amLODIPine 5 MG Tablet PO (09:22)
--- NOTE | 2020-04-20 09:25 | NURSING ---
phenobarb given late as awaiting on pharmacy to restock on unit
--- NOTE | 2020-04-20 09:36 | PCM.PN.HOSP ---
Patient Problems: Active and Suspected Problems Alcohol intoxication (Acute) Transaminitis (Acute) Subjective: Doing well, no issues overnight. Feeling better from withdrawal symptoms Vitals/I&O's: Vital Signs Temp Pulse Resp BP Pulse Ox 97.8 F 95 18 149/84 H 99 04/20/20 07:35 04/20/20 07:35 04/20/20 07:35 04/20/20 07:35 04/20/20 07:35 Oxygen Delivery Method Room Air Weight: 246 lb 14.684 oz Body Mass Index (BMI) 37.5 General: Alert, Oriented x3, Cooperative, No apparent distress, HEENT: Atraumatic, PERRLA, EOMI, Normocephalic Oral: Moist Mucosa Neck: Supple, No JVD Lungs: Normal air movement, No rhonchi, No wheeze, No rales Cardiovascular: Regular rate and rhythm, Normal S1, Normal S2, No murmurs, Abdomen: Soft, Non Tender, Non-Distended, No Hepato-splenomegaly Extremities: No edema, Capillary Refill Less than 3 Seconds Skin: No rashes, No breakdown Neurological: Neuro grossly intact, Sensory exam intact to light touch and pain Psych/Mental Status: Flat Affect Laboratory Results 04/19/20 11:29: POC Glucose 189 H 04/19/20 16:47: POC Glucose 121 H 04/19/20 20:38: POC Glucose 163 H 04/20/20 06:27: POC Glucose 161 H Current Medications Albuterol Sulfate (Albuterol 2.5 Mg/3 Ml Vial.Neb.) 2.5 mg INHALATION Q4H PRN PRN Reason: sob Amlodipine Besylate (Amlodipine 5 Mg Tablet) 5 mg PO DAILY [facility] Last Admin: 04/20/20 09:22 Dose: 5 mg Documented by: Dextrose (Dextrose 50%-Water 25 Gm/50 Ml Disp.Syrin) 0 gm IV X1 PRN; Protocol PRN Reason: Hypoglycemia Dicyclomine HCl (Dicyclomine 10 Mg Capsule) 20 mg PO Q6H PRN PRN PRN Reason: abdominal discomfort Last Admin: 04/19/20 10:02 Dose: 20 mg Documented by: Fluoxetine HCl (Fluoxetine 20 Mg Capsule) 20 mg PO DAILY [facility] Last Admin: 04/20/20 09:22 Dose: 20 mg Documented by: Folic Acid (Folic Acid 1 Mg Tablet) 1 mg PO DAILY@0800 [facility] Last Admin: 04/20/20 07:39 Dose: 1 mg Documented by: Gabapentin (Gabapentin 300 Mg Capsule) 300 mg PO Q8H PRN PRN PRN Reason: moderate to severe anxiety Last Admin: 04/19/20 11:56 Dose: 300 mg Documented by: Glucagon (Glucagon 1 Mg/Ml Syringe) 1 mg IM .X1 PRN PRN Reason: Hypoglycemia Hydroxyzine Pamoate (Hydroxyzine Aiyana 25 Mg Capsule) 50 mg PO Q4H PRN PRN PRN Reason: mild anxiety Last Admin: 04/19/20 16:50 Dose: 50 mg Documented by: Insulin Glargine (Insulin Glargine 100 Units/Ml Pen) 5 units SC QHS [facility] Last Admin: 04/19/20 20:39 Dose: 5 u Documented by: Insulin Human Lispro (Insulin Lispro 100 Unit/Ml Insuln.Pen) 0 unit SC [facility]; Protocol Last Admin: 04/20/20 06:28 Dose: 1 units Documented by: Lisinopril (Lisinopril 20 Mg Tablet) 20 mg PO BID [facility] Last Admin: 04/20/20 09:22 Dose: 20 mg Documented by: Loperamide HCl (Loperamide 2 Mg Capsule) 2 mg PO Q4H PRN PRN PRN Reason: LOOSE STOOLS Ondansetron HCl (Ondansetron 8 Mg Tablet) 8 mg PO Q8H PRN PRN PRN Reason: NAUSEA Pantoprazole Sodium (Pantoprazole Sodium 20 Mg Tablet) 40 mg PO DAILY [facility] Last Admin: 04/20/20 09:22 Dose: 40 mg Documented by: Phenobarbital (Phenobarbital 32.4 Mg Tablet) 97.2 mg PO Q4H [facility]; Taper Stop: 04/23/20 16:29 Last Admin: 04/20/20 09:22 Dose: 97.2 mg Documented by: Sodium Chloride (0.9% Saline Lock 10 Ml Syringe) 10 - 40 ml IV UD PRN PRN Reason: SALINE FLUSH Last Admin: 04/19/20 10:03 Dose: 10 ml Documented by: Thiamine HCl (Thiamine Hydrochloride 100 Mg Tablet) [facility] Last Admin: 04/20/20 07:39 Dose: 100 mg Documented by: Trazodone HCl (Trazodone 100 Mg Tablet) 100 mg PO QHS PRN PRN Reason: INSOMNIA STROKE Vital Signs/Narrative: Vital Signs Temp Pulse Resp BP Pulse Ox 04/20/20 07:35 97.8 F 95 18 149/84 H 99 Medical Necessity - Tobacco Use Smoking Status: Former smoker Assessment/Plan All Active Problems Hyponatremia (Acute) Hypokalemia (Acute) Alcohol intoxication (Acute) Transaminitis (Acute) Alcohol withdrawal (Acute) 1. Acute alcohol withdrawal/slight chronic transaminitis/anxiety/depression -Continue with alcohol withdrawal protocol with phenobarbital -Discussed with him that he needs to follow-up with [facility] as an outpatient if he wishes to be successful with detox otherwise there is not much point into this process -We will continue with his Prozac 2. HTN/HLD -Blood pressures are little hypertensive secondary to his withdrawal -Continue with his Norvasc and lisinopril 3. DM 2/morbid obesity -BMI of 38, discussed lifestyle modifications -Continue sliding scale insulin, will hold his glimepiride, Trulicity, Metformin -Accu-Cheks AC at bedtime and will make adjustments as necessary 4. GERD -Stable -Continue PPI DVT: Ambulation Inpatient E&M: 05215 Subs Hosp L2
[2020-04-20] MEDS: Gabapentin 300 MG Capsule PO (12:14)
[2020-04-20 12:15] VITALS: BP 145/94; PULSE 104; RESP 18; TEMP 36.9; O2SAT 100
[2020-04-20 12:21] LABS: Bedside Glucose 180 mg/dL (70-110)
--- NOTE | 2020-04-20 14:10 | CHAPLAIN ---
Type of Pastoral Visit _x__ Initial Visit ___ Follow-up Visit ___ On-call Visit ___ General Patient Visit ___ Spiritual Assessment ___ Family Conference ___ Bereavement ___ Rapid Response ___ Code Blue ___ Other (describe below) Pastoral Care Referral From _x__ Patient ___ Family ___ Nurse ___ Physician ___ School Coordinator ___ Driver'S License Reviewing Officer ___ Other (describe below) Sacrament/Intervention _x__ Active listening ___ Anointing ___ Episcopal ___ Bereavement ___ Communion _x__ Radha exploration ___ ___ Life review _x__ Prayer ___ Reconciliation ___ Sacrament of Sick _x__ Supportive presence ___ Wedding ___ Other (describe below) Pastoral Comments patient is alert and resting in bed; pt welcomes visit and talks immediately and throughout conversation of needing to quit drinking and being done with this; pt acknowledges that drinking negatively impacts his life; pt states he has had sobriety before and liked that; pt states he has sought for help previously and at this present time has gone to an AA meeting again and has gone to baptism again for support; pt states he will meet with [facility] upon discharge; pt says that he has been praying all day; pt is open to prayer and spiritual support;
[2020-04-20 16:03] VITALS: BP 154/79; PULSE 95; RESP 18; TEMP 36.7; O2SAT 98
[2020-04-20 16:16] LABS: Bedside Glucose 120 mg/dL (70-110)
[2020-04-20 21:15] VITALS: BP 150/89; PULSE 95; RESP 18; TEMP 36.5; O2SAT 98
[2020-04-20] MEDS: traZODone 100 MG Tablet PO (21:25)
[2020-04-20 21:31] LABS: Bedside Glucose 130 mg/dL (70-110)
[2020-04-21] MEDS: Phenobarbital 32.4 MG Tablet 64.8 MG PO ×6 (00:27→21:57)
[2020-04-21 04:26] VITALS: BP 125/78; PULSE 91; RESP 18; TEMP 36.5; O2SAT 95
[2020-04-21 06:40] LABS: Bedside Glucose 124 mg/dL (70-110)
[2020-04-21 08:35] VITALS: BP 138/75; PULSE 99; RESP 16; TEMP 36.6; O2SAT 95
[2020-04-21] MEDS: Folic Acid 1 MG Tablet PO (08:43)
[2020-04-21] MEDS: Pantoprazole Sodium 20 MG Tablet 40 MG PO (08:43)
[2020-04-21] MEDS: 0.9% Saline Lock 10 ML Syringe IV (08:43)
[2020-04-21] MEDS: Thiamine Hydrochloride 100 MG Tablet PO (08:43)
[2020-04-21] MEDS: amLODIPine 5 MG Tablet PO (08:44)
[2020-04-21] MEDS: Lisinopril 20 MG Tablet PO ×2 (08:44→21:58)
[2020-04-21] MEDS: FLUoxetine 20 MG Capsule PO (08:44)
--- NOTE | 2020-04-21 09:22 | ADDICTION ---
This sports writer received call from PT's requesting a call back to discuss discharge plan. This sports writer obtained [place] for PT's and called. did not answer call. This sports writer will attempt to call pt's later this day.
--- NOTE | 2020-04-21 10:50 | PCM.PN.HOSP ---
Patient Problems: Active and Suspected Problems Alcohol intoxication (Acute) Transaminitis (Acute) Subjective: He feels better and his CIWA was 0 however this is his third trip to detox and in discussion between him and his as well as [facility], they will attempt to go to an inpatient rehab unit. Vitals/I&O's: Vital Signs Temp Pulse Resp BP Pulse Ox 97.9 F 99 16 138/75 H 95 04/21/20 08:35 04/21/20 08:35 04/21/20 08:35 04/21/20 08:35 04/21/20 08:35 Oxygen Delivery Method Room Air Weight: 246 lb 14.684 oz Body Mass Index (BMI) 37.5 Intake and Output for Last 24 Hours 04/19/20 04/20/20 04/21/20 23:59 23:59 23:59 Intake Total 360 / 360 Balance 360 / 360 General: Alert, Oriented x3, Cooperative, No apparent distress, HEENT: Atraumatic, PERRLA, EOMI, Normocephalic Oral: Moist Mucosa Neck: Supple, No JVD Lungs: Normal air movement, No rhonchi, No wheeze, No rales Cardiovascular: Regular rate and rhythm, Normal S1, Normal S2, No murmurs, Abdomen: Soft, Non Tender, Non-Distended, No Hepato-splenomegaly Extremities: No edema, Capillary Refill Less than 3 Seconds Skin: No rashes, No breakdown Neurological: Neuro grossly intact, Sensory exam intact to light touch and pain Psych/Mental Status: Flat Affect Laboratory Results 04/20/20 12:07: POC Glucose 180 H 04/20/20 16:07: POC Glucose 120 H 04/20/20 21:18: POC Glucose 130 H 04/21/20 06:34: POC Glucose 124 H Current Medications Albuterol Sulfate (Albuterol 2.5 Mg/3 Ml Vial.Neb.) 2.5 mg INHALATION Q4H PRN PRN Reason: sob Amlodipine Besylate (Amlodipine 5 Mg Tablet) 5 mg PO DAILY [facility] Last Admin: 04/21/20 08:44 Dose: 5 mg Documented by: Dextrose (Dextrose 50%-Water 25 Gm/50 Ml Disp.Syrin) 0 gm IV X1 PRN; Protocol PRN Reason: Hypoglycemia Dicyclomine HCl (Dicyclomine 10 Mg Capsule) 20 mg PO Q6H PRN PRN PRN Reason: abdominal discomfort Last Admin: 04/19/20 10:02 Dose: 20 mg Documented by: Fluoxetine HCl (Fluoxetine 20 Mg Capsule) 20 mg PO DAILY [facility] Last Admin: 04/21/20 08:44 Dose: 20 mg Documented by: Folic Acid (Folic Acid 1 Mg Tablet) 1 mg PO DAILY@0800 [facility] Last Admin: 04/21/20 08:43 Dose: 1 mg Documented by: Gabapentin (Gabapentin 300 Mg Capsule) 300 mg PO Q8H PRN PRN PRN Reason: moderate to severe anxiety Last Admin: 04/20/20 12:14 Dose: 300 mg Documented by: Glucagon (Glucagon 1 Mg/Ml Syringe) 1 mg IM .X1 PRN PRN Reason: Hypoglycemia Hydroxyzine Pamoate (Hydroxyzine Aiyana 25 Mg Capsule) 50 mg PO Q4H PRN PRN PRN Reason: mild anxiety Last Admin: 04/19/20 16:50 Dose: 50 mg Documented by: Insulin Glargine (Insulin Glargine 100 Units/Ml Pen) 5 units SC QHS [facility] Last Admin: 04/20/20 21:19 Dose: Not Given Documented by: Insulin Human Lispro (Insulin Lispro 100 Unit/Ml Insuln.Pen) 0 unit SC [facility]; Protocol Last Admin: 04/21/20 06:36 Dose: Not Given Documented by: Lisinopril (Lisinopril 20 Mg Tablet) 20 mg PO BID [facility] Last Admin: 04/21/20 08:44 Dose: 20 mg Documented by: Loperamide HCl (Loperamide 2 Mg Capsule) 2 mg PO Q4H PRN PRN PRN Reason: LOOSE STOOLS Ondansetron HCl (Ondansetron 8 Mg Tablet) 8 mg PO Q8H PRN PRN PRN Reason: NAUSEA Pantoprazole Sodium (Pantoprazole Sodium 20 Mg Tablet) 40 mg PO DAILY [facility] Last Admin: 04/21/20 08:43 Dose: 40 mg Documented by: Phenobarbital (Phenobarbital 32.4 Mg Tablet) 64.8 mg PO Q4H [facility]; Taper Stop: 04/23/20 16:29 Last Admin: 04/21/20 08:43 Dose: 64.8 mg Documented by: Sodium Chloride (0.9% Saline Lock 10 Ml Syringe) 10 - 40 ml IV UD PRN PRN Reason: SALINE FLUSH Last Admin: 04/21/20 08:43 Dose: 10 ml Documented by: Thiamine HCl (Thiamine Hydrochloride 100 Mg Tablet) 100 mg PO DAILYCM [facility] Last Admin: 04/21/20 08:43 Dose: 100 mg Documented by: Trazodone HCl (Trazodone 100 Mg Tablet) 100 mg PO QHS PRN PRN Reason: INSOMNIA Last Admin: 04/20/20 21:25 Dose: 100 mg Documented by: STROKE Vital Signs/Narrative: Vital Signs Temp Pulse Resp BP Pulse Ox 04/21/20 08:35 97.9 F 99 16 138/75 H 95 Medical Necessity - Tobacco Use Smoking Status: Former smoker Assessment/Plan All Active Problems Hyponatremia (Acute) Hypokalemia (Acute) Alcohol intoxication (Acute) Transaminitis (Acute) Alcohol withdrawal (Acute) 1. Acute alcohol withdrawal/slight chronic transaminitis/anxiety/depression -Continue with alcohol withdrawal protocol with phenobarbital -Will be to go to inpatient rehab as this is his third attempt at detox -We will continue with his Prozac 2. HTN/HLD -Blood pressures are little hypertensive secondary to his withdrawal -Continue with his Norvasc and lisinopril 3. DM 2/morbid obesity -BMI of 38, discussed lifestyle modifications -Continue sliding scale insulin, will hold his glimepiride, Trulicity, Metformin -Accu-Cheks AC at bedtime and will make adjustments as necessary 4. GERD -Stable -Continue PPI DVT: Ambulation Inpatient E&M: 33303 Subs Hosp L2
[2020-04-21 11:26] LABS: Bedside Glucose 137 mg/dL (70-110)
[2020-04-21 13:42] VITALS: BP 107/67; PULSE 111; RESP 16; TEMP 36.7; O2SAT 94
[2020-04-21 17:00] VITALS: BP 147/77; PULSE 108; RESP 16; O2SAT 95
[2020-04-21 17:35] LABS: Bedside Glucose 166 mg/dL (70-110)
[2020-04-21 21:50] VITALS: BP 126/80; PULSE 91; RESP 18; TEMP 36.7; O2SAT 97
[2020-04-21] MEDS: Insulin Lispro 100 UNIT/ML INSULN.PEN SC (21:56)
[2020-04-21] MEDS: traZODone 100 MG Tablet PO (21:57)
[2020-04-22 00:36] LABS: Bedside Glucose 176 mg/dL (70-110)
[2020-04-22] MEDS: Phenobarbital 32.4 MG Tablet 64.8 MG PO ×2 (03:45→10:28)
[2020-04-22 03:48] VITALS: BP 127/77; PULSE 92; RESP 18; TEMP 36.7; O2SAT 95
[2020-04-22 06:56] LABS: Bedside Glucose 126 mg/dL (70-110)
[2020-04-22] MEDS: Thiamine Hydrochloride 100 MG Tablet PO (08:04)
[2020-04-22] MEDS: amLODIPine 5 MG Tablet PO (08:04)
[2020-04-22] MEDS: Pantoprazole Sodium 20 MG Tablet 40 MG PO (08:04)
[2020-04-22] MEDS: Folic Acid 1 MG Tablet PO (08:04)
[2020-04-22] MEDS: Lisinopril 20 MG Tablet PO (08:05)
[2020-04-22] MEDS: FLUoxetine 20 MG Capsule PO (08:05)
--- NOTE | 2020-04-22 10:12 | ADDICTION ---
This auto service writer met with PT in his room to finalize d/c plan as his shared that she is not willing to have him return to their home based on his AoD hx. PT willing to engage with [facility] for sober living. PT called [facility] to schedule admit and will admit today, 04/22/20, at 12pm. PT will be picked up by [facility] staff at 12pm today.
--- NOTE | 2020-04-22 10:21 | DCINST_ITS ---
- Discharge Diagnoses Current Active Problems: Current Active and Chronic Problems Alcohol intoxication (Acute) Transaminitis (Acute) You will use the following diet at home:: Calorie/Carbohydrate Controlled (specify 1200, 1400, etc) Your food should be the consistency of: Regular Your liquids should be the consistency of: Regular/Thin Discharge Activity: Return to Normal Activity Call your doctor if you observe: Fever of 101 or Higher, Shortness of breath, Dizziness, Fainting spells, Swelling in the ankles, Chest pain, Increased palpitations (irregular heartbeat) Allergies/Adverse Reactions: Allergies Penicillins Adverse Reaction (Mild, Verified 04/18/20 19:30) red, itching strawberry Adverse Reaction (Mild, Verified 04/18/20 19:30) dont eat them anymore Medications to take at Discharge Albuterol Inhaler [Ventolin Hfa] 2 puff INHALATION Q6H PRN PRN 10/23/16 Metformin HCl [Metformin HCl ER] 750 mg PO DAILY 10/23/16 Pantoprazole Sodium [Protonix] 40 mg PO DAILY 10/23/16 Thiamine Hydrochloride [Vitamin B1] 100 mg PO DAILYCM #0 tablet 12/14/17 Amlodipine [Norvasc] 5 mg PO DAILY #30 tab 10/01/18 Lisinopril 20 mg PO BID #60 tab 10/01/18 Dulaglutide [Trulicity] 1.5 mg IM [facility] 04/01/20 Fluoxetine [Prozac] 20 mg PO DAILY 04/01/20 Glimepiride 2 mg PO BID 04/01/20 Primary Care Physician: Jeff Mahmood MD [Primary Care Provider] - Please follow up with your Primary Care Physician in: 3-5 days Test Results: Test results from this visit will be discussed in further detail at your follow- up appointment, if applicable.
[2020-04-22] MEDS: Insulin Lispro 100 UNIT/ML INSULN.PEN SC (10:35)
[2020-04-22 10:41] LABS: Bedside Glucose 179 mg/dL (70-110)
--- NOTE | 2020-04-22 10:59 | PHA.DC.MR ---
Pharmacy Service has performed discharge medication reconciliation for this patient. The patient's discharge medication list was reviewed for discrepancies and discrepancies were resolved. Home Medications Albuterol Inhaler [Ventolin Hfa] 2 puff INHALATION Q6H PRN PRN 10/23/16 Metformin HCl [Metformin HCl ER] 750 mg PO DAILY 10/23/16 Pantoprazole Sodium [Protonix] 40 mg PO DAILY 10/23/16 Thiamine Hydrochloride [Vitamin B1] 100 mg PO DAILYCM #0 tablet 12/14/17 Amlodipine [Norvasc] 5 mg PO DAILY #30 tab 10/01/18 Lisinopril 20 mg PO BID #60 tab 10/01/18 Dulaglutide [Trulicity] 1.5 mg SC [facility] 04/01/20 Fluoxetine [Prozac] 20 mg PO DAILY 04/01/20 Glimepiride 2 mg PO BID 04/01/20
--- NOTE | 2020-04-22 15:23 | PCM.DC.SUM ---
Discharge Date and Diagnosis - Problem List Patient Problems: Active and Suspected Problems Alcohol intoxication (Acute) Transaminitis (Acute) Date of Admission: 04/19/20 Date of Discharge: 04/22/20 - Primary Discharge Diagnosis Acute Problems: Active Problems Alcohol intoxication (Acute) Transaminitis (Acute) - Secondary Discharge Diagnosis Chronic Problems: Chronic Problems Obesity (Chronic) GERD (gastroesophageal reflux disease) (Chronic) Anxiety and depression (Chronic) Hypertension (Chronic) DM2 (diabetes mellitus, type 2) (Chronic) Alcohol abuse (Chronic) Hospital Course and Treatment Operations: None Procedures: None Summary of Care Provided: Per HPI: The patient is a 59 year old M with PMH as below presents to the hospital intoxicated the time of arrival. He spent 12 hours in the ED and then he started going through withdrawal symptoms and requested detox. He drinks about 12 beers per day which she did on the day of admission. He has been through detox two prior times at this facility and both times did not follow-up with outpatient rehab because of a work. Hospital Course: 1. Acute alcohol withdrawal/slight chronic transaminitis/anxiety/depression -Continue with alcohol withdrawal protocol with phenobarbital -Will be to go to inpatient rehab as this is his third attempt at detox -We will continue with his Prozac -His does not want him to come back home since this is the third detox admission to the hospital. [facility] was able to get him a place [facility], and they were able to accept him today. 2. HTN/HLD -Blood pressures are little hypertensive secondary to his withdrawal -Continue with his Norvasc and lisinopril 3. DM 2/morbid obesity -BMI of 38, discussed lifestyle modifications -Continue sliding scale insulin, will hold his glimepiride, Trulicity, Metformin -Accu-Cheks AC at bedtime and will make adjustments as necessary 4. GERD -Stable -Continue PPI Patient Problems: Active and Suspected Problems Alcohol intoxication (Acute) Transaminitis (Acute) - Physical Exam Vitals/I&O's: Vital Signs Temp Pulse Resp BP Pulse Ox 98.1 F 92 18 127/77 H 95 04/22/20 03:48 04/22/20 03:48 04/22/20 03:48 04/22/20 03:48 04/22/20 03:48 Oxygen Delivery Method Room Air Weight: 246 lb 14.684 oz Body Mass Index (BMI) 37.5 Intake and Output for Last 24 Hours 04/20/20 04/21/20 04/22/20 23:59 23:59 23:59 Intake Total 360 / 360 Balance 360 / 360 General: Alert, Oriented x3, Cooperative, No apparent distress, HEENT: Atraumatic, PERRLA, EOMI, Normocephalic Oral: Moist Mucosa Neck: Supple, No JVD Lungs: Normal air movement, No rhonchi, No wheeze, No rales Cardiovascular: Regular rate and rhythm, Normal S1, Normal S2, No murmurs, Abdomen: Soft, Non Tender, Non-Distended, No Hepato-splenomegaly Extremities: No edema, Capillary Refill Less than 3 Seconds Skin: No rashes, No breakdown Neurological: Neuro grossly intact, Sensory exam intact to light touch and pain Psych/Mental Status: Flat Affect Laboratory Results 04/21/20 17:24: POC Glucose 166 H 04/21/20 21:55: POC Glucose 176 H 04/22/20 06:28: POC Glucose 126 H 04/22/20 10:30: POC Glucose 179 H Discharge Activity: Return to Normal Activity Call your doctor if you observe: Fever of 101 or Higher, Shortness of breath, Dizziness, Fainting spells, Swelling in the ankles, Chest pain, Increased palpitations (irregular heartbeat) Home Medications: Medications to take at Discharge Albuterol Inhaler [Ventolin Hfa] 2 puff INHALATION Q6H PRN PRN 10/23/16 Metformin HCl [Metformin HCl ER] 750 mg PO DAILY 10/23/16 Pantoprazole Sodium [Protonix] 40 mg PO DAILY 10/23/16 Thiamine Hydrochloride [Vitamin B1] 100 mg PO DAILYCM #0 tablet 12/14/17 Amlodipine [Norvasc] 5 mg PO DAILY #30 tab 10/01/18 Lisinopril 20 mg PO BID #60 tab 10/01/18 Dulaglutide [Trulicity] 1.5 mg SC [facility] 04/01/20 Fluoxetine [Prozac] 20 mg PO DAILY 04/01/20 Glimepiride 2 mg PO BID 04/01/20 Primary Care Physician: Jeff Mahmood MD [Primary Care Provider] - Please follow up with your Primary Care Physician in: 3-5 days Disposition: Home Minutes spent on discharge:: 35 Patient Condition:: Stable Medical Necessity - Tobacco Use Smoking Status: Former smoker Meaningful Use Info Meaningful Use Diagnoses (Choose all that apply): None applicable Inpatient E&M: 95064 Disch Hosp
== END 2020-04-22 11:50 | disposition home or self-care (01) | DRG 897 ==
LOC: ED 20:30 → MS3 04-19 07:24
PROVIDERS: Admitting Provider Family Medicine; Emergency Provider Emergency Medicine; PCP Family Medicine; Visit Provider Family Medicine
DX: F10.239 Alcohol dependence with withdrawal, unspecified (principal); F10.229 Alcohol dependence with intoxication, unspecified; R74.01 Elevation of levels of liver transaminase levels; E11.9 Type 2 diabetes mellitus without complications; I10 Essential (primary) hypertension; K21.9 Gastro-esophageal reflux disease without esophagitis; F32.9 Major depressive disorder, single episode, unspecified; F41.9 Anxiety disorder, unspecified; Z68.38 Body mass index [BMI] 38.0-38.9, adult; Y90.9 Presence of alcohol in blood, level not specified; E78.5 Hyperlipidemia, unspecified; E66.01 Morbid (severe) obesity due to excess calories
CPT/HCPCS: 80053; 80307; 82077; 82962; 85025; 99283; A4216; J2405

== ENCOUNTER 2021-02-14 19:04 | Observation (INO) | payer BC, SELFPAY ==
[2021-02-14 19:05] VITALS: BP 149/85; PULSE 108; RESP 16; TEMP 36.4; O2SAT 98; BMI 35.9
--- NOTE | 2021-02-14 19:43 | CM.ED ---
SW Note Referral Source: Case Find Referral Reason: RAMP SW met with patient and his . Patient said that he is here for detox and reports that his last drink was 5 hours ago. Patient said taht he drinks beer. Patient said that he relapsed on Saturday. Patient said that he drank 3/4 tall boys a day. Patient is not linked with [facility]. He is linked with [facility]. Patient voices that he is aware of the RAMP program and has no concern or questions regarding the program.Patient (and chart reflects) patient was here for RAMP in April 2020. SW called Addiction Therapist, Titus Robertson and advised her of patient's presentation to the ED for RAMP. Titus will follow up with patient on Saturday. Plan: RAMP program Jazmin [place]
[2021-02-14 20:22] LABS: Absolute Neutrophil Count 3.5 X10^3/uL (2.0-7.7); Basophil# 0.07 X10^3/uL; Basophil% 0.9 % (0-1); Eosinophil# 1.67 X10^3/uL; Eosinophils% 22.6 % (0-5); Hematocrit 43.3 % (40-54); Hemoglobin 14.7 g/dL (13.0-16.5); Lymphocyte % 24.4 % (19-41); Mean Corp Hgb Conc 33.9 g/dL (32-36); Mean Corpuscular Volume 88.4 fL (80-94); Mean Platelet Vol. 10.5 fl (6.2-12.0); Monocyte# 0.27 X10^3/uL; Monocyte% 3.7 % (0-10); NRBC Flagged by Analyzer 0 % (0-5); Neutrophil # 3.54 X10^3/uL (2.7-7.7); Platelet Count 220 K/mm3 (150-450); RBC Distribution Width CV 11.6 % (11.6-14.6); RBC Distribution Width SD 37.2 fl (35.1-43.9); White Blood Count 7.4 K/mm3 (4.4-11.0)
--- NOTE | 2021-02-14 20:28 | PCM.HP.STD ---
HPI - General General Date of Admission: 02/14/21 Date of Service: 02/14/21 Chief Complaint: Acute EtOH withdrawal HPI Narrative The patient is a 60 y/o M w/ PMHx: Obesity, Anxiety and Depression, Diabetes mellitus type II, HTN, HLD, GERD who presents to the [facility] ED on 02/14/21 with history of being sober for nearly last 8 months however he started drinking again over the last 2 to 3 days reportedly at least 3-4 tall boys daily with last intake at 3 PM with onset acute EtOH withdrawal, onset starting early evening with onset of mild nausea, tremors, mild agitation. Patient interested in attaining sober status again. Notes elevated stress. Patient present upon evaluation and tearful with discussions. Work-up in the ED included T 97.5, heart 108, BP 149/85, respiratory rate 18, 90% room air, CBC with WC 7.4, hemoglobin 14.7, platelet 220 without marked shift, CMP with glucose 179 otherwise not marked appearing, lipase 101, ethyl alcohol 273. [facility] Medical History (Updated 02/14/21 @ 21:[address] Latanya Camacho MD) Alcohol abuse Anxiety and depression DM2 (diabetes mellitus, type 2) Former tobacco use GERD (gastroesophageal reflux disease) Hypertension Obesity Home Medications albuterol sulfate [Ventolin HFA] 2 puff INHALATION Q6H PRN PRN 10/23/16 [History Last Taken Unknown] metformin 750 mg PO DAILY 10/23/16 [History Last Taken 04/01/20] pantoprazole 40 mg PO DAILY 10/23/16 [History Last Taken 04/01/20] amlodipine 5 mg PO DAILY #30 tab 10/01/18 [Rx Last Taken 04/01/20] dulaglutide 1.5 mg SC BAILEY 04/01/20 [History Last Taken 03/27/20] fluoxetine 20 mg PO DAILY 04/01/20 [History Last Taken 04/01/20] glimepiride 2 mg PO BID 04/01/20 [History Last Taken 04/01/20] insulin NPH isoph U-100 human [Novolin N Flexpen] 10 unit SUBCUT BID 02/14/21 [History Last Taken Unknown] lisinopril 20 mg PO DAILY 02/14/21 [History Last Taken Unknown] Allergy/AdvReac Type Severity Reaction Status Date / Time Penicillins AdvReac Mild red, Verified 02/14/21 19:06 itching strawberry AdvReac Mild dont eat Verified 02/14/21 19:06 them anymore Family History (Updated 02/14/21 @ 21:[address] Latanya Camacho MD) Father Heart disease Myocardial infarction Other COPD (chronic obstructive pulmonary disease) other (Patient denies any marked maternal family history including HD, DM, CA.) Surgical History (Updated 02/14/21 @ 21:[address] Latanya Camacho MD) History of cholecystectomy S/P tonsillectomy and adenoidectomy Status post total replacement of left shoulder Social History (Updated 02/14/21 @ 21:[address] Latanya Camacho MD) household members: spouse Smoking Status: Former smoker how long ago did patient quit smoking: Quit 20 years prior, 2 ppd since teen. alcohol intake: current alcohol intake frequency: 3 or more drinks per day Alcohol type: beer details: Sober x 8 months, replase 2-3 days, 4-5 tall boys daily currently. substance use type: does not use ROS ROS Narrative Admission Review of Systems: CONSTITUTIONAL: No weight loss, fever, chills, + weakness or fatigue. HEENT: Eyes: No visual loss, blurred vision, double vision or yellow sclerae. Ears, Nose, Throat: No hearing loss, sneezing, congestion, runny nose or sore throat. SKIN: No rash or itching, lesions, wounds. CARDIOVASCULAR: No chest pain, chest pressure or chest discomfort, palpitations, edema, orthopnea, syncopal events. RESPIRATORY: No shortness of breath, cough or sputum, wheezing, hemoptysis. GASTROINTESTINAL: No anorexia, nausea, vomiting or diarrhea, abdominal pain, melena, BRBPR. GENITOURINARY: No dysuria, frequency, urgency or retention. NEUROLOGICAL: + Mild tremors, agitation. No headache, dizziness, syncope, paralysis, ataxia, numbness or tingling in the extremities, focal weakness, change in bowel or bladder control, seizure. MUSCULOSKELETAL: + muscle, back pain, joint pain or stiffness. HEMATOLOGIC: No anemia, bleeding or bruising. LYMPHATICS: No enlarged nodes. No history of splenectomy. PSYCHIATRIC: + history of depression or anxiety. ENDOCRINOLOGIC: No reports of sweating, cold or heat intolerance. No polyuria or polydipsia. ALLERGIES: No history of asthma, hives, eczema or rhinitis. Vital Signs Vital Signs Vital Signs: 02/14/21 19:05 Temperature 97.5 F L Temperature Source Temporal Pulse Rate 108 H Respiratory Rate 16 Blood Pressure 149/85 H Blood Pressure Mean 106 Pulse Ox 98 Oxygen Delivery Method Room Air Weight Weight: 249 lb 14.4 oz Body Mass Index (BMI) 35.9 Physical Exam Narrative Physical Examination: General: Awake, alert, oriented x 3 and cooperative, seated upright in the ED bed, anxious, fatigued, mildly tremulous Skin: Normal color, normal turgor, no icterus, no cyanosis. HEENT: AT/NC, EOMI, PERRLA, moderately dry MM, no carotid bruits or JVD noted. Lungs: Diminished, greater bases, moderate effort, no rales, ronchi or wheezing. Heart: Tachycardic with regular rhythm; no gallop, rub audible. Abdomen: Soft, obese, NTTP, ND, mildly hyperactive BS, no HSM. Extremities: No cyanosis, clubbing, or edema. Neurological: Patient awake, alert, oriented as noted, cognitive function intact; pupils equally reactive to light and accommodation, cranial nerves II-XII grossly normal, moving all 4 extremities, no focal deficits, strength mildly global decrease secondary to acute presentation, mildly tremulous, agitated. Psychiatric: Affect appears mildly agitated, no acute evidence of depressive or anxiety feelings but underlying history. Results Lab / Micro Data Result Diagrams: 02/14/21 20:06 02/14/21 20:06 Labs: Laboratory Results - last 24 hr 02/14/21 20:06: WBC 7.4, RBC 4.90, Hgb 14.7, Hct 43.3, MCV 88.4, MCH 30.0, MCHC 33.9, RDW Std Deviation 37.2, RDW Coeff of Anselmo 11.6, Plt Count 220, MPV 10.5, Immature Gran % (Auto) 0.400, Neut % (Auto) 48.0, Lymph % (Auto) 24.4, [place] % (Auto) 3.7, Eos % (Auto) 22.6 H, Baso % (Auto) 0.9, Absolute Neuts (auto) 3.5, Absolute Lymphs (auto) 1.80, Nucleated RBC % 0 Assessment & Plan Assessment/Plan (1) Alcohol withdrawal: QUALIFIERS: Complication of substance-induced condition: uncomplicated Qualified Code(s): F10.230 - Alcohol dependence with withdrawal, uncomplicated PLAN: The patient is a 60 y/o M w/ PMHx: Obesity, Anxiety and Depression, Diabetes mellitus type II, HTN, HLD, GERD who presents to the [facility] ED on 02/14/21 with history of being sober for nearly last 8 months however he started drinking again over the last 2 to 3 days reportedly at least 3-4 tall boys daily with last intake at 3 PM with onset acute EtOH withdrawal. 1. Acute EtOH Withdrawal: Will admit to [facility], routine labs obtained in the ED upon presentation. Given interest in sobriety, will initiate and continue on protocol with taper course of Phenobarbital, scheduled gabapentin for seizure prophylaxis, as needed Catapres, Bentyl, Vistaril, IV fluids, IV antiemetics, Tylenol as needed for pain. Will consult Case management for assistance for transition to next level of rehabilitation care. Mag, phos pending. Maintain on CIWA protocol concurrently. 2. Diabetes mellitus type II: Hold oral home regimen, continue home insulin regimen, ADA diet, accu checks w/ ISS. 3. Hypertension: Continue home regimen including lisinopril, amlodipine with hold parameters as needed, PRN hydralazine. 4. Hyperlipidemia: Not on regimen, defer to outpatient. 5. Anxiety and depression: We will continue patient home fluoxetine regimen. Will benefit from follow-up counseling with 180. 6. GERD: We will continue patient on PPI 7. CONCHIS: Noncompliant with any CPAP. 8. Obesity: Weight loss and lifestyle changes encouraged. 9. DVT prophylaxis: SCDs, Lovenox. Charges/Coding Visit Charges Inpatient E&M: 28189 Init Hosp L3
[2021-02-14 20:40] LABS: ALB/GLOB Ratio 0.9 RATIO (0.9-2.4); AST(SGOT) 33 U/L (15-37); Alanine Aminotransfer ALT/SGPT 40 U/L (16-61); Albumin, Serum 3.1 g/dL (3.2-5.0); Alkaline Phosphatase 108 U/L (45-117); Anion Gap 11 (5-15); BUN 8 mg/dL (7-18); BUN/Creat Ratio 9.8 RATIO (10-20); Calcium,Total 8.7 mg/dL (8.5-10.1); Chloride 100 mmol/L (98-107); Creatinine, Serum 0.82 mg/dL (0.70-1.30); EST Glomerular Filtration Rate 102 mL/min (>60); Est Glom Filt Rate - Afr Amer 124 mL/min (>60); Estimated Creatinine Clearance 98.92 ml/min; Globulin 3.5 g/dL (2.2-4.2); Glucose 179 mg/dL (74-106); Lipase 101 U/L (73-393); Potassium 3.8 mmol/L (3.5-5.1); Protein, Total 6.6 g/dL (6.4-8.2); Sodium Level 138 mmol/L (136-145)
[2021-02-14 20:54] LABS: Magnesium 1.7 mg/dL (1.6-2.6); Phosphorus 4.3 mg/dL (2.5-4.9)
--- NOTE | 2021-02-14 20:56 | CM.ED ---
Addendum entered by Jazmin Mccabe 02/14/21 21:43: Plan to admit patient to Acute. Jazmin RIVAS Original Note: GARDENIA Note SW received phone call from Yuliana, oil well directional surveyor. Yuliana said that beds are getting tight and could patient be advised of alternative placement. GARDENIA called Titus, addiction therapist at [facility] and left message. The ED will provide for patient to receive the same level of care but at an alternative setting. GARDENIA spoke to Titus at [facility]. Since patient is here for alcohol detox the placement would need to be with a transport via ambulance to another hospital to ensure safe transport of patientl.Yuliana updated. She will speak to . Plan: To be determined. Jazmin RIVAS
--- NOTE | 2021-02-14 21:27 | EDS_ITS ---
HPI History of Present Illness Chief Complaint: ETOH Intox Informant: patient Onset/Context/Timing Onset: Days (3) Context: Gradual Onset Timing: Continuous Worsened by: Nothing Relieved by: Nothing Associated Symptoms Associated Symptoms: Negative for vomiting*, diarrhea*, fever*, seizure, palpatations and change in mental status Narrative Narrative: Patient presents requesting alcohol detox. Patient states he has been drinking for the past 3 days. Patient states he drinks between 6-12 beers per day. Patient states his last drink was at approximately 3:00 PM today. Patient has been through detox before. Patient states his last detox was in April of this year. Patient states he has been sober up until the last 3 days. Patient denies any suicidal or homicidal ideations. [facility] Medical History Alcohol abuse Anxiety and depression DM2 (diabetes mellitus, type 2) Former tobacco use GERD (gastroesophageal reflux disease) Hypertension Obesity Home Medications metformin 750 mg PO DAILY 10/23/16 [History Last Taken 02/14/21] pantoprazole 40 mg PO DAILY 10/23/16 [History Last Taken 02/14/21] amlodipine 5 mg PO DAILY #30 tab 10/01/18 [Rx Last Taken 02/14/21] dulaglutide 1.5 mg SC BAILEY 04/01/20 [History Last Taken 02/12/21] fluoxetine 20 mg PO DAILY 04/01/20 [History Last Taken 02/14/21] glimepiride 2 mg PO BID 04/01/20 [History Last Taken 02/14/21] insulin NPH isoph U-100 human [Novolin N Flexpen] 10 unit SUBCUT BID 02/14/21 [History Last Taken 02/14/21] lisinopril 20 mg PO DAILY 02/14/21 [History Last Taken 02/14/21] Allergy/AdvReac Type Severity Reaction Status Date / Time Penicillins AdvReac Mild red, Verified 02/14/21 22:23 itching strawberry AdvReac Mild dont eat Verified 02/14/21 22:23 them anymore Family History (Updated 02/14/21 @ 21:[address] Latanya Camacho MD) Father Heart disease Myocardial infarction Other COPD (chronic obstructive pulmonary disease) Surgical History History of cholecystectomy S/P tonsillectomy and adenoidectomy Status post total replacement of left shoulder Social History household members: spouse Smoking Status: Former smoker how long ago did patient quit smoking: Quit 20 years prior, 2 ppd since teen. alcohol intake: current alcohol intake frequency: 3 or more drinks per day Alcohol type: beer details: Sober x 8 months, replase 2-3 days, 4-5 tall boys daily currently. substance use type: does not use ROS ROS ED Constitutional Constitutional ED: Denies chills or fever(s) Eyes Eyes: Denies blurry vision or change in vision ENT ENT ED: Denies rhinorrhea or sore throat Cardiovascular Cardiovascular: Denies chest pain or palpitations Respiratory/Chest Respiratory/Chest: Denies cough or dyspnea Gastrointestinal Gastrointestinal: Denies nausea or vomiting Genitourinary Genitourinary ED: Denies dysuria or hematuria Musculoskeletal Musculoskeletal: Denies back pain or neck pain Integumentary Denies abscess or rash Neurologic Neurologic: Denies headache(s) or weakness Allergic/Immunologic Allergic/Immunologic ED: Denies mouth swelling or urticaria EXAM Physical Exam Const Vital Signs: 02/14/21 19:05 Temperature 97.5 F L Temperature Source Temporal Pulse Rate 108 H Respiratory Rate 16 Blood Pressure 149/85 H Blood Pressure Mean 106 Pulse Ox 98 Oxygen Delivery Method Room Air Positive well nourished and well developed General Appearance ED: well developed HEENT Reports moist mucous membranes Neck supple and no JVD Resp normal respiratory effort and clear to auscultation bilaterally Cardio regular rate, regular rhythm and no murmurs GI normal to inspection, nondistended, normoactive bowel sounds and non-tender Palpation: soft Extremity normal to inspection General Extremety ED: Negative for edema or tenderness General Extremity: Negative for edema Neuro oriented x3, CN's II-XII intact bilaterally and no sensory deficits noted Sensorium / Orientation: alert Motor Exam: strength 5/5 throughout Psych mental status grossly normal Skin no rashes or lesions noted MDM MDM MDM Narrative Medical decision making narrative: CBC was within normal limits. Comprehensive metabolic profile showed a slightly elevated glucose of 179. Serum alcohol level was 273. Urine tox screen was ordered and is pending. Case was discussed with the hospitalist. She will admit the patient to her service. Patient understood and was agreeable with the plan. All questions were answered. Lab Data Attestation: I reviewed the patient's lab results. Labs: Laboratory Results - last 24 hr 02/14/21 02/14/21 02/14/21 20:06 20:06 20:06 WBC 7.4 RBC 4.90 Hgb 14.7 Hct 43.3 MCV 88.4 MCH 30.0 MCHC 33.9 RDW Std Deviation 37.2 RDW Coeff of Anselmo 11.6 Plt Count 220 MPV 10.5 Immature Gran % (Auto) 0.400 Neut % (Auto) 48.0 Lymph % (Auto) 24.4 [place] % (Auto) 3.7 Eos % (Auto) 22.6 H Baso % (Auto) 0.9 Absolute Neuts (auto) 3.5 Absolute Lymphs (auto) 1.80 Nucleated RBC % 0 Sodium 138 Potassium 3.8 Chloride 100 Carbon Dioxide 27.0 Anion Gap 11 BUN 8 Creatinine 0.82 Estim Creat Clear Calc 98.92 Est GFR (MDRD) Af Amer 124 Est GFR (MDRD) Non-Af 102 BUN/Creatinine Ratio 9.8 L Glucose 179 H Calcium 8.7 Total Bilirubin 0.30 AST 33 ALT 40 Alkaline Phosphatase 108 Total Protein 6.6 Albumin 3.1 L Globulin 3.5 Albumin/Globulin Ratio 0.9 Lipase 101 Ethyl Alcohol 273.0 Treatment and Re-Evaluation Vital Sign Attestation:: Vital signs were reviewed prior to admission. They are stable. Discharge Plan Dx/Rx/DC Orders Clinical Impression: Alcohol withdrawal Disposition Disposition: Acute Care Hospital [facility] Discharge Date/Time: 02/14/21 21:38
[2021-02-14 21:52] LABS: Amphetamine Urine VISTA NEGATIVE (<1000 ng/mL); Barbiturate Urine VISTA NEGATIVE (< 200 ng/mL); Benzodiazepine Urine VISTA NEGATIVE (< 200 ng/mL); Cocaine Urine VISTA NEGATIVE (< 300 ng/mL); Ecstacy Urine VISTA NEGATIVE (< 500 ng/mL); Methadone Urine VISTA NEGATIVE (< 300 ng/mL); PCP Urine VISTA NEGATIVE (< 25 ng/mL); THC Urine VISTA NEGATIVE (< 50 ng/mL); Vista UDS pH Range 6
[2021-02-14 22:28] VITALS: BMI 36.1
[2021-02-14 22:35] VITALS: BP 123/91; PULSE 103; RESP 20; TEMP 36.6; O2SAT 96
--- NOTE | 2021-02-14 22:40 | PCS.PANDOC ---
PANDEMIC DOCUMENTATION INITIATED: Date: 11/14/2020 Time: 1900 Emergency documentation initiated 02/14/21 @ 2201
[2021-02-15] MEDS: Lactated Ringers 1,000 ML 125 ML IV (00:14)
[2021-02-15] MEDS: Ibuprofen 600 MG Tablet PO (00:15)
[2021-02-15] MEDS: Gabapentin 300 MG Capsule PO (00:24)
[2021-02-15 00:26] LABS: Bedside Glucose 149 mg/dL (70-110)
[2021-02-15] MEDS: Phenobarbital 32.4 MG Tablet 97.2 MG PO ×4 (02:52→14:18)
[2021-02-15 04:00] VITALS: BP 138/80; PULSE 111; RESP 16; TEMP 36.8; O2SAT 93
[2021-02-15 06:00] VITALS: BP 139/72; PULSE 112; RESP 16; TEMP 36.9; O2SAT 94
[2021-02-15] MEDS: Ondansetron ODT 4 MG Tablet 8 MG PO (06:58)
[2021-02-15] MEDS: Acetaminophen 325 MG Tablet 650 MG PO (06:58)
[2021-02-15] MEDS: Insulin Lispro 100 UNIT/ML INSULN.PEN SC ×2 (07:10→11:01)
[2021-02-15 07:11] LABS: Bedside Glucose 175 mg/dL (70-110)
[2021-02-15 08:19] VITALS: BP 135/69; PULSE 116; RESP 16; TEMP 36.6; O2SAT 98
[2021-02-15] MEDS: Insulin NPH Human 100 UNITS/ML PEN 10 UNITS SC (08:47)
[2021-02-15] MEDS: Folic Acid 1 MG Tablet PO (08:48)
[2021-02-15] MEDS: FLUoxetine 20 MG Capsule PO (08:48)
[2021-02-15] MEDS: Enoxaparin 40 MG/0.4 ML Syringe SC (08:48)
[2021-02-15] MEDS: Lisinopril 20 MG Tablet PO (08:48)
[2021-02-15] MEDS: amLODIPine 5 MG Tablet PO (08:48)
[2021-02-15] MEDS: Thiamine Hydrochloride 100 MG Tablet PO (08:48)
[2021-02-15] MEDS: Pantoprazole Sodium 40 MG Tablet PO (08:49)
[2021-02-15 08:55] LABS: Bedside Glucose 231 mg/dL (70-110)
[2021-02-15 11:11] LABS: Bedside Glucose 279 mg/dL (70-110)
--- NOTE | 2021-02-15 11:19 | ADDICTION ---
This service writer met with PT to plan for d/c. PT A+Ox4 and participated actively. PT is being d/c from program due to no w/d symptoms. PT plans to f/u with [facility] for recovery services. PT did not indicate a need for transportation post d/c from [facility].
--- NOTE | 2021-02-15 11:30 | PCM.DC ---
Discharge Instructions Diet Discharge Diet: 2000 Calorie Control Diet Activity Discharge Activity: Return to Normal Activity Follow Up Care Please Follow Up With: [facility] When: this week Test Results: Test results from this visit will be discussed in further detail at your follow-up appointment, if applicable. Discharge Plan Admission Admit Date/Time: 02/14/21 20:29 Primary Reason for Your Visit: alcohol withdrawal Attending Provider: Christian Lucero Primary Care Provider: Hima Bagley Discharge Orders/Prescriptions Prescriptions: New multivitamin Tablet 1 tab PO DAILY Qty: 1 RF: 0 Continued pantoprazole 20 MG tablet 40 mg PO DAILY RF: 0 metformin 750 MG tablet extended release 24 hr 750 mg PO DAILY RF: 0 amlodipine 5 MG tablet 5 mg PO DAILY Qty: 30 RF: 0 dulaglutide 1.5 MG/0.5 ML pen injector 1.5 mg SC BAILEY RF: 0 glimepiride 2 MG tablet 2 mg PO BID RF: 0 fluoxetine 20 MG capsule 20 mg PO DAILY RF: 0 lisinopril 20 MG tablet 20 mg PO DAILY RF: 0 Novolin N Flexpen 100 unit/mL (3 mL) insulin pen 10 unit SUBCUT BID RF: 0 Referrals / Follow Up: Hima Bagley MD [Primary Care Provider] -
--- NOTE | 2021-02-15 12:14 | PCM.DC.SUM ---
Providers Date of Admission: 02/14/21 Primary Care Physician: Dr. Hima Bagley MD Reason For Visit: ACUTE ETOH WITHDRAWL Diagnosis Discharge Diagnosis (1) Alcohol withdrawal: Status: Acute Code(s): F10.239 - Alcohol dependence with withdrawal, unspecified Qualifiers: Complication of substance-induced condition: uncomplicated Qualified Code(s): F10.230 - Alcohol dependence with withdrawal, uncomplicated Medications at Discharge Home Medications metformin 750 mg PO DAILY 10/23/16 pantoprazole 40 mg PO DAILY 10/23/16 amlodipine 5 mg PO DAILY #30 tab 10/01/18 dulaglutide 1.5 mg SC BAILEY 04/01/20 fluoxetine 20 mg PO DAILY 04/01/20 glimepiride 2 mg PO BID 04/01/20 Novolin N Flexpen 10 unit SUBCUT BID 02/14/21 lisinopril 20 mg PO DAILY 02/14/21 multivitamin 1 tab PO DAILY #1 tab 02/15/21 Hospital Course Operations None Procedures None Summary of Care Provided Minutes Spent on Discharge: 32 Hospital Course: 60 year old male presents with after drinking heavily for 2 days. Previously, he was sober for 10 months. He was concerned given his extensive history of alcoholism, delirium tremens so sought attention. Pt had no symptoms of alcohol withdrawal but did endorse that he was ashamed of drinking again. He is established with [facility] and attends meeting 3x/week and wishes to continue to follow up with them. He declined any additional resources at this time. He is agreeable to discharge and follow up with [facility]. Physical Exam Const alert and no apparent distress General Appearance: cooperative and comfortable Neuro Sensorium / Orientation: awake Psych affect normal Weight / BMI Weight Weight: 111 kg Body Mass Index (BMI) 36.1 ABG / Lab / Microbiology Data Result Diagrams: 02/14/21 20:06 02/14/21 20:06 Laboratory: Laboratory Results - last 24 hr 02/14/21 20:06: WBC 7.4, RBC 4.90, Hgb 14.7, Hct 43.3, MCV 88.4, MCH 30.0, MCHC 33.9, RDW Std Deviation 37.2, RDW Coeff of Anselmo 11.6, Plt Count 220, MPV 10.5, Immature Gran % (Auto) 0.400, Neut % (Auto) 48.0, Lymph % (Auto) 24.4, [place] % (Auto) 3.7, Eos % (Auto) 22.6 H, Baso % (Auto) 0.9, Absolute Neuts (auto) 3.5, Absolute Lymphs (auto) 1.80, Nucleated RBC % 0 02/14/21 20:06: Sodium 138, Potassium 3.8, Chloride 100, Carbon Dioxide 27.0, Anion Gap 11, BUN 8, Creatinine 0.82, Estim Creat Clear Calc 98.92, Est GFR (MDRD) Af Amer 124, Est GFR (MDRD) Non-Af 102, BUN/Creatinine Ratio 9.8 L, Glucose 179 H, Calcium 8.7, Total Bilirubin 0.30, AST 33, ALT 40, Alkaline Phosphatase 108, Total Protein 6.6, Albumin 3.1 L, Globulin 3.5, Albumin/Globulin Ratio 0.9, Lipase 101 02/14/21 20:06: Ethyl Alcohol 273.0 02/14/21 20:31: Phosphorus 4.3, Magnesium 1.7 02/14/21 21:30: Urine Opiates Screen NEGATIVE, Urine Methadone Screen NEGATIVE, Ur Barbiturates Screen NEGATIVE, Ur Phencyclidine Scrn NEGATIVE, Ur Amphetamines Screen NEGATIVE, U Methamphetamin-MDMA NEGATIVE, U Benzodiazepines Scrn NEGATIVE, Urine Cocaine Screen NEGATIVE, U Cannabinoids Screen NEGATIVE, Ur Drug Screen Comment 02/15/21 00:02: POC Glucose 149 H 02/15/21 07:07: POC Glucose 175 H 02/15/21 08:47: POC Glucose 231 H 02/15/21 11:00: POC Glucose 279 H D/C Instructions Discharge Diet: 2000 Calorie Control Diet Please Follow Up With: [facility] When: this week Meaningful Use Info Meaningful Use Diagnoses (Choose all that apply): None applicable Discharge Plan Admission Admit Date/Time: 02/14/21 20:29 Primary Reason for Your Visit: alcohol withdrawal Attending Provider: Christian Lucero Primary Care Provider: Hima Bagley Discharge Orders/Prescriptions Prescriptions: New multivitamin Tablet 1 tab PO DAILY Qty: 1 RF: 0 Continued pantoprazole 20 MG tablet 40 mg PO DAILY RF: 0 metformin 750 MG tablet extended release 24 hr 750 mg PO DAILY RF: 0 amlodipine 5 MG tablet 5 mg PO DAILY Qty: 30 RF: 0 dulaglutide 1.5 MG/0.5 ML pen injector 1.5 mg SC BAILEY RF: 0 glimepiride 2 MG tablet 2 mg PO BID RF: 0 fluoxetine 20 MG capsule 20 mg PO DAILY RF: 0 lisinopril 20 MG tablet 20 mg PO DAILY RF: 0 Novolin N Flexpen 100 unit/mL (3 mL) insulin pen 10 unit SUBCUT BID RF: 0 Referrals / Follow Up: Hima Bagley MD [Primary Care Provider] - Disposition Disposition (needs filled in before D/C Order can be placed): Home, Self Care Charges/Coding Visit Charges Inpatient E&M: 37585 Disch Hosp
[2021-02-15 13:34] VITALS: BP 134/76; PULSE 104; RESP 18; TEMP 36.3; O2SAT 96
== END 2021-02-15 16:19 | disposition home or self-care (01) | DRG 897 ==
LOC: ED 20:15 → MS2 21:32
PROVIDERS: Admitting Provider Family Medicine; Emergency Provider Emergency Medicine; PCP Family Medicine
DX: F10.230 Alcohol dependence with withdrawal, uncomplicated (principal); J44.9 Chronic obstructive pulmonary disease, unspecified; E11.9 Type 2 diabetes mellitus without complications; Z79.4 Long term (current) use of insulin; E66.9 Obesity, unspecified; Z68.36 Body mass index [BMI] 36.0-36.9, adult; I10 Essential (primary) hypertension; G47.33 Obstructive sleep apnea (adult) (pediatric); E78.5 Hyperlipidemia, unspecified; F32.A Depression, unspecified; F41.9 Anxiety disorder, unspecified; I25.2 Old myocardial infarction; K21.9 Gastro-esophageal reflux disease without esophagitis; Z79.899 Other long term (current) drug therapy; Z87.891 Personal history of nicotine dependence; Y90.8 Blood alcohol level of 240 mg/100 ml or more
CPT/HCPCS: 80053; 80307; 82077; 82962; 83690; 83735; 84100; 85025; 96360; 96361; 96372; 99218; 99282; J7120; A4216; G0378

== ENCOUNTER 2021-03-16 10:37 | Inpatient (IN) | payer BC, SELFPAY ==
[2021-03-16 10:37] VITALS: BP 124/77; PULSE 100; RESP 16; TEMP 36.2; O2SAT 96; BMI 38.5
--- NOTE | 2021-03-16 11:09 | ED.RN ---
THIS NURSE ENTERED THE ROOM TO TALK WITH THE PT. PT HAS GOWN ON BACKWARD. OFFERED TO HELP PT PUT GOWN ON CORRECTLY AND PT DECLINED. WHEN ASKED WHY HE IS HERE HE STATES I GUESS I HAVE TO DETOX. SHE DRUG ME UP HERE. I'M NOT EVEN THAT DRUNK. WHEN ASKED IF THE PT WANTS DETOX PT STATES YEAH I GUESS. 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 PT'S LEFT TO GO TO WORK. PT GAVE PERMISSION FOR THE TO RECEIVE UPDATES.
--- NOTE | 2021-03-16 11:20 | EDS_ITS ---
HPI History of Present Illness Chief Complaint: Substance Abuse Narrative Narrative: Patient presents for alcohol detox. He states he has past medical history of diabetes, on oral medications, and drinks at least 12 beers a day and has done so for at least 40 years. He states he been trying to quit drinking alcohol multiple times. The longest time that he has quit has been 9 years. After getting out of detox, he has also made it a year. He states his most recent detoxification was here at [facility], and this was 2 to 3 months ago. He denies any suicidal ideation. He states that he presents here at the request of his , and he says he wants to stop drinking and try again. He states his last drink was 3 to 4 hours ago. He denies any physical symptoms of withdrawal. [facility] Medical History (Updated 03/16/21 @ 14:38 by Carolina Reed) Alcohol abuse Anxiety Anxiety and depression Bipolar disorder Depression DM2 (diabetes mellitus, type 2) Former tobacco use GERD (gastroesophageal reflux disease) GERD (gastroesophageal reflux disease) GI bleed Hypertension Obesity Home Medications metformin 750 mg PO DAILY 10/23/16 [History Last Taken 02/14/21] pantoprazole 40 mg PO DAILY 10/23/16 [History Last Taken 02/14/21] amlodipine 5 mg PO DAILY #30 tab 10/01/18 [Rx Last Taken 02/14/21] dulaglutide 1.5 mg SC BAILEY 04/01/20 [History Last Taken 02/12/21] fluoxetine 20 mg PO DAILY 04/01/20 [History Last Taken 02/14/21] glimepiride 2 mg PO BID 04/01/20 [History Last Taken 02/14/21] Novolin N Flexpen 10 unit SUBCUT BID 02/14/21 [History Last Taken 02/14/21] lisinopril 20 mg PO DAILY 02/14/21 [History Last Taken 02/14/21] multivitamin 1 tab PO DAILY #1 tab 02/15/21 [Rx Last Taken Unknown] Allergy/AdvReac Type Severity Reaction Status Date / Time Penicillins AdvReac Mild red, Verified 03/16/21 10:39 itching strawberry AdvReac Mild dont eat Verified 03/16/21 10:39 them anymore Family History Father Heart disease Myocardial infarction Other COPD (chronic obstructive pulmonary disease) Surgical History History of cholecystectomy S/P tonsillectomy and adenoidectomy Status post total replacement of left shoulder Social History household members: spouse Smoking Status: Former smoker how long ago did patient quit smoking: Quit 20 years prior, 2 ppd since teen. alcohol intake: current alcohol intake frequency: 3 or more drinks per day Alcohol type: beer details: Sober x 8 months, replase 2-3 days, 4-5 tall boys daily currently. substance use type: does not use ROS ROS ED ROS Narrative Constitutional: No fever, no chills. HEENT: No sore throat. No neck pain. No loss of vision. No rhinorrhea. Cardiovascular: No chest pain. No palpitations. No pedal edema. Respiratory: No cough, no shortness of breath. Abdominal: No abdominal pain. No nausea. No vomiting. Genitourinary: No dysuria. No hematuria. Musculoskeletal: No myalgias. No arthralgias. Neurologic: No headaches. No dizziness. No lightheadedness. Skin: No rash. No change in color. Psychiatric: No depression. No anxiety. EXAM Physical Exam Narrative Exam Narrative: Afebrile. Vital signs noted. HEENT: Normocephalic. Atraumatic. PERRL, EOMI. Neck soft and supple. No point tenderness or step off. Cardiovascular: Regular rate and rhythm. Borderline tachycardia. No murmurs, rubs, or gallops appreciated. Respiratory: No tachypnea. Lungs clear to auscultation bilaterally. Gastrointestinal: Abdomen soft, nontender, with normoactive bowel sounds. No rebound or guarding. Neurological: Awake. Alert. Oriented. Nonfocal, nonlateralizing. No active signs of withdrawal, no tremors. Skin: No rash. Normal color. No pallor. Musculoskeletal: No pedal edema. Full range of motion extremities. Const Vital Signs: 03/16/21 10:37 Temperature 97.2 F L Temperature Source Temporal Pulse Rate 100 Respiratory Rate 16 Blood Pressure 124/77 H Blood Pressure Mean 92 Pulse Ox 96 Oxygen Delivery Method Room Air MDM MDM MDM Narrative Medical decision making narrative: I will obtain a CBC and a CMP and alcohol level. He has slight hyponatremia with a sodium of 131, chloride low at 95. He has normal AST and ALT today. Ethyl alcohol is elevated at 339. WBC count is normal with a normal white count and a stable hemoglobin of 14.7. At this point in time, I discussed the patient with Dr. Hudson for admission to [facility]. Patient states he still wishes detox from alcohol. He is in stable condition. Lab Data Attestation: I reviewed the patient's lab results. Labs: Laboratory Results - last 24 hr 03/16/21 03/16/21 03/16/21 11:01 11:01 11:01 WBC 6.0 RBC 4.87 Hgb 14.7 Hct 42.9 MCV 88.1 MCH 30.2 MCHC 34.3 RDW Std Deviation 38.0 RDW Coeff of Anselmo 11.8 Plt Count 200 MPV 10.0 Immature Gran % (Auto) 0.500 Neut % (Auto) 64.7 Lymph % (Auto) 22.1 [place] % (Auto) 8.1 Eos % (Auto) 3.8 Baso % (Auto) 0.8 Absolute Neuts (auto) 3.9 Absolute Lymphs (auto) 1.33 Nucleated RBC % 0 Sodium 131 L Potassium 3.7 Chloride 95 L Carbon Dioxide 27.0 Anion Gap 9 BUN 9 Creatinine 0.78 Estim Creat Clear Calc 97.44 Est GFR (MDRD) Af Amer 130 Est GFR (MDRD) Non-Af 108 BUN/Creatinine Ratio 11.5 Glucose 159 H Calcium 8.6 Total Bilirubin 0.40 AST 35 ALT 43 Alkaline Phosphatase 88 Total Protein 7.3 Albumin 3.7 Globulin 3.6 Albumin/Globulin Ratio 1.0 Ethyl Alcohol 339.0 H* Discharge Plan Dx/Rx/DC Orders Clinical Impression: Hyponatremia, Alcohol intoxication Disposition Disposition: Acute Care Hospital [facility] Discharge Date/Time: 03/16/21 14:06
[2021-03-16 11:28] LABS: Absolute Lymphocyte Count 1.33 X10^3/uL (0.83-4.51); Absolute Neutrophil Count 3.9 X10^3/uL (2.0-7.7); Basophil# 0.05 X10^3/uL; Basophil% 0.8 % (0-1); Eosinophil# 0.23 X10^3/uL; Eosinophils% 3.8 % (0-5); Hematocrit 42.9 % (40-54); Hemoglobin 14.7 g/dL (13.0-16.5); Lymphocyte # 1.33 X10^3/ul (0.83-4.51); Lymphocyte % 22.1 % (19-41); Mean Corp Hgb Conc 34.3 g/dL (32-36); Mean Corpuscular Hgb 30.2 pg (27.0-32.0); Mean Corpuscular Volume 88.1 fL (80-94); Monocyte# 0.49 X10^3/uL; Monocyte% 8.1 % (0-10); NRBC Flagged by Analyzer 0 % (0-5); Neutrophil # 3.89 X10^3/uL (2.7-7.7); Neutrophil % 64.7 % (47-70); Platelet Count 200 K/mm3 (150-450); RBC Distribution Width CV 11.8 % (11.6-14.6); Red Blood Count 4.87 M/mm3 (4.6-6.2)
[2021-03-16 11:41] LABS: AST(SGOT) 35 U/L (15-37); Alanine Aminotransfer ALT/SGPT 43 U/L (16-61); Albumin, Serum 3.7 g/dL (3.2-5.0); Alkaline Phosphatase 88 U/L (45-117); Anion Gap 9 (5-15); BUN 9 mg/dL (7-18); BUN/Creat Ratio 11.5 RATIO (10-20); Calcium,Total 8.6 mg/dL (8.5-10.1); Chloride 95 mmol/L (98-107); Creatinine, Serum 0.78 mg/dL (0.70-1.30); EST Glomerular Filtration Rate 108 mL/min (>60); Est Glom Filt Rate - Afr Amer 130 mL/min (>60); Estimated Creatinine Clearance 97.44 ml/min; Globulin 3.6 g/dL (2.2-4.2); Glucose 159 mg/dL (74-106); Potassium 3.7 mmol/L (3.5-5.1); Protein, Total 7.3 g/dL (6.4-8.2); Sodium Level 131 mmol/L (136-145)
--- NOTE | 2021-03-16 13:08 | CM.ED ---
Addendum entered by Jazmin Mccabe 03/16/21 13:23: GARDENIA called Addiction Therapist, Caty and updated her that patient is in the ED. GARDENIA updated MD Plan: Admit to [facility] program Jazmin RIVAS Original Note: GARDENIA Note Referral Reason: [facility] Referral Source: Case Find GARDENIA met with patient. He reports he is in the hospital for detox. Patient was asked about his use of alcohol and he said that he uses enough. Patient said that his last drink was 2 hours ago and he was previously with the [facility] program a couple of months ago. GARDENIA asked about linkage with [facility] and he said they talk to me.
--- NOTE | 2021-03-16 13:14 | HP.PCM.HOS_ITS ---
HPI - General HPI Narrative RANJAN AC, is a 60 M with an extensive PMH as outlined who presents for acute alcohol withdrawal. He says he drinks about 12 beers daily, and says he has been trying to quit drinking several times. He was in for detox 2-3 months ago. His last drink was ~ 3 to 4 hours ago. He denies any tremors, shakes or any symptoms of withdrawal. VItals were blood pressure 1 24/77, pulse rate of 100 initiate rate of 60 and a has temperature was 97.2 Fahrenheit. CBC was unremarkable and BMP was unremarkable as part from sodium of 131. Serum alcohol level is 339. He has been admitted to manage for acute alcohol withdrawal. [facility] Medical History Alcohol abuse Anxiety and depression DM2 (diabetes mellitus, type 2) Former tobacco use GERD (gastroesophageal reflux disease) Hypertension Obesity Home Medications metformin 750 mg PO DAILY 10/23/16 [History Last Taken 02/14/21] pantoprazole 40 mg PO DAILY 10/23/16 [History Last Taken 02/14/21] amlodipine 5 mg PO DAILY #30 tab 10/01/18 [Rx Last Taken 02/14/21] dulaglutide 1.5 mg SC BAILEY 04/01/20 [History Last Taken 02/12/21] fluoxetine 20 mg PO DAILY 04/01/20 [History Last Taken 02/14/21] glimepiride 2 mg PO BID 04/01/20 [History Last Taken 02/14/21] Novolin N Flexpen 10 unit SUBCUT BID 02/14/21 [History Last Taken 02/14/21] lisinopril 20 mg PO DAILY 02/14/21 [History Last Taken 02/14/21] multivitamin 1 tab PO DAILY #1 tab 02/15/21 [Rx Last Taken Unknown] Allergy/AdvReac Type Severity Reaction Status Date / Time Penicillins AdvReac Mild red, Verified 03/16/21 10:39 itching strawberry AdvReac Mild dont eat Verified 03/16/21 10:39 them anymore Family History Father Heart disease Myocardial infarction Other COPD (chronic obstructive pulmonary disease) Surgical History History of cholecystectomy S/P tonsillectomy and adenoidectomy Status post total replacement of left shoulder Social History household members: spouse Smoking Status: Former smoker how long ago did patient quit smoking: Quit 20 years prior, 2 ppd since teen. alcohol intake: current alcohol intake frequency: 3 or more drinks per day Alcohol type: beer details: Sober x 8 months, replase 2-3 days, 4-5 tall boys daily currently. substance use type: does not use ROS Constitutional Constitutional: Denies anorexia, change in weight, chills, fatigue, fever(s), malaise or weakness Eyes Eyes: Denies change in vision ENT HEENT: Denies dysphagia or headache(s) Cardiovascular Cardiovascular: Denies chest pain, dyspnea on exertion, edema, lightheadedness, orthopnea, palpitations or rapid heart rate Respiratory/Chest Respiratory/Chest: Denies cough, productive cough, shortness of breath at rest or shortness of breath with exertion Gastrointestinal Gastrointestinal: Denies abdominal pain, coffee ground emesis, diarrhea, nausea or vomiting Genitourinary Genitourinary: Denies burning urination Musculoskeletal Musculoskeletal: Denies back pain Neurologic Neurologic: Denies confusion, dizziness, focal weakness, headache(s) or seizures Psychiatric Psychiatric: Denies anxiety or depression Hematologic/Lymphatic Hematologic/Lymphatic: Denies anemia Vital Signs Vital Signs Vital Signs: 03/16/21 10:37 Temperature 97.2 F L Temperature Source Temporal Pulse Rate 100 Respiratory Rate 16 Blood Pressure 124/77 H Blood Pressure Mean 92 Pulse Ox 96 Oxygen Delivery Method Room Air Weight Weight: 253 lb 8.505 oz Body Mass Index (BMI) 38.5 Physical Exam Const alert, oriented x3 and no apparent distress General Appearance: cooperative HEENT normocephalic, head/scalp atraumatic, hearing grossly normal bilaterally and moist oral mucous membranes Eyes PERRL, EOMs intact bilaterally and conjunctivae normal Neck no lymphadenopathy Resp normal respiratory effort, no retractions, no use of accessory muscles and clear to auscultation bilaterally Cardio regular rate, regular rhythm, S1 normal heart sound, S2 normal heart sound and no murmurs GI normal to inspection, nondistended, normoactive bowel sounds, soft to palpation, non-tender and non-distended Extremity normal to inspection, full ROM and no clubbing, cyanosis or edema Peripheral Pulses: Yes pulses 2+ throughout Skin no rashes or lesions noted Neuro oriented x3, CN's II-XII intact bilaterally and moves all extremities Sensorium / Orientation: awake and alert Psych affect normal Results Lab / Micro Data Result Diagrams: 03/16/21 11:01 03/16/21 11:01 Labs: Laboratory Results - last 24 hr 03/16/21 11:01: WBC 6.0, RBC 4.87, Hgb 14.7, Hct 42.9, MCV 88.1, MCH 30.2, MCHC 34.3, RDW Std Deviation 38.0, RDW Coeff of Anselmo 11.8, Plt Count 200, MPV 10.0, Immature Gran % (Auto) 0.500, Neut % (Auto) 64.7, Lymph % (Auto) 22.1, [place] % (Auto) 8.1, Eos % (Auto) 3.8, Baso % (Auto) 0.8, Absolute Neuts (auto) 3.9, Absolute Lymphs (auto) 1.33, Nucleated RBC % 0 03/16/21 11:01: Sodium 131 L, Potassium 3.7, Chloride 95 L, Carbon Dioxide 27.0, Anion Gap 9, BUN 9, Creatinine 0.78, Estim Creat Clear Calc 97.44, Est GFR (MDRD) Af Amer 130, Est GFR (MDRD) Non-Af 108, BUN/Creatinine Ratio 11.5, Glucose 159 H, Calcium 8.6, Total Bilirubin 0.40, AST 35, ALT 43, Alkaline Phosphatase 88, Total Protein 7.3, Albumin 3.7, Globulin 3.6, Albumin/Globulin Ratio 1.0 03/16/21 11:01: Ethyl Alcohol 339.0 H* Assessment & Plan Assessment/Plan (1) Alcohol intoxication: (2) Hyponatremia: PLAN: #Acute alcohol withdrawal * admit to med surg * start on alcohol withdrawal protocol with phenobarbital * monitor CIWA score * ancillary meds for supportive therapy * thiamine, folic acid and multivites. * #Hyponatremia: Sodium is 131. Has a history of chronic episodic hyponatremia, likely due to alcohol abuse. WIll monitor #Type 2 diabetes mellitus * on dulaglutide and glimepiride as well as lisinopril * ISS. Accuchecks ACHS * #Hypertension: on amlodipine and lisinopril. DVT prophylaxis: SCDs Charges/Coding Visit Charges Inpatient E&M: 08872 Init Hosp L3
--- NOTE | 2021-03-16 13:15 | NURSING ---
DR AUGUSTIN FOR ER DOC
--- NOTE | 2021-03-16 13:22 | NURSING ---
216 RUDY DETOX FROM ALCOHOL
[2021-03-16 13:31] VITALS: BP 128/76; PULSE 95; RESP 18; TEMP 36.6; O2SAT 98
[2021-03-16 14:25] VITALS: BMI 37.7
--- NOTE | 2021-03-16 14:45 | PCS.PANDOC ---
PANDEMIC DOCUMENTATION INITIATED: Date: 03/16/2021 Time: 8675
[2021-03-16 15:45] VITALS: BP 139/88; PULSE 102; RESP 16; TEMP 36.6; O2SAT 96
[2021-03-16] MEDS: hydrOXYzine PAM 25 MG Capsule 50 MG PO (16:30)
[2021-03-16] MEDS: Phenobarbital 32.4 MG Tablet 64.8 MG PO ×2 (16:30→20:57)
[2021-03-16] MEDS: metFORMIN HCl 850 MG Tablet PO (16:30)
[2021-03-16] MEDS: Glimepiride 2 MG Tablet PO (16:30)
[2021-03-16 16:41] LABS: Bedside Glucose 106 mg/dL (70-110)
[2021-03-16 20:53] VITALS: BP 152/84; PULSE 118; RESP 18; TEMP 36.9; O2SAT 95
[2021-03-16] MEDS: Acetaminophen 325 MG Tablet 650 MG PO (21:01)
[2021-03-16] MEDS: Gabapentin 300 MG Capsule PO (21:01)
[2021-03-16] MEDS: Insulin NPH Human 100 UNITS/ML PEN 10 UNITS SC (21:02)
[2021-03-16] MEDS: Insulin Lispro 100 UNIT/ML INSULN.PEN SC (21:03)
[2021-03-16 21:11] LABS: Bedside Glucose 180 mg/dL (70-110)
[2021-03-17] VITALS (7 sets, daily range): BP systolic 135–166; BP diastolic 79–106; PULSE 90–116; RESP 14–18; TEMP 36.4–37; O2SAT 96–98
[2021-03-17] MEDS: Phenobarbital 32.4 MG Tablet 64.8 MG PO ×6 (00:43→21:44)
[2021-03-17 04:56] LABS: Bedside Glucose 136 mg/dL (70-110)
[2021-03-17] MEDS: amLODIPine 5 MG Tablet PO (07:59)
[2021-03-17] MEDS: Thiamine Hydrochloride 100 MG Tablet PO (07:59)
[2021-03-17] MEDS: Gabapentin 300 MG Capsule PO (07:59)
[2021-03-17] MEDS: Glimepiride 2 MG Tablet PO ×2 (07:59→16:12)
[2021-03-17] MEDS: Folic Acid 1 MG Tablet PO (07:59)
[2021-03-17] MEDS: Lisinopril 20 MG Tablet PO (08:00)
[2021-03-17] MEDS: FLUoxetine 20 MG Capsule PO (08:00)
[2021-03-17] MEDS: Multivitamins,Therapeutic Tablet 1 TABLET PO (08:00)
[2021-03-17] MEDS: Pantoprazole Sodium 40 MG Tablet PO (08:00)
[2021-03-17] MEDS: metFORMIN HCl 850 MG Tablet PO ×2 (08:38→16:12)
--- NOTE | 2021-03-17 10:36 | ADDICTION ---
This sign writer hand met with PT to conduct ASAM, MSE, AUDIT assessments and to plan for d/c. PT A+Ox4 and participated actively. All assessments completed, faxed to [facility] and placed in PT's chart. PT plans to f/u with individual counselor at [facility] for follow-up counseling services. PT did not indicate a need for transportation post d/c from [facility].
--- NOTE | 2021-03-17 11:19 | PN.HOSP_ITS ---
Subjective Subjective Patient seen and examined. He had no complaints and had an uneventful night. Review of systems otherwise negative. Objective Data Objective Data Vital Signs: Vital Signs Temp Pulse Resp BP Pulse Ox 98.4 F 95 16 166/106 H 97 03/17/21 07:55 03/17/21 07:55 03/17/21 07:55 03/17/21 07:55 03/17/21 07:55 Oxygen Delivery Method Room Air Weight: 248 lb 0.321 oz Body Mass Index (BMI) 37.7 Intake & Output: Intake and Output for Last 24 Hours 03/15/21 03/16/21 03/17/21 23:59 23:59 23:59 Intake Total 400 / 400 Balance 400 / 400 Lab / Micro Data Result Diagrams: 03/16/21 11:01 03/16/21 11:01 Labs: Laboratory Results - last 24 hr 03/16/21 11:01: WBC 6.0, RBC 4.87, Hgb 14.7, Hct 42.9, MCV 88.1, MCH 30.2, MCHC 34.3, RDW Std Deviation 38.0, RDW Coeff of Anselmo 11.8, Plt Count 200, MPV 10.0, Immature Gran % (Auto) 0.500, Neut % (Auto) 64.7, Lymph % (Auto) 22.1, [place] % (Auto) 8.1, Eos % (Auto) 3.8, Baso % (Auto) 0.8, Absolute Neuts (auto) 3.9, Absolute Lymphs (auto) 1.33, Nucleated RBC % 0 03/16/21 11:01: Sodium 131 L, Potassium 3.7, Chloride 95 L, Carbon Dioxide 27.0, Anion Gap 9, BUN 9, Creatinine 0.78, Estim Creat Clear Calc 97.44, Est GFR (MDRD) Af Amer 130, Est GFR (MDRD) Non-Af 108, BUN/Creatinine Ratio 11.5, Glucose 159 H, Calcium 8.6, Total Bilirubin 0.40, AST 35, ALT 43, Alkaline Phosphatase 88, Total Protein 7.3, Albumin 3.7, Globulin 3.6, Albumin/Globulin Ratio 1.0 03/16/21 11:01: Ethyl Alcohol 339.0 H* 03/16/21 16:33: POC Glucose 106 03/16/21 20:56: POC Glucose 180 H 03/17/21 04:43: POC Glucose 136 H Physical Exam Const alert, oriented x3 and no apparent distress General Appearance: cooperative Exam Limitations: no limitations HEENT normocephalic, head/scalp atraumatic, hearing grossly normal bilaterally and susanne st oral mucous membranes Head and Scalp: normocephalic Eyes PERRL, EOMs intact bilaterally and conjunctivae normal Neck no lymphadenopathy Resp normal respiratory effort, no retractions, no use of accessory muscles and clear to auscultation bilaterally Cardio regular rate, regular rhythm, S1 normal heart sound, S2 normal heart sound and no murmurs GI normal to inspection, nondistended, normoactive bowel sounds, soft to palpation, non-tender and non-distended Extremity normal to inspection, full ROM and no clubbing, cyanosis or edema Peripheral Pulses: Yes pulses 2+ throughout Skin no rashes or lesions noted Neuro oriented x3, CN's II-XII intact bilaterally and moves all extremities Sensorium / Orientation: awake and alert Psych affect normal Assessment & Plan Assessment/Plan (1) Alcohol intoxication: (2) Hyponatremia: PLAN: #Acute alcohol withdrawal * on alcohol withdrawal protocol with phenobarbital. * monitor CIWA score * ancillary meds for supportive therapy * thiamine, folic acid and multivites. * #Hyponatremia: stable. Will monitor. BMP is pending today. #Type 2 diabetes mellitus * on dulaglutide and glimepiride as well as lisinopril * ISS. Accuchecks ACHS * #Hypertension: on amlodipine and lisinopril. DVT prophylaxis: SCDs Charges/Coding Visit Charges Inpatient E&M: 23430 Subs Hosp L2
[2021-03-17] MEDS: Insulin Lispro 100 UNIT/ML INSULN.PEN SC ×3 (11:40→22:30)
[2021-03-17] MEDS: Insulin NPH Human 100 UNITS/ML PEN 10 UNITS SC ×2 (11:41→22:30)
[2021-03-17] MEDS: hydrOXYzine PAM 25 MG Capsule 50 MG PO ×2 (11:42→16:12)
[2021-03-17] MEDS: Acetaminophen 325 MG Tablet 650 MG PO (11:42)
[2021-03-17 12:01] LABS: Bedside Glucose 260 mg/dL (70-110)
[2021-03-17 13:12] LABS: Anion Gap 6 (5-15); BUN 16 mg/dL (7-18); BUN/Creat Ratio 16.7 RATIO (10-20); Calcium,Total 9.3 mg/dL (8.5-10.1); Chloride 99 mmol/L (98-107); Creatinine, Serum 0.96 mg/dL (0.70-1.30); EST Glomerular Filtration Rate 85 mL/min (>60); Est Glom Filt Rate - Afr Amer 103 mL/min (>60); Estimated Creatinine Clearance 79.17 ml/min; Glucose 175 mg/dL (74-106); Potassium 4.1 mmol/L (3.5-5.1); Sodium Level 133 mmol/L (136-145)
[2021-03-17 16:51] LABS: Bedside Glucose 151 mg/dL (70-110)
[2021-03-17 22:45] LABS: Bedside Glucose 179 mg/dL (70-110)
[2021-03-18] MEDS: Phenobarbital 32.4 MG Tablet 64.8 MG PO ×7 (00:35→23:09)
[2021-03-18 03:54] VITALS: BP 113/85; PULSE 81; RESP 16; TEMP 36.6; O2SAT 99
[2021-03-18 07:26] LABS: Bedside Glucose 128 mg/dL (70-110)
[2021-03-18 08:15] VITALS: BP 140/70; PULSE 70; RESP 18; TEMP 36.4; O2SAT 96
[2021-03-18] MEDS: Glimepiride 2 MG Tablet PO ×2 (09:11→16:51)
[2021-03-18] MEDS: FLUoxetine 20 MG Capsule PO (09:11)
[2021-03-18] MEDS: Multivitamins,Therapeutic Tablet 1 TABLET PO (09:11)
[2021-03-18] MEDS: Folic Acid 1 MG Tablet PO (09:11)
[2021-03-18] MEDS: Lisinopril 20 MG Tablet PO ×2 (09:11)
[2021-03-18] MEDS: metFORMIN HCl 850 MG Tablet PO ×2 (09:12→16:51)
[2021-03-18] MEDS: Thiamine Hydrochloride 100 MG Tablet PO (09:13)
[2021-03-18] MEDS: amLODIPine 5 MG Tablet PO (09:13)
[2021-03-18] MEDS: Pantoprazole Sodium 40 MG Tablet PO (09:14)
[2021-03-18] MEDS: Acetaminophen 325 MG Tablet 650 MG PO ×2 (09:21→16:56)
[2021-03-18] MEDS: hydrOXYzine PAM 25 MG Capsule 50 MG PO (09:22)
[2021-03-18 11:26] LABS: Bedside Glucose 147 mg/dL (70-110)
[2021-03-18] MEDS: Insulin NPH Human 100 UNITS/ML PEN 10 UNITS SC ×2 (11:28→21:35)
--- NOTE | 2021-03-18 11:40 | PN.HOSP_ITS ---
Subjective Subjective Patient seen and examined. He had no active complaints. Review of symptoms otherwise negative. Objective Data Objective Data Vital Signs: Vital Signs Temp Pulse Resp BP Pulse Ox 97.8 F 81 16 113/85 H 99 03/18/21 03:54 03/18/21 03:54 03/18/21 03:54 03/18/21 03:54 03/18/21 03:54 Oxygen Delivery Method Room Air Weight: 248 lb 0.321 oz Body Mass Index (BMI) 37.7 Intake & Output: Intake and Output for Last 24 Hours 03/16/21 03/17/21 03/18/21 23:59 23:59 23:59 Intake Total 400 / 400 800 / 800 Balance 400 / 400 800 / 800 Lab / Micro Data Result Diagrams: 03/16/21 11:01 03/17/21 12:19 Labs: Laboratory Results - last 24 hr 03/17/21 11:39: POC Glucose 260 H 03/17/21 12:19: Sodium 133 L, Potassium 4.1, Chloride 99, Carbon Dioxide 28.0, Anion Gap 6, BUN 16, Creatinine 0.96, Estim Creat Clear Calc 79.17, Est GFR (MDRD) Af Amer 103, Est GFR (MDRD) Non-Af 85, BUN/Creatinine Ratio 16.7, Glucose 175 H, Calcium 9.3 03/17/21 16:15: POC Glucose 151 H 03/17/21 22:29: POC Glucose 179 H 03/18/21 07:06: POC Glucose 128 H 03/18/21 11:22: POC Glucose 147 H Physical Exam Const alert, oriented x3 and no apparent distress General Appearance: cooperative Exam Limitations: no limitations HEENT normocephalic, head/scalp atraumatic, hearing grossly normal bilaterally and moist oral mucous membranes Head and Scalp: normocephalic Eyes PERRL, EOMs intact bilaterally and conjunctivae normal Neck no lymphadenopathy Resp normal respiratory effort, no retractions, no use of accessory muscles and clear to auscultation bilaterally Cardio regular rate, regular rhythm, S1 normal heart sound, S2 normal heart sound and no murmurs GI normal to inspection, nondistended, normoactive bowel sounds, soft to palpation, non-tender and non-distended Extremity normal to inspection, full ROM and no clubbing, cyanosis or edema Peripheral Pulses: Yes pulses 2+ throughout Skin no rashes or lesions noted Neuro oriented x3, CN's II-XII intact bilaterally and moves all extremities Sensorium / Orientation: awake and alert Psych affect normal Assessment & Plan Assessment/Plan (1) Alcohol intoxication: (2) Hyponatremia: PLAN: #Acute alcohol withdrawal * on alcohol withdrawal protocol with phenobarbital. * monitor CIWA score * ancillary meds for supportive therapy * thiamine, folic acid and multivites. * #Hyponatremia: stable. Will monitor. BMP is pending today. #Type 2 diabetes mellitus * on dulaglutide and glimepiride as well as lisinopril * ISS. Accuchecks ACHS * #Hypertension: on amlodipine and lisinopril. DVT prophylaxis: SCDs for dc home tomorrow Charges/Coding Visit Charges Inpatient E&M: 93617 Subs Hosp L2
[2021-03-18 16:04] VITALS: BP 145/92; PULSE 101; RESP 18; TEMP 36.4; O2SAT 97
[2021-03-18 17:26] LABS: Bedside Glucose 124 mg/dL (70-110)
[2021-03-18 19:35] VITALS: BP 124/73; PULSE 89; RESP 16; TEMP 36.7; O2SAT 97
[2021-03-18 22:00] LABS: Bedside Glucose 122 mg/dL (70-110)
[2021-03-19 05:13] VITALS: BP 129/73; PULSE 82; RESP 16; TEMP 36.6; O2SAT 99
[2021-03-19] MEDS: Phenobarbital 32.4 MG Tablet 64.8 MG PO ×2 (05:16→12:01)
[2021-03-19 05:26] LABS: Bedside Glucose 92 mg/dL (70-110)
--- NOTE | 2021-03-19 09:52 | PCM.DC.SUM ---
Providers Date of Admission: 03/16/21 Primary Care Physician: Dr. Hima Bagley MD Reason For Visit: ACUTE ALCOHOL WITHDRAWAL Diagnosis Discharge Diagnosis (1) Alcohol intoxication: Status: Acute Code(s): F10.929 - Alcohol use, unspecified with intoxication, unspecified (2) Hyponatremia: Status: Acute Code(s): E87.1 - Hypo-osmolality and hyponatremia Medications at Discharge Home Medications metformin 750 mg PO DAILY 10/23/16 pantoprazole 40 mg PO DAILY 10/23/16 amlodipine 5 mg PO DAILY #30 tab 10/01/18 dulaglutide 1.5 mg SC BAILEY 04/01/20 fluoxetine 20 mg PO DAILY 04/01/20 glimepiride 2 mg PO BID 04/01/20 Novolin N Flexpen 10 unit SUBCUT BID 02/14/21 lisinopril 20 mg PO DAILY 02/14/21 multivitamin 1 tab PO DAILY #1 tab 02/15/21 Hospital Course Operations None Procedures None Summary of Care Provided Minutes Spent on Discharge: 45 Hospital Course: Patient is a 60-year-old male with a past medical history as outlined was admitted through the ED on 03/16/2021 for acute alcohol withdrawal. He admitted to drinking about 12 beers daily, and says he has been trying to quit drinking several times. He was in for detox 2-3 months ago. His last drink was ~ 3 to 4 hours prior to presentation. He denies any tremors, shakes or any symptoms of withdrawal. VItals were blood pressure 1 24/77, pulse rate of 100 initiate rate of 60 and a has temperature was 97.2 Fahrenheit. CBC was unremarkable and BMP was unremarkable as part from sodium of 131. Serum alcohol level was 339. He was admitted to manage for acute alcohol withdrawal. He was started on alcohol withdrawal protocol with phenobarbital. Patient tolerated 3-day detox process and did well. He was discharged on 03/19/2021 to follow-up with 180 on outpatient basis and also follow-up with his PCP in 1 to 2 weeks. Patient seen and examined prior to discharge. He had no active complaints and felt well. Review of systems otherwise negative. Labs and vitals reviewed. Home Medication reviewed and reconciled. Physical Exam Const alert, oriented x3 and no apparent distress General Appearance: cooperative Exam Limitations: no limitations HEENT normocephalic, head/scalp atraumatic, hearing grossly normal bilaterally and moist oral mucous membranes Eyes PERRL, EOMs intact bilaterally and conjunctivae normal Neck no lymphadenopathy Resp normal respiratory effort, no retractions, no use of accessory muscles and clear to auscultation bilaterally Cardio regular rate, regular rhythm, S1 normal heart sound, S2 normal heart sound and no murmurs GI normal to inspection, nondistended, normoactive bowel sounds, soft to palpation, non-tender and non-distended Extremity normal to inspection, full ROM and no clubbing, cyanosis or edema Skin no rashes or lesions noted Neuro oriented x3, CN's II-XII intact bilaterally and moves all extremities Sensorium / Orientation: awake and alert Psych affect normal Weight / BMI Weight Weight: 248 lb 0.321 oz Body Mass Index (BMI) 37.7 ABG / Lab / Microbiology Data Result Diagrams: 03/16/21 11:01 03/17/21 12:19 Laboratory: Laboratory Results - last 24 hr 03/18/21 11:22: POC Glucose 147 H 03/18/21 16:49: POC Glucose 124 H 03/18/21 21:33: POC Glucose 122 H 03/19/21 05:17: POC Glucose 92 D/C Instructions Discharge Diet: Low fat / Low cholesterol Discharge Activity: Return to Normal Activity Weight Bearing Status: Weight bearing as tolerated Call your doctor if you observe: Fever of 101 or Higher, Shortness of breath, Swelling in the ankles and Increased palpitations (irregular heartbeat) Meaningful Use Info Meaningful Use Diagnoses (Choose all that apply): None applicable Discharge Plan Admission Admit Date/Time: 03/16/21 13:21 Primary Reason for Your Visit: acute alcohol withdrawal Attending Provider: Sonja Hudson Primary Care Provider: Hima Bagley Instructions Patient Instructions: Alcohol Addiction, Addiction: Getting Help, Addiction Recovery Counseling Discharge Orders/Prescriptions Prescriptions: Continued pantoprazole 20 MG tablet 40 mg PO DAILY RF: 0 metformin 750 MG tablet extended release 24 hr 750 mg PO DAILY RF: 0 amlodipine 5 MG tablet 5 mg PO DAILY Qty: 30 RF: 0 dulaglutide 1.5 MG/0.5 ML pen injector 1.5 mg SC BAILEY RF: 0 glimepiride 2 MG tablet 2 mg PO BID RF: 0 fluoxetine 20 MG capsule 20 mg PO DAILY RF: 0 lisinopril 20 MG tablet 20 mg PO DAILY RF: 0 Novolin N Flexpen 100 unit/mL (3 mL) insulin pen 10 unit SUBCUT BID RF: 0 multivitamin Tablet 1 tab PO DAILY Qty: 1 RF: 0 Referrals / Follow Up: Hima Bagley MD [Primary Care Provider] - Within 2 Weeks Disposition Disposition (needs filled in before D/C Order can be placed): Home, Self Care Charges/Coding Visit Charges Inpatient E&M: 48188 Disch Hosp
[2021-03-19] MEDS: Glimepiride 2 MG Tablet PO (10:11)
[2021-03-19] MEDS: Pantoprazole Sodium 40 MG Tablet PO (10:11)
[2021-03-19] MEDS: metFORMIN HCl 850 MG Tablet PO (10:11)
[2021-03-19] MEDS: amLODIPine 5 MG Tablet PO (10:12)
[2021-03-19] MEDS: Thiamine Hydrochloride 100 MG Tablet PO (10:12)
[2021-03-19] MEDS: Folic Acid 1 MG Tablet PO (10:12)
[2021-03-19] MEDS: FLUoxetine 20 MG Capsule PO (10:13)
[2021-03-19] MEDS: Insulin NPH Human 100 UNITS/ML PEN 10 UNITS SC (10:15)
[2021-03-19] MEDS: hydrOXYzine PAM 25 MG Capsule 50 MG PO (10:25)
[2021-03-19 11:18] VITALS: BP 137/84; PULSE 103; RESP 18; TEMP 36.8; O2SAT 97
[2021-03-19] MEDS: Insulin Lispro 100 UNIT/ML INSULN.PEN SC (12:01)
[2021-03-19 12:16] LABS: Bedside Glucose 179 mg/dL (70-110)
== END 2021-03-19 12:28 | disposition home or self-care (01) | DRG 897 ==
LOC: ED 13:17 → MS2 13:24
PROVIDERS: Admitting Provider Student in an Organized Health Care Education/Training Program; Emergency Provider Emergency Medicine; PCP Family Medicine; Visit Provider Student in an Organized Health Care Education/Training Program
DX: F10.229 Alcohol dependence with intoxication, unspecified (principal); E87.1 Hypo-osmolality and hyponatremia; F10.239 Alcohol dependence with withdrawal, unspecified; E11.9 Type 2 diabetes mellitus without complications; Y90.8 Blood alcohol level of 240 mg/100 ml or more; K21.9 Gastro-esophageal reflux disease without esophagitis; I10 Essential (primary) hypertension; E66.9 Obesity, unspecified; Z87.891 Personal history of nicotine dependence; Z79.84 Long term (current) use of oral hypoglycemic drugs; Z79.899 Other long term (current) drug therapy; Z68.38 Body mass index [BMI] 38.0-38.9, adult
CPT/HCPCS: 80048; 80053; 82077; 82962; 85025; 99284; A4216